=== PATIENT | female | born 1965 | race Caucasian/White ===

== ENCOUNTER → 2019-09-26 12:48 | Outpatient (BNVA) | payer BC, SELFPAY | PROVIDERS: Family Provider Internal Medicine; PCP Internal Medicine; Visit Provider Nurse Practitioner Psychiatric/Mental Health | DX: F33.41 Major depressive disorder, recurrent, in partial remission (principal); F41.1 Generalized anxiety disorder | CPT/HCPCS: 99213 ==

== ENCOUNTER → 2019-12-17 08:32 | Outpatient (BNVA) | payer BC, SELFPAY | PROVIDERS: Family Provider Internal Medicine; PCP Internal Medicine; Visit Provider Nurse Practitioner Psychiatric/Mental Health | DX: F33.41 Major depressive disorder, recurrent, in partial remission (principal); F41.1 Generalized anxiety disorder | CPT/HCPCS: 99213 ==

== ENCOUNTER → 2020-04-14 07:51 | Outpatient (BNVA) | payer BC, SELFPAY | PROVIDERS: Family Provider Internal Medicine; PCP Internal Medicine; Visit Provider Nurse Practitioner Psychiatric/Mental Health | DX: Z63.79 Other stressful life events affecting family and household (principal); F33.41 Major depressive disorder, recurrent, in partial remission; F41.1 Generalized anxiety disorder | CPT/HCPCS: 99213 ==

== ENCOUNTER 2020-07-01 11:11 | Outpatient (CLI) | payer BC, SELFPAY ==
--- NOTE | 2020-07-01 11:16 | XR_ITS ---
WS: [id number] Exam: XR chest 2V* [id number] Date/Time of Exam: 07/01/2020 11:27 AM Reason For Exam: COUGH Comparison 11/27/2015. The lungs are clear and fully expanded. Normal cardiomediastinal structures and regional bony element s. Operative fusion of the lower cervical spine with plate and screw fixation. XR/XR chest 2V* [id number] IMPRESSION: 1. No acute cardiopulmonary finding. No change.
== END 2020-07-01 11:12 | disposition home or self-care (01) ==
PROVIDERS: PCP Nurse Practitioner Family; Visit Provider Nurse Practitioner Family
DX: R05 Cough (principal)
CPT/HCPCS: 71046

== ENCOUNTER 2020-07-05 05:09 | Emergency (ER) | payer BC, SELFPAY ==
[2020-07-05 05:33] VITALS: BP 126/85; PULSE 77; RESP 16; TEMP 36.7; O2SAT 97; BMI 48.2
--- NOTE | 2020-07-05 05:59 | XRR_ITS ---
PROCEDURE INFORMATION: Exam: XR Chest, 1 View Exam date and time: 07/05/2020 6:00 AM Age: 54 years old Clinical indication: Cough TECHNIQUE: Imaging protocol: XR of the chest Views: 1 view. COMPARISON: CR XR chest 2V* [id number] 07/01/2020 11:31 AM FINDINGS: Lungs: Bra in place, therefore the interval haziness over the left lateral lung base strongly suspected to be due to overlapping breast tissue. No interval disease elsewhere in the lungs. Very small calcified granuloma in the lateral right upper lobe again evident. Pleural space: No pneumothorax or suggestion of pleural fluid. Heart/Mediastinum: Still no cardiomegaly. Bones/joints: Screw and plate fixation device in the lower cervical spine again evident. No apparent acute fracture. Old left rib fracture and a right cervical rib still present. XR/XR chest 1V portable [id number] IMPRESSION: No acute findings.
--- NOTE | 2020-07-05 06:54 | W.ED.URI ---
HPI - URI/Sore Throat General: Chief Complaint: Upper Respiratory Infection Stated Complaint: uncontrollable cough Time Seen by Provider: 07/05/20 05:57 Source: patient Mode of arrival: ambulatory Limitations: no limitations History of Present Illness: HPI Narrative: Noreen is a very nice 54-year-old female comes in complaining of persistent cough, congestion and wheezing. Patient states that she has had the cough for 2 weeks and has taken a round of steroids as well as a Zithromax course. Her cough is dry nonproductive. She denies any fever. She denies any sore throat, loss of sense of taste or loss of sense of smell. Patient states that she just cannot quite get over the hump . Patient denies any chest pain, nausea or vomiting, diarrhea or new exposures to symptoms other than some in her home have her symptoms but not quite as severe. Patient otherwise denies any complaints or concerns. Associated symptoms: Deny abdominal pain, chills, chest pain, diarrhea, ear or mastoid pain, fever(s), headache(s), nausea or vomiting Review of Systems Const: Denies: fever(s), chills, body aches, fatigue, malaise or diaphoresis Eyes: Denies: change in vision, blurry vision, photophobia, eye discomfort, eye discharge, eye redness or yellow eyes ENMT: Denies: throat pain, odynophagia, hoarseness, swelling of lips/tongue, ear or mastoid pain, ear discharge, change in hearing or nasal discharge Card: Denies: chest pain, palpitations, irregular heart rhythm, edema, lightheadedness, syncope, pre-syncope, dyspnea on exertion or orthopnea Resp: Reports: non-productive cough and wheezing GI: Denies: abdominal pain, nausea, vomiting, hematemesis, coffee ground emesis, heartburn, diarrhea, constipation, GI cramping, hematochezia or melena : Denies: flank pain, dysuria, urinary frequency, urinary urgency or hematuria Musc: Denies: neck pain, back pain, extremity pain, extremity swelling, joint pain, joint swelling, joint redness, joint warmth or joint stiffness Skin/Breast: Denies: rash, pruritus, erythema, skin pain or skin tenderness Neuro: Denies: headache(s), numbness in extremities, weakness in extremities, sensory changes, lack of coordination, difficulty walking, dizziness, vertigo, confusion, Slurred speech present or seizure-like activity Cole/Lymph: Denies: easy bruising, easy bleeding, petechiae, purpura or enlarged lymph nodes All/Imm: Denies: urticaria, throat swelling, tongue swelling, facial swelling or acute wheezing PFSH ED PFSH: Medical History Generalized anxiety disorder Major depressive disorder, recurrent, in partial remission Other stressful life events affecting family and household 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 Social History Smoking and tobacco status: former smoker Physical Exam Const: COMMON NORMALS: no acute distress, patient oriented x3, no limitations and alert GENERAL APPEARANCE: cooperative HENMT: COMMON NORMALS: normocephalic, atraumatic, external ears normal, EAC's normal and Normal external nose present HEAD & SCALP: normal to inspection, normocephalic and atraumatic FACE & SINUS: normal facial exam and face symmetric NOSE: Normal external nose present and Normal nares present EXTERNAL EAR: Yes external ears normal EXTERNAL AUDITORY CANAL: EAC's normal MOUTH: Normal oral and palatal mucosa present, lip normal and tongue normal Eye: COMMON NORMALS: Equal, round and reactive pupils present and conjunctivae normal GENERAL EYE: appearance normal, both eyes and all related structures ALIGNMENT: Yes alignment normal PERIORBITAL: periorbital findings normal EYELID: eyelids normal CONJUNCTIVA: Yes conjunctivae normal SCLERA: sclerae normal PUPIL: Yes Equal, round and reactive pupils present Neck/C-Spine: COMMON NORMALS: full ROM, no lymphadenopathy, supple, no meningeal signs and no JVD GENERAL: Yes normal visual inspection and Yes trachea midline Chest: COMMONS NORMALS: normal inspection of the chest and normal palpation of entire chest wall Resp: COMMON NORMALS: normal respiratory effort, No retractions and No use of accessory muscles EFFORT & INSPECTION: Yes able to speak in complete sentences and Yes symmetric chest movement AUSCULTATION: no crackles, no rales, rhonchi and no wheezes Cardio: COMMON NORMALS: no JVD, regular rate, regular rhythm, S1 normal heart sound present and S2 normal heart sound present RATE: regular rate RHYTHM: regular rhythm HEART SOUNDS: S1 normal heart sound present, S2 normal heart sound present, no click, no gallops, no murmurs and no rubs GI: COMMON NORMALS: Soft to palpation and No hepatosplenomegaly present PALPATION: Yes Soft to palpation, No Tenderness to palpation present (GI), No Guarding due to palpation present (GI), No Rigid due to palpation, Yes No hepatosplenomegaly present, No Hernia present, No Palpable mass present and No Pulsatile mass present : COMMON NORMALS: Yes no CVA tenderness BLADDER/KIDNEY EXAM: Yes no CVA tenderness EXTERNAL FEMALE EXAM: No Hernia present Back/Pelvis: COMMON NORMALS: no CVA tenderness, thoracic and lumbar spine normal to inspection, no thoracic nor lumbar tenderness and thoraco-lumbar ROM normal Extremity: COMMON NORMALS: normal to inspection, full ROM, capillary refill normal, no joint enlargement, no clubbing, cyanosis or edema and no calf tenderness Neuro: COMMON NORMALS: patient oriented x3, CN's II-XII intact bilaterally, moves all extremities, no focal motor deficits and no sensory deficits noted SENSORIUM/ORIENTATION: Yes alert MENINGEAL SIGNS: Yes no meningeal signs SPEECH: speech normal Psych: COMMON NORMALS: mental status grossly normal, Normal thought process present, cooperative, normal affect, speech normal and activity/motor behavior normal SPEECH: Yes normal speech THOUGHT PROCESS: Normal thought process present Skin: COMMON NORMALS: no rashes or lesions noted, turgor normal, no jaundice, no petechiae and no mottling GENERAL SKIN EXAM: no rashes or lesions noted and turgor normal Course Vital Signs: Vital signs: Vital Signs Temperature 98.0 F 07/05/20 05:33 Pulse Rate 73 07/05/20 07:15 Respiratory Rate 18 07/05/20 07:15 Blood Pressure 134/80 07/05/20 07:15 Pulse Oximetry 98 07/05/20 07:15 MDM - URI/Sore Throat MDM Narrative: Medical decision making narrative: Patient is relieved to hear she does not have Covid or influenza. She is in no respiratory distress. Her lung sounds are mildly rhonchorous at times. There is no evidence of pneumonia on her chest x-ray. She not having chest pain, shortness of breath all of her symptoms seem to be upper respiratory and bronchitis in nature. I will give the patient a dose of antibiotic here and send her home on antibiotics, steroids and Tessalon Perles for cough. She agrees to return should her symptoms change or worsen but this time she is ready for discharge. Lab Data: Attestation: I reviewed the patient's lab results. Labs: Lab Results 07/05/20 07/05/20 Range/Units 06:29 06:29 Influenza Type A A g Negative (Negative) Influenza Type B A g Negative (Negative) SARS-CoV-2 Ag (Rap id) Negative (Negative) Imaging Data^: CXR: Attestation: I personally reviewed and interpreted this imaging study as follows: My impression: No acute cardiopulmonary findings. Discharge Plan Discharge Patient Disposition: Home Clinical Impression: Bronchitis Condition: Stable Prescriptions: New Decadron 6 mg tablet 6 mg PO DAILY Qty: 10 RF: 0 cefdinir 300 mg capsule 300 mg PO Q12H 10 Days Qty: 20 RF: 0 Tessalon Perles 100 mg capsule 100 mg PO TID PRN (Reason: cough) Qty: 30 RF: 0 No Action clonazepam [Klonopin] 1 mg tablet 1 mg PO BID Qty: 60 RF: 3 melatonin 5 mg capsule 10 mg PO .bedtime PRN (Reason: sleep) Qty: 60 RF: 3 trazodone 150 mg tablet 150 mg PO .bedtime PRN (Reason: sleep) Qty: 60 RF: 3 Trintellix 20 mg tablet 20 mg PO .morning Qty: 30 RF: 3 Discharge Orders: Discharge Order (Routine); Ordered 07/05/20 Ordered By: Leonor Mcgill Referrals: Toño Huffman NP [Primary Care Provider] - 1-3 days Discharge Diet: Advance as tolerated Discharge Activity: Increase activity as tolerated Patient Instructions: Acute Bronchitis (ED) Activity Restrictions/Additional Instructions: Please return to the ER immediately for any of the signs or symptoms listed on your discharge instruction sheets, worsening/changing of your symptoms, you are not getting better as quickly as expected, or for ANY other cause or concerns. 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
[2020-07-05 07:15] VITALS: BP 134/80; PULSE 73; RESP 18; O2SAT 98
[2020-07-05 07:35] LABS: Influenza A by IFA Negative (Negative); Influenza B by IFA Negative (Negative); SARS Covid-2 Antigen Negative (Negative)
[2020-07-05] MEDS: cefTRIAXone 1,000 mg SDV 1000 MG IM (08:07)
[2020-07-05] MEDS: lidocaine 1% INJ 20 mL IM (08:07)
[2020-07-05 08:13] VITALS: BP 143/85; PULSE 73; RESP 18; TEMP 36.2; O2SAT 96
[2020-07-05 08:35] VITALS: PULSE 68; RESP 16; O2SAT 96
[2020-07-05] MEDS: albuterol 8 gm MDI 2 PUFF INHALATION (08:35)
[2020-07-05 08:40] VITALS: PULSE 74; RESP 16; O2SAT 96
== END 2020-07-05 08:45 | disposition home or self-care (01) ==
PROVIDERS: Emergency Provider Emergency Medicine; PCP Nurse Practitioner Family
DX: J40 Bronchitis, not specified as acute or chronic (principal); Z87.891 Personal history of nicotine dependence
CPT/HCPCS: 12345; 71045; 87426; 87804; 94640; 96372; 99281; 99283; J0696; J3535

== ENCOUNTER → 2020-08-25 07:36 | Outpatient (BNVA) | payer BC, SELFPAY | PROVIDERS: PCP Nurse Practitioner Family; Visit Provider Nurse Practitioner Psychiatric/Mental Health | DX: F33.41 Major depressive disorder, recurrent, in partial remission (principal); F41.1 Generalized anxiety disorder; Z63.79 Other stressful life events affecting family and household | CPT/HCPCS: 99213 ==

== ENCOUNTER 2021-02-26 15:52 | Emergency (ER) | payer BC, SELFPAY ==
[2021-02-26 16:25] VITALS: BP 134/82; PULSE 91; RESP 18; TEMP 36.9; O2SAT 95; BMI 50.6
--- NOTE | 2021-02-26 19:27 | ECG_ITS ---
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 Measurements Intervals [place] Rate: 83 P: 33 MI: 166 QRS: 1 QRSD: 89 T: -17 QT: 374 QTc: 441 Interpretive Statements SINUS RHYTHM LOW QRS VOLTAGE IN PRECORDIAL LEADS [QRS DEFLECTION < 1.0 mV IN CHEST LEADS] MINIMAL ST DEPRESSION [0.025+ mV ST DEPRESSION] No previous ECG available for comparison Electronically Signed On 02-26-2021 23:34:54 CDT by Tyron Adams M.D. [email or web address] ( [employer] ).[facility].[email or web address]/[id number]
--- NOTE | 2021-02-26 19:27 | XRR_ITS ---
PROCEDURE INFORMATION: Exam: XR Chest Exam date and time: 02/26/2021 7:27 PM Age: 55 years old Clinical indication: Pain; Patient HX: Chest pressure x several days, PT denies trauma to chest; Additional info: Cp TECHNIQUE: Imaging protocol: XR of the chest. Views: 1 view. COMPARISON: CR XR chest 1V portable [id number] 07/05/2020 6:15 AM FINDINGS: Lungs: Unremarkable. No consolidation. Pleural spaces: Unremarkable. No pleural effusion. No pneumothorax. Heart/Mediastinum: Unremarkable. No cardiomegaly. Bones/joints: Postoperative metallic fixation of the cervical spine with or without metallic artifact. XR/XR chest 1V portable [id number] IMPRESSION: No acute findings.
[2021-02-26 20:16] LABS: Basophils # 0.1 10^3/uL (0.0-0.1); Basophils % 0.5 %; Eosinophils # 0.2 10^3/uL (0.0-0.8); Eosinophils % 1.6 %; Hematocrit 43.2 % (37.0-47.0); Hemoglobin 13.6 g/dL (11.5-15.3); Lymphocytes # 2.9 10^3/uL (0.8-4.8); Lymphocytes % 29.7 %; Mean Corpuscular HGB Conc 31.5 g/dL (30.0-36.0); Mean Corpuscular Hemoglobin 28.2 pg (28.0-34.0); Mean Corpuscular Volume 89.4 fL (81-99); Mean Platelet Volume 10.7 fL (7.4-10.4); Monocytes # 0.7 10^3/uL (0.2-0.9); Monocytes % 7.2 %; Neutrophils # 5.93 10^3/uL (1.8-7.7); Neutrophils % 60.6 %; Nucleated Red Blood Cells % 0 %; Platelet Count 407 10^3/cmm (130-400); Red Blood Count 4.83 10^6/uL (4.1-5.3); Red Cell Distribution Width 14.7 % (12.1-15.1); White Blood Count 9.8 10^3/uL (4.0-10.0)
[2021-02-26 20:44] LABS: Troponin(5th) Baseline 6 ng/L (0-10)
[2021-02-26 20:47] LABS: Alanine Aminotransferase 20 U/L (0-33); Albumin Level 4.3 g/dL (3.5-5.2); Alkaline Phosphatase 116 IU/L (35-105); Anion Gap 15.4 (5-19); Aspartate Amino Transferase 16 U/L (0-32); Blood Urea Nitrogen 15 mg/dL (6-20); Calcium 8.7 mg/dL (8.5-10.5); Carbon Dioxide 27 mmol/L (22-29); Chloride 101 mmol/L (98-107); Globulin 2.5 g/dL (1.3-4.6); Glomerular Filtration Rate 74.2 mL/min (90-130); Glucose 91 mg/dL (65-115); Osmolality Calculated 288 mOsm/kg (285-295); Potassium 4.4 mmol/L (3.5-5.1); Sodium 139 mmol/L (136-145); Total Bilirubin 0.2 mg/dL (0.15-1.2); Total Protein 6.8 g/dL (6.6-8.7)
--- NOTE | 2021-02-26 22:02 | W.ED.GENADLT ---
HPI - General Adult General: Chief complaint: General Medical Stated complaint: chest tightness, trouble swallowing Time Seen by Provider: 02/26/21 22:02 History of Present Illness: HPI narrative: 55-year-old female comes in today with complaints of chest discomfort with swallowing. Patient reports some increased anxiety and stress in life. Patient also reports that she does use omeprazole routinely for reflux. Patient is alert and oriented. Patient appears well. Patient appears no acute distress. Patient reports discomfort for the last 2 days. 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 Social History Smoking and tobacco status: former smoker Physical Exam Const: COMMON NORMALS: no acute distress and patient oriented x3 GENERAL APPEARANCE: cooperative HENMT: COMMON NORMALS: normocephalic, TM's normal bilaterally and Normal external nose present HEAD & SCALP: normal to inspection and normocephalic NOSE: Normal external nose present TYMPANIC MEMBRANE: TM's normal bilaterally MOUTH: Normal oral and palatal mucosa present THROAT: posterior oropharynx normal Eye: GENERAL EYE: appearance normal, both eyes and all related structures Neck/C-Spine: COMMON NORMALS: full ROM Lymph: LYMPHATIC: no lymphadenopathy noted Chest: COMMONS NORMALS: normal inspection of the chest Resp: COMMON NORMALS: normal respiratory effort EFFORT & INSPECTION: Yes able to speak in complete sentences Cardio: COMMON NORMALS: regular rate and regular rhythm RATE: regular rate RHYTHM: regular rhythm GI: COMMON NORMALS: non-tender : COMMON NORMALS: Yes no CVA tenderness BLADDER/KIDNEY EXAM: Yes no CVA tenderness Back/Pelvis: COMMON NORMALS: no CVA tenderness and thoracic and lumbar spine normal to inspection Extremity: COMMON NORMALS: normal to inspection Neuro: COMMON NORMALS: patient oriented x3 and moves all extremities Psych: COMMON NORMALS: mental status grossly normal and cooperative Skin: COMMON NORMALS: no rashes or lesions noted GENERAL SKIN EXAM: no rashes or lesions noted Course Vital Signs: Vital signs: Vital Signs Temperature 98.4 F 02/26/21 16:25 Pulse Rate 79 02/26/21 22:14 Respiratory Rate 19 H 02/26/21 22:14 Blood Pressure 124/87 02/26/21 22:14 Pulse Oximetry 97 02/26/21 22:14 MDM - General Adult MDM Narrative: Medical decision making narrative: Patient comes in for concerns of chest discomfort for the last 2 days. Patient appears well. Patient appears no acute distress. Patient does report history of anxiety which he takes medicine for had worse symptoms over the last 2 days which was concerning due to her not having chest discomfort before with it. On exam patient lungs are clear to auscultation. Abdomen soft nontender. Skin is warm and dry. Differential diagnosis includes but not limited to ACS, anxiety disorder, esophagitis with GERD. Laboratory values were unremarkable. Troponin was negative. Patient was given a dose of Ativan and a GI cocktail. Patient had significant improvement of symptoms after treatment. Recommended patient continue for omeprazole and follow-up with primary care for further instructions. Patient reported understanding. Lab Data: Labs: Lab Results 02/26/21 02/26/21 02/26/21 Range/Units 19:49 19:49 19:49 WBC 9.8 (4.0-10.0) 10^3/ uL RBC 4.83 (4.1-5.3) 10^6/u L Hgb 13.6 (11.5-15.3) g/dL Hct 43.2 (37.0-47.0) % MCV 89.4 (81-99) fL MCH 28.2 (28.0-34.0) pg MCHC 31.5 (30.0-36.0) g/dL RDW 14.7 (12.1-15.1) % Plt Count 407 H (130-400) 10^3/c mm MPV 10.7 H (7.4-10.4) fL Neut % (Auto) 60.6 % Lymph % (Auto) 29.7 % Faulk % (Auto) 7.2 % Eos % (Auto) 1.6 % Baso % (Auto) 0.5 % Neut # (Auto) 5.93 (1.8-7.7) 10^3/u L Lymph # (Auto) 2.9 (0.8-4.8) 10^3/u L Faulk # (Auto) 0.7 (0.2-0.9) 10^3/u L Eos # (Auto) 0.2 (0.0-0.8) 10^3/u L Baso # (Auto) 0.1 (0.0-0.1) 10^3/u L Nucleated RBC % (a uto) 0 % Nucleated RBCs # 0.0 /100WBC Sodium 139 (136-145) mmol/L Potassium 4.4 (3.5-5.1) mmol/L Chloride 101 (98-107) mmol/L Carbon Dioxide 27 (22-29) mmol/L Anion Gap 15.4 (5-19) BUN 15 (6-20) mg/dL Creatinine 0.8 (0.5-0.9) mg/dL GFR Calculation 74.2 L (90-130) mL/min Glucose 91 (65-115) mg/dL Calculated Osmolal ity 288 (285-295) mOsm/k g Calcium 8.7 (8.5-10.5) mg/dL Total Bilirubin 0.2 (0.15-1.2) mg/dL AST 16 (0-32) U/L ALT 20 (0-33) U/L Alkaline Phosphata se 116 H (35-105) IU/L Troponin T Baselin e 6 (0-10) ng/L Troponin T 120 Min [place] (0-10) ng/L Delta Troponin T (0-10) ABS# Total Protein 6.8 (6.6-8.7) g/dL Albumin 4.3 (3.5-5.2) g/dL Globulin 2.5 (1.3-4.6) g/dL 02/26/21 Range/Units 22:19 WBC (4.0-10.0) 10^3/ uL RBC (4.1-5.3) 10^6/u L Hgb (11.5-15.3) g/dL Hct (37.0-47.0) % MCV (81-99) fL MCH (28.0-34.0) pg MCHC (30.0-36.0) g/dL RDW (12.1-15.1) % Plt Count (130-400) 10^3/c mm MPV (7.4-10.4) fL Neut % (Auto) % Lymph % (Auto) % Faulk % (Auto) % Eos % (Auto) % Baso % (Auto) % Neut # (Auto) (1.8-7.7) 10^3/u L Lymph # (Auto) (0.8-4.8) 10^3/u L Faulk # (Auto) (0.2-0.9) 10^3/u L Eos # (Auto) (0.0-0.8) 10^3/u L Baso # (Auto) (0.0-0.1) 10^3/u L Nucleated RBC % (a uto) % Nucleated RBCs # /100WBC Sodium (136-145) mmol/L Potassium (3.5-5.1) mmol/L Chloride (98-107) mmol/L Carbon Dioxide (22-29) mmol/L Anion Gap (5-19) BUN (6-20) mg/dL Creatinine (0.5-0.9) mg/dL GFR Calculation (90-130) mL/min Glucose (65-115) mg/dL Calculated Osmolal ity (285-295) mOsm/k g Calcium (8.5-10.5) mg/dL Total Bilirubin (0.15-1.2) mg/dL AST (0-32) U/L ALT (0-33) U/L Alkaline Phosphata se (35-105) IU/L Troponin T Baselin e (0-10) ng/L Troponin T 120 Min [place] 6.00 (0-10) ng/L Delta Troponin T 0 (0-10) ABS# Total Protein (6.6-8.7) g/dL Albumin (3.5-5.2) g/dL Globulin (1.3-4.6) g/dL Discharge Plan Discharge Patient Disposition: Home Clinical Impression: Atypical chest pain, Generalized anxiety disorder GERD (gastroesophageal reflux disease) Qualifiers: Esophagitis presence: esophagitis presence not specified Qualified Code(s): K21.9 - Gastro-esophageal reflux disease without esophagitis Condition: Stable Prescriptions: No Action trazodone 150 mg tablet 150 mg PO .bedtime PRN (Reason: sleep) Qty: 180 RF: 2 Trintellix 20 mg tablet 20 mg PO .morning Qty: 90 RF: 2 clonazepam [Klonopin] 1 mg tablet 1 mg PO BID Qty: 60 RF: 3 melatonin 5 mg capsule 10 mg PO .bedtime PRN (Reason: sleep) Qty: 60 RF: 3 Tessalon Perles 100 mg capsule 100 mg PO TID PRN (Reason: cough) Qty: 30 RF: 0 Discharge Orders: Discharge ED (Routine); Ordered 02/26/21 Ordered By: Héctor Gonzalez Referrals: Toño Huffman NP [Primary Care Provider] - Discharge Diet: Usual diet Discharge Activity: Increase activity as tolerated Patient Instructions: Chest Pain (ED), Opioid Safety Activity Restrictions/Additional Instructions: Home and rest. Drink plenty of fluids. Follow-up with primary care for further instruction. Return to the emergency department for new concerns or worsening symptoms. 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
[2021-02-26 22:14] VITALS: BP 124/87; PULSE 79; RESP 19; O2SAT 97
[2021-02-26] MEDS: LORazepam 2 mg/mL INJ 1 mL 1 MG IVP (22:32)
[2021-02-26] MEDS: lidocaine 2% viscous 15 ML, aluminum-mag hydrox-simethicon 30 ML, sucralfate oral liq 1 GM PO (22:32)
[2021-02-26 22:40] LABS: Troponin 5 2HR Delta 0 ABS# (0-10)
[2021-02-26 23:26] VITALS: BP 140/118; PULSE 73; RESP 18; O2SAT 96
[2021-02-26 23:27] VITALS: PULSE 80; RESP 18; O2SAT 97
== END 2021-02-26 23:29 | disposition home or self-care (01) ==
PROVIDERS: Emergency Medicine; Emergency Provider Nurse Practitioner Family; PCP Nurse Practitioner Family
DX: R07.89 Other chest pain (principal); F41.1 Generalized anxiety disorder; K21.9 Gastro-esophageal reflux disease without esophagitis; Z87.891 Personal history of nicotine dependence
CPT/HCPCS: 71045; 80053; 84484; 85025; 93005; 96374; 99284; J2060

== ENCOUNTER → 2021-04-02 15:06 | Outpatient (BNVA) | payer BC, SELFPAY | PROVIDERS: PCP Nurse Practitioner Family; Referring Provider Nurse Practitioner Family; Visit Provider Podiatrist Foot & Ankle Surgery | DX: M25.572 Pain in left ankle and joints of left foot (principal); M19.072 Primary osteoarthritis, left ankle and foot | CPT/HCPCS: 73610 ==

== ENCOUNTER → 2021-04-13 10:14 | Outpatient (BNVA) | payer BC, SELFPAY | PROVIDERS: PCP Nurse Practitioner Family; Visit Provider Podiatrist Foot & Ankle Surgery | DX: Z01.812 Encounter for preprocedural laboratory examination (principal); Z20.822 Contact with and (suspected) exposure to COVID-19 | CPT/HCPCS: 87635 ==

== ENCOUNTER → 2021-04-21 00:01 | Outpatient (BNVA) | payer BC, SELFPAY | PROVIDERS: PCP Nurse Practitioner Family; Visit Provider Podiatrist Foot & Ankle Surgery | DX: Z01.812 Encounter for preprocedural laboratory examination (principal); Z20.822 Contact with and (suspected) exposure to COVID-19 | CPT/HCPCS: 87635 ==

== ENCOUNTER 2021-04-24 07:49 | Day surgery (SDC) | payer BC, SELFPAY ==
[2021-04-22] MEDS: sodium chloride 0.9% 1,000 ML 30 ML IV (10:30)
[2021-04-23 12:43] VITALS: BMI 50.6
--- NOTE | 2021-04-24 | SCC_ITS ---
Procedure Done: Deep hardware removal left ankle CPT code 10953 1 second of fluoroscopic guidance, for a cumulative dose of 0.05mGy, was provided to Dr. Bush by the radiology department. C-arm images of the LEFT ankle were saved for the patient's permanent record. [facility]
--- NOTE | 2021-04-24 08:19 | ANES.PREANE2 ---
Pre-Anesthetic Assessment Pre-Anesthetic Assessment: Height/Weight: Height 1.63 m Weight 133.81 kg Preop Diagnosis: Painful hardware left ankle Proposed Procedure: Operation Date: 04/24/21 09:35 Proposed Procedures p Hardware Removal 45062 M25.579(Not Applicable) - JIMMY VanM Was Beta Renata taken within 24 hours: N/A Was Clonidine taken within 24 hours: N/A Social: Social History: No alcohol and No tobacco Exam: Pre-Anes Outpt Exam: alert, oriented x 3, clear to auscultation bilaterally and regular rate & rhythm Airway: Submandibular: WNL Cervical ROM: WNL MP: 2 Pulmonary: Pulmonary: None reported CV/HEM: CV/HEM: HTN : : None reported Hepatic: Hepatic: None reported GI: GI: GERD (Well controlled on meds) Metabolic: Metabolic: Morbid obesity and Thyroid Musc/skel: Musc/skel: None reported Neuropsych: Neuropsych: Depression Anesthetic Plan: ASA status: 3 Anesthesia: MAC PFSH Anesthesia PFSH: Medical History Generalized anxiety disorder Major depressive disorder, recurrent, in partial remission Other stressful life events affecting family and household Social History Smoking and tobacco status: never smoked Data Anesthesia Cardiac Studies: No Data to Display
[2021-04-24 08:23] VITALS: BP 118/95; PULSE 88; RESP 18; TEMP 36.2; O2SAT 100
--- NOTE | 2021-04-24 08:52 | P.HPUD_ITS ---
Surgery/Procedure H&P Update DATE OF PROCEDURE: April 24, 2021 DATE H&P PERFORMED: 04/02/21 H&P UPDATE INFORMATION: I have reviewed H&P completed within last 30 days, I have examined patient prior to procedure, No changes to prior documentation and [place] [facility] [place] indicated PREOP DIAGNOSIS: Painful hardware left ankle PLANNED PROCEDURE: Operation Date: 04/24/21 09:35 Proposed Procedures p Hardware Removal 05254 M25.579(Not Applicable) - Gabino Bush DPM
--- NOTE | 2021-04-24 09:04 | XR_ITS ---
WS: [id number] Left ankle, 3 views, 04/24/2021 Clinical Data: Postop hardware removal Comparison: Left ankle, 04/02/2021. Findings: The distal left lateral fibular plate and screws have been removed. There are subcutaneous surgical s taples adjacent to the operative site. The posterior plate on the tibia with screws remains the same. There is osteoarthritis of the ankle joint. XR/XR ankle LT min 3V* [id number] Impression: Removal of distal left lateral fibular plate and screws.
[2021-04-24] MEDS: lidocaine 1% INJ 20 mL INJECTION (09:15)
--- NOTE | 2021-04-24 09:50 | P.OP_ITS ---
Operative Report Date of procedure: April 24, 2021 Pre-op Diagnosis: Painful hardware left ankle Post-op diagnosis: same Post-op Findings: None Procedure Done: Deep hardware removal left ankle CPT code 61171 Implants: 2-0 Vicryl, 3-0 Vicryl, skin digna Specimens removed/disposition: 7 screws 1 plate left lateral malleolus Pathology: none sent Surgeon: Gabino Bush D.P.M. [employer] Planner: Darnell Anesthesia: MAC Estimated blood loss: Less than 5 mL Tourniquet time: 19 minutes IV fluids: None Urine output: None Complications: None Findings: None Condition: stable Disposition: PACU Brief History: Patient is a pleasant 55-year-old female sustaining left ankle fracture in 2016 and subsequent ORIF. She is now complaining of painful hardware that is prominent is painful to wear with shoes and boots on every day activities. She can feel sharp pain on the outside of her left ankle would like to have the hardware removed. I discussed risks versus benefits of surgery. Risks include pain, bleeding, numbness, infection, failure to remove hardware, hardware breakage, partial removal, failure to alleviate pain after hardware being removed. Patient is agreeable wishes to proceed. She has been n.p.o. since midnight, informed consent is signed, she is Covid negative, no guarantees written, expressed or implied. Procedure: Due to the lowUnder mild the patient was brought to the operating room and placed on the operating table in supine position. A timeout was performed. Anesthesia was then administered by the anesthesia service. Local anesthesia injected by myself in a V-block proximal to the incision left lateral ankle total of 30 cc of one-to-one mixture 1% lidocaine 0.5 sent Marcaine plain. Well-padded pneumatic tourniquet applied high calf to the left lower extremity. Left lower extremity was then scrubbed, prepped and draped utilizing normal aseptic technique. Left lower extremity was wrapped with an Esmarch bandage and the tourniquet inflated to 250 mmHg. Lateral ankle over the previous incision a 15 blade was utilized to make a linear longitudinal incision directly over the previous cicatrix. This was carried through skin and sharp and blunt dissection through subcutaneous tissue down to the level of hardware on the lateral malleolus/left fibula. Care was taken to retract and preserve neurovascular and tendinous structures. All bleeders were ligated and cauterized as necessary. A total of 7 screws removed from bone and the plate was removed past from operative field sent for cleansing this will be sent home with the patient. No remaining hardware at the lateral malleolus or left distal fibula. This was confirmed with fluoroscopy. No complications encountered. No hardware failure or breakage or bony complications. All rough edges were smoothed incision was flushed with saline solution and periosteum closed with 2-0 Vicryl, subcutaneous tissue closed with 3-0 Vicryl and skin closed with skin digna. Incision was dressed with Adaptic, sterile 4 x 4's, Kerlix and Remigio wrap. Postop shoe was applied. Patient tolerated procedure and anesthesia well. Tourniquet was deflated and a prompt hyperemic response is noted to the distal digits of the left foot. Following a period of postoperative monitoring she will be discharged home May increase activity slowly as tolerated was given discharge instructions and follow-up on discharge paperwork.
[2021-04-24 09:57] VITALS: BP 136/92; PULSE 90; RESP 17; TEMP 36.3; O2SAT 91
[2021-04-24 10:00] VITALS: BP 106/70; PULSE 85; RESP 16; O2SAT 92
[2021-04-24 10:05] VITALS: BP 115/92; PULSE 85; RESP 15; TEMP 36.4; O2SAT 93
[2021-04-24 10:18] VITALS: BP 118/88; PULSE 86; RESP 18; TEMP 36.4; O2SAT 93
[2021-04-24 10:30] VITALS: RESP 18; O2SAT 93
[2021-04-24] MEDS: oxyCODONE-APAP 10-325 mg Tablet 1 TAB PO (10:30)
--- NOTE | 2021-04-24 11:14 | ANE.PACU2 ---
Inpatient post-anesthesia follow up: Airway intact: Yes Vital signs: Temperature 97.6 F Pulse Rate 86 Respiratory Rate 18 Blood Pressure 118/88 Pulse Oximetry 93 Oxygen Delivery Me thod Room Air Oxygen Flow Rate Fraction of Inspir ed Oxygen Hydration adequate: Yes Nausea and vomiting: No Pain level: 1 Mental status: Baseline
== END 2021-04-24 10:45 | disposition home or self-care (01) ==
PROVIDERS: PCP Nurse Practitioner Family; Visit Provider Podiatrist Foot & Ankle Surgery
PROC: (CPT 20680; principal; 2021-04-24 09:25)
DX: T84.84XA Pain due to internal orthopedic prosthetic devices, implants and grafts, initial encounter (principal); I10 Essential (primary) hypertension; K21.9 Gastro-esophageal reflux disease without esophagitis; E66.01 Morbid (severe) obesity due to excess calories; Z68.43 Body mass index [BMI] 50.0-59.9, adult; F41.9 Anxiety disorder, unspecified; F33.9 Major depressive disorder, recurrent, unspecified
CPT/HCPCS: 20680; 73610; 76000; J0690; J2250; J2405; J2704; J3010; J3490; J7030

== ENCOUNTER 2021-05-03 09:03 | Emergency (ER) | payer BC, SELFPAY ==
[2021-05-03 09:09] VITALS: PULSE 89; RESP 20; TEMP 36.8; O2SAT 96; BMI 49.1
--- NOTE | 2021-05-03 09:23 | W.ED.ANXIETY ---
HPI - Anxiety General: Chief Complaint: Anxiety Stated Complaint: Reaction to Meds Time Seen by Provider: 05/03/21 09:04 Source: patient Mode of arrival: ambulatory Limitations: no limitations History of Present Illness: HPI narrative: 55-year-old female presents to the ER today for worsening anxiety. Patient has a long history of anxiety and sees a psychiatrist regularly. She has been on multiple medications in the past and reports Klonopin was the most successful at helping with her anxiety. Patient psychiatrist wanted to try some different things and tried Ativan which was ineffective and most recently patient has been on Valium. Patient reports the Valium does not seem to be working at all and actually is making things worse. She feels more tearful and has difficulty sleeping. Patient admits to stressors in life including a sick son and a mother who was recently placed in an Alzheimer's unit. Patient denies any SI/HI and reports having a good support system at home including her . Patient is here today for approval to restart her Klonopin which she still has at home. She did not want to self medicate and change something without approval. Patient denies headache, fever, chills, chest pain, shortness of breath, nausea, vomiting, diarrhea, constipation, change in bowel or bladder habits. MD complaint: anxiety Onset (ago): year(s) Severity: moderate Quality: constant History of similar episodes: Yes Provoking factors: emotional stress Relieving factors: medication Associated symptoms: Deny chest pain, chills, fever(s), headache(s), nausea or palpitations Review of Systems Const: Denies: fever(s), chills or fatigue ENMT: Denies: throat pain, nasal discharge or nasal congestion Card: Denies: chest pain or palpitations Resp: Denies: dyspnea or wheezing GI: Denies: abdominal pain, nausea, diarrhea or constipation Musc: Denies: back pain Skin/Breast: Denies: rash Neuro: Denies: headache(s) Psych: Reports: anxiety and sleeping less; Denies: suicidal ideation or homicidal ideation PFSH ED PFSH: Medical History Generalized anxiety disorder Major depressive disorder, recurrent, in partial remission Other stressful life events affecting family and household Physical Exam Const: COMMON NORMALS: no acute distress and patient oriented x3 NUTRITIONAL APPEARANCE: obese ORIENTATION/CONSCIOUSNESS: Yes Other orientation findings (Tearful) HENMT: COMMON NORMALS: normocephalic HEAD & SCALP: normocephalic Lymph: LYMPHATIC: no lymphadenopathy noted Resp: COMMON NORMALS: normal respiratory effort and clear to auscultation bilaterally EFFORT & INSPECTION: Yes able to speak in complete sentences AUSCULTATION: clear to auscultation bilaterally, no rales, no rhonchi and no wheezes Cardio: COMMON NORMALS: regular rate, regular rhythm and No murmurs present (Cardio) RATE: regular rate RHYTHM: regular rhythm GI: COMMON NORMALS: Normal to inspection, nondistended, normoactive bowel sounds present, Soft to palpation and non-tender PALPATION: Yes Soft to palpation Extremity: COMMON NORMALS: normal to inspection and full ROM Neuro: COMMON NORMALS: patient oriented x3 Psych: COMMON NORMALS: mental status grossly normal, Normal thought process present and speech normal APPEARANCE: Yes grossly normal ATTITUDE: Yes calm SPEECH: Yes normal speech MOOD & AFFECT: Yes tearful THOUGHT PROCESS: Normal thought process present THOUGHT CONTENT: Yes Normal thought content present Skin: COMMON NORMALS: no rashes or lesions noted GENERAL SKIN EXAM: no rashes or lesions noted Course ED course: Patient presents to the ER today for increased anxiety after her psychologist recently switched her from Klonopin to Ativan and now Valium. Patient is having opposite effects on the Valium specifically including decreased sleep and increased tearfulness. Patient still has the Klonopin at home but wanted the okay to restart it. Vital Signs: Vital signs: Vital Signs Temperature 99.5 F 05/03/21 09:24 Pulse Rate 74 05/03/21 09:24 Respiratory Rate 20 H 05/03/21 09:24 Blood Pressure 135/89 05/03/21 09:27 Pulse Oximetry 97 05/03/21 09:24 MDM - Anxiety MDM Narrative: Medical decision making narrative: Patient presented to ER today for increased anxiety after recently switching her anxiety medication from Klonopin to Ativan to now Valium. Patient reports on the Valium she has had increased tearfulness and is unable to sleep. She denies any thoughts of suicide or harming herself or someone else. Patient has a long history of this anxiety and depression and reports has increased dressers in her life including a sick son and mother in an Alzheimer's unit. Patient was doing good on the Klonopin however they wanted to try some other things to try to get her off of that. Patient would have called her psychiatrist but it is weekend and she will call for seeing in the morning. It is okay for patient to restart the Klonopin at this time, D/C the Valium. Patient consents to safety and has a good support system at home. Return to the ER with any new or worsening symptoms. Discharge Plan Discharge Patient Disposition: Home Clinical Impression: Generalized anxiety disorder Condition: Stable Prescriptions: No Action trazodone 150 mg tablet 150 mg PO .bedtime PRN (Reason: sleep) Qty: 180 RF: 2 Trintellix 20 mg tablet 20 mg PO .morning Qty: 90 RF: 2 diazepam [Valium] 5 mg tablet 5 mg PO BID PRN (Reason: anxiety) Qty: 28 RF: 1 benzonatate [Tessalon Perles] 100 mg capsule 100 mg PO TID PRN (Reason: cough) Qty: 30 RF: 0 cyclobenzaprine 10 mg tablet 10 mg PO DAILY RF: 0 promethazine-DM 6.25-15 mg/5 mL syrup 5 ml PO PRN RF: 0 albuterol sulfate 2.5 mg /3 mL (0.083 %) solution for nebulization 1 mg continuous nebulization PRN PRN (Reason: Shortness Of Breath) RF: 0 tolterodine 4 mg capsule,extended release 24hr 4 mg PO DAILY RF: 0 hydrocodone-acetaminophen 5-325 mg tablet 1 tab PO PRN RF: 0 Hold Instructions: Resume on 05/01/21. pramipexole 0.5 mg tablet 0.5 mg PO DAILY RF: 0 amlodipine 10 mg tablet 10 mg PO PRN RF: 0 levothyroxine 50 mcg tablet RF: 0 omeprazole 20 mg capsule,delayed release(DR/EC) 20 mg PO DAILY RF: 0 ibuprofen 600 mg tablet 600 mg PO PRN RF: 0 albuterol sulfate [ProAir HFA] 90 mcg/actuation HFA aerosol inhaler 1 puff INHALATION PRN RF: 0 Discharge Orders: Discharge ED (Routine); Ordered 05/03/21 Ordered By: Holly Mcmillan Referrals: Toño Huffman NP [Primary Care Provider] - Discharge Diet: Usual diet Discharge Activity: Resume usual activity Patient Instructions: Opioid Safety Activity Restrictions/Additional Instructions: Stop the Valium and restart the Klonopin. Follow-up with psychiatrist this week. Take all other medications as prescribed. Return to the ER with any new or worsening symptoms. Coding Level of Care Code ED [employer] for [place] [facility] Exam Comprehensive
[2021-05-03 09:24] VITALS: PULSE 74; RESP 20; TEMP 37.5; O2SAT 97
[2021-05-03 09:27] VITALS: BP 135/89
--- NOTE | 2021-05-03 09:28 | PC.NURSE ---
pt here with c/o anxiety after changing medications. needs to make sure she can resume her clonopin as previously prescribed. awaiting discharge plan
== END 2021-05-03 09:36 | disposition home or self-care (01) ==
PROVIDERS: Emergency Provider Physician Assistant; PCP Nurse Practitioner Family
DX: F41.1 Generalized anxiety disorder (principal)
CPT/HCPCS: 99283

== ENCOUNTER → 2022-01-05 08:31 | Outpatient (BNVA) | payer BC, SELFPAY | PROVIDERS: PCP Nurse Practitioner Family; Referring Provider Family Medicine; Visit Provider Nurse Practitioner Family | DX: M25.521 Pain in right elbow (principal) | CPT/HCPCS: 73080 ==

== ENCOUNTER 2022-06-21 16:59 | Outpatient (CLI) | payer OTHER, SELFPAY ==
--- NOTE | 2022-06-21 17:12 | XR_ITS ---
WS: [id number] Right foot, 3 views, 06/21/2022 Clinical Data: RIGHT ANKLE AND RIGHT FOOT JOINT PAIN Comparison: Right ankle, 06/21/2022 Findings: No fractures or dislocations are seen. No bone destruction or erosion is noted. The joint spaces and soft tissues are normal. There is a plantar spur and an Achilles spur. XR/XR foot RT min 3V* [id number] Impression: Negative right foot.
--- NOTE | 2022-06-21 17:12 | XR_ITS ---
WS: [id number] Right ankle, 3 views, 06/21/2022 Clinical Data: RIGHT ANKLE AND RIGHT FOOT JOINT PAIN Comparison: Right ankle, 06/21/2022 Findings: No fractures or dislocations are seen. The ankle mortise is normal. The talus and calcaneus are unrem arkable. No soft tissue swelling over the medial or lateral malleolus is seen. There is a plantar spur and an Achilles spur. XR/XR ankle RT min 3V* [id number] Impression: Negative right ankle.
== END 2022-06-21 17:00 | disposition home or self-care (01) ==
LOC: RAD 17:03
PROVIDERS: PCP Family Medicine; Visit Provider Podiatrist Foot & Ankle Surgery
DX: M25.571 Pain in right ankle and joints of right foot (principal); M79.671 Pain in right foot
CPT/HCPCS: 73610; 73630

== ENCOUNTER → 2022-09-02 10:50 | Outpatient (BNVA) | payer OTHER, SELFPAY | PROVIDERS: PCP Family Medicine; Visit Provider Nurse Practitioner Psychiatric/Mental Health | DX: Z79.899 Other long term (current) drug therapy (principal); Z63.79 Other stressful life events affecting family and household; F33.41 Major depressive disorder, recurrent, in partial remission; F41.1 Generalized anxiety disorder | CPT/HCPCS: 80053; 80061; 82306; 83036 ==

== ENCOUNTER 2022-09-30 15:04 | Emergency (ER) | payer OTHER, SELFPAY ==
[2022-09-30 15:11] VITALS: BP 160/84; PULSE 89; RESP 16; TEMP 36.3; O2SAT 96; BMI 51.5
[2022-09-30 16:11] LABS: Basophils # 0.1 10^3/uL (0.0-0.1); Basophils % 0.5 %; Eosinophils # 0.1 10^3/uL (0.0-0.8); Eosinophils % 1.1 %; Hematocrit 42.1 % (37.0-47.0); Hemoglobin 13.6 g/dL (11.5-15.3); Lymphocytes # 2.1 10^3/uL (0.8-4.8); Lymphocytes % 19.1 %; Mean Corpuscular HGB Conc 32.3 g/dL (30.0-36.0); Mean Corpuscular Hemoglobin 28.8 pg (28.0-34.0); Mean Corpuscular Volume 89.2 fl (81-99); Mean Platelet Volume 10.6 fL (7.4-10.4); Monocytes # 0.8 10^3/uL (0.2-0.9); Monocytes % 6.8 %; Neutrophils # 7.97 10^3/uL (1.8-7.7); Neutrophils % 72.2 %; Nucleated Red Blood Cells % 0 %; Platelet Count 363 10^3/cmm (130-400); Red Blood Count 4.72 10^6/uL (4.1-5.3); Red Cell Distribution Width 14.2 % (12.1-15.1)
[2022-09-30 16:33] LABS: Alanine Aminotransferase 38 U/L (0-33); Albumin Level 4.4 g/dL (3.5-5.2); Alkaline Phosphatase 94 U/L (35-105); Anion Gap 16.8 (5-19); Aspartate Amino Transferase 23 U/L (0-32); Blood Urea Nitrogen 15 mg/dL (6-20); Calcium 8.9 mg/dL (8.5-10.5); Carbon Dioxide 25 mmol/L (22-29); Chloride 101 mmol/L (98-107); Globulin 2.8 g/dL (1.3-4.6); Glomerular Filtration Rate 73.7 mL/min (90-130); Glucose 111 mg/dL (65-115); Osmolality Calculated 290 mOsm/kg (285-295); Potassium 3.8 mmol/L (3.5-5.1); Sodium 139 mmol/L (136-145); Total Bilirubin 0.3 mg/dL (0.15-1.2); Total Protein 7.2 g/dL (6.6-8.7)
--- NOTE | 2022-09-30 17:57 | CTR_ITS ---
PROCEDURE INFORMATION: Exam: CT Abdomen And Pelvis With Contrast Exam date and time: 09/30/2022 6:42 PM Age: 57 years old Clinical indication: Other: Hematachezia; Prior surgery; Surgery date: 6+ months; Surgery type: Bladder ; hysterectomy; Additional info: Abd pain TECHNIQUE: Imaging protocol: Computed tomography of the abdomen and pelvis with contrast. Radiation optimization: All CT scans at this facility use at least one of these dose optimization techniques: automated exposure control; mA and/or kV adjustment per patient size (includes targeted exams where dose is matched to clinical indication); or iterative reconstruction. Contrast material: OMNIPAQUE 350; Contrast volume: 100 ml; Contrast route: INTRAVENOUS (IV); Other protocol: This patient has received 0 known CTs and 0 known cardiac nuclear medicine studies in the 12 months prior to the current study. COMPARISON: CR XR chest 1V portable [id number] 02/26/2021 7:42 PM RADIATION DOSE METRICS: Total DLP (mGy-cm): 1274.63 FINDINGS: Liver: Diffuse fatty infiltration of the liver. Gallbladder and bile ducts: Normal. No calcified stones. No ductal dilation. Pancreas: Normal. No ductal dilation. Spleen: Normal. No splenomegaly. Adrenal glands: Normal. No mass. Kidneys and ureters: Normal. No hydronephrosis. Stomach and bowel: Wall thickening is seen in the distal transverse colon descending colon sigmoid colon and rectum in a continuous fashion. No bowel obstruction. Appendix: No evidence of appendicitis. Intraperitoneal space: Unremarkable. No free air. No significant fluid collection. Vasculature: Unremarkable. No abdominal aortic aneurysm. Lymph nodes: Unremarkable. No enlarged lymph nodes. Urinary bladder: Unremarkable as visualized. Reproductive: Hysterectomy. Bones/joints: Unremarkable. No acute fracture. Soft tissues: Unremarkable. CT/CT abdomen pelvis w con* [id number] IMPRESSION: 1. Distal colitis which is likely infectious/inflammatory. No bowel obstruction. 2. Fatty infiltration of the liver. 3. Hysterectomy.
--- NOTE | 2022-09-30 18:32 | ED_ITS ---
HPI - GI Bleed General: Chief complaint: GI Bleed Stated complaint: bloody stool Time Seen by Provider: 09/30/22 17:57 Source: patient Mode of arrival: ambulatory Limitations: no limitations History of Present Illness: 57-year-old female states that she had woke up this morning at 2 AM with abdominal cramping. States she had had a cramping in her lower abdomen started having diarrhea states she had diarrhea throughout the day and started having bloody bowel movements this afternoon. States has been bright red blood not a large amount. She is continue to have some cramping pain she rates a 1 out of 10. Denies any severe pain she denies any vomiting or fevers. Associated symptoms: Denies chills, easy bruising, fever(s), headache(s) or rash Review of Systems Const: Denies: fever(s), chills, body aches or change in appetite Eyes: Denies: blurry vision or eye discomfort ENMT: Denies: throat pain or dental pain Card: Denies: chest pain Resp: Denies: dyspnea GI: Reports: diarrhea and hematochezia : Denies: dysuria Musc: Denies: neck pain or back pain Skin/Breast: Denies: rash Neuro: Denies: headache(s) Psych: Denies: depression Cole/Lymph: Denies: easy bruising All/Imm: Denies: urticaria PFSH ED PFSH: Medical History Generalized anxiety disorder Major depressive disorder, recurrent, in partial remission Other stressful life events affecting family and household Psychiatric care Social History (Updated 09/30/22 @ 18:36 by Colten Recinos MD) Substance/Drug Use: never Physical Exam Const: COMMON NORMALS: no acute distress, patient oriented x3 and healthy appearing HENMT: COMMON NORMALS: normocephalic and atraumatic HEAD & SCALP: normocephalic and atraumatic Eye: COMMON NORMALS: Equal, round and reactive pupils present and EOMs intact bilaterally PUPIL: Yes Equal, round and reactive pupils present Neck/C-Spine: COMMON NORMALS: full ROM and supple Chest: COMMONS NORMALS: normal inspection of the chest and normal palpation of entire chest wall Resp: COMMON NORMALS: normal respiratory effort, No retractions, No use of accessory muscles and clear to auscultation bilaterally AUSCULTATION: clear to auscultation bilaterally Cardio: COMMON NORMALS: regular rate, regular rhythm and No murmurs present (Cardio) RATE: regular rate RHYTHM: regular rhythm GI: COMMON NORMALS: Normal to inspection, nondistended, normoactive bowel sounds present, Soft to palpation, non-tender and no masses PALPATION: Yes Soft to palpation Extremity: COMMON NORMALS: normal to inspection and full ROM Neuro: COMMON NORMALS: patient oriented x3, moves all extremities and no focal motor deficits Psych: COMMON NORMALS: mental status grossly normal, Normal thought process present and cooperative THOUGHT PROCESS: Normal thought process present Skin: COMMON NORMALS: no rashes or lesions noted and no wounds GENERAL SKIN EXAM: no rashes or lesions noted Course Vital Signs: Vital signs: Vital Signs Temperature 97.4 F L 09/30/22 15:11 Pulse Rate 73 09/30/22 19:00 Respiratory Rate 16 09/30/22 19:00 Blood Pressure 149/73 09/30/22 19:00 Pulse Oximetry 93 09/30/22 19:00 Oxygen Delivery Me thod 09/30/22 15:11 MDM - GI Bleed Medical Decision Making Patient presents here with abdominal cramping while diarrhea with some blood in her stool her rectal exam here showed no blood at this time CT did show colitis with is consistent with her findings hemoglobin is stable she is well-appearing we will start her on Cipro Flagyl at home get her follow-up and return if worsening she understands agrees to plan. Lab Data 09/30/22 16:00 09/30/22 16:00 Radiology Impressions Abdomen/Pelvis CT 09/30/22 17:57 IMPRESSION: 1. Distal colitis which is likely infectious/inflammatory. No bowel obstruction. 2. Fatty infiltration of the liver. 3. Hysterectomy. Laboratory Results WBC 11.0 10^3/uL (4.0-10.0) H 09/30/22 16:00 RBC 4.72 10^6/uL (4.1-5.3) 09/30/22 16:00 Hgb 13.6 g/dL (11.5-15.3) 09/30/22 16:00 Hct 42.1 % (37.0-47.0) 09/30/22 16:00 MCV 89.2 fl (81-99) 09/30/22 16:00 MCH 28.8 pg (28.0-34.0) 09/30/22 16:00 MCHC 32.3 g/dL (30.0-36.0) 09/30/22 16:00 RDW 14.2 % (12.1-15.1) 09/30/22 16:00 Plt Count 363 10^3/cmm (130-400) 09/30/22 16:00 MPV 10.6 fL (7.4-10.4) H 09/30/22 16:00 Neut % (Auto) 72.2 % 09/30/22 16:00 Lymph % (Auto) 19.1 % 09/30/22 16:00 [place] % (Auto) 6.8 % 09/30/22 16:00 Eos % (Auto) 1.1 % 09/30/22 16:00 Baso % (Auto) 0.5 % 09/30/22 16:00 Neut # (Auto) 7.97 10^3/uL (1.8-7.7) H 09/30/22 16:00 Lymph # (Auto) 2.1 10^3/uL (0.8-4.8) 09/30/22 16:00 [place] # (Auto) 0.8 10^3/uL (0.2-0.9) 09/30/22 16:00 Eos # (Auto) 0.1 10^3/uL (0.0-0.8) 09/30/22 16:00 Baso # (Auto) 0.1 10^3/uL (0.0-0.1) 09/30/22 16:00 Nucleated RBC % (auto) 0 % 09/30/22 16:00 Nucleated RBCs # 0.0 /100WBC 09/30/22 16:00 Sodium 139 mmol/L (136-145) 09/30/22 16:00 Potassium 3.8 mmol/L (3.5-5.1) 09/30/22 16:00 Chloride 101 mmol/L (98-107) 09/30/22 16:00 Carbon Dioxide 25 mmol/L (22-29) 09/30/22 16:00 Anion Gap 16.8 (5-19) 09/30/22 16:00 BUN 15 mg/dL (6-20) 09/30/22 16:00 Creatinine 0.8 mg/dL (0.5-0.9) 09/30/22 16:00 GFR Calculation 73.7 mL/min (90-130) L 09/30/22 16:00 Glucose 111 mg/dL (65-115) 09/30/22 16:00 Calculated Osmolality 290 mOsm/kg (285-295) 09/30/22 16:00 Calcium 8.9 mg/dL (8.5-10.5) 09/30/22 16:00 Total Bilirubin 0.3 mg/dL (0.15-1.2) 09/30/22 16:00 AST 23 U/L (0-32) 09/30/22 16:00 ALT 38 U/L (0-33) H 09/30/22 16:00 Alkaline Phosphatase 94 U/L (35-105) 09/30/22 16:00 Total Protein 7.2 g/dL (6.6-8.7) 09/30/22 16:00 Albumin 4.4 g/dL (3.5-5.2) 09/30/22 16:00 Globulin 2.8 g/dL (1.3-4.6) 09/30/22 16:00 Discharge Plan Discharge Patient Disposition: Home Clinical Impression: Colitis Condition: Stable Prescriptions: New Cipro 500 mg tablet 500 mg PO BID Qty: 14 0RF ondansetron 4 mg tablet,disintegrating 4 mg PO Q6H PRN (Reason: nausea and vomiting) Qty: 14 0RF metronidazole 500 mg tablet 500 mg PO Q8H 7 Days Qty: 21 0RF No Action ropinirole 1 mg tablet 1 mg PO BEDTIME quetiapine [Seroquel] 25 mg tablet 50 mg PO BEDTIME Qty: 60 3RF Rx Instructions: Take two tablets at bedtime clonazepam [Klonopin] 1 mg tablet 1 mg PO BID Qty: 60 3RF Rx Instructions: Take one tablet twice per day albuterol sulfate 2.5 mg /3 mL (0.083 %) solution for nebulization 2.5 mg inhalation PRN PRN (Reason: Shortness Of Breath) tolterodine 4 mg capsule,extended release 24hr 4 mg PO DAILY amlodipine 10 mg tablet 10 mg PO DAILY ibuprofen 600 mg tablet 600 mg PO DAILY PRN (Reason: Pain) albuterol sulfate [ProAir HFA] 90 mcg/actuation HFA aerosol inhaler 1 puff INHALATION Q6H PRN (Reason: Shortness Of Breath) levothyroxine 50 mcg tablet 50 mcg PO DAILY omeprazole 20 mg capsule,delayed release(DR/EC) 20 mg PO BID benzonatate 100 mg Capsule 100 mg PO Q8H PRN (Reason: Cough) trazodone 150 mg tablet 150 mg PO BEDTIME PRN (Reason: sleep) Rx Instructions: Take one tablet one hour before bed as needed for sleep,may repeat in one hour if not asleep. Trintellix 20 mg tablet 20 mg PO DAILY Rx Instructions: Take one tablet every morning Discharge Orders: Discharge ED (Routine); Ordered 09/30/22 Ordered By: Colten Recinos Referrals: Sergio Edmond DO [Physician] - 1-3 days Nadeem Graves MD [Primary Care Provider] - Discharge Diet: Advance as tolerated Discharge Activity: Resume usual activity Patient Instructions: Opioid Safety, Pain Management Coding Level of Care Code ED [employer] for [place] [facility]
[2022-09-30] MEDS: iohexol 350 mg/mL 500 mL Btl (per mL) IV (18:46)
[2022-09-30 19:00] VITALS: BP 149/73; PULSE 73; RESP 16; O2SAT 93
[2022-09-30] MEDS: ciprofloxacin 500 mg Tablet PO (19:38)
[2022-09-30] MEDS: metroNIDAZOLE 500 MG Tablet PO (19:38)
--- NOTE | 2022-10-04 10:53 | DCPLANNER ---
Addendum entered by Louann Nicholson 10/13/22 08:16: Patient had a follow up appointment scheduled with general surgery - patient did attend appointment Addendum entered by Louann Nicholson 10/06/22 15:14: Patient has a follow up appointment scheduled for Wednesday, October 12, 2022 at 8:[address] Edmond at general surgery. Clinic will call patient with appointment information. Original Note: manager agriculture had message to schedule a follow up appointment for patient with general surgery. manager agriculture sent patients information to the front office staff at general surgery. Patients information will be printed and reviewed. Clinic will call patient with appointment information.
== END 2022-09-30 19:43 | disposition home or self-care (01) ==
PROVIDERS: Nurse Practitioner Family; Emergency Provider Emergency Medicine; PCP Family Medicine
DX: K52.9 Noninfective gastroenteritis and colitis, unspecified (principal)
CPT/HCPCS: 36415; 74177; 80053; 85025; 99285; Q9967

== ENCOUNTER 2022-10-27 15:05 | Observation (INO) | payer OTHER, SELFPAY ==
[2022-10-26 08:51] VITALS: BMI 50.6
--- NOTE | 2022-10-26 10:23 | P.ANESASSM_ITS ---
Pre-Anesthetic Assessment Height/Weight: Height 1.63 m Weight 133.81 kg Preop Diagnosis: Painful hardware left ankle Operation Date: 10/27/22 11:30 Proposed Procedures p Anterior and posterior colporrhaphy 70650, Single incision mid urethral sling 35144,N81.6, N81.10(Not Applicable) - Tulio Sexton MD s Posterior Repair Posterior Colporrhaphy(Not Applicable) - Tulio Sexton MD s Sling Single Incision Midurethral Sling(Not Applicable) - Tulio Sexton MD Familial anesthetic complications: none Was Beta Renata taken within 24 hours: N/A Was Clonidine taken within 24 hours: N/A Social No alcohol and No tobacco Exam alert, oriented x 3, clear to auscultation bilaterally and regular rate & rhythm Airway Submandibular: within normal limits Cervical ROM: within normal limits Mallampati: Class II Dentition: full CV/HEM Hypertension GI Gastroesophageal Reflux Disease Metabolic Morbid Obesity and Thyroid Disease Neuropsych Anxiety and Depression Anesthetic Plan ASA status: 3 Anesthesia: General Medications/Allergies Home Medications Medication Instructions Recorded Confirmed Last Taken Type albuterol sulfate 2.5 mg/3 mL 2.5 mg inhalation PRN PRN 04/23/21 10/26/22 Unknown History (0.083 %) solution for nebulization Shortness Of Breath albuterol sulfate 90 mcg/actuation 1 puff inhalation Q6H PRN 04/23/21 10/26/22 10/18/22 History aerosol inhaler (ProAir HFA) Shortness Of Breath amlodipine 10 mg tablet 10 mg PO DAILY 04/23/21 10/26/22 10/26/22 History ibuprofen 600 mg tablet 600 mg PO DAILY PRN Pain 04/23/21 10/26/22 10/26/22 History tolterodine 4 mg capsule,extended 4 mg PO DAILY 04/23/21 10/26/22 10/26/22 History release 24 hr ropinirole 1 mg tablet 1 mg PO BEDTIME 07/19/22 10/26/22 10/25/22 History omeprazole 20 mg capsule,delayed 20 mg PO BID 09/02/22 10/26/22 10/25/22 History release benzonatate 100 mg capsule 100 mg PO Q8H PRN Cough 09/30/22 10/26/22 10/19/22 History ondansetron 4 mg disintegrating 4 mg PO Q6H PRN nausea and 09/30/22 10/26/22 Unknown Rx tablet vomiting #14 tabs trazodone 150 mg tablet 150 mg PO BEDTIME PRN sleep 09/30/22 10/26/22 10/25/22 History levothyroxine 50 mcg capsule 50 mcg PO DAILY 10/04/22 10/26/22 10/26/22 History clonazepam 2 mg tablet 1 mg PO BID #30 tabs 10/21/22 10/26/22 10/26/22 Rx quetiapine 50 mg tablet 50 mg PO BEDTIME #30 tabs 10/21/22 10/26/22 10/25/22 Rx vortioxetine 10 mg tablet 20 mg PO .morning #60 tabs 10/21/22 10/26/22 10/26/22 Rx Allergies Allergy/AdvReac Type Severity Reaction Status Date / Time azithromycin Allergy Unknown ADR-Gastrointestinal Verified 10/25/22 08:08 Upset haloperidol [From Haldol] Allergy ALGY-Anaphy Verified 10/25/22 08:08 laxis latex Allergy ALGY-Redness Verified 10/26/22 09:04 of Skin meperidine [From Demerol] Allergy ADR-Halluci Verified 10/25/22 08:08 nating prednisone Allergy ADR-Anxiety Verified 10/25/22 08:08 aripiprazole [From Abilify] AdvReac Unknown ADR-Anxiety Verified 10/25/22 08:08 bupropion [From Wellbutrin] AdvReac Unknown ADR-Confusi Verified 10/25/22 08:08 on [facility] Anesthesia Medical History Generalized anxiety disorder Major depressive disorder, recurrent, in partial remission Other stressful life events affecting family and household Psychiatric care Urinary incontinence in female Surgical History H/O: hysterectomy History of [place] urethropexy 24 yrs ago History of esophagogastroduodenoscopy (EGD) Hx of colonoscopy 10 yrs Hx of neck surgery Fusion Family History Unknown Cancer She denies a family hx of breast, ovarian, uterine, pancreatic, colon, thyroid cancers. Denies family history of Diabetes Hypertension Stroke Social History Smoking and tobacco status: never smoked Alcohol intake: never Data Anesthesia Cardiac Studies: No Data to Display
[2022-10-26 12:22] LABS: Basophils % 0.5 %; Eosinophils # 0.1 10^3/uL (0.0-0.8); Eosinophils % 0.9 %; Hematocrit 42.1 % (37.0-47.0); Hemoglobin 13.4 g/dL (11.5-15.3); Lymphocytes # 1.8 10^3/uL (0.8-4.8); Lymphocytes % 22.9 %; Mean Corpuscular HGB Conc 31.8 g/dL (30.0-36.0); Mean Corpuscular Hemoglobin 28.9 pg (28.0-34.0); Mean Corpuscular Volume 90.7 fl (81-99); Mean Platelet Volume 11.5 fL (7.4-10.4); Monocytes # 0.6 10^3/uL (0.2-0.9); Monocytes % 7.3 %; Neutrophils # 5.22 10^3/uL (1.8-7.7); Neutrophils % 68.1 %; Nucleated Red Blood Cells % 0 %; Platelet Count 338 10^3/cmm (130-400); Red Blood Count 4.64 10^6/uL (4.1-5.3); White Blood Count 7.7 10^3/uL (4.0-10.0)
[2022-10-26 12:29] LABS: Add Urine Microscopic? YES; Bilirubin Urine Neg (Negative); Blood Urine 2+ (Negative); Glucose Urine UA Norm (Normal); Ketones Urine Negative (Negative); Leukocyte Esterase Urine 1+ (Negative); Nitrate Urine Negative (Negative); Protein Urine Neg (Negative); Specific Gravity, Urine 1.015 (1.005-1.030); Urine Appearance Hazy (CLEAR); Urine Color Yellow (Yellow); Urobilinogen Urine Neg (Negative); pH Urine 6 (5-7)
[2022-10-26 12:34] LABS: Add Urine Culture? Yes; Bacteria Urine TRACE /hpf; RBC Urine 15-25 /hpf (0-2); Squamous Epithelial Cell Urine 0-4 /hpf (0-5); WBC Urine 55-80 /hpf (0-5)
[2022-10-26 12:58] LABS: Alanine Aminotransferase 21 U/L (0-33); Albumin Level 4.1 g/dL (3.5-5.2); Alkaline Phosphatase 90 U/L (35-105); Aspartate Amino Transferase 17 U/L (0-32); Blood Urea Nitrogen 15 mg/dL (6-20); Calcium 8.8 mg/dL (8.5-10.5); Carbon Dioxide 26 mmol/L (22-29); Chloride 101 mmol/L (98-107); Glomerular Filtration Rate 73.7 mL/min (90-130); Glucose 83 mg/dL (65-115); Osmolality Calculated 290 mOsm/kg (285-295); Sodium 140 mmol/L (136-145); Total Bilirubin 0.3 mg/dL (0.15-1.2); Total Protein 7.1 g/dL (6.6-8.7)
[2022-10-27] VITALS (13 sets, daily range): BP systolic 117–207; BP diastolic 63–122; PULSE 68–88; RESP 14–18; TEMP 36.3–36.6; O2SAT 90–100
[2022-10-27] MEDS: sodium chloride 0.9% 500 ML IV (10:12)
[2022-10-27] MEDS: enoxaparin 30 mg/0.3 mL Syringe SUBCUT (10:13)
[2022-10-27] MEDS: scopolamine 1.5 Patch 1 PATCH TRANSDERMA (10:13)
--- NOTE | 2022-10-27 12:16 | W.PM.OPSUD ---
Surgery/Procedure H&P Update DATE OF PROCEDURE: October 27, 2022 DATE H&P PERFORMED: 10/25/22 H&P UPDATE INFORMATION: I have reviewed H&P completed within last 30 days, I have examined patient prior to procedure and Changes to prior documentation as noted here PREOP DIAGNOSIS: Cystocele, rectocele, urinary incontinence PLANNED PROCEDURE: Operation Date: 10/27/22 11:20 Proposed Procedures p Anterior and posterior colporrhaphy 68881, Single incision mid urethral sling 37847,N81.6, N81.10(Not Applicable) - Tulio Sexton MD s Posterior Repair Posterior Colporrhaphy(Not Applicable) - Tulio Sexton MD s Sling Single Incision Midurethral Sling(Not Applicable) - Tulio Sexton MD
[2022-10-27] MEDS: ceFAZolin 3,000 MG in sodium chloride 0.9% (100 ml) 100 ML 200 MG IV (12:53)
--- NOTE | 2022-10-27 13:29 | P.ANESUD_ITS ---
Pre-Anesthetic Update Pre-Anesthetic Assessment: Date of Surgery/Procedure: 10/27/22 Preop Karishma gnosis: Cystocele, rectocele, urinary incontinence Proposed Procedure: Operation Date: 10/27/22 11:20 Proposed Procedures p Anterior and posterior colporrhaphy 93779, Single incision mid urethral sling 94769,N81.6, N81.10(Not Applicable) - Tulio Sexton MD s Posterior Repair Posterior Colporrhaphy(Not Applicable) - Tulio Sexton MD s Sling Single Incision Midurethral Sling(Not Applicable) - Tulio Sexton MD Any changes to Pre-Anesthetic Assessment?: No Last Intake: Intake Last Liquid Date 10/26/22 Last Liquid Time 21:00 Last Solid Date 10/26/22 Last Solid Time 19:00 Labs Last 48hrs: Short CBC 10/26/22 Range/Units 09:07 WBC 7.7 (4.0-10.0) 10^3/ uL Hgb 13.4 (11.5-15.3) g/dL Hct 42.1 (37.0-47.0) % MCV 90.7 (81-99) fl Plt Count 338 (130-400) 10^3/c mm Neut % (Auto) 68.1 % Neut # (Auto) 5.22 (1.8-7.7) 10^3/u L BMP 10/26/22 09:07 Sodium 140 Potassium 4.0 Chloride 101 Carbon Dioxide 26 BUN 15 Creatinine 0.8 Glucose 83 Calcium 8.8 Liver Function 10/26/22 Range/Units 09:07 Total Bilirubin 0.3 (0.15-1.2) mg/dL AST 17 (0-32) U/L ALT 21 (0-33) U/L Alkaline Phosphata se 90 (35-105) U/L Albumin 4.1 (3.5-5.2) g/dL Urine 10/26/22 Range/Units 08:39 Urine Color Yellow (Yellow) Urine Appearance Hazy A (CLEAR) Urine pH 6 (5-7) Ur Specific Gravit y 1.015 (1.005-1.030) Urine Protein Neg (Negative) Urine Glucose (UA) Norm (Normal) Urine Ketones Negative (Negative) Urine Nitrate Negative (Negative) Urine Bilirubin Neg (Negative) Ur Leukocyte Kait ase 1+ H (Negative) Urine RBC 15-25 H (0-2) /hpf Urine WBC 55-80 H (0-5) /hpf Blood Bank 10/26/22 09:07 Blood Type A Positive Rho(D) Type Positive Antibody Screen TNP Vitals: Temperature 97.8 F 10/27/22 09:52 Temperature Source Temporal Artery S can 10/27/22 09:52 Pulse Rate 68 10/27/22 09:52 Respiratory Rate 18 10/27/22 09:52 Blood Pressure 139/92 10/27/22 09:52 Blood Pressure Claudette n 107 10/27/22 09:52 Pulse Oximetry 98 10/27/22 09:52 Oxygen Delivery Me thod 10/27/22 09:52 Exam: Pre-Anes Outpt Exam: alert, oriented x 3, clear to auscultation bilaterally and regular rate & rhythm Cardiac Studies: No Data to Display
[2022-10-27] MEDS: estrogens Conjugated Cream 30 gm 1 APPLIC VAGINAL (13:30)
[2022-10-27] MEDS: lidocaine-epi 2% 20 mL INJ INJECTION (13:30)
[2022-10-27] MEDS: hyDRALAzine 20 mg/mL INJ 1 mL (13:42)
--- NOTE | 2022-10-27 15:09 | PM.OP ---
Operative Report Date of procedure: October 27, 2022 Pre-op diagnosis: Preop Diagnosis Cystocele, rectocele, urinary incontinence Post-op diagnosis: Same as above Procedure done: Anterior colporrhaphy augmented with allograft. Single incision mid urethral sling. Posterior colporrhaphy. Cystoscopy. Surgeon: Tulio Sexton MD Estimated blood loss (mL): 200 IV fluids (mL): 1,300 Urine output (mL): 300 Findings: Cystocele and rectocele Procedure: After obtaining informed consent, the patient was taken to the operating room and placed in the supine position, given general anesthesia, and prepped and draped in sterile fashion. The abdomen, vulva and vagina were prepped and draped in a sterile manner. A time out procedure was performed. The vaginal mucosa was then injected in the midline with normal saline. The vaginal mucosa was scored in the midline with the Bovie approximately 1 cm medial to the urethral meatus to 1 cm distal to the vaginal cuff. This vaginal mucosa was then undermined and then incised in the midline with the Metzenbaum scissors. The lateral aspects of the vaginal mucosa were then grasped with the Allis clamps and the vaginal mucosa was then dissected off the underlying fascia with the Metzenbaum scissors. Again, there was noted to be quite a bit of oozing at the incision, which was controlled with cautery. After adequate dissection was performed, bilaterally. A Coloplast allograft was modified at time of application to fit spacea, 3x3 cm piece . The Coloplast allograft was placed in front of cystocele ready to be implanted facing the vagina mucosa. Suture is placed at distal end of graft and placed towards vaginal cuff. Final suture is placed on proximal portion of the graft to complete the placement overlying the bladder. Then interrupted vertical mattress sutures of 2-0 Vicryl were used to elevate the cystocele superiorly. The excessive vaginal mucosa was then trimmed with the Metzenbaum scissors and the vaginal mucosa was then reapproximated in the running interlocking fashion with 2-0 Vicryl. Then a vertical midline incision was made beneath the midurethra, nearly 1.5 cm length. Careful submucosal dissection was performed bilaterally up to the interior portion of the inferior pubic ramus. The insertion of adductor longus tendon on the patient?s pubic ramus was identified as reference land jonathan. Palpated the notch along the internal edge of ischiopubic ramus where the adductor longus tendon and the inferior pubic ramus meet. The Altis single incision sling (SIS) was selected. Then the needle of the SIS inserted aiming at the location of this notch. One of the integrated self-fixating tips place onto the needle by sliding it over the end of the needle. The needle/sling assembly was inserted toward the location of identified reference notch making sure that the flat of the handle is perpendicular to the desired path. The needle was tracked along the posterior surface of the ischiopubic ramus until the midline jonathan on the mesh is approximately at the midline position under the urethra. The needle was removed and the same was repeated on the contralateral side until the appropriate sling tension under the urethra was achieved ensuring that the mesh lays flat. The needle was removed and vaginal incision was closed in a running interlocking fashion with 2-0 Vicryl. Then a posterior repair was performed next. An incision was made across the introitus. Metzenbaum scissors were used to tunnel beneath posterior vaginal mucosa until the apex of the rectocele bulge was reached. At this point, the rectum was from the posterior vaginal mucosa using sharp and blunt dissection, and the rectal bulge imbricated in the midline with interrupted sutures of 2-0 vicryl suture. Levator ani muscles on either side were approximated in the midline with interrupted 0 Vicryl sutures. Excess posterior vaginal mucosa was excised, and the vaginal episiotomy was repaired by approximating the posterior vaginal mucosa with a suture of Vicryl #0. Then the Chavis catheter was removed and cystoscope was inserted. The bladder was filled with sterile water. Complete evaluation of the bladder mucosa was performed noting no lacerations, dimpling, tears, bleeding of the mucosa or muscular layers. Both ureteral orifices were identified. Prompt excretion of urine from both ureteral orifices was noted. Cystoscope was withdrawn. The Chavis catheter was replaced. Excellent hemostasis was obtained. A vaginal pack is placed overnight as postoperative support for the vaginal tissues after graft placement and closure of vaginal incisions. Sponge, lap, needle, and instrument counts were correct times three. The patient was taken to the recovery room, awake and in stable condition.
[2022-10-27] MEDS: metoprolol tartrate 1 mg/1 mL SDV 5 mL 5 MG (15:42)
--- NOTE | 2022-10-27 16:32 | ANE.PACU2 ---
Inpatient post-anesthesia follow up: Airway intact: Yes Vital signs: Temperature 97.4 F Pulse Rate 71 Respiratory Rate 18 Blood Pressure 160/85 Pulse Oximetry 98 Oxygen Delivery Me thod Room Air Oxygen Flow Rate 6 Fraction of Inspir ed Oxygen Hydration adequate: Yes Nausea and vomiting: No Pain level: 2 Mental status: Baseline
[2022-10-27] MEDS: dextrose 5%-lactated ringers 1,000 ML 125 ML IV (17:00)
[2022-10-27] MEDS: docusate sodium 100 mg Capsule PO (18:30)
[2022-10-27] MEDS: pantoprazole DR 40 mg Tablet PO (18:30)
[2022-10-27] MEDS: quetiapine 25 mg Tablet 50 MG PO (21:47)
[2022-10-27] MEDS: simethicone 80 mg Chew PO (21:47)
[2022-10-27] MEDS: CLONazepam 0.5 mg Tablet 1 MG PO (21:47)
[2022-10-27] MEDS: ropinirole 1 mg Tablet PO (21:47)
[2022-10-27] MEDS: ketorolac 30 mg/mL INJ IVP (21:47)
[2022-10-28] VITALS: BP 124/80; PULSE 75
[2022-10-28] MEDS: dextrose 5%-lactated ringers 1,000 ML 125 ML IV (03:15)
[2022-10-28] MEDS: simethicone 80 mg Chew PO (04:23)
[2022-10-28 04:24] VITALS: BP 144/75; PULSE 82; RESP 16; TEMP 36.5; O2SAT 97
[2022-10-28] MEDS: ketorolac 30 mg/mL INJ IVP (04:24)
[2022-10-28 05:00] LABS: Hematocrit 37.8 % (37.0-47.0); Hemoglobin 12.3 g/dL (11.5-15.3); Mean Corpuscular HGB Conc 32.5 g/dL (30.0-36.0); Mean Corpuscular Hemoglobin 29.2 pg (28.0-34.0); Mean Corpuscular Volume 89.8 fl (81-99); Mean Platelet Volume 11.2 fL (7.4-10.4); Platelet Count 328 10^3/cmm (130-400); Red Blood Count 4.21 10^6/uL (4.1-5.3); Red Cell Distribution Width 13.8 % (12.1-15.1); White Blood Count 15.1 10^3/uL (4.0-10.0)
--- NOTE | 2022-10-28 07:20 | PC.NURSE ---
Post Void Residual Bladder Scan - Scanned patient approximately 0545 after voiding x2. Highest bladder scanned volume showed <29ml.
--- NOTE | 2022-10-28 08:46 | P.DS_ITS ---
Discharge Providers COMMUNICATIONS ATTENDANT Date of Admission: 10/27/22 15:05 Date of Discharge: 10/28/22 Attending Provider at Admission: Tulio Sexton MD Attending Provider at Discharge: Tulio Sexton MD Primary Care Provider: Nadeem Graves MD Reason for Visit Reason for Visit: N81.10, N81.6 Hospital Course Hospital Course Mrs. Russell 57-year-old female post hysterectomy developed a cystocele and rectocele associated with stress urinary incontinence. The patient was admitted for planned anterior colporrhaphy augmented with allograft with single incision mid urethral sling and posterior colporrhaphy. The procedures were performed without complication. Overnight observation was uneventful. She is afebrile hemodynamically stable postoperative day 1. Tolerating diet well. Ambulating without difficulty. PVR within normal limits. Patient was counseled regarding weight lifting limitations and pelvic rest for 6 weeks (no sex, no tampons, no vaginal douches). Return to the emergency room if any fever, increased bleeding or pain. Physical Exam Narrative: GA: Alert and oriented ?3. HEENT: WNL. Heart: Regular rate and rhythm. Lungs: Clear to auscultation bilaterally. Abdomen: Bowel sounds present, nontender. THREADING MACHINE SETTER: Spotting bleeding. Extremities: No edema, no cyanosis, no calves pain. Urinary Catheter Management: Latex Free: Cath Placed During This Visit: yes Urinary Catheter Date of Insertion: 10/27/22 Urinary Catheter Time of Insertion: 13:25 History History History 3 Term 2 0 Miscarriages/Ectopic 1 Living Children 2 Discharge Data Studies Completed and Pending Pending at discharge Category Date Time Status Urine Culture Routine Lab 10/26/22 08:39 Results Laboratory Results WBC 15.1 10^3/uL (4.0-10.0) H 10/28/22 04:35 RBC 4.21 10^6/uL (4.1-5.3) 10/28/22 04:35 Hgb 12.3 g/dL (11.5-15.3) 10/28/22 04:35 Hct 37.8 % (37.0-47.0) 10/28/22 04:35 MCV 89.8 fl (81-99) 10/28/22 04:35 MCH 29.2 pg (28.0-34.0) 10/28/22 04:35 MCHC 32.5 g/dL (30.0-36.0) 10/28/22 04:35 RDW 13.8 % (12.1-15.1) 10/28/22 04:35 Plt Count 328 10^3/cmm (130-400) 10/28/22 04:35 MPV 11.2 fL (7.4-10.4) H 10/28/22 04:35 Neut % (Auto) 68.1 % 10/26/22 09:07 Lymph % (Auto) 22.9 % 10/26/22 09:07 [place] % (Auto) 7.3 % 10/26/22 09:07 Eos % (Auto) 0.9 % 10/26/22 09:07 Baso % (Auto) 0.5 % 10/26/22 09:07 Neut # (Auto) 5.22 10^3/uL (1.8-7.7) 10/26/22 09:07 Lymph # (Auto) 1.8 10^3/uL (0.8-4.8) 10/26/22 09:07 [place] # (Auto) 0.6 10^3/uL (0.2-0.9) 10/26/22 09:07 Eos # (Auto) 0.1 10^3/uL (0.0-0.8) 10/26/22 09:07 Baso # (Auto) 0.0 10^3/uL (0.0-0.1) 10/26/22 09:07 Nucleated RBC % (auto) 0 % 10/26/22 09:07 Nucleated RBCs # 0.0 /100WBC 10/26/22 09:07 Sodium 140 mmol/L (136-145) 10/26/22 09:07 Potassium 4.0 mmol/L (3.5-5.1) 10/26/22 09:07 Chloride 101 mmol/L (98-107) 10/26/22 09:07 Carbon Dioxide 26 mmol/L (22-29) 10/26/22 09:07 Anion Gap 17.0 (5-19) 10/26/22 09:07 BUN 15 mg/dL (6-20) 10/26/22 09:07 Creatinine 0.8 mg/dL (0.5-0.9) 10/26/22 09:07 GFR Calculation 73.7 mL/min (90-130) L 10/26/22 09:07 Glucose 83 mg/dL (65-115) 10/26/22 09:07 Calculated Osmolality 290 mOsm/kg (285-295) 10/26/22 09:07 Calcium 8.8 mg/dL (8.5-10.5) 10/26/22 09:07 Total Bilirubin 0.3 mg/dL (0.15-1.2) 10/26/22 09:07 AST 17 U/L (0-32) 10/26/22 09:07 ALT 21 U/L (0-33) 10/26/22 09:07 Alkaline Phosphatase 90 U/L (35-105) 10/26/22 09:07 Total Protein 7.1 g/dL (6.6-8.7) 10/26/22 09:07 Albumin 4.1 g/dL (3.5-5.2) 10/26/22 09:07 Globulin 3.0 g/dL (1.3-4.6) 10/26/22 09:07 Urine Color Yellow (Yellow) 10/26/22 08:39 Urine Appearance Hazy (CLEAR) A 10/26/22 08:39 Urine pH 6 (5-7) 10/26/22 08:39 Ur Specific [place] 1.015 (1.005-1.030) 10/26/22 08:39 Urine Protein Neg (Negative) 10/26/22 08:39 Urine Glucose (UA) Norm (Normal) 10/26/22 08:39 Urine Ketones Negative (Negative) 10/26/22 08:39 Urine Blood 2+ (Negative) H 10/26/22 08:39 Urine Nitrate Negative (Negative) 10/26/22 08:39 Urine Bilirubin Neg (Negative) 10/26/22 08:39 Urine Urobilinogen Neg mg/dL (Negative) 10/26/22 08:39 Ur Leukocyte Esterase 1+ (Negative) H 10/26/22 08:39 Urine RBC 15-25 /hpf (0-2) H 10/26/22 08:39 Urine WBC 55-80 /hpf (0-5) H 10/26/22 08:39 Ur Squamous Epith Cells 0-4 /hpf (0-5) H 10/26/22 08:39 Amorphous Sediment Not Reportable 10/26/22 08:39 Urine Bacteria Trace /hpf (NONE) 10/26/22 08:39 Blood Type A Positive 10/26/22 09:07 Rho(D) Type Positive 10/26/22 09:07 Antibody Screen TNP 10/26/22 09:07 PEG Antibody Screen Negative 10/26/22 09:07 Vitals Last Vital Signs Temp 97.7 F 10/28/22 04:24 Pulse 82 10/28/22 04:24 Resp 16 10/28/22 04:24 BP 144/75 10/28/22 04:24 Pulse Ox 97 10/28/22 04:24 O2 Del Method 10/28/22 04:24 O2 Flow Rate 6 10/27/22 15:40 Discharge Plan Discharge Patient Disposition: Home Condition: Stable Prescriptions: New hydrocodone-acetaminophen 5-325 mg tablet 1 tab PO Q4H PRN (Reason: pain) Qty: 10 0RF acetaminophen 325 mg capsule 325 mg PO Q4H PRN (Reason: fever or pain) Qty: 60 0RF ibuprofen 800 mg tablet 800 mg PO TID PRN (Reason: pain) Qty: 60 0RF acetaminophen 325 mg capsule 325 mg PO Q4H PRN (Reason: fever or pain) Qty: 60 0RF ibuprofen 800 mg tablet 800 mg PO TID PRN (Reason: pain) Qty: 60 0RF Continued ropinirole 1 mg tablet 1 mg PO BEDTIME quetiapine 50 mg tablet 50 mg PO BEDTIME Qty: 30 3RF Rx Instructions: Take one tablet at bedtime clonazepam 2 mg tablet 1 mg PO BID Qty: 30 3RF Rx Instructions: Take half tablet in morning and evening levothyroxine 50 mcg capsule 50 mcg PO DAILY albuterol sulfate 2.5 mg /3 mL (0.083 %) solution for nebulization 2.5 mg inhalation PRN PRN (Reason: Shortness Of Breath) tolterodine 4 mg capsule,extended release 24hr 4 mg PO DAILY amlodipine 10 mg tablet 10 mg PO DAILY ibuprofen 600 mg tablet 600 mg PO DAILY PRN (Reason: Pain) albuterol sulfate [ProAir HFA] 90 mcg/actuation HFA aerosol inhaler 1 puff INHALATION Q6H PRN (Reason: Shortness Of Breath) omeprazole 20 mg capsule,delayed release(DR/EC) 20 mg PO BID benzonatate 100 mg Capsule 100 mg PO Q8H PRN (Reason: Cough) trazodone 150 mg tablet 150 mg PO BEDTIME PRN (Reason: sleep) Rx Instructions: Take one tablet one hour before bed as needed for sleep,may repeat in one hour if not asleep. ondansetron 4 mg tablet,disintegrating 4 mg PO Q6H PRN (Reason: nausea and vomiting) Qty: 14 0RF Trintellix 10 mg tablet 20 mg PO .morning Rx Instructions: Take two tablets every morning Discharge Orders: Discharge Order (Routine); Ordered 10/28/22 Ordered By: Tulio Sexton Discharge Diet: Soft Mechanical Discharge Activity: Limit activity as instructed Patient Instructions: Opioid Safety, Anterior Vaginal Repair (GEN), Posterior Vaginal Repair (GEN), Bladder Sling for Women (GEN) Activity Restrictions/Additional Instructions: 1. Please call [facility] on next working day to make your post-operative appointment in 2 weeks. 2. Please stay home until you come back to the clinic on first post-operative check up. 3. Please follow instructions on your medications CAREFULLY. 4. If you have abdominal incision, do not cover it unless dressing is necessary because of drainage. OK to shower, but avoid bath. Leave steri-strips until they fall off. If they are still on one week after surgery, you may remove them. 5. If you had vaginal surgery or vaginal repair, Dr. Sexton may instruct you to take SITZ bath. 6. Yellow, blood tinged odorous vaginal discharge is usually normal after hysterectomy or vaginal surgeries. 7. No sexual intercourse, tampons, or douches until you are completely released from the post-operative care. 8. Avoid constipation by eating right and maybe using some Metamucil or Milk of Magnesia. 9. All prescription refills are given during the working hours. Please do no wait till it runs out. Call the clinic at [phone] before your medication runs out. The clinic will get in touch with your doctor to prescribe medications if necessary. 10. Please remain within 40 mile radius from our hospital because emergencies do happen now and then during the post-operative period. 11. If you have stairs at home, take one step at a time slowly and minimize the number of trips. It helps to stay in one floor for the next few days. No lifti ng except what you can lift by one hand until you are released from the post- operative care. 12. Driving is discouraged until you are well healed. It may be 3-4 weeks before you feel strong enough to drive. You should be able to turn and look through the rear window without pain and you should be able to push the brake pedal very hard without pain before you drive. No fast rules, but SAFETY should be your primary concern. DO NOT drive if you are on sedating medications such as narcotics. 13. Call the clinic (during working hours) to make urgent appointment or go to the Emergency room, if any of the following occurs: i. Vaginal bleeding becomes heavy, more than a period. ii. Incision becomes red and sore, or drains pus. iii. Your temperature is over 100.4 or you have chill. iv. IV site becomes red and swollen (a little ``knot?? is usually OK) v. Persistent nausea and vomiting vi. Persistent constipation or diarrhea vii. Rash or allergic reaction to medications. Discharge Attestations COMMUNICATIONS ATTENDANT Time Spent in Discharge Care*: greater than 30 min Coding Level of Care Code Acute Code for Chg Fwd
[2022-10-28] MEDS: amlodipine 10 mg Tablet PO (09:03)
[2022-10-28] MEDS: pantoprazole DR 40 mg Tablet PO (09:03)
[2022-10-28] MEDS: levothyroxine 50 mcg Tablet PO (09:03)
[2022-10-28] MEDS: docusate sodium 100 mg Capsule PO (09:03)
[2022-10-28] MEDS: CLONazepam 0.5 mg Tablet 1 MG PO (09:46)
[2022-10-28 10:02] VITALS: BP 115/81; PULSE 78; RESP 15; TEMP 36.4; O2SAT 98
--- NOTE | 2022-10-28 10:02 | PC.NURSE ---
Dr. Sexton notified of blood pressure, and unavailability of anxiety medication on the floor at time of blood pressure. Dr. Sexton notified patient has received medication for anxiety prior to walking out for discharge. MD slaughter with patient discharging. JONATHON CAMPBELL
== END 2022-10-28 10:04 | disposition home or self-care (01) ==
LOC: OBGYN 15:05
PROVIDERS: Admitting Provider Obstetrics & Gynecology; PCP Family Medicine; Visit Provider Obstetrics & Gynecology
PROC: 0JQC0ZZ Repair Pelvic Region Subcutaneous Tissue and Fascia, Open Approach (ICD-10-PCS; CPT 57240; principal; 2022-10-27 11:10)
PROC: (CPT 57250; 2022-10-27 11:10)
PROC: (CPT 57288; 2022-10-27 11:10)
DX: N81.10 Cystocele, unspecified (principal); N81.6 Rectocele; R32 Unspecified urinary incontinence; I10 Essential (primary) hypertension; K21.9 Gastro-esophageal reflux disease without esophagitis
CPT/HCPCS: 57260; 57288; 36415; 80053; 81001; 85025; 85027; 86850; 86900; 87077; 87086; 87186; 96374; 96376; C1713; C1762; G0378; J0330; J0360; J0690; J1100; J1170; J1650; J1885; J2405; J2704; J3010; J3490; J7040; J7121

== ENCOUNTER → 2022-11-08 11:30 | Outpatient (BNVA) | payer OTHER, SELFPAY | PROVIDERS: PCP Family Medicine; Visit Provider Obstetrics & Gynecology | DX: R30.0 Dysuria (principal); N39.3 Stress incontinence (female) (male) | CPT/HCPCS: 81000; 87077; 87086; 87184 ==

== ENCOUNTER → 2022-12-21 13:01 | Outpatient (BNVA) | payer OTHER, SELFPAY | PROVIDERS: PCP Family Medicine; Visit Provider Podiatrist Foot & Ankle Surgery | DX: M19.172 Post-traumatic osteoarthritis, left ankle and foot (principal) | CPT/HCPCS: 73610 ==

== ENCOUNTER → 2023-02-22 09:40 | Outpatient (BNVA) | payer OTHER, SELFPAY | PROVIDERS: PCP Family Medicine; Visit Provider Obstetrics & Gynecology | DX: N39.0 Urinary tract infection, site not specified (principal) | CPT/HCPCS: 81000; 87077; 87086; 87184 ==

== ENCOUNTER 2023-03-11 06:20 | Day surgery (SDC) | payer OTHER, SELFPAY ==
[2023-03-10 08:11] VITALS: BMI 49.8
[2023-03-11] VITALS (9 sets, daily range): BP systolic 119–167; BP diastolic 55–90; PULSE 75–92; RESP 15–20; TEMP 36.4–36.7; O2SAT 93–98
--- NOTE | 2023-03-11 06:50 | W.PM.OPSUD ---
Surgery/Procedure H&P Update DATE OF PROCEDURE: March 11, 2023 DATE H&P PERFORMED: 03/11/23 CHANGES TO PREVIOUS DOCUMENTATION: none PREOP DIAGNOSIS: Posttraumatic arthritis left ankle PLANNED PROCEDURE: Operation Date: 03/11/23 08:05 Proposed Procedures p ?Left ankle scope 27087,M19.172,M25.372(Left) - Gabino Bush DPM
--- NOTE | 2023-03-11 06:50 | PM.OPSURHP ---
Providers/Chief Complaint Primary Care Provider: Nadeem Graves MD Chief Complaint: M19.172, M25.372 History of Present Illness Noreen Chan is a 57 year old female patient presenting to clinic with complaints of left ankle pain.? Patient has been taking meloxicam 15mg daily, utilizing compression stockings, wearing supportive shoes and stretching without success. Patient states that medial and lateral sides of left ankle along to the front side is causing pain while walking.? Describes the nature of the pain as achy which is increasing with activities. Review of Systems General: Reports: 10 or more systems reviewed and unremarkable except in HPI and below Const: Denies: fever(s) or chills Eyes: Denies: change in vision Card: Denies: chest pain or palpitations Resp: Denies: dyspnea or productive cough GI: Denies: abdominal pain, nausea or vomiting : Denies: flank pain Musc: Reports: extremity pain Skin/Breast: Denies: rash Neuro: Denies: numbness in extremities, sensory changes or frequent falls Psych: Denies: suicidal ideation Cole/Lymph: Denies: easy bruising Medications/Allergies Home Medications Medication Instructions Recorded Confirmed Last Taken Type albuterol sulfate 2.5 mg/3 mL 2.5 mg inhalation PRN PRN 04/23/21 03/10/23 Unknown History (0.083 %) solution for nebulization Shortness Of Breath albuterol sulfate 90 mcg/actuation 1 puff inhalation Q6H PRN 04/23/21 03/10/23 10/18/22 History aerosol inhaler (ProAir HFA) Shortness Of Breath amlodipine 10 mg tablet 10 mg PO DAILY 04/23/21 03/10/23 03/11/23 History tolterodine 4 mg capsule,extended 4 mg PO DAILY 04/23/21 03/10/23 03/10/23 History release 24 hr benzonatate 100 mg capsule 100 mg PO Q8H PRN Cough 09/30/22 03/10/23 Unknown History ondansetron 4 mg disintegrating 4 mg PO Q6H PRN nausea and 09/30/22 03/10/23 Unknown Rx tablet vomiting #14 tabs levothyroxine 50 mcg capsule 50 mcg PO DAILY 10/04/22 03/10/23 03/11/23 History Trintellix 20 mg tablet 20 mg PO .morning #30 tabs 11/18/22 03/10/23 03/11/23 Rx (vortioxetine) clonazepam 1 mg tablet 1 mg PO BID #60 tabs 01/13/23 03/10/23 03/11/23 Rx magnesium glycinate 100 mg tablet 400 mg PO BEDTIME 01/13/23 03/10/23 03/10/23 History quetiapine 50 mg tablet 50 mg PO BEDTIME #30 tabs 01/13/23 03/10/23 03/10/23 Rx ropinirole 1 mg tablet 2 mg PO BEDTIME 01/13/23 03/10/23 03/10/23 History trazodone 150 mg tablet 150 mg PO .bedtime PRN sleep #180 01/13/23 03/10/23 03/10/23 Rx tabs Spectrum AFO to left #1 ea 02/23/23 02/23/23 Unknown Rx meloxicam 15 mg tablet See Rx Instructions .Route 03/08/23 03/10/23 03/10/23 Rx .COMPLEX #30 tabs Allergies Allergy/AdvReac Type Severity Reaction Status Date / Time azithromycin Allergy Unknown ADR-Gastrointestinal Verified 02/23/23 15:40 Upset haloperidol [From Haldol] Allergy ALGY-Anaphy Verified 02/23/23 15:40 laxis latex Allergy ALGY-Redness Verified 02/23/23 15:40 of Skin meperidine [From Demerol] Allergy ADR-Halluci Verified 02/23/23 15:40 nating prednisone Allergy ADR-Anxiety Verified 02/23/23 15:40 aripiprazole [From Abilify] AdvReac Unknown ADR-Anxiety Verified 02/23/23 15:40 bupropion [From Wellbutrin] AdvReac Unknown ADR-Confusi Verified 02/23/23 15:40 on PFSH PFSH: Medical History Generalized anxiety disorder Major depressive disorder, recurrent, in partial remission Other stressful life events affecting family and household Psychiatric care Urinary incontinence in female Surgical History H/O: hysterectomy History of Park urethropexy 24 yrs ago History of esophagogastroduodenoscopy (EGD) Hx of colonoscopy 10 yrs Hx of neck surgery Fusion Family History Unknown Cancer She denies a family hx of breast, ovarian, uterine, pancreatic, colon, thyroid cancers. Denies family history of Diabetes Hypertension Stroke Social History Smoking and tobacco status: never smoked Alcohol intake: never Substance/Drug Use: never Vital Signs Weight: Weight last 48 hrs Weight 290 lb Physical Exam Narrative: EXAM NARRATIVE: Patient is alert and oriented ?3 and in no acute distress.? The following is a focused left lower extremity exam. VASCULAR: Dorsalis pedis and posterior tibial arteries palpable +2.? Capillary refill time less than 3 seconds to the distal hallux bilaterally. Calf is supple and nontender proximally and distally.? Mild edema at the operative site consistent with postoperative course. NEUROLOGICAL: Protective sensation intact to light touch. DERMATOLOGICAL: Cicatrix to the left lateral ankle. No erythema, warmth or ecchymosis to the left lower extremity. MUSCULOSKELETAL: Mild tenderness to palpation globally and with resistance at the left ankle joint.? Muscle strength 5 out of 5 in all 3 cardinal planes left foot and ankle. Osseous and range of motion with dorsiflexion to the left ankle. CARDIOVASCULAR: S1, S2, normal rate, normal rhythm. Dorsalis pedis and posterior tibial arteries palpable. LUNGS: Clear to auscltation, no use of acessory muscles, no crackles or wheezes. A&P Assessment and plan (1) Post-traumatic arthritis of left ankle: (2) Left ankle pain: Qualifiers: Chronicity: chronic Qualified Code(s): M25.572 - Pain in left ankle and joints of left foot; G89.29 - Other chronic pain Plan Patient was examined and evaluated, findings and treatment options were discussed with patient at length. Patient has had a progression of posttraumatic arthritis of the left ankle that is affecting her overall quality of life. She has pain, achiness and stiffness with standing, walking and everyday activities. She has been utilizing supportive shoes, compression stockings, activity modifications, stretching and meloxicam. Has also tried advanced bracing. Patient wishing to discuss surgical options. She is not ready for an ankle fusion or ankle replacement. To bridge the gap discussed ankle arthroscopy as a means of debridement with goals of potentially reducing her pain to some degree and increasing her motion. Patient is agreeable wishes to be the next available opportunity. I reviewed at length with the patient, the risks, potential complications, benefits, alternatives, expectations, and typical outcomes associated with the surgery. The risks and potential complications were explained in detail, including but not limited to infection, wound dehiscence or soft tissue complications, bleeding and hematoma, chronic edema, neuritis or nerve damage producing numbness or chronic pain, CRPS, failure to relieve pain or worsening pain, thick / painful / unsightly scar, limited motion / stiffness, malposition, delayed union, malunion, or nonunion, fracture, reaction to implants, anesthetic complications, venous thromboembolism, and deformity recurrence. I discussed the notion of no regrets with the patient as it pertains to complications and outcomes. The patient seemed to understand the nature of the proposed care and required convalescence. They asked appropriate questions, answered to their satisfaction. They are aware no guarantees can be made as to a satisfactory outcome and they understand there may be other possible unforeseen complications or outcomes not listed here that will be treated accordingly if they arise. There were no written or implied guarantees given to the patient. They gave informed consent to proceed. 03/11/2023 left ankle scope outpatient General anesthetic Supine Gurney 60 minutes Coding Level of Care Code Acute Code for [facility] Fwd Diagnoses Post-traumatic arthritis of left ankle M19.172 Left ankle pain M25.572; G89.29 Chronicity: chronic
[2023-03-11] MEDS: sodium chloride 0.9% 1,000 ML 30 ML IV (07:30)
--- NOTE | 2023-03-11 07:48 | ANES.PREANE2 ---
Pre-Anesthetic Assessment Height/Weight: Height 1.63 m Weight 131.542 kg Temp Pulse Resp BP Pulse Ox O2 Del Method 97.6 F 75 18 167/86 98 Room Air 03/11/23 07:22 03/11/23 07:22 03/11/23 07:22 03/11/23 07:22 03/11/23 07:22 03/11/23 07:22 Preop Diagnosis: Posttraumatic arthritis left ankle Operation Date: 03/11/23 08:05 Proposed Procedures p ?Left ankle scope 28202,M19.172,M25.372(Left) - Gabino Bush DPM Familial anesthetic complications: None Was Beta Renata taken within 24 hours: N/A Was Clonidine taken within 24 hours: N/A Last intake: Intake Last Liquid Date 03/10/23 Last Liquid Time 20:00 Last Solid Date 03/10/23 Last Solid Time 18:30 Social No alcohol and No tobacco Exam alert, oriented x 3, clear to auscultation bilaterally and regular rate & rhythm Airway Dentition: full CV/HEM Hypertension GI Gastroesophageal Reflux Disease Metabolic Morbid Obesity and Thyroid Disease Anesthetic Plan ASA status: 3 Anesthesia: General Risk of > 500 ml blood loss (7ml/kg in children): No Medications/Allergies Home Medications Medication Instructions Recorded Confirmed Last Taken Type albuterol sulfate 2.5 mg/3 mL 2.5 mg inhalation PRN PRN 04/23/21 03/10/23 Unknown History (0.083 %) solution for nebulization Shortness Of Breath albuterol sulfate 90 mcg/actuation 1 puff inhalation Q6H PRN 04/23/21 03/10/23 10/18/22 History aerosol inhaler (ProAir HFA) Shortness Of Breath amlodipine 10 mg tablet 10 mg PO DAILY 04/23/21 03/10/23 03/11/23 History tolterodine 4 mg capsule,extended 4 mg PO DAILY 04/23/21 03/10/23 03/10/23 History release 24 hr benzonatate 100 mg capsule 100 mg PO Q8H PRN Cough 09/30/22 03/10/23 Unknown History ondansetron 4 mg disintegrating 4 mg PO Q6H PRN nausea and 09/30/22 03/10/23 Unknown Rx tablet vomiting #14 tabs levothyroxine 50 mcg capsule 50 mcg PO DAILY 10/04/22 03/10/23 03/11/23 History Trintellix 20 mg tablet 20 mg PO .morning #30 tabs 11/18/22 03/10/23 03/11/23 Rx (vortioxetine) clonazepam 1 mg tablet 1 mg PO BID #60 tabs 01/13/23 03/10/23 03/11/23 Rx magnesium glycinate 100 mg tablet 400 mg PO BEDTIME 01/13/23 03/10/23 03/10/23 History quetiapine 50 mg tablet 50 mg PO BEDTIME #30 tabs 01/13/23 03/10/23 03/10/23 Rx ropinirole 1 mg tablet 2 mg PO BEDTIME 01/13/23 03/10/23 03/10/23 History trazodone 150 mg tablet 150 mg PO .bedtime PRN sleep #180 01/13/23 03/10/23 03/10/23 Rx tabs Spectrum AFO to left #1 ea 02/23/23 02/23/23 Unknown Rx meloxicam 15 mg tablet See Rx Instructions .Route 03/08/23 03/10/23 03/10/23 Rx .COMPLEX #30 tabs Allergies Allergy/AdvReac Type Severity Reaction Status Date / Time azithromycin Allergy Unknown ADR-Gastrointestinal Verified 02/23/23 15:40 Upset haloperidol [From Haldol] Allergy ALGY-Anaphy Verified 02/23/23 15:40 laxis latex Allergy ALGY-Redness Verified 02/23/23 15:40 of Skin meperidine [From Demerol] Allergy ADR-Halluci Verified 02/23/23 15:40 nating prednisone Allergy ADR-Anxiety Verified 02/23/23 15:40 aripiprazole [From Abilify] AdvReac Unknown ADR-Anxiety Verified 02/23/23 15:40 bupropion [From Wellbutrin] AdvReac Unknown ADR-Confusi Verified 02/23/23 15:[facility] Medical History Generalized anxiety disorder Major depressive disorder, recurrent, in partial remission Other stressful life events affecting family and household Psychiatric care Urinary incontinence in female Surgical History H/O: hysterectomy History of Park urethropexy 24 yrs ago History of esophagogastroduodenoscopy (EGD) Hx of colonoscopy 10 yrs Hx of neck surgery Fusion Family History Unknown Cancer She denies a family hx of breast, ovarian, uterine, pancreatic, colon, thyroid cancers. Denies family history of Diabetes Hypertension Stroke Social History Smoking and tobacco status: never smoked Alcohol intake: never Substance/Drug Use: never Data Anesthesia Cardiac Studies: No Data to Display
--- NOTE | 2023-03-11 08:10 | P.OP_ITS ---
Operative Report Date of procedure: March 11, 2023 Pre-op diagnosis: Posttraumatic arthritis left ankle. Post-op diagnosis: Traumatic arthritis left ankle Post-op findings: Synovitis and anterior osseous bossing at the left ankle. Procedure done: Left ankle arthroscopy with extensive debridement Implants: None Specimens removed/disposition: None Pathology: None Surgeon: Gabino Bush D.P.M. Lead Teacher: Kieran Garcia Estimated blood loss: 5 26 IV fluids: 0 Urine output: 0 Complications: None Findings: As above Brief History: Patient was examined and evaluated, findings and treatment options were discussed with patient at length.? Patient has had a progression of posttraumatic arthritis of the left ankle that is affecting her overall quality of life.? She has pain, achiness and stiffness with standing, walking and everyday activities.? She has been utilizing supportive shoes, compression stockings, activity modifications, stretching and meloxicam.? Has also tried advanced bracing.? Patient wishing to discuss surgical options.? She is not ready for an ankle fusion or ankle replacement.? To bridge the gap discussed ankle arthroscopy as a means of debridement with goals of potentially reducing her pain to some degree and increasing her motion.? Patient is agreeable wishes to be the next available opportunity.? I reviewed at length with the patient, the risks, potential complications, benefits, alternatives, expectations, and typical outcomes associated with the surgery. The risks and potential complications were explained in detail, including but not limited to infection, wound dehiscence or soft tissue complications, bleeding and hematoma, chronic edema, neuritis or nerve damage producing numbness or chronic pain, CRPS, failure to relieve pain or worsening pain, thick / painful / unsightly scar, limited motion / stiffness, malposition, delayed union, malunion, or nonunion, fracture, reaction to implants, anesthetic complications, venous thromboem bolism, and deformity recurrence.? I discussed the notion of no regrets with the patient as it pertains to complications and outcomes. The patient seemed to understand the nature of the proposed care and required convalescence. They asked appropriate questions, answered to their satisfaction. They are aware no guarantees can be made as to a satisfactory outcome and they understand there may be other possible unforeseen complications or outcomes not listed here that will be treated accordingly if they arise. There were no written or implied guarantees given to the patient. They gave informed consent to proceed. Procedure: Under mild sedation the patient was brought to the operating room and placed onto the operating table in supine position. A timeout was performed. Anesthesia was then administered by the anesthesia service. Well-padded pneumatic tourniquet was applied to the left high calf. The left lower extremity was scrubbed, prepped and draped utilizing normal aseptic technique. Left lower extremity was then exanguinated with an Esmarch bandage and the tourniquet inflated to 250 mmHg. Attention was directed to the left anterior ankle. The tibiotalar joint was palpated directly and medial to the tibialis anterior tendon and a skin marker was utilized to plan out surgical incision. Lateral to peroneal tertius a late ral border was also marked. A 25-gauge needle with 10 cc of 1% lidocaine with epinephrine was injected into the left ankle joint. The medial and lateral portals were established with incision through skin with a #15 blade. Blunt dissection with a curved mosquito hemostat was then performed to enter the joint capsule. After having entered the joint capsule at the medial portal under direct visualization with the arthroscope the lateral portal was established. Shaver was introduced to the lateral portal. Synovitis and hemorrhagic synovitis was debrided heavily, ankle joint inspection was performed of all critical points. No talar or tibial plafond defect of the articular surface was identified. Osseous bossing at the anterior distal tibia and at the dorsal anterior talar body were also debrided. Smooth range of motion was obtained intraoperatively. The ankle was irrigated and portals were closed with 4-0 nylon. Tourniquet was deflated and a prompt hyperemic response was noted to the distal digits of the left foot. Patient tolerated the procedure well and was transferred to the PACU with vital signs stable and vascular status intact. Following a period of postoperative monitoring she will be discharged home may be weightbearing as tolerated with a cam boot. She was given at home care instructions, scheduled follow-up and my cell phone number to contact me with any postoperative questions or concerns.
[2023-03-11] MEDS: ceFAZolin 3,000 MG in sodium chloride 0.9% (100 ml) 100 ML 200 MG IV (08:23)
[2023-03-11] MEDS: lidocaine-epi 1% 20 mL INJ INJECTION (09:06)
--- NOTE | 2023-03-11 10:25 | ANE.PACU2 ---
Inpatient post-anesthesia follow up: Airway intact: Yes Vital signs: Temperature 98.1 F Pulse Rate 80 Respiratory Rate 15 Blood Pressure 141/72 Pulse Oximetry 96 Oxygen Delivery Me thod Room Air Oxygen Flow Rate Fraction of Inspir ed Oxygen Hydration adequate: Yes Nausea and vomiting: No Pain level: 1 Mental status: Baseline
== END 2023-03-11 10:50 | disposition home or self-care (01) ==
PROVIDERS: PCP Family Medicine; Visit Provider Podiatrist Foot & Ankle Surgery
PROC: (CPT 29898; principal; 2023-03-11 07:55)
DX: M65.872 Other synovitis and tenosynovitis, left ankle and foot (principal); F41.1 Generalized anxiety disorder; K21.9 Gastro-esophageal reflux disease without esophagitis; M19.172 Post-traumatic osteoarthritis, left ankle and foot; I10 Essential (primary) hypertension; E66.01 Morbid (severe) obesity due to excess calories; Z68.42 Body mass index [BMI] 45.0-49.9, adult; E03.9 Hypothyroidism, unspecified
CPT/HCPCS: 29898; J0330; J0690; J1100; J1885; J2405; J2704; J2795; J3010; J7030

== ENCOUNTER 2023-04-21 14:26 | Outpatient (CLI) | payer OTHER, SELFPAY | END 2023-04-21 14:27 | disposition home or self-care (01) | LOC: SPT 14:27 | PROVIDERS: PCP Family Medicine; Visit Provider Podiatrist Foot & Ankle Surgery | DX: Z47.89 Encounter for other orthopedic aftercare (principal); M19.172 Post-traumatic osteoarthritis, left ankle and foot | CPT/HCPCS: 97760; L4397 ==

== ENCOUNTER → 2023-08-25 12:05 | Outpatient (BNVA) | payer OTHER, SELFPAY | PROVIDERS: PCP Family Medicine; Visit Provider Obstetrics & Gynecology | DX: R32 Unspecified urinary incontinence (principal) | CPT/HCPCS: 84315; 87086 ==

== ENCOUNTER → 2023-09-15 09:06 | Outpatient (BNVA) | payer OTHER, SELFPAY | PROVIDERS: PCP Family Medicine; Visit Provider Nurse Practitioner Psychiatric/Mental Health | DX: Z79.899 Other long term (current) drug therapy (principal) | CPT/HCPCS: 80053; 80061; 83036 ==

== ENCOUNTER 2023-09-29 07:22 | Outpatient (CLI) | payer OTHER, SELFPAY ==
--- NOTE | 2023-09-29 07:30 | MM_ITS ---
WS: [id number] Bilateral screening 3D tomosynthesis digital mammogram, 09/29/2023 Clinical Data: SCREENING Comparison: 05/22/2014 Findings: The breast parenchymal pattern shows fibroglandular tissue. No spiculated masses or clustered calcifi cations are seen. There are no secondary signs of carcinoma. Impression: 1. Negative bilateral mammogram unchanged. 2. Recommend annual screening mammograms. MM/[place] [id number] BIRADS: 1-Negative FOLLOW UP: 1 Year Follow-up The CAD checker/stocker was used.
== END 2023-09-29 07:23 | disposition home or self-care (01) ==
LOC: RAD 07:22
PROVIDERS: PCP Family Medicine; Visit Provider Family Medicine
DX: Z12.31 Encounter for screening mammogram for malignant neoplasm of breast (principal)
CPT/HCPCS: 77063; 77067

== ENCOUNTER → 2024-03-12 10:47 | Outpatient (BNVA) | payer OTHER, SELFPAY | PROVIDERS: PCP Family Medicine; Visit Provider Nurse Practitioner | DX: M77.11 Lateral epicondylitis, right elbow (principal); M19.011 Primary osteoarthritis, right shoulder; M75.81 Other shoulder lesions, right shoulder; M75.41 Impingement syndrome of right shoulder | CPT/HCPCS: 73030; 73080 ==

== ENCOUNTER 2024-05-06 20:06 | Emergency (ER) | payer OTHER, SELFPAY ==
[2024-05-06] VITALS (8 sets, daily range): BP systolic 129–171; BP diastolic 69–92; PULSE 62–78; RESP 16–20; TEMP 36.4; O2SAT 90–97; BMI 50.6
--- NOTE | 2024-05-06 20:08 | XRR_ITS ---
PROCEDURE INFORMATION: Exam: XR Chest Exam date and time: 05/06/2024 8:50 PM Age: 58 years old Clinical indication: Pain; Chest pressure; Patient HX: Leukocytosis; N/v/d; Weakness TECHNIQUE: Imaging protocol: Radiologic exam of the chest. Views: 1 view. COMPARISON: CR XR chest 1V portable [id number] 02/26/2021 7:42 PM FINDINGS: Lungs: Lungs appear clear without consolidation. Small calcified 3 mm granuloma in the right upper lobe, unchanged from prior. Pleural spaces: No pneumothorax or pleural effusion. Heart/Mediastinum: Normal size of the cardiac silhouette. Bones/joints: Prior cervical spinal fixation at C6-C7. Mild scattered spinal degenerative changes. XR/XR chest 1V portable [id number] IMPRESSION: No evidence of acute cardiopulmonary disease.
--- NOTE | 2024-05-06 20:11 | ECG_ITS ---
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 Measurements Intervals [place] Rate: 70 P: 83 IN: 178 QRS: 87 QRSD: 93 T: 53 QT: 408 QTc: 442 Interpretive Statements SINUS RHYTHM LOW QRS VOLTAGE IN PRECORDIAL LEADS [QRS DEFLECTION < 1.0 mV IN CHEST LEADS] NONSPECIFIC T-WAVE ABNORMALITY Compared to ECG 02/26/2021 22:02:16 T-wave abnormality now present ST (T wave) deviation no longer present Electronically Signed On 05-07-2024 23:30:17 CDT by Ramiro Ball M.D. [email or web address] county memorial hospitaliTiffinmemorial health system [id number]
[2024-05-06 20:37] LABS: Basophils # 0.1 10^3/uL (0.0-0.1); Basophils % 0.5 %; Eosinophils # 0.1 10^3/uL (0.0-0.8); Hematocrit 38.3 % (36-47); Lymphocytes # 2.7 10^3/uL (0.8-4.8); Lymphocytes % 27.3 %; Mean Corpuscular HGB Conc 33.4 g/dL (30-55); Mean Corpuscular Hemoglobin 30.8 pg (27-33); Mean Corpuscular Volume 92.3 fl (85-98); Mean Platelet Volume 10.5 fL (7.4-10.4); Monocytes # 0.8 10^3/uL (0.2-0.9); Monocytes % 7.6 %; Neutrophils # 6.34 10^3/uL (1.8-7.7); Neutrophils % 63.3 %; Nucleated Red Blood Cells % 0 %; Platelet Count 347 10^3/cmm (157-399); Red Blood Count 4.15 10^6/uL (3.85-5.65); White Blood Count 10.02 10^3/uL (3.29-11.43)
--- NOTE | 2024-05-06 20:52 | USR_ITS ---
PROCEDURE INFORMATION: Exam: US Abdomen, Limited; Right Upper Quadrant Exam date and time: 05/06/2024 9:57 PM Age: 58 years old Clinical indication: Abdominal pain; Epigastric; Additional info: Ruq pain TECHNIQUE: Imaging protocol: Real time ultrasound of the abdomen with image documentation. Limited exam focused on the right upper quadrant. COMPARISON: CT abdomen pelvis w con* [id number] 09/30/2022 6:42 PM FINDINGS: Liver: There is increased hepatic echogenicity with poor sonographic penetration suggesting fatty infiltration. Liver length estimated at 13.6 cm. Gallbladder: Gallbladder wall normal in thickness measuring 0.2 cm. Dependently within the gallbladder there is a were oval echogenic focus measuring 1.8 cm suggesting a stone without significant shadowing. No internal Doppler flow to suggest a polyp. Presence or absence of a sonographic Guadalupe sign is not indicated by the technologist. Biliary ducts: Common bile duct normal in caliber measuring 0.4 cm. Pancreas: The visualized pancreatic head and body have a normal sonographic appearance. Pancreatic tail is not well seen as is typical by ultrasound. No evidence of pancreatic ductal dilation. Right kidney: The right kidney measures 9.7 cm in long axis. The right kidney is normal in echotexture without sonographically apparent mass, stone or hydronephrosis. Aorta: The proximal abdominal aorta is normal in caliber measuring 1.8 cm. Portal venous: Normal directional flow in the portal vein. US/US gall bladder [id number] IMPRESSION: 1. Cholelithiasis without evidence of cholecystitis. 2. Hepatic steatosis.
--- NOTE | 2024-05-06 20:53 | ED_ITS ---
HPI - Chest Pain 2 General: Chief Complaint: Chest Pain Stated Complaint: CP SOB Time Seen by Provider: 05/06/24 20:37 Source: patient Mode of arrival: ambulatory Limitations: no limitations History of Present Illness: 58-year-old female states that she has b een having some chest pain along with upper abdominal pain she has been sharp and pressure-like pain she rates the pain a 5 out of 10 currently she denies any worse improving factors. Denies any vomiting denies any diarrhea she said some mild dyspnea. Denies any cough or fever Associated symptoms: Reports abdominal pain; Deny dyspnea, fever(s), nausea or vomiting Related Data Home Medications Medication Instructions Recorded Confirmed albuterol sulfate 2.5 mg/3 mL 2.5 mg inhalation PRN PRN 04/23/21 05/01/24 (0.083 %) solution for nebulization Shortness Of Breath albuterol sulfate 90 mcg/actuation 1 puff inhalation Q6H PRN 04/23/21 05/01/24 aerosol inhaler (ProAir HFA) Shortness Of Breath tolterodine 4 mg capsule,extended 4 mg PO DAILY 04/23/21 05/01/24 release 24 hr levothyroxine 50 mcg capsule 50 mcg PO DAILY 10/04/22 05/01/24 magnesium glycinate 100 mg (as 400 mg PO BEDTIME 01/13/23 05/01/24 glycinate) tablet amlodipine 10 mg tablet 10 mg PO .morning 11/01/23 05/01/24 estradiol 1 mg tablet 1 mg PO .7 pm 11/01/23 05/01/24 ropinirole 1 mg tablet 3 mg PO BEDTIME 11/01/23 05/01/24 methocarbamol 750 mg tablet 750 mg PO 03/12/24 05/01/24 Previous Rx's Medication Instructions Recorded quetiapine 50 mg tablet (Seroquel) 50 mg PO BEDTIME #90 tabs 12/19/23 trazodone 150 mg tablet 150 mg PO .bedtime PRN sleep #90 12/19/23 tabs Trintellix 20 mg tablet 20 mg PO .morning #30 tabs 02/01/24 (vortioxetine) celecoxib 100 mg capsule (Celebrex) 100 mg PO BID #180 caps 03/12/24 clonazepam 1 mg tablet 1 mg PO BID #60 tabs 05/01/24 hydrocodone 5 mg-acetaminophen 325 1 tab PO Q6H PRN pain #14 tabs 05/06/24 mg tablet ondansetron 4 mg disintegrating 4 mg PO Q6H PRN nausea and 05/06/24 tablet vomiting #14 tabs Allergies Allergy/AdvReac Type Severity Reaction Status Date / Time azithromycin Allergy Unknown ADR-Gastrointestinal Verified 05/06/24 20:18 Upset haloperidol [From Haldol] Allergy ALGY-Anaphy Verified 05/06/24 20:18 laxis latex Allergy ALGY-Redness Verified 05/06/24 20:18 of Skin meperidine [From Demerol] Allergy ADR-Halluci Verified 05/06/24 20:18 nating prednisone Allergy ADR-Anxiety Verified 05/06/24 20:18 aripiprazole [From Abilify] AdvReac Unknown ADR-Anxiety Verified 05/06/24 20:18 bupropion [From Wellbutrin] AdvReac Unknown ADR-Confusi Verified 05/06/24 20:18 on Review of Systems 2 Const: Denies: fever(s), chills, body aches or change in appetite Eyes: Denies: blurry vision or eye discomfort ENMT: Denies: throat pain or dental pain Card: Reports: chest pain Resp: Denies: dyspnea GI: Reports: abdominal pain; Denies: nausea, vomiting or diarrhea : Denies: dysuria Musc: Denies: neck pain or back pain Skin/Breast: Denies: rash Neuro: Denies: headache(s) PFSH ED 2 PFSH: Medical History (Updated 05/06/24 @ 23:15 by Colten Recinos MD) Impingement syndrome of right shoulder Primary osteoarthritis, right shoulder Right rotator cuff tendonitis Urinary incontinence in female Psychiatric care Other stressful life events affecting family and household Generalized anxiety disorder Major depressive disorder, recurrent, in partial remission Surgical History H/O: hysterectomy Hx of neck surgery Fusion Hx of colonoscopy 10 yrs History of esophagogastroduodenoscopy (EGD) History of [place] urethropexy 24 yrs ago Family History Unknown Cancer She denies a family hx of breast, ovarian, uterine, pancreatic, colon, thyroid cancers. Denies family history of Diabetes Hypertension Stroke Social History Smoking and tobacco/nicotine status: never used tobacco/nicotine Alcohol intake: never Substance/Drug Use: never Physical Exam 2 Const: COMMON NORMALS: no acute distress, patient oriented x3 and healthy appearing HENMT: COMMON NORMALS: normocephalic and atraumatic HEAD & SCALP: n ormocephalic and atraumatic Eye: COMMON NORMALS: conjunctivae normal CONJUNCTIVA: Yes conjunctivae normal Neck/C-Spine: COMMON NORMALS: full ROM and supple Chest: COMMONS NORMALS: normal inspection of the chest Resp: COMMON NORMALS: normal respiratory effort, No retractions, No use of accessory muscles and clear to auscultation bilaterally AUSCULTATION: clear to auscultation bilaterally Cardio: COMMON NORMALS: regular rate, regular rhythm and No murmurs present (Cardio) RATE: regular rate RHYTHM: regular rhythm GI: COMMON NORMALS: Normal to inspection, nondistended, normoactive bowel sounds present, Soft to palpation and no masses PALPATION: Yes Soft to palpation and Yes Tenderness to palpation present (GI) Details: RUQ Extremity: COMMON NORMALS: normal to inspection and full ROM Neuro: COMMON NORMALS: patient oriented x3, moves all extremities and no focal motor deficits Psych: COMMON NORMALS: mental status grossly normal, Normal thought process present and cooperative THOUGHT PROCESS: Normal thought process present Skin: COMMON NORMALS: no rashes or lesions noted and no wounds GENERAL SKIN EXAM: no rashes or lesions noted Course 2 Vital Signs: Vital signs: Vital Signs Temperature 97.6 F 05/06/24 20:12 Pulse Rate 70 05/06/24 21:31 Respiratory Rate 16 05/06/24 21:31 Blood Pressure 145/91 05/06/24 21:31 Pulse Oximetry 95 05/06/24 21:31 Oxygen Delivery Me thod Room Air 05/06/24 20:53 MDM - Chest Pain Medical Decision Making Patient presents here with abdominal pain no chest pain on my exam is really more upper abdominal pain she does have gallstones likely biliary colic her troponins here are negative no signs of ACS we will get her follow-up with surgery she is follow-up with PCP as well. No signs of acute cholecystitis she is return if worsening she understands agrees to plan. Medical Records I reviewed the patient's medical records. Lab Data I reviewed the patient's lab results. 05/06/24 20:25 05/06/24 20:25 Radiology Impressions Chest X-Ray 05/06/24 20:08 IMPRESSION: No evidence of acute cardiopulmonary disease. Gallbladder Ultrasound 05/06/24 20:52 IMPRESSION: 1. Cholelithiasis without evidence of cholecystitis. 2. Hepatic steatosis. Laboratory Results WBC 10.02 10^3/uL (3.29-11.43) 05/06/24 20: RBC 4.15 10^6/uL (3.85-5.65) 05/06/24 20: Hgb 12.80 g/dL (11.27-16.99) 05/06/24 20: Hct 38.3 % (36-47) 05/06/24: MCV 92.3 fl (85-98) 05/06/24: MCH 30.8 pg (27-33) 05/06/24 20: MCHC 33.4 g/dL (30-55) 05/06/24 20: RDW 14.0 % (12.1-15.1) 05/06/24: Plt Count 347 10^3/cmm (157-399) 05/06/24 20: MPV 10.5 fL (7.4-10.4) H 05/06/24 20: Neut % (Auto) 63.3 % 05/06/24 20: Lymph % (Auto) 27.3 % 05/06/24 20: Hendricks % (Auto) 7.6 % 05/06/24 20:25 Eos % (Auto) 1.0 % 05/06/24 20: Baso % (Auto) 0.5 % 05/06/24 20: Neut # (Auto) 6.34 10^3/uL (1.8-7.7) 05/06/24 20: Lymph # (Auto) 2.7 10^3/uL (0.8-4.8) 05/06/24 20: Hendricks # (Auto) 0.8 10^3/uL (0.2-0.9) 05/06/24 20:25 Eos # (Auto) 0.1 10^3/uL (0.0-0.8) 05/06/24 20:25 Baso # (Auto) 0.1 10^3/uL (0.0-0.1) 05/06/24 20:25 Nucleated RBC % (auto) 0 % 05/06/24 20:25 Nucleated RBCs # 0.0 /100WBC 05/06/24 20: PT 12.30 SECONDS (12.1-14.9) 05/06/24 20:25 INR 0.89 (0.8-1.2) 05/06/24 20:25 D-Dimer 0.57 ug/mLFEU (0-0.59) 05/06/24 20:25 Sodium 137 mmol/L (136-145) 05/06/24 20: Potassium 4.0 mmol/L (3.5-5.1) 05/06/24 20: Chloride 99 mmol/L (98-107) 05/06/24 20: Carbon Dioxide 27 mmol/L (22-29) 05/06/24 20:25 Anion Gap 15.0 (5-19) 05/06/24 20:25 BUN 18 mg/dL (6-20) 05/06/24 20:25 Creatinine 0.8 mg/dL (0.5-0.9) 05/06/24 20:25 GFR Calculation 73.4 mL/min (90-130) L 05/06/24 20:25 Glucose 97 mg/dL (65-115) 05/06/24 20:25 Calculated Osmolality 286 mOsm/kg (285-295) 05/06/24 20:25 Calcium 8.4 mg/dL (8.5-10.5) L 05/06/24 20:25 Total Bilirubin 0.2 mg/dL (0.15-1.2) 05/06/24 20:25 AST 11 U/L (0-32) 05/06/24 20:25 ALT 14 U/L (0-33) 05/06/24 20:25 Alkaline Phosphatase 89 U/L (35-105) 05/06/24 20:25 Troponin T Baseline < 6 ng/L (0-10) 05/06/24 20:25 Troponin T 120 Minute 6.00 ng/L (0-10) 09/22/24 22:40 Delta Troponin T 0.56936 ABS# (0-10) 05/06/24 22:40 NT-Pro-B Natriuret Pep 68 pg/mL (0-125) 05/06/24 20:25 Total Protein 6.5 g/dL (6.6-8.7) L 05/06/24 20:25 Albumin 3.8 g/dL (3.5-5.2) 05/06/24 20:25 Globulin 2.7 g/dL (1.3-4.6) 05/06/24 20:25 Lipase 31 U/L (13-60) 05/06/24 20:25 All radiology interpretation(s) finalized by discharge EKG Data EKG 1: I personally reviewed and interpreted this EKG as follows: EKG interpretation date: 05/06/24 EKG interpretation time: 22:10 Interpretation: nsr hr [address] elevation qrs 99 qtc 453 Clincial Decision Support The following clinical decision support tools were used to aid in care of the patient HEART Score -> History: Slightly Suspicous, EKG: Normal, Age: 45-64 yrs, Risk Factors: 1 or 2 Risk Factors, Troponin: Baseline Trop <16 ng/L. Resulting HEART Score: 2. Discharge Plan Discharge Patient Disposition: Home Clinical Impression: Cholelithiasis, Abdominal pain Condition: Stable Prescriptions: New hydrocodone-acetaminophen 5-325 mg tablet 1 tab PO Q6H PRN (Reason: pain) Qty: 14 0RF ondansetron 4 mg tablet,disintegrating 4 mg PO Q6H PRN (Reason: nausea and vomiting) Qty: 14 0RF No Action ropinirole 1 mg tablet 3 mg PO BEDTIME estradiol 1 mg tablet 1 mg PO .7 pm methocarbamol 750 mg tablet 750 mg PO Rx Instructions: take 1 tablet every 8 hours as needed celecoxib [Celebrex] 100 mg capsule 100 mg PO BID Qty: 180 0RF levothyroxine 50 mcg capsule 50 mcg PO DAILY magnesium glycinate 100 mg tablet 400 mg PO BEDTIME trazodone 150 mg tablet 150 mg PO .bedtime PRN (Reason: sleep) Qty: 90 2RF Rx Instructions: Take one tablet at bedtime quetiapine [Seroquel] 50 mg tablet 50 mg PO BEDTIME Qty: 90 2RF Rx Instructions: Take one tablet at bedtime Trintellix 20 mg tablet 20 mg PO .morning Qty: 30 6RF Rx Instructions: Take one tablet every morning clonazepam 1 mg tablet 1 mg PO BID Qty: 60 3RF Rx Instructions: Take one tablet twice per day albuterol sulfate 2.5 mg /3 mL (0.083 %) solution for nebulization 2.5 mg inhalation PRN PRN (Reason: Shortness Of Breath) tolterodine 4 mg capsule,extended release 24hr 4 mg PO DAILY albuterol sulfate [ProAir HFA] 90 mcg/actuation HFA aerosol inhaler 1 puff INHALATION Q6H PRN (Reason: Shortness Of Breath) amlodipine 10 mg tablet 10 mg PO .morning Discharge Orders: Discharge ED (Routine); Ordered 05/06/24 Ordered By: Colten Recinos Referrals: Vignesh Cosby MD [Physician] - 4-7 days Nadeem Graves MD [Primary Care Provider] - 4-7 days Discharge Diet: Advance as tolerated Discharge Activity: Resume usual activity Patient Instructions: Gallstones (ED), Abdominal Pain (ED), Opioid Safety Coding Level of Care Code 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
[2024-05-06 20:54] LABS: INR 0.89 (0.8-1.2)
[2024-05-06 21:02] LABS: Troponin(5th) Baseline < 6 ng/L (0-10)
[2024-05-06 21:11] LABS: D Dimer 0.57 ug/mLFEU (0-0.59)
[2024-05-06 21:12] LABS: Alanine Aminotransferase 14 U/L (0-33); Albumin Level 3.8 g/dL (3.5-5.2); Alkaline Phosphatase 89 U/L (35-105); Aspartate Amino Transferase 11 U/L (0-32); Blood Urea Nitrogen 18 mg/dL (6-20); Calcium 8.4 mg/dL (8.5-10.5); Carbon Dioxide 27 mmol/L (22-29); Chloride 99 mmol/L (98-107); Creatinine Clr Calc Pharmacy 103.2081; Globulin 2.7 g/dL (1.3-4.6); Glomerular Filtration Rate 73.4 mL/min (90-130); Glucose 97 mg/dL (65-115); Lipase 31 U/L (13-60); NT Pro B Type Natriuretic Pept 68 pg/mL (0-125); Osmolality Calculated 286 mOsm/kg (285-295); Sodium 137 mmol/L (136-145); Total Bilirubin 0.2 mg/dL (0.15-1.2); Total Protein 6.5 g/dL (6.6-8.7)
[2024-05-06] MEDS: morphine 4 mg/mL SDV 1 mL IVP (21:19)
[2024-05-06] MEDS: ondansetron 2 mg/ML SDV 2 mL 4 MG IVP (21:19)
[2024-05-06] MEDS: sodium chloride 0.9% 1,000 ML 999 ML IV (21:20)
--- NOTE | 2024-05-06 22:08 | ECG_ITS ---
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 Measurements Intervals [place] Rate: 70 P: 83 UT: 183 QRS: 25 QRSD: 99 T: -20 QT: 433 QTc: 468 Interpretive Statements SINUS RHYTHM LOW QRS VOLTAGE IN PRECORDIAL LEADS [QRS DEFLECTION < 1.0 mV IN CHEST LEADS] Compared to ECG 05/06/2024 20:11:21 T-wave abnormality no longer present Electronically Signed On 05-08-2024 16:58:22 CDT by Tyron Adams M.D. [email or web address]
[2024-05-06 23:11] LABS: Troponin 5 2HR Delta 0.00001 ABS# (0-10)
== END 2024-05-06 23:38 | disposition home or self-care (01) ==
PROVIDERS: Emergency Provider Emergency Medicine; PCP Family Medicine
DX: K80.20 Calculus of gallbladder without cholecystitis without obstruction (principal)
CPT/HCPCS: 71045; 76705; 80053; 83690; 83880; 84484; 85025; 85378; 85610; 93005; 96374; 96375; 99285; J2270; J2405; J7030

== ENCOUNTER 2024-05-20 18:06 | Emergency (ER) | payer OTHER, SELFPAY ==
[2024-05-20 18:28] VITALS: BP 141/72; PULSE 75; RESP 18; TEMP 36.6; O2SAT 99; BMI 50.6
[2024-05-20 19:39] LABS: Basophils % 0.5 %; Eosinophils # 0.1 10^3/uL (0.0-0.8); Eosinophils % 1.1 %; Hematocrit 38.6 % (36-47); Lymphocytes # 2.2 10^3/uL (0.8-4.8); Lymphocytes % 25.2 %; Mean Corpuscular HGB Conc 32.6 g/dL (30-55); Mean Corpuscular Hemoglobin 29.6 pg (27-33); Mean Corpuscular Volume 90.6 fl (85-98); Mean Platelet Volume 10.5 fL (7.4-10.4); Monocytes # 0.7 10^3/uL (0.2-0.9); Monocytes % 8.3 %; Neutrophils # 5.73 10^3/uL (1.8-7.7); Neutrophils % 64.6 %; Nucleated Red Blood Cells % 0 %; Platelet Count 339 10^3/cmm (157-399); Red Blood Count 4.26 10^6/uL (3.85-5.65); Red Cell Distribution Width 13.6 % (12.1-15.1); White Blood Count 8.88 10^3/uL (3.29-11.43)
[2024-05-20] MEDS: morphine 4 mg/mL SDV 1 mL IVP ×2 (19:45→23:23)
[2024-05-20] MEDS: ondansetron 2 mg/ML SDV 2 mL 4 MG IVP ×2 (19:45→23:23)
[2024-05-20] MEDS: ketorolac 30 mg/mL INJ IVP (19:45)
[2024-05-20 19:58] LABS: Alanine Aminotransferase 14 U/L (0-33); Albumin Level 3.7 g/dL (3.5-5.2); Alkaline Phosphatase 82 U/L (35-105); Anion Gap 12.7 (5-19); Aspartate Amino Transferase 12 U/L (0-32); Blood Urea Nitrogen 14 mg/dL (6-20); C Reactive Protein 12.4 mg/L (0.0-4.9); Calcium 7.9 mg/dL (8.5-10.5); Carbon Dioxide 27 mmol/L (22-29); Chloride 101 mmol/L (98-107); Creatinine Clr Calc Pharmacy 117.9521; Globulin 2.9 g/dL (1.3-4.6); Glomerular Filtration Rate 85.6 mL/min (90-130); Glucose 120 mg/dL (65-115); Lipase 24 U/L (13-60); Osmolality Calculated 286 mOsm/kg (285-295); Potassium 3.7 mmol/L (3.5-5.1); Sodium 137 mmol/L (136-145); Total Bilirubin 0.2 mg/dL (0.15-1.2); Total Protein 6.6 g/dL (6.6-8.7)
--- NOTE | 2024-05-20 20:03 | CTR_ITS ---
PROCEDURE INFORMATION: Exam: CT Abdomen And Pelvis With Contrast Exam date and time: 05/20/2024 8:22 PM Age: 58 years old Clinical indication: Abdominal pain; Prior surgery; Surgery date: 6+ months; Surgery type: Hysterectomy. Bladder sling; Patient HX: C/O ruq/epigastric pain; Additional info: Ruq pain and epigastric TECHNIQUE: Imaging protocol: Computed tomography of the abdomen and pelvis with contrast. Radiation optimization: All CT scans at this facility use at least one of these dose optimization techniques: automated exposure control; mA and/or kV adjustment per patient size (includes targeted exams where dose is matched to clinical indication); or iterative reconstruction. Contrast material: OMNI 350; Contrast volume: 100 ml; Contrast route: INTRAVENOUS (IV); COMPARISON: CT abdomen pelvis w con* [id number] 09/30/2022 6:42 PM RADIATION DOSE METRICS: Total DLP (mGy-cm): 1191.91 FINDINGS: Lungs: Subsegmental bibasilar atelectasis. The visualized lung bases are otherwise grossly clear. Diaphragm: No evidence of diaphragmatic defect. Liver: Hepatic steatosis. No evidence of focal hepatic lesion. Gallbladder and biliary ducts: Unremarkable. No intra-hepatic or extra-hepatic biliary dilatation. Pancreas: Unremarkable. Spleen: Unremarkable. Adrenal glands: Unremarkable. Kidneys and ureters: No renal parenchymal abnormality. No hydronephrosis or ureteral stone. Stomach and bowel: No evidence of bowel obstruction or perienteric inflammatory changes. Appendix: Normal appendix. Intraperitoneal space: No evidence of free air or fluid collection. Vasculature: Mild aortobiiliac atherosclerosis without aneurysmal dilatation or dissection. The celiac trunk, SMA and CARINA are grossly patent. No evidence of IVC thrombus. The portal vein, SMV and splenic veins are grossly patent. Lymph nodes: No adenopathy. Urinary bladder: Grossly unremarkable. Reproductive: Prior hysterectomy. Postsurgical changes of the pelvic floor noted. Bones/joints: No evidence of acute fracture or aggressive osseous lesion. Soft tissues: No evidence of fluid collection or hematoma in the superficial soft tissues. CT/CT abdomen pelvis w con* [id number] IMPRESSION: 1. No evidence of acute abnormality in the abdomen or pelvis.
[2024-05-20 20:23] VITALS: BP 136/80; O2SAT 95
[2024-05-20] MEDS: iohexol 350 mg/mL 500 mL Btl (per mL) IV (20:25)
--- NOTE | 2024-05-20 20:31 | ED_ITS ---
HPI - Abdominal Pain 2 General: Chief Complaint: Abdominal Pain Stated Complaint: pain in right abd radiating to back Time Seen by Provider: 05/20/24 19:03 History of Present Illness: 58-year-old female who was diagnosed wit h biliary colic in the ER couple weeks ago after coming and was epigastric and chest pain. She has gallstones on ultrasound evidently. She presents not feeling much better, and then feeling acutely worse today. Pain is to the epigastrium, radiating into her back, and in her right upper quadrant. She also has some pain in her shoulder blades. She is not short of breath. No fever. She is nauseated but has not vomited. Related Data Home Medications Medication Instructions Recorded Confirmed albuterol sulfate 2.5 mg/3 mL 2.5 mg inhalation PRN PRN 04/23/21 05/01/24 (0.083 %) solution for nebulization Shortness Of Breath albuterol sulfate 90 mcg/actuation 1 puff inhalation Q6H PRN 04/23/21 05/01/24 aerosol inhaler (ProAir HFA) Shortness Of Breath tolterodine 4 mg capsule,extended 4 mg PO DAILY 04/23/21 05/01/24 release 24 hr levothyroxine 50 mcg capsule 50 mcg PO DAILY 10/04/22 05/01/24 magnesium glycinate 100 mg (as 400 mg PO BEDTIME 01/13/23 05/01/24 glycinate) tablet amlodipine 10 mg tablet 10 mg PO .morning 11/01/23 05/01/24 estradiol 1 mg tablet 1 mg PO .7 pm 11/01/23 05/01/24 ropinirole 1 mg tablet 3 mg PO BEDTIME 11/01/23 05/01/24 methocarbamol 750 mg tablet 750 mg PO 03/12/24 05/01/24 Previous Rx's Medication Instructions Recorded quetiapine 50 mg tablet (Seroquel) 50 mg PO BEDTIME #90 tabs 12/19/23 trazodone 150 mg tablet 150 mg PO .bedtime PRN sleep #90 12/19/23 tabs Trintellix 20 mg tablet 20 mg PO .morning #30 tabs 02/01/24 (vortioxetine) celecoxib 100 mg capsule (Celebrex) 100 mg PO BID #180 caps 03/12/24 clonazepam 1 mg tablet 1 mg PO BID #60 tabs 05/01/24 ketorolac 10 mg tablet 10 mg PO TID PRN pain #10 tabs 05/20/24 ondansetron 4 mg disintegrating 4 mg PO Q6H PRN nausea and 05/20/24 tablet vomiting #14 tabs oxycodone-acetaminophen 7.5 mg-325 1 tab PO Q6H PRN pain #10 tabs 05/20/24 mg tablet (Percocet) Allergies Allergy/AdvReac Type Severity Reaction Status Date / Time azithromycin Allergy Unknown ADR-Gastrointestinal Verified 05/20/24 18:31 Upset haloperidol [From Haldol] Allergy ALGY-Anaphy Verified 05/20/24 18:31 laxis latex Allergy ALGY-Redness Verified 05/20/24 18:31 of Skin meperidine [From Demerol] Allergy ADR-Halluci Verified 05/20/24 18:31 nating prednisone Allergy ADR-Anxiety Verified 05/20/24 18:31 aripiprazole [From Abilify] AdvReac Unknown ADR-Anxiety Verified 05/20/24 18:31 bupropion [From Wellbutrin] AdvReac Unknown ADR-Confusi Verified 05/20/24 18:31 on PFSH ED 2 PFSH: Medical History Impingement syndrome of right shoulder Primary osteoarthritis, right shoulder Right rotator cuff tendonitis Urinary incontinence in female Psychiatric care Other stressful life events affecting family and household Generalized anxiety disorder Major depressive disorder, recurrent, in partial remission Surgical History H/O: hysterectomy Hx of neck surgery Fusion Hx of colonoscopy 10 yrs History of esophagogastroduodenoscopy (EGD) History of [place] urethropexy 24 yrs ago Family History Unknown Cancer She denies a family hx of breast, ovarian, uterine, pancreatic, colon, thyroid cancers. Denies family history of Diabetes Hypertension Stroke Social History Smoking and tobacco/nicotine status: never used tobacco/nicotine Alcohol intake: never Substance/Drug Use: never Physical Exam 2 Const: COMMON NORMALS: no acute distress GENERAL APPEARANCE: cooperative; not ill appearing and not frail appearing HENMT: COMMON NORMALS: normocephalic, atraumatic and Normal external nose present HEAD & SCALP: normocephalic and atraumatic FACE & SINUS: normal facial exam and face symmetric NOSE: Normal external nose present Eye: COMMON NORMALS: Equal, round and reactive pupils present and EOMs intact bilaterally PUPIL: Yes Equal, round and reactive pupils present Neck/C-Spine: GENERAL: Yes trachea midline Chest: CHEST: Yes Symmetrical chest wall rise Resp: COMMON NORMALS: normal respiratory effort, No retractions, No use of accessory muscles and clear to auscultation bilaterally AUSCULTATION: clear to auscultation bilaterally Cardio: COMMON NORMALS: regular rate and regular rhythm RATE: regular rate RHYTHM: regular rhythm GI: COMMON NORMALS: Normal to inspection, nondistended, normoactive bowel sounds present PALPATION: Yes Tenderness to palpation present (GI) (Epigastric) Details: RUQ Extremity: COMMON NORMALS: no pedal edema Neuro: GRICEL COMA SCALE: document GCS findings Gricel coma scale eye opening: Spontaneous [place]el coma scale verbal response: Orientated [place] coma scale motor response: Obey commands [place] coma scale total score: 15 S ENSORY EXAM: Yes extremities (intact) Psych: COMMON NORMALS: speech normal SPEECH: Yes normal speech Skin: COMMON NORMALS: no rashes or lesions noted GENERAL SKIN EXAM: no rashes or lesions noted Course 2 Vital Signs: Vital signs: Vital Signs Temperature 97.8 F 05/20/24 18:28 Pulse Rate 69 05/20/24 23:47 Respiratory Rate 16 05/20/24 23:47 Blood Pressure 147/73 05/20/24 23:47 Pulse Oximetry 93 05/20/24 23:47 Oxygen Delivery Me thod Room Air 05/20/24 22:00 MDM - Abdominal Pain Medical Decision Making Right upper quadrant and epigastric pain in a 58-year-old female. This is her second visit to the ER. Vitals are normal. CBC and BMP are not remarkable. No elevation in liver enzymes. CRP is minimally elevated at 12. CT of the abdominal and pelvis reveals no acute abnormality. No gallbladder wall thickening, etc. Normal bile ducts. She will go home with symptomatic treatment again. She says hydrocodone was not helping. Will alternate her with Toradol and Percocet. She has an appointment for follow-up. She will call her surgeon Tuesday to see if she can get in sooner. She knows to return for worsening symptoms. Lab Data 05/20/24 19:24 05/20/24 19: Labs/Radiology: Radiology Impressions Abdomen/Pelvis CT 05/20/24 20:03 IMPRESSION: 1. No evidence of acute abnormality in the abdomen or pelvis. Laboratory Results WBC 8.88 10^3/uL (3.29-11.43) 05/20/24: RBC 4.26 10^6/uL (3.85-5.65) 05/20/24: Hgb 12.60 g/dL (11.27-16.99) 05/20/24: Hct 38.6 % (36-47) 05/20/24: MCV 90.6 fl (85-98) 05/20/24: MCH 29.6 pg (27-33) 05/20/24: MCHC 32.6 g/dL (30-55) 05/20/24: RDW 13.6 % (12.1-15.1) 05/20/24: Plt Count 339 10^3/cmm (157-399) 05/20/24: MPV 10.5 fL (7.4-10.4) H 05/20/24: Neut % (Auto) 64.6 % 05/20/24: Lymph % (Auto) 25.2 % 05/20/24: [place] % (Auto) 8.3 % 05/20/24: Eos % (Auto) 1.1 % 05/20/24: Baso % (Auto) 0.5 % 05/20/24: Neut # (Auto) 5.73 10^3/uL (1.8-7.7) 05/20/24: Lymph # (Auto) 2.2 10^3/uL (0.8-4.8) 05/20/24: [place] # (Auto) 0.7 10^3/uL (0.2-0.9) 05/20/24: Eos # (Auto) 0.1 10^3/uL (0.0-0.8) 05/20/24 19:24 Baso # (Auto) 0.0 10^3/uL (0.0-0.1) 05/20/24 19:24 Nucleated RBC % (auto) 0 % 05/20/24 19:24 Nucleated RBCs # 0.0 /100WBC 05/20/24 19:24 Sodium 137 mmol/L (136-145) 05/20/24 19:24 Potassium 3.7 mmol/L (3.5-5.1) 05/20/24 19:24 Chloride 101 mmol/L (98-107) 05/20/24 19:24 Carbon Dioxide 27 mmol/L (22-29) 05/20/24 19:24 Anion Gap 12.7 (5-19) 05/20/24 19:24 BUN 14 mg/dL (6-20) 05/20/24 19:24 Creatinine 0.7 mg/dL (0.5-0.9) 05/20/24 19:24 GFR Calculation 85.6 mL/min (90-130) L 05/20/24 19:24 Glucose 120 mg/dL (65-115) H 05/20/24 19:24 Calculated Osmolality 286 mOsm/kg (285-295) 05/20/24 19:24 Calcium 7.9 mg/dL (8.5-10.5) L 05/20/24 19:24 Total Bilirubin 0.2 mg/dL (0.15-1.2) 05/20/24 19:24 AST 12 U/L (0-32) 05/20/24 19:24 ALT 14 U/L (0-33) 05/20/24 19:24 Alkaline Phosphatase 82 U/L (35-105) 05/20/24 19:24 C-Reactive Protein 12.4 mg/L (0.0-4.9) H 05/20/24 19:24 Total Protein 6.6 g/dL (6.6-8.7) 05/20/24 19:24 Albumin 3.7 g/dL (3.5-5.2) 05/20/24 19:24 Globulin 2.9 g/dL (1.3-4.6) 05/20/24 19:24 Lipase 24 U/L (13-60) 05/20/24 19:24 Urine Color Dark yellow (Yellow) A 05/20/24 20:00 Urine Appearance Clear (CLEAR) 05/20/24 20:00 Urine pH 7.0 (5-7) 05/20/24 20:00 Ur Specific [place] 1.011 (1.005-1.030) 05/20/24 20:00 Urine Protein Negative (Negative) 05/20/24 20:00 Urine Glucose (UA) Negative (Normal) 05/20/24 20:00 Urine Ketones Negative (Negative) 05/20/24 20:00 Urine Blood Negative (Negative) 05/20/24 20:00 Urine Nitrate Positive (Negative) A 05/20/24 20:00 Urine Bilirubin Negative (Negative) 05/20/24 20:00 Urine Urobilinogen 1.0 mg/dL (Negative) 05/20/24 20:00 Ur Leukocyte Esterase 1+ (Negative) A 05/20/24 20:00 Urine RBC 0-2 /hpf (0-2) 05/20/24 20:00 Urine WBC 0-5 /hpf (0-5) 05/20/24 20:00 Ur Squamous Epith Cells 0-5 /hpf (0-5) 05/20/24 20:00 Amorphous Sediment Not Reportable 05/20/24 20:00 Urine Bacteria None seen /hpf (NONE) 05/20/24 20:00 Hyaline Casts 0-4 /lpf H 05/20/24 20:00 All radiology interpretation(s) finalized by discharge Discharge Plan Discharge Patient Disposition: Home Clinical Impression: Biliary colic Condition: Stable Prescriptions: New ketorolac 10 mg tablet 10 mg PO TID PRN (Reason: pain) Qty: 10 0RF oxycodone-acetaminophen [Percocet] 7.5-325 mg tablet 1 tab PO Q6H PRN (Reason: pain) Qty: 10 0RF Continued ondansetron 4 mg tablet,disintegrating 4 mg PO Q6H PRN (Reason: nausea and vomiting) Qty: 14 0RF Discontinued hydrocodone-acetaminophen 5-325 mg tablet 1 tab PO Q6H PRN (Reason: pain) Qty: 14 0RF No Action ropinirole 1 mg tablet 3 mg PO BEDTIME estradiol 1 mg tablet 1 mg PO .7 pm methocarbamol 750 mg tablet 750 mg PO Rx Instructions: take 1 tablet every 8 hours as needed celecoxib [Celebrex] 100 mg capsule 100 mg PO BID Qty: 180 0RF levothyroxine 50 mcg capsule 50 mcg PO DAILY magnesium glycinate 100 mg tablet 400 mg PO BEDTIME trazodone 150 mg tablet 150 mg PO .bedtime PRN (Reason: sleep) Qty: 90 2RF Rx Instructions: Take one tablet at bedtime quetiapine [Seroquel] 50 mg tablet 50 mg PO BEDTIME Qty: 90 2RF Rx Instructions: Take one tablet at bedtime Trintellix 20 mg tablet 20 mg PO .morning Qty: 30 6RF Rx Instructions: Take one tablet every morning clonazepam 1 mg tablet 1 mg PO BID Qty: 60 3RF Rx Instructions: Take one tablet twice per day albuterol sulfate 2.5 mg /3 mL (0.083 %) solution for nebulization 2.5 mg inhalation PRN PRN (Reason: Shortness Of Breath) tolterodine 4 mg capsule,extended release 24hr 4 mg PO DAILY albuterol sulfate [ProAir HFA] 90 mcg/actuation HFA aerosol inhaler 1 puff INHALATION Q6H PRN (Reason: Shortness Of Breath) amlodipine 10 mg tablet 10 mg PO .morning Discharge Orders: Discharge ED (Routine); Ordered 05/20/24 Ordered By: Jin Rutherford Referrals: Nadeem Graves MD [Primary Care Provider] - Patient Instructions: Biliary Colic (ED), Abdominal Pain (ED), Opioid Safety, Pain Management Activity Restrictions/Additional Instructions: Call your surgeon's office in the morning, let them know you were seen here with right upper quadrant pain again. They may wish to see you sooner. Medication as directed. Return to the ER for fever greater than 100, vomiting liquids or medications, worsening pain despite treatment, yellowing of the eyes, any other concerning symptoms. You may alternate the 2 pain medications as needed. Following a bland diet with nonfatty foods, and other foods that are easily digestible can help. Following a liquid diet for 24 hours can help as well. Coding Level of Care Code ED Order Packer for [place]
[2024-05-20 20:42] LABS: Bilirubin Urine Negative (Negative); Blood Urine Negative (Negative); Glucose Urine UA Negative (Normal); Ketones Urine Negative (Negative); Leukocyte Esterase Urine 1+ (Negative); Nitrate Urine Positive (Negative); Protein Urine Negative (Negative); Specific Gravity, Urine 1.011 (1.005-1.030); Urine Appearance Clear (CLEAR); Urine Color Dark Yellow (Yellow)
[2024-05-20 20:47] LABS: Add Urine Microscopic? YES; Bacteria Urine None Seen /hpf; Hyaline Casts Urine 0-4 /lpf; RBC Urine 0-2 /hpf (0-2); Squamous Epithelial Cell Urine 0-5 /hpf (0-5); WBC Urine 0-5 /hpf (0-5)
--- NOTE | 2024-05-20 20:49 | PC.NURSE ---
this nurse assumed pt care at 2044.
[2024-05-20 20:59] VITALS: BP 147/63; PULSE 65; RESP 16; O2SAT 96
[2024-05-20 22:00] VITALS: BP 133/80; PULSE 67; RESP 16; O2SAT 93
[2024-05-20 23:47] VITALS: BP 147/73; PULSE 69; RESP 16; O2SAT 93
== END 2024-05-20 23:49 | disposition home or self-care (01) ==
PROVIDERS: Emergency Provider Emergency Medicine; PCP Family Medicine
DX: K80.50 Calculus of bile duct without cholangitis or cholecystitis without obstruction (principal)
CPT/HCPCS: 36415; 74177; 80053; 81001; 83690; 85025; 86140; 96374; 96375; 96376; 99285; J1885; J2270; J2405

== ENCOUNTER 2024-05-28 10:14 | Emergency (ER) | payer OTHER, SELFPAY ==
--- NOTE | 2024-05-28 10:16 | XRR_ITS ---
PROCEDURE INFORMATION: Exam: XR Chest Exam date and time: 05/28/2024 10:38 AM Age: 58 years old Clinical indication: Cough and dyspnea; Prior surgery; Surgery date: 6+ months; Surgery type: C spine; Additional info: Dyspnea/cough TECHNIQUE: Imaging protocol: Radiologic exam of the chest. Views: 1 view. COMPARISON: CR (CHEST, ) 05/06/2024 8:50 PM FINDINGS: Lungs: Unremarkable. No consolidation. Pleural spaces: Unremarkable. No pleural effusion. No pneumothorax. Heart/Mediastinum: The heart is enlarged. Bones/joints: There are postoperative changes involving the lower cervical spine. No acute bony abnormalities are appreciated. XR/XR chest 1V portable [id number] IMPRESSION: 1. Cardiomegaly.
[2024-05-28 10:25] VITALS: BP 160/82; PULSE 74; RESP 16; TEMP 36.8; O2SAT 97; BMI 65.7
--- NOTE | 2024-05-28 10:25 | ED_ITS ---
HPI - Abdominal Pain 2 General: Chief Complaint: Abdominal Pain Stated Complaint: abd pain, upper right side pain Time Seen by Provider: 05/28/24 10:15 Source: patient Mode of arrival: ambulatory Limitations: no limitations History of Present Illness: Patient is a 58-year-old female who presents to ED today with a complaint of upper abdominal pain over the past several weeks. Patient has been seen here in our emergency department on 05/06 as well as 05/20. She was found to have biliary colic/symptomatic cholelithiasis. On her first ED visit, cardiac workup was initiated and unremarkable. On 05/[address] abdomen/pelvis. She followed up with general surgeon, Dr. Ray on 05/24 she is scheduled for an elective cholecystectomy on 06/06. Patient is here today for continued pain. She states her pain has never fully went away since onset several weeks ago. She does have severe exacerbations of pain. She feels like pain mainly is to her upper abdomen but radiates throughout her abdomen and into her shoulder blades. She does not complain of chest pain, shortness of breath, difficulty breathing. She has had some nausea but no episodes of emesis. Reporting diarrhea. No fevers. At home she has taken oxycodone, hydrocodone, ketorolac all without much relief. MD elicited complaint: abdominal pain Pertinent past history: none Onset (ago): week(s) Pain Consistency: intermittent Location: RUQ Severity: moderate Quality: sharp Radiation: RUQ and back Migration to: no migration Exacerbating factors: nothing Relieving factors: nothing Associated Symptoms: Reports diarrhea and nausea; Denies change in bowel habits, chills, constipation, dysuria, fever(s), hematochezia, melena and vomiting Related Data Home Medications Medication Instructions Recorded Confirmed tolterodine 4 mg capsule,extended 4 mg PO DAILY 04/23/21 05/28/24 release 24 hr levothyroxine 50 mcg capsule 50 mcg PO DAILY 10/04/22 05/28/24 amlodipine 10 mg tablet 10 mg PO .morning 11/01/23 05/28/24 estradiol 1 mg tablet 1 mg PO .7 pm 11/01/23 05/28/24 ropinirole 1 mg tablet 3 mg PO BEDTIME 11/01/23 05/28/24 methocarbamol 750 mg tablet 750 mg PO Q8H 03/12/24 05/28/24 omeprazole 40 mg capsule,delayed 40 mg PO DAILY 05/24/24 05/28/24 release celecoxib 100 mg capsule 100 mg PO BID 05/28/24 05/28/24 Previous Rx's Medication Instructions Recorded trazodone 150 mg tablet 150 mg PO .bedtime PRN sleep #90 12/19/23 tabs Trintellix 20 mg tablet 20 mg PO .morning #30 tabs 02/01/24 (vortioxetine) clonazepam 1 mg tablet 1 mg PO BID #60 tabs 05/01/24 hydrocodone 7.5 mg-acetaminophen 1 tab PO .q 4-6 PRN pain #20 tabs 05/28/24 325 mg tablet ondansetron 4 mg disintegrating 4 mg PO Q6H PRN nausea and 05/28/24 tablet vomiting #14 tabs Allergies Allergy/AdvReac Type Severity Reaction Status Date / Time azithromycin Allergy Unknown ADR-Gastrointestinal Verified 05/24/24 13:14 Upset haloperidol [From Haldol] Allergy ALGY-Anaphy Verified 05/24/24 13:14 laxis latex Allergy ALGY-Redness Verified 05/24/24 13:14 of Skin meperidine [From Demerol] Allergy ADR-Halluci Verified 05/24/24 13:14 nating prednisone Allergy ADR-Anxiety Verified 05/24/24 13:14 aripiprazole [From Abilify] AdvReac Unknown ADR-Anxiety Verified 05/24/24 13:14 bupropion [From Wellbutrin] AdvReac Unknown ADR-Confusi Verified 05/24/24 13:14 on Review of Systems 2 Const: Denies: fever(s), chills, body aches, fatigue or malaise Card: Denies: chest pain Resp: Denies: dyspnea GI: Reports: abdominal pain, nausea and diarrhea; Denies: vomiting, constipation, change in bowel habits, hematochezia or melena : Denies: flank pain, difficulty voiding, dysuria, urinary frequency, urinary urgency or urinary hesitancy Musc: Reports: back pain (feels like pain radiates to her back); Denies: neck pain, extremity pain, extremity swelling, joint pain or joint swelling Skin/Breast: Denies: rash Neuro: Denies: headache(s) or dizziness PFSH ED 2 PFSH: Medical History Impingement syndrome of right shoulder Primary osteoarthritis, right shoulder Right rotator cuff tendonitis Urinary incontinence in female Psychiatric care Other stressful life events affecting family and household Generalized anxiety disorder Major depressive disorder, recurrent, in partial remission Surgical History H/O: hysterectomy Hx of neck surgery Fusion Hx of colonoscopy 10 yrs History of esophagogastroduodenoscopy (EGD) History of [place] urethropexy 24 yrs ago Family History Unknown Cancer She denies a family hx of breast, ovarian, uterine, pancreatic, colon, thyroid cancers. Denies family history of Diabetes Hypertension Stroke Social History Smoking and tobacco/nicotine status: former use of tobacco/nicotine Alcohol intake: never Substance/Drug Use: never Physical Exam 2 Const: COMMON NORMALS: no acute distress, patient oriented x3, no limitations, alert and well nourished GENERAL APPEARANCE: cooperative NUTRITIONAL APPEARANCE: obese morbidly obese (BMI is 65.7) ORIENTATION/CONSCIOUSNESS: Yes awake, Yes oriented to person, Yes oriented to place and Yes oriented to time Eye: COMMON NORMALS: no scleral icterus Resp: COMMON NORMALS: normal respiratory effort and clear to auscultation bilaterally AUSCULTATION: clear to auscultation bilaterally Cardio: COMMON NORMALS: regular rate and regular rhythm RATE: regular rate RHYTHM: regular rhythm GI: COMMON NORMALS: Normal to inspection, nondistended, normoactive bowel sounds present, Soft to palpation, No hepatosplenomegaly present and no masses INSPECTION: Yes normal to inspection AUSCULTATION: Yes normoactive bowel sounds PALPATION: Yes Soft to palpation, Yes Tenderness to palpation present (GI) (diffuse abdominal tenderness but mostly across upper abdomen/RUQ), No Guarding due to palpation present (GI), No Rigid due to palpation and Yes No hepatosplenomegaly present : COMMON NORMALS: Yes no CVA tenderness BLADDER/KIDNEY EXAM: Yes no CVA tenderness Back/Pelvis: COMMON NORMALS: no CVA tenderness Extremity: GENERAL: Yes normal exam except as noted Neuro: COMMON NORMALS: patient oriented x3, moves all extremities, no focal motor deficits, no sensory deficits noted and gait normal S ENSORIUM/ORIENTATION: Yes alert, Yes oriented to person, Yes oriented to place and Yes oriented to time Skin: COMMON NORMALS: no rashes or lesions noted GENERAL SKIN EXAM: no rashes or lesions noted Course 2 Vital Signs: Vital signs: Vital Signs Temperature 98.2 F 05/28/24 10:25 Pulse Rate 73 05/28/24 13:03 Respiratory Rate 69 H 05/28/24 11:16 Blood Pressure 160/81 05/28/24 13:03 Pulse Oximetry 92 05/28/24 13:03 Oxygen Delivery Me thod Room Air 05/28/24 13:03 MDM - Abdominal Pain Medical Decision Making Patient is a 58-year-old female here for upper abdominal pain. She has known symptomatic cholelithiasis/biliary colic. She is scheduled for an elective cholecystectomy with Dr. Ray next week. She arrives in no acute distress with stable vital signs. Her blood work overall is unremarkable. She has a normal white count. Chemistry panel is unremarkable. Lactate is normal. Did CXR/EKG due to radiating back symptoms-these were unremarkable. Her ultrasound showing her known cholelithiasis without acute cholecystitis. At this time she is not going to qualify for emergent cholecystectomy. Discussed her pain regimen that she has been on over the last few weeks at home. She reportedly has only been taking her opiate pain medications 1 to 2 tablets daily and has not been taking them scheduled every 4-6 hours. We will see if this better controls her pain. Return to ED precautions given. Medical Records I reviewed the patient's medical records. Lab Data I reviewed the patient's lab results. 05/28/24 10:39 05/28/24 10:39 Labs/Radiology: Radiology Impressions Chest X-Ray 05/28/24 10:16 IMPRESSION: 1. Cardiomegaly. Gallbladder Ultrasound 05/28/24 10:35 IMPRESSION: 1. Cholelithiasis without acute cholecystitis. 2. No bile duct dilatation. Laboratory Results WBC 9.22 10^3/uL (3.29-11.43) 05/28/24 10:39 RBC 4.49 10^6/uL (3.85-5.65) 05/28/24 10:39 Hgb 13.60 g/dL (11.27-16.99) 05/28/24 10:39 Hct 41.6 % (36-47) 05/28/24 10:39 MCV 92.7 fl (85-98) 05/28/24 10:39 MCH 30.3 pg (27-33) 05/28/24 10:39 MCHC 32.7 g/dL (30-55) 05/28/24 10:39 RDW 13.6 % (12.1-15.1) 05/28/24 10:39 Plt Count 320 10^3/cmm (157-399) 05/28/24 10:39 MPV 10.3 fL (7.4-10.4) 05/28/24 10:39 Neut % (Auto) 67.2 % 05/28/24 10:39 Lymph % (Auto) 24.6 % 05/28/24 10:39 [place] % (Auto) 6.3 % 05/28/24 10:39 Eos % (Auto) 1.2 % 05/28/24 10:39 Baso % (Auto) 0.4 % 05/28/24 10:39 Neut # (Auto) 6.19 10^3/uL (1.8-7.7) 05/28/24 10:39 Lymph # (Auto) 2.3 10^3/uL (0.8-4.8) 05/28/24 10:39 [place] # (Auto) 0.6 10^3/uL (0.2-0.9) 05/28/24 10:39 Eos # (Auto) 0.1 10^3/uL (0.0-0.8) 05/28/24 10:39 Baso # (Auto) 0.0 10^3/uL (0.0-0.1) 05/28/24 10:39 Nucleated RBC % (auto) 0 % 05/28/24 10:39 Nucleated RBCs # 0.0 /100WBC 05/28/24 10:39 Sodium 139 mmol/L (136-145) 05/28/24 10:39 Potassium 3.9 mmol/L (3.5-5.1) 05/28/24 10:39 Chloride 101 mmol/L (98-107) 05/28/24 10:39 Carbon Dioxide 28 mmol/L (22-29) 05/28/24 10:39 Anion Gap 13.9 (5-19) 05/28/24 10:39 BUN 14 mg/dL (6-20) 05/28/24 10:39 Creatinine 0.8 mg/dL (0.5-0.9) 05/28/24 10:39 GFR Calculation 73.4 mL/min (90-130) L 05/28/24 10:39 Glucose 97 mg/dL (65-115) 05/28/24 10:39 Calculated Osmolality 288 mOsm/kg (285-295) 05/28/24 10:39 Lactic Acid 1.6 mmol/L (0.5-2.2) 05/28/24 10:39 Calcium 8.1 mg/dL (8.5-10.5) L 05/28/24 10:39 Total Bilirubin 0.3 mg/dL (0.15-1.2) 05/28/24 10:39 AST 15 U/L (0-32) 05/28/24 10:39 ALT 15 U/L (0-33) 05/28/24 10:39 Alkaline Phosphatase 98 U/L (35-105) 05/28/24 10:39 Total Protein 6.9 g/dL (6.6-8.7) 05/28/24 10:39 Albumin 4.0 g/dL (3.5-5.2) 05/28/24 10:39 Globulin 2.9 g/dL (1.3-4.6) 05/28/24 10:39 Lipase 15 U/L (13-60) 05/28/24 10:39 All radiology interpretation(s) finalized by discharge Discharge Plan Discharge Patient Disposition: Home Clinical Impression: Symptomatic cholelithiasis Condition: Stable Prescriptions: New hydrocodone-acetaminophen 7.5-325 mg tablet 1 tab PO .q 4-6 PRN (Reason: pain) Qty: 20 0RF Continued ondansetron 4 mg tablet,disintegrating 4 mg PO Q6H PRN (Reason: nausea and vomiting) Qty: 14 0RF Discontinued ketorolac 10 mg tablet 10 mg PO TID PRN (Reason: pain) Qty: 10 0RF oxycodone-acetaminophen [Percocet] 7.5-325 mg tablet 1 tab PO Q6H PRN (Reason: pain) Qty: 10 0RF hydrocodone-acetaminophen 5-325 mg tablet 1 tab PO Q6H No Action ropinirole 1 mg tablet 3 mg PO BEDTIME estradiol 1 mg tablet 1 mg PO .7 pm methocarbamol 750 mg tablet 750 mg PO Q8H Rx Instructions: take 1 tablet every 8 hours as needed omeprazole 40 mg capsule,delayed release(DR/EC) 40 mg PO DAILY levothyroxine 50 mcg capsule 50 mcg PO DAILY trazodone 150 mg tablet 150 mg PO .bedtime PRN (Reason: sleep) Qty: 90 2RF Rx Instructions: Take one tablet at bedtime Trintellix 20 mg tablet 20 mg PO .morning Qty: 30 6RF Rx Instructions: Take one tablet every morning clonazepam 1 mg tablet 1 mg PO BID Qty: 60 3RF Rx Instructions: Take one tablet twice per day tolterodine 4 mg capsule,extended release 24hr 4 mg PO DAILY amlodipine 10 mg tablet 10 mg PO .morning celecoxib 100 mg capsule 100 mg PO BID Discharge Orders: Discharge ED (Routine); Ordered 05/28/24 Ordered By: Kelly Peña Referrals: Nadeem Graves MD [Primary Care Provider] - Patient Instructions: Cholecystitis (ED), Biliary Colic (ED), Gallstones (ED), Opioid Safety, Pain Management Activity Restrictions/Additional Instructions: You may return to the emergency department for worsening or uncontrollable pain, repetitive episodes of vomiting, fevers greater than 100.4, generally feeling worse or unwell, severe chest pain, shortness of breath, difficulty breathing, or any other concerns you may have. Coding Level of Care Code ED Parking Officer for [place]
--- NOTE | 2024-05-28 10:35 | US_ITS ---
WS: [id number] RIGHT UPPER QUADRANT ULTRASOUND HISTORY: RUQ pain COMPARISON: 05/06/2024 Liver: 14.9 cm in length. Normal size liver and echogenicity. No bile duct dilatation or mass. Portal Vein: Normal hepatopetal flow with monophasic waveform. Gallbladder: Normally distended gallbladder with stones. No wall thickening. CBD: 0.5 cm Pancreas: Incomplete visualization of the pancreas. Head and uncinate process are not visualized. The remaining pancreas is very echogenic. Right kidney: 10.2 cm in length. Normal size and echogenicity. No hydronephrosis or mass. Aorta and IVC: Unremarkable abdominal aorta and IVC. No ascites. US/US gall bladder [id number] IMPRESSION: 1. Cholelithiasis without acute cholecystitis. 2. No bile duct dilatation.
--- NOTE | 2024-05-28 10:37 | ECG_ITS ---
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 Measurements Intervals [place] Rate: 68 P: 57 [place]: 176 QRS: 19 QRSD: 101 T: -21 QT: 425 QTc: 454 Interpretive Statements SINUS RHYTHM LOW QRS VOLTAGE IN PRECORDIAL LEADS [QRS DEFLECTION < 1.0 mV IN CHEST LEADS] MINIMAL ST DEPRESSION [0.025+ mV ST DEPRESSION] Compared to ECG 05/06/2024 22:10:24 ST (T wave) deviation now present Electronically Signed On 05-28-2024 14:13:40 CDT by Tyron Adams M.D. [id number]
[2024-05-28 10:53] VITALS: RESP 18; O2SAT 90
[2024-05-28 10:53] LABS: Basophils % 0.4 %; Eosinophils # 0.1 10^3/uL (0.0-0.8); Eosinophils % 1.2 %; Hematocrit 41.6 % (36-47); Lymphocytes # 2.3 10^3/uL (0.8-4.8); Lymphocytes % 24.6 %; Mean Corpuscular HGB Conc 32.7 g/dL (30-55); Mean Corpuscular Hemoglobin 30.3 pg (27-33); Mean Corpuscular Volume 92.7 fl (85-98); Mean Platelet Volume 10.3 fL (7.4-10.4); Monocytes # 0.6 10^3/uL (0.2-0.9); Monocytes % 6.3 %; Neutrophils # 6.19 10^3/uL (1.8-7.7); Neutrophils % 67.2 %; Nucleated Red Blood Cells % 0 %; Platelet Count 320 10^3/cmm (157-399); Red Blood Count 4.49 10^6/uL (3.85-5.65); Red Cell Distribution Width 13.6 % (12.1-15.1); White Blood Count 9.22 10^3/uL (3.29-11.43)
[2024-05-28] MEDS: morphine 4 mg/mL SDV 1 mL IVP (10:53)
[2024-05-28] MEDS: ondansetron 2 mg/ML SDV 2 mL 4 MG IVP (10:54)
[2024-05-28 11:09] LABS: Alanine Aminotransferase 15 U/L (0-33); Alkaline Phosphatase 98 U/L (35-105); Anion Gap 13.9 (5-19); Aspartate Amino Transferase 15 U/L (0-32); Blood Urea Nitrogen 14 mg/dL (6-20); Calcium 8.1 mg/dL (8.5-10.5); Carbon Dioxide 28 mmol/L (22-29); Chloride 101 mmol/L (98-107); Creatinine Clr Calc Pharmacy 126.5449; Globulin 2.9 g/dL (1.3-4.6); Glomerular Filtration Rate 73.4 mL/min (90-130); Glucose 97 mg/dL (65-115); Lipase 15 U/L (13-60); Osmolality Calculated 288 mOsm/kg (285-295); Potassium 3.9 mmol/L (3.5-5.1); Sodium 139 mmol/L (136-145); Total Bilirubin 0.3 mg/dL (0.15-1.2); Total Protein 6.9 g/dL (6.6-8.7)
[2024-05-28 11:12] LABS: Lactic Sepsis W/Reflex 1.6 mmol/L (0.5-2.2)
[2024-05-28 11:16] VITALS: BP 160/82; RESP 69
[2024-05-28 13:03] VITALS: BP 160/81; PULSE 73; O2SAT 92
[2024-05-28 13:24] LABS: Bilirubin Urine Negative (Negative); Blood Urine Negative (Negative); Glucose Urine UA Negative (Normal); Ketones Urine Negative (Negative); Leukocyte Esterase Urine 1+ (Negative); Nitrate Urine Negative (Negative); Protein Urine Negative (Negative); Specific Gravity, Urine 1.011 (1.005-1.030); Urine Appearance Clear (CLEAR); Urine Color Yellow (Yellow); Urobilinogen Urine 0.2 mg/dL (Negative)
[2024-05-28 13:33] LABS: Add Urine Microscopic? YES; Bacteria Urine None Seen /hpf; Hyaline Casts Urine 0-4 /lpf; RBC Urine 0-2 /hpf (0-2); Squamous Epithelial Cell Urine 0-5 /hpf (0-5); WBC Urine 21-50 /hpf (0-5)
[2024-05-28 13:38] LABS: Add Urine Culture? Yes
[2024-05-28 13:41] VITALS: BP 160/81; PULSE 68; O2SAT 97
== END 2024-05-28 13:37 | disposition home or self-care (01) ==
PROVIDERS: Family Medicine; Emergency Provider Physician Assistant; PCP Family Medicine
DX: K80.20 Calculus of gallbladder without cholecystitis without obstruction (principal); Z87.891 Personal history of nicotine dependence
CPT/HCPCS: 36415; 71045; 76705; 80053; 81001; 83605; 83690; 85025; 87086; 93005; 96374; 96375; 99285; J2270; J2405

== ENCOUNTER 2024-06-06 09:06 | Day surgery (SDC) | payer OTHER, SELFPAY ==
[2024-06-06] VITALS (10 sets, daily range): BP systolic 124–178; BP diastolic 58–83; PULSE 72–82; RESP 12–23; TEMP 36.2–36.3; O2SAT 92–98; BMI 53.5
[2024-06-06] MEDS: sodium chloride 0.9% 1,000 ML 30 ML IV (10:09)
--- NOTE | 2024-06-06 10:24 | ANES.PREANE2 ---
Pre-Anesthetic Assessment Height/Weight: Height 1.63 m Weight 141.521 kg O2 Del Method Room Air 06/06/24 09:41 Operation Date: 06/06/24 11:00 Proposed Procedures p Laparoscopic Cholecystectomy 84795, K80.50(Not Applicable) - Yrn Rya MD Familial anesthetic complications: None Was Beta Renata taken within 24 hours: N/A Was Clonidine taken within 24 hours: N/A Last intake: Intake Last Liquid Date 06/05/24 Last Liquid Time 19:30 Last Solid Date 06/05/24 Last Solid Time 18:00 Social No alcohol and No tobacco Exam alert, oriented x 3, clear to auscultation bilaterally and regular rate & rhythm Airway Mallampati: Class III Dentition: other (couple missing in back) CV/HEM Hypertension GI Gastroesophageal Reflux Disease Metabolic Morbid Obesity and Thyroid Disease Anesthetic Plan ASA status: 3 Anesthesia: General Risk of > 500 ml blood loss (7ml/kg in children): No Medications/Allergies Home Medications Medication Instructions Recorded Confirmed Last Taken Type tolterodine 4 mg capsule,extended 4 mg PO DAILY 04/23/21 06/05/24 06/06/24 History release 24 hr levothyroxine 50 mcg capsule 50 mcg PO DAILY 10/04/22 06/05/24 06/05/24 History amlodipine 10 mg tablet 10 mg PO .morning 11/01/23 06/06/24 06/06/24 History estradiol 1 mg tablet 1 mg PO .7 pm 11/01/23 06/05/24 06/05/24 History ropinirole 1 mg tablet 3 mg PO BEDTIME 11/01/23 06/05/24 06/05/24 History trazodone 150 mg tablet 150 mg PO .bedtime PRN sleep #90 12/19/23 06/05/24 05/27/24 Rx tabs Trintellix 20 mg tablet 20 mg PO .morning #30 tabs 02/01/24 06/05/24 06/05/24 Rx (vortioxetine) methocarbamol 750 mg tablet 750 mg PO DAILY 03/12/24 06/05/24 06/05/24 History clonazepam 1 mg tablet 1 mg PO BID #60 tabs 05/01/24 06/05/24 06/06/24 Rx omeprazole 40 mg capsule,delayed 40 mg PO DAILY 05/24/24 06/05/24 06/05/24 History release celecoxib 100 mg capsule 100 mg PO BID 05/28/24 06/05/24 06/06/24 History hydrocodone 7.5 mg-acetaminophen 1 tab PO .q 4-6 PRN pain #20 tabs 05/28/24 06/05/24 06/06/24 Rx 325 mg tablet ondansetron 4 mg disintegrating 4 mg PO Q6H PRN nausea and 05/28/24 06/05/24 Unknown Rx tablet vomiting #14 tabs Allergies Allergy/AdvReac Type Severity Reaction Status Date / Time azithromycin Allergy Unknown ADR-Gastrointestinal Verified 06/05/24 08:48 Upset haloperidol [From Haldol] Allergy ALGY-Anaphy Verified 06/05/24 08:48 laxis latex Allergy ALGY-Redness Verified 06/05/24 08:48 of Skin meperidine [From Demerol] Allergy ADR-Halluci Verified 06/05/24 08:48 nating prednisone Allergy ADR-Anxiety Verified 06/05/24 08:48 aripiprazole [From Abilify] AdvReac Unknown ADR-Anxiety Verified 06/05/24 08:48 bupropion [From Wellbutrin] AdvReac Unknown ADR-Confusi Verified 06/05/24 08:48 on PFSH Anesthesia Medical History Impingement syndrome of right shoulder Primary osteoarthritis, right shoulder Right rotator cuff tendonitis Urinary incontinence in female Psychiatric care Other stressful life events affecting family and household Generalized anxiety disorder Major depressive disorder, recurrent, in partial remission Surgical History H/O: hysterectomy Hx of neck surgery Fusion Hx of colonoscopy 10 yrs History of esophagogastroduodenoscopy (EGD) History of Park urethropexy 24 yrs ago Family History Unknown Cancer She denies a family hx of breast, ovarian, uterine, pancreatic, colon, thyroid cancers. Denies family history of Diabetes Hypertension Stroke Social History Smoking and tobacco/nicotine status: former use of tobacco/nicotine Alcohol intake: never Substance/Drug Use: never Data Anesthesia Cardiac Studies: No Data to Display
--- NOTE | 2024-06-06 11:54 | W.PM.OPSUD ---
Surgery/Procedure H&P Update DATE OF PROCEDURE: June 06, 2024 DATE H&P PERFORMED: 05/24/24 H&P UPDATE INFORMATION: I have reviewed H&P completed within last 30 days, I have examined patient prior to procedure and No changes to prior documentation PLANNED PROCEDURE: Operation Date: 06/06/24 11:00 Proposed Procedures p Laparoscopic Cholecystectomy 72330, K80.50(Not Applicable) - Yrn Ray MD
[2024-06-06] MEDS: ceFAZolin 3,000 MG in sodium chloride 0.9% (plus) 100 ML 200 MG IV (12:30)
[2024-06-06] MEDS: BUPivacaine 0.25% INJ 10 mL INJECTION (12:50)
[2024-06-06] MEDS: lidocaine-epi 1% PF 1:200,000 30 mL SDV INJECTION (12:50)
--- NOTE | 2024-06-06 13:53 | P.OP_ITS ---
Date of Procedure: 06/06/2024 Surgeon: Dr. Ray Photoengraving Sketch Maker(s): None Procedure(s) performed: Laparoscopic cholecystectomy Findings of the procedure(s): Cholelithiasis Estimated blood loss: 20 cc Specimen(s) removed: Gallbladder Post-operative diagnosis: Symptomatic cholelithiasis Pathology: Gallbladder Implant(s): None Anesthesia: General Anesthesia Complications: None Brief history/preop diagnosis: 58-year-old female who presented with symptomatic cholelithiasis. Discussed risks and benefits and patient agreed to proceed with laparoscopic cholecystectomy possible open. Full operative report: I discussed the risks and benefits of laparoscopic cholecystectomy, and obtained consent prior to proceeding to the operating room. SCDs were utilized. Prophylactic antibiotics were administered. General anesthesia was induced. The patient was placed supine, and she was prepped and draped in the usual sterile fashion. Insufflation to 15mmHg was achieved using a Veress needle at Patterson's point. A 12mm optiview trocar was placed at the umbilicus under direct visualization. The left upper quadrant was inspected, and no injuries were noted. Two 5mm ports were placed in the right upper quadrant, and a 12mm working port was placed in the epigastrium. The gallbladder was then retracted cephalad through the lateral RUQ port, and the infundibulum grabbed through the medial RUQ port and retracted laterally. The gallbladder was not inflammed and thus consistent with her diagnosis of cholelithiasis. I proceeded to score the peritoneum over the medial aspect of the gallbladder using a laparoscopic hook with electrocautery. Then the infundibulum was retracted medially in order to score the peritoneum over the lateral aspect of the galbladder. Using a combination of energy and blunt dissection with the [place] and a Kittner dissector, the cystic artery and cystic duct were dissected. I then proceeded to dissect the cystic plate in order to to achieve the critical view of safety. The cystic artery and the cystic duct were clipped three times (leaving two clips on the proximal end of both structures). I then proceeded to dissect the gallbladder off the liver using hook electrocautery. The specimen was placed in an endocatch bag and retrieved from the abdomen through the port on the epigastrium. I then irrigated the gallbladder fossa with 4L of NS to confirm adequate hemostasis and the absence of any bile leaks. The gallbladder fossa was then cauterized again. Prior to ending the laparoscopic portion, I examined the rest of the abdomen and did not find any abnormalities or injuries. The abdomen was then desufflated, and the 12mm port at the umbilicus was closed using 0 vicryl on a with a Jack-Leena after irrigating copiously. Skin was closed using 4-0 monocryl and surgical glue. The patient woke up from anesthesia and transferred to PACU without any complications. Condition: Stable Dispostion: Home
[2024-06-06] MEDS: oxyCODONE 5 mg IR Tab/Cap PO (14:56)
[2024-06-06] MEDS: ondansetron 2 mg/ML SDV 2 mL 4 MG IVP (15:15)
== END 2024-06-06 15:30 | disposition home or self-care (01) ==
PROVIDERS: PCP Family Medicine; Visit Provider Student in an Organized Health Care Education/Training Program
PROC: 0FT44ZZ Resection of Gallbladder, Percutaneous Endoscopic Approach (ICD-10-PCS; CPT 47562; principal; 2024-06-06 10:50)
DX: K80.10 Calculus of gallbladder with chronic cholecystitis without obstruction (principal); I10 Essential (primary) hypertension; K21.9 Gastro-esophageal reflux disease without esophagitis; E66.01 Morbid (severe) obesity due to excess calories; Z68.43 Body mass index [BMI] 50.0-59.9, adult; Z87.891 Personal history of nicotine dependence
CPT/HCPCS: 47562; 88304; J0690; J1100; J2250; J2405; J2704; J3010; J3490; J7030

== ENCOUNTER 2024-08-17 15:21 | Emergency (ER) | payer OTHER, SELFPAY ==
[2024-08-17 15:37] VITALS: BP 142/72; PULSE 85; RESP 16; TEMP 36.4; O2SAT 97; BMI 47.4
--- NOTE | 2024-08-17 16:12 | XRR_ITS ---
PROCEDURE INFORMATION: Exam: XR Chest Exam date and time: 08/17/2024 4:43 PM Age: 58 years old Clinical indication: Other: Weakness TECHNIQUE: Imaging protocol: Radiologic exam of the chest. Views: 1 view. COMPARISON: CR XR chest 1V portable [id number] 05/28/2024 10:38 AM FINDINGS: Lungs: Unremarkable. No consolidation. Pleural spaces: Unremarkable. No pleural effusion. No pneumothorax. Heart/Mediastinum: Unremarkable. No cardiomegaly. Bones/joints: There is a partially visualized cervical metallic plate. No acute findings. XR/XR chest 1V portable [id number] IMPRESSION: No acute findings.
--- NOTE | 2024-08-17 16:12 | CTR_ITS ---
PROCEDURE INFORMATION: Exam: CT Head Without Contrast Exam date and time: 08/17/2024 4:40 PM Age: 58 years old Clinical indication: Dizziness and other: Dizziness TECHNIQUE: Imaging protocol: Computed tomography of the head without contrast. Radiation optimization: All CT scans at this facility use at least one of these dose optimization techniques: automated exposure control; mA and/or kV adjustment per patient size (includes targeted exams where dose is matched to clinical indication); or iterative reconstruction. COMPARISON: No relevant prior studies available. RADIATION DOSE METRICS: Total DLP (mGy-cm): 1098.08 FINDINGS: Brain: Normal. No hemorrhage. Unremarkable white matter. No mass effect or acute infarct. Cerebral ventricles: No ventriculomegaly. No midline shift. Paranasal sinuses: Visualized sinuses are unremarkable. No fluid levels. Mastoid air cells: Visualized mastoid air cells are well aerated. Bones: Unremarkable. No acute fracture. Soft tissues: Unremarkable. CT/CT head wo con* [id number] IMPRESSION: No acute intracranial abnormality.
--- NOTE | 2024-08-17 16:13 | ECG_ITS ---
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 Measurements Intervals [place] Rate: 83 P: 68 [place]: 181 QRS: 109 QRSD: 90 T: 42 QT: 375 QTc: 442 Interpretive Statements SINUS RHYTHM RIGHT AXIS DEVIATION [QRS AXIS > 100] LOW QRS VOLTAGE IN PRECORDIAL LEADS [QRS DEFLECTION < 1.0 mV IN CHEST LEADS] NONSPECIFIC T-WAVE ABNORMALITY Compared to ECG 05/28/2024 10:40:37 Right-axis deviation now present T-wave abnormality now present ST (T wave) deviation no longer present Electronically Signed On 08-17-2024 21:34:54 RN ALLERGY by Ramiro Ball M.D. [id number]
[2024-08-17 17:14] LABS: Basophils # 0.1 10^3/uL (0.0-0.1); Basophils % 0.5 %; Eosinophils # 0.1 10^3/uL (0.0-0.8); Eosinophils % 1.2 %; Hematocrit 40.1 % (36-47); Lymphocytes # 2.4 10^3/uL (0.8-4.8); Lymphocytes % 23.7 %; Mean Corpuscular HGB Conc 32.7 g/dL (30-55); Mean Corpuscular Hemoglobin 29.3 pg (27-33); Mean Corpuscular Volume 89.7 fl (85-98); Mean Platelet Volume 10.3 fL (7.4-10.4); Monocytes # 0.7 10^3/uL (0.2-0.9); Monocytes % 6.7 %; Neutrophils # 6.79 10^3/uL (1.8-7.7); Neutrophils % 67.6 %; Nucleated Red Blood Cells % 0 %; Platelet Count 375 10^3/cmm (157-399); Red Blood Count 4.47 10^6/uL (3.85-5.65); Red Cell Distribution Width 14.8 % (12.1-15.1); White Blood Count 10.04 10^3/uL (3.29-11.43)
[2024-08-17 17:35] LABS: Troponin(5th) Baseline < 6 ng/L (0-10)
[2024-08-17 17:38] LABS: Alanine Aminotransferase 18 U/L (0-33); Albumin Level 3.9 g/dL (3.5-5.2); Alkaline Phosphatase 97 U/L (35-105); Aspartate Amino Transferase 16 U/L (0-32); Blood Urea Nitrogen 11 mg/dL (6-20); Calcium 8.7 mg/dL (8.5-10.5); Carbon Dioxide 26 mmol/L (22-29); Chloride 101 mmol/L (98-107); Creatinine Clr Calc Pharmacy 117.3587; Glomerular Filtration Rate 85.6 mL/min (90-130); Glucose 110 mg/dL (65-115); Lactic Sepsis W/Reflex 2.5 mmol/L (0.5-2.2); Osmolality Calculated 290 mOsm/kg (285-295); Sodium 140 mmol/L (136-145); Total Bilirubin 0.2 mg/dL (0.15-1.2); Total Protein 6.9 g/dL (6.6-8.7)
[2024-08-17 18:27] LABS: Reflex Lactate Order REFLEX LACTIC ORDERD
--- NOTE | 2024-08-17 18:38 | ECG_ITS ---
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 Measurements Intervals [place] Rate: 74 P: 75 [place]: 185 QRS: 92 QRSD: 102 T: 3 QT: 387 QTc: 431 Interpretive Statements SINUS RHYTHM BORDERLINE RIGHT AXIS DEVIATION [QRS AXIS > 90] LOW QRS VOLTAGE IN PRECORDIAL LEADS [QRS DEFLECTION < 1.0 mV IN CHEST LEADS] NONSPECIFIC T-WAVE ABNORMALITY Compared to ECG 08/17/2024 17:30:26 No significant changes Electronically Signed On 08-17-2024 21:55:12 SHROUDMAN by Ramiro Ball M.D. [id number]
[2024-08-17 19:30] LABS: Lactic Acid level (Lactate) 1.3 mmol/L (0.5-2.2)
[2024-08-17 19:34] LABS: Troponin 5 2HR Delta 0.00001 ABS# (0-10)
[2024-08-17 19:58] VITALS: BP 151/105; PULSE 72; RESP 16; O2SAT 96
--- NOTE | 2024-08-17 20:21 | W.ED.DIZZY ---
HPI - Dizziness General: Chief Complaint: Dizziness Stated Complaint: rt neck and arm pain Time Seen by Provider: 08/17/24 19:46 History of Present Illness: HPI Narrative: 58-year-old female with a history of chronic neck issues who presents emergency room with neck pain that radiates down her right arm. No weakness or sensory loss. Today she also had some nausea and dizziness. The combination all this prompted her to come to the emergency room. The neck pain is chronic. No chest pain. No altered mental status. No focal motor deficits. No fevers. No injuries. Related Data Home Medications Medication Instructions Recorded Confirmed tolterodine 4 mg capsule,extended 4 mg PO DAILY 04/23/21 06/22/24 release 24 hr levothyroxine 50 mcg capsule 50 mcg PO DAILY 10/04/22 06/22/24 amlodipine 10 mg tablet 10 mg PO .morning 11/01/23 06/22/24 estradiol 1 mg tablet 1 mg PO .7 pm 11/01/23 06/22/24 ropinirole 1 mg tablet 3 mg PO BEDTIME 11/01/23 06/22/24 methocarbamol 750 mg tablet 750 mg PO DAILY 03/12/24 06/22/24 omeprazole 40 mg capsule,delayed 40 mg PO DAILY 05/24/24 06/22/24 release Previous Rx's Medication Instructions Recorded ondansetron 4 mg disintegrating 4 mg PO Q6H PRN nausea and 05/28/24 tablet vomiting #14 tabs celecoxib 100 mg capsule 100 mg PO BID #180 caps 06/26/24 Trintellix 20 mg tablet 20 mg PO .morning #30 tabs 07/20/24 (vortioxetine) clonazepam 1 mg tablet 1 mg PO BID #60 tabs 07/20/24 trazodone 150 mg tablet 150 mg PO .bedtime PRN sleep #90 07/20/24 tabs cyclobenzaprine 10 mg tablet 10 mg PO Q8H PRN muscle spasm #20 08/17/24 tabs dexamethasone 6 mg tablet 6 mg PO DAILY 5 days #5 tabs 08/17/24 tramadol 50 mg tablet 50 mg PO Q8H PRN pain #10 tabs 08/17/24 Allergies Allergy/AdvReac Type Severity Reaction Status Date / Time azithromycin Allergy Unknown ADR-Gastrointestinal Verified 06/22/24 08:30 Upset haloperidol [From Haldol] Allergy ALGY-Anaphy Verified 06/22/24 08:30 laxis latex Allergy ALGY-Redness Verified 06/22/24 08:30 of Skin meperidine [From Demerol] Allergy ADR-Halluci Verified 06/22/24 08:30 nating prednisone Allergy ADR-Anxiety Verified 06/22/24 08:30 aripiprazole [From Abilify] AdvReac Unknown ADR-Anxiety Verified 06/22/24 08:30 bupropion [From Wellbutrin] AdvReac Unknown ADR-Confusi Verified 06/22/24 08:30 on Review of Systems Narrative: Constitutional symptoms: Negative except as documented in HPI. Skin symptoms: Negative except as documented in HPI. Eye symptoms: Negative except as documented in HPI. ENMT symptoms: Negative except as documented in HPI. Respiratory symptoms: Negative except as documented in HPI. Cardiovascular symptoms: Negative except as documented in HPI. Gastrointestinal symptoms: Negative except as documented in HPI. Genitourinary symptoms: Negative except as documented in HPI. Musculoskeletal symptoms: Negative except as documented in HPI. Neurologic symptoms: Negative except as documented in HPI. Psychiatric symptoms: Negative except as documented in HPI. Endocrine symptoms: Negative except as documented in HPI. PFSH ED PFSH: Medical History Impingement syndrome of right shoulder Primary osteoarthritis, right shoulder Right rotator cuff tendonitis Urinary incontinence in female Psychiatric care Other stressful life events affecting family and household Generalized anxiety disorder Major depressive disorder, recurrent, in partial remission Surgical History H/O: hysterectomy Hx of neck surgery Fusion Hx of colonoscopy 10 yrs History of esophagogastroduodenoscopy (EGD) History of [place] urethropexy 24 yrs ago Family History Unknown Cancer She denies a family hx of breast, ovarian, uterine, pancreatic, colon, thyroid cancers. Denies family history of Diabetes Hypertension Stroke Social History Smoking and tobacco/nicotine status: former use of tobacco/nicotine Alcohol intake: never Substance/Drug Use: never Physical Exam Narrative: EXAM NARRATIVE: General: Alert, no acute distress. Skin: warm and dry Head: Normocephalic Neck: Trachea midline Eye: Extraocular movements are intact. Ears, nose, mouth and throat: Oral mucosa moist Respiratory: Respirations are non-labored Musculoskeletal: Normal ROM Neurological: Alert and oriented, No focal neurological deficit observed. Psychiatric: Cooperative, appropriate mood & affect. Course Vital Signs: Vital signs: Vital Signs Temperature 97.6 F 08/17/24 15:37 Pulse Rate 72 08/17/24 19:58 Respiratory Rate 16 08/17/24 19:58 Blood Pressure 151/105 08/17/24 19:58 Pulse Oximetry 96 08/17/24 19:58 Oxygen Delivery Me thod Room Air 08/17/24 19:58 MDM - Dizziness Medical Decision Making Chest x-ray: No acute process. No infiltrate. No pneumothorax. This was reviewed and interpreted by myself the emergency room physician. I also reviewed the radiology report. CT head: No acute intracranial process. no intracranial hemorrhage, no evidence of infarct. no evidence of acute fracture.This was reviewed and interpreted by myself the ER physician. Lab work: No abnormal findings. Assessment and plan: Neck pain Radiculopathy ? IV Decadron and Norflex in the emergency room. - Discharged home - Discussed plan with patient. Answered any questions. - Evaluation and treatment of this problem were appropriate in the emergency setting. Lab Data 08/17/24 16:55 08/17/24 16:55 Radiology Impressions Chest X-Ray 08/17/24 16:12 IMPRESSION: No acute findings. Head CT 08/17/24 16:12 IMPRESSION: No acute intracranial abnormality. Laboratory Results WBC 10.04 10^3/uL (3.29-11.43) 08/17/24 16:55 RBC 4.47 10^6/uL (3.85-5.65) 08/17/24 16:55 Hgb 13.10 g/dL (11.27-16.99) 08/17/24 16:55 Hct 40.1 % (36-47) 08/17/24 16:55 MCV 89.7 fl (85-98) 08/17/24 16:55 MCH 29.3 pg (27-33) 08/17/24 16:55 MCHC 32.7 g/dL (30-55) 08/17/24 16:55 RDW 14.8 % (12.1-15.1) 08/17/24 16:55 Plt Count 375 10^3/cmm (157-399) 08/17/24 16:55 MPV 10.3 fL (7.4-10.4) 08/17/24 16:55 Neut % (Auto) 67.6 % 08/17/24 16:55 Lymph % (Auto) 23.7 % 08/17/24 16:55 Elbert % (Auto) 6.7 % 08/17/24 16:55 Eos % (Auto) 1.2 % 08/17/24 16:55 Baso % (Auto) 0.5 % 08/17/24 16:55 Neut # (Auto) 6.79 10^3/uL (1.8-7.7) 08/17/24 16:55 Lymph # (Auto) 2.4 10^3/uL (0.8-4.8) 08/17/24 16:55 Elbert # (Auto) 0.7 10^3/uL (0.2-0.9) 08/17/24 16:55 Eos # (Auto) 0.1 10^3/uL (0.0-0.8) 08/17/24 16:55 Baso # (Auto) 0.1 10^3/uL (0.0-0.1) 08/17/24 16:55 Nucleated RBC % (auto) 0 % 08/17/24 16:55 Nucleated RBCs # 0.0 /100WBC 08/17/24 16:55 Sodium 140 mmol/L (136-145) 08/17/24 16:55 Potassium 4.0 mmol/L (3.5-5.1) 08/17/24 16:55 Chloride 101 mmol/L (98-107) 08/17/24 16:55 Carbon Dioxide 26 mmol/L (22-29) 08/17/24 16:55 Anion Gap 17.0 (5-19) 08/17/24 16:55 BUN 11 mg/dL (6-20) 08/17/24 16:55 Creatinine 0.7 mg/dL (0.5-0.9) 08/17/24 16:55 GFR Calculation 85.6 mL/min (90-130) L 08/17/24 16:55 Glucose 110 mg/dL (65-115) 08/17/24 16:55 Calculated Osmolality 290 mOsm/kg (285-295) 08/17/24 16:55 Lactic Acid 2.5 mmol/L (0.5-2.2) H 08/17/24 16:55 Lactic Acid (Sepsis) 1.3 mmol/L (0.5-2.2) 08/17/24 18:58 Calcium 8.7 mg/dL (8.5-10.5) 08/17/24 16:55 Total Bilirubin 0.2 mg/dL (0.15-1.2) 08/17/24 16:55 AST 16 U/L (0-32) 08/17/24 16:55 ALT 18 U/L (0-33) 08/17/24 16:55 Alkaline Phosphatase 97 U/L (35-105) 08/17/24 16:55 Troponin T Baseline < 6 ng/L (0-10) 08/17/24 16:55 Troponin T 120 Minute 6.00 ng/L (0-10) 08/17/24 18:58 Delta Troponin T 0.00224 ABS# (0-10) 08/17/24 18:58 Total Protein 6.9 g/dL (6.6-8.7) 08/17/24 16:55 Albumin 3.9 g/dL (3.5-5.2) 08/17/24 16:55 Globulin 3.0 g/dL (1.3-4.6) 08/17/24 16:55 All radiology interpretation(s) finalized by discharge Discharge Plan Discharge Patient Disposition: Home Clinical Impression: Neck pain, Radiculopathy, Dizziness Condition: Stable Prescriptions: New cyclobenzaprine 10 mg tablet 10 mg PO Q8H PRN (Reason: muscle spasm) Qty: 20 0RF dexamethasone 6 mg tablet 6 mg PO DAILY 5 Days Qty: 5 0RF tramadol 50 mg tablet 50 mg PO Q8H PRN (Reason: pain) Qty: 10 0RF No Action ropinirole 1 mg tablet 3 mg PO BEDTIME estradiol 1 mg tablet 1 mg PO .7 pm methocarbamol 750 mg tablet 750 mg PO DAILY Rx Instructions: take 1 tablet every 8 hours as needed omeprazole 40 mg capsule,delayed release(DR/EC) 40 mg PO DAILY levothyroxine 50 mcg capsule 50 mcg PO DAILY celecoxib 100 mg capsule 100 mg PO BID Qty: 180 2RF Trintellix 20 mg tablet 20 mg PO .morning Qty: 30 6RF Rx Instructions: Take one tablet every morning trazodone 150 mg tablet 150 mg PO .bedtime PRN (Reason: sleep) Qty: 90 2RF Rx Instructions: Take one tablet at bedtime clonazepam 1 mg tablet 1 mg PO BID Qty: 60 3RF Rx Instructions: Take one tablet twice per day tolterodine 4 mg capsule,extended release 24hr 4 mg PO DAILY amlodipine 10 mg tablet 10 mg PO .morning ondansetron 4 mg tablet,disintegrating 4 mg PO Q6H PRN (Reason: nausea and vomiting) Qty: 14 0RF Discharge Orders: Discharge ED (Routine); Ordered 08/17/24 Ordered By: Marlene Rosales Referrals: Nadeem Graves MD [Primary Care Provider] - Patient Instructions: Cervical Radiculopathy (ED), Opioid Safety, Pain Management Activity Restrictions/Additional Instructions: Thank you for choosing [facility] for your healthcare needs today. Please realize this is an emergency room and that we are providing you with a medical screening exam and this may not be complete and all inclusive of all the testing and or work up that you may need to determine your ailment or severity of your illness. You have been screened and evaluated and felt safe for discharge. Health conditions do change or evolve sometimes and as such it is important that you follow up with your Primary Doctor to be re checked, 3-5 days is a general good time frame for follow up. 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
[2024-08-17] MEDS: orphenadrine 30 mg/mL Inj 2 mL 60 MG IVP (20:54)
[2024-08-17] MEDS: dexamethasone 10 mg/mL INJ IVP (20:54)
[2024-08-17 21:31] VITALS: BP 132/94; PULSE 70; RESP 16; O2SAT 97
== END 2024-08-17 21:29 | disposition home or self-care (01) ==
PROVIDERS: Emergency Provider Emergency Medicine; PCP Family Medicine
DX: M54.2 Cervicalgia (principal); M54.10 Radiculopathy, site unspecified; R42 Dizziness and giddiness; Z87.891 Personal history of nicotine dependence
CPT/HCPCS: 36415; 70450; 71045; 80053; 83605; 84484; 85025; 87040; 93005; 96374; 96375; 99285; J1100; J2360

== ENCOUNTER 2024-08-30 07:43 | Outpatient (CLI) | payer OTHER, SELFPAY ==
--- NOTE | 2024-08-30 08:45 | MR_ITS ---
WS: [id number] MRI RIGHT SHOULDER HISTORY: Right shoulder pain COMPARISON: 11/28/2014 TECHNIQUE: Multiplanar sequences of the shoulder joint are submitted. Minimal soft tissue hypertrophy at the AC joint. No significant osteophytosis. No subacromial or subd eltoid bursal fluid. There is very slight progression of subacromial impingement by an osteophyte fro m the inferior undersurface of the acromion. No os acromiale. Normal position of the biceps tendon. No rotator cuff muscle atrophy or edema. Mild tendinopathy in the supraspinatus tendon directly over the humeral head. There is no rotator cuff tendon tear. Mild narrowing of the glenohumeral joint. Wel l-circumscribed low signal foci are noted over the humeral head with the largest measuring 8 mm and t he smaller 3 mm. These are closely associated with distal supraspinatus tendon. No joint effusion. No labral tear. No soft tissue masses. MR/MR shoulder RT wo con* [id number] IMPRESSION: 1. No rotator cuff tear. Mild tendinopathy of the distal supraspinatus tendon. 2. New, mild subacromial impingement by osteophyte or enthesopathy from the di stal undersurface of the acromion. 3. Calcific tendinitis involving the distal supraspinatus tendon. The largest calcific deposit measures 8 mm.
== END 2024-08-30 07:44 | disposition home or self-care (01) ==
LOC: RAD 07:44
PROVIDERS: PCP Family Medicine; Visit Provider Nurse Practitioner
DX: M75.81 Other shoulder lesions, right shoulder (principal); M19.011 Primary osteoarthritis, right shoulder; R93.6 Abnormal findings on diagnostic imaging of limbs; M75.31 Calcific tendinitis of right shoulder; M25.711 Osteophyte, right shoulder
CPT/HCPCS: 73221

== ENCOUNTER → 2024-09-18 13:15 | Outpatient (BNVA) | payer OTHER, SELFPAY | PROVIDERS: PCP Family Medicine; Visit Provider Orthopaedic Surgery | DX: M54.2 Cervicalgia (principal); M54.12 Radiculopathy, cervical region | CPT/HCPCS: 72050 ==

== ENCOUNTER → 2024-09-24 09:50 | Outpatient (BNVA) | payer OTHER, SELFPAY | PROVIDERS: PCP Family Medicine; Visit Provider Nurse Practitioner Psychiatric/Mental Health | DX: Z79.899 Other long term (current) drug therapy (principal) | CPT/HCPCS: 80061; 83036 ==

== ENCOUNTER 2024-10-06 20:09 | Emergency (ER) | payer OTHER, SELFPAY ==
[2024-10-06 20:17] VITALS: BP 197/77; PULSE 84; RESP 18; TEMP 36.5; O2SAT 97; BMI 49.1
--- NOTE | 2024-10-06 20:28 | W.ED.ANXIETY ---
HPI - Anxiety General: Chief Complaint: Anxiety Stated Complaint: Stress Time Seen by Provider: 10/06/24 20:28 History of Present Illness: Sariah is a 59-year-old female that presents to our emergency department with complaints of anxiety. Patient was previously on Trintellix 20 mg daily. Recently patient's provider decreased the dose to 10 mg due to unwanted side effects. Patient was started on Prozac today in addition to the Trintellix 10 mg. She had a 45 minutes anxiety attack that was resistant to her clonazepam. She arrives in the emergency department tearful, anxious, irritable. She reports a mild headache from her hypertension. She has taken her chlorthalidone but her blood pressure currently is 160/120 She denies chest pain, shortness of breath, strokelike symptoms. Denies abdominal pain, nausea vomiting or diarrhea. Related Data Home Medications ?Medication ?Instructions ?Recorded ?Confirmed tolterodine 4 mg capsule,extended 4 mg PO DAILY 04/23/21 09/24/24 release 24 hr levothyroxine 50 mcg capsule 50 mcg PO DAILY 10/04/22 09/24/24 estradiol 1 mg tablet 1 mg PO .7 pm 11/01/23 09/24/24 ropinirole 1 mg tablet 3 mg PO BEDTIME 11/01/23 09/24/24 omeprazole 40 mg capsule,delayed 40 mg PO DAILY 05/24/24 09/24/24 release chlorthalidone 25 mg tablet 12.5 mg PO DAILY 09/24/24 09/24/24 tramadol 50 mg tablet 25 mg PO Q8H PRN pain 09/24/24 09/24/24 vortioxetine 20 mg tablet 10 mg PO .morning 09/24/24 09/24/24 (Trintellix) Previous Rx's ?Medication ?Instructions ?Recorded ondansetron 4 mg disintegrating 4 mg PO Q6H PRN nausea and 05/28/24 tablet vomiting #14 tabs celecoxib 100 mg capsule 100 mg PO BID #180 caps 06/26/24 clonazepam 1 mg tablet 1 mg PO BID #60 tabs 07/20/24 trazodone 150 mg tablet 150 mg PO .bedtime PRN sleep #90 07/20/24 tabs chlorzoxazone 500 mg tablet 250 mg (1/2 x 500 mg) PO TID PRN 01/30/25 muscle spasm #21 tabs fluoxetine 20 mg capsule 20 mg PO .morning #30 caps 09/24/24 quetiapine 50 mg tablet (Seroquel) 50 mg PO BEDTIME #90 tabs 09/24/24 Allergies Allergy/AdvReac Type Severity Reaction Status Date / Time azithromycin Allergy Unknown ADR-Gastrointestinal Verified 10/06/24 20:22 Upset haloperidol (From Haldol) Allergy ALGY-Anaphy Verified 10/06/24 20:22 laxis latex Allergy ALGY-Redness Verified 10/06/24 20:22 of Skin meperidine (From Demerol) Allergy ADR-Halluci Verified 10/06/24 20:22 nating prednisone Allergy ADR-Anxiety Verified 10/06/24 20:22 aripiprazole (From Abilify) AdvReac Unknown ADR-Anxiety Verified 10/06/24 20:22 bupropion (From Wellbutrin) AdvReac Unknown ADR-Confusi Verified 10/06/24 20:22 on Review of Systems General: Reports: 10 or more systems reviewed and unremarkable except in HPI and below PFSH ED PFSH: Medical History Impingement syndrome of right shoulder Primary osteoarthritis, right shoulder Right rotator cuff tendonitis Urinary incontinence in female Psychiatric care Other stressful life events affecting family and household Generalized anxiety disorder Major depressive disorder, recurrent, in partial remission Surgical History H/O: hysterectomy Hx of neck surgery Fusion Hx of colonoscopy 10 yrs History of esophagogastroduodenoscopy (EGD) History of Park urethropexy 24 yrs ago Family History Unknown Cancer She denies a family hx of breast, ovarian, uterine, pancreatic, colon, thyroid cancers. Denies family history of Diabetes Hypertension Stroke Social History Smoking and tobacco/nicotine status: unknown if used tobacco/nicotine Alcohol intake: never Substance/Drug Use: never Physical Exam Const: COMMON NORMALS: no acute distress and patient oriented x3 NUTRITIONAL APPEARANCE: obese ORIENTATION/CONSCIOUSNESS: Yes Other orientation findings (Tearful) HENMT: COMMON NORMALS: normocephalic HEAD & SCALP: normocephalic Lymph: LYMPHATIC: no lymphadenopathy noted Resp: COMMON NORMALS: normal respiratory effort and clear to auscultation bilaterally EFFORT & INSPECTION: Yes able to speak in complete sentences AUSCULTATION: clear to auscultation bilaterally, no rales, no rhonchi and no wheezes Cardio: COMMON NORMALS: regular rate, regular rhythm and No murmurs present (Cardio) RATE: regular rate RHYTHM: regular rhythm GI: COMMON NORMALS: Normal to inspection, nondistended, normoactive bowel sounds present, Soft to palpation and non-tender PALPATION: Yes Soft to palpation Extremity: COMMON NORMALS: normal to inspection and full ROM Neuro: COMMON NORMALS: patient oriented x3 Psych: COMMON NORMALS: mental status grossly normal, Normal thought process present and speech normal APPEARANCE: Yes grossly normal ATTITUDE: Yes calm SPEECH: Yes normal speech MOOD & AFFECT: Yes tearful THOUGHT PROCESS: Normal thought process present THOUGHT CONTENT: Yes Normal thought content present Skin: COMMON NORMALS: no rashes or lesions noted GENERAL SKIN EXAM: no rashes or lesions noted Course Vital Signs: Vital signs: Vital Signs Temperature 97.7 F 10/06/24 20:17 Pulse Rate 75 10/06/24 21:46 Respiratory Rate 18 10/06/24 20:17 Blood Pressure 143/87 10/06/24 21:46 Pulse Oximetry 96 10/06/24 21:46 Oxygen Delivery Me thod Room Air 10/06/24 21:46 MDM - Anxiety Medical Decision Making Patient evaluated in the emergency department today for anxiety. She had a recent medication change that has related to this anxiety. Department we evaluated her strokelike symptoms, treated her hypertension with hydralazine also treated her anxiety with Zyprexa 10 mg. Her blood pressure improved and her anxiety improved. We plan to send her home with another dose for tomorrow. Patient needs to follow-up with her primary care team on Tuesday for ongoing anxiety management No radiology studies performed this visit Discharge Plan Discharge Patient Disposition: Home Clinical Impression: Acute anxiety, Panic disorder Condition: Stable Prescriptions: No Action ropinirole 1 mg tablet 3 mg PO BEDTIME estradiol 1 mg tablet 1 mg PO .7 pm omeprazole 40 mg capsule,delayed release(DR/EC) 40 mg PO DAILY levothyroxine 50 mcg capsule 50 mcg PO DAILY chlorthalidone 25 mg tablet 12.5 mg PO DAILY tramadol 50 mg tablet 25 mg PO Q8H PRN (Reason: pain) Trintellix 20 mg tablet 10 mg PO .morning Rx Instructions: Take half tablet every morning x 14 days, then discontinue fluoxetine 20 mg capsule 20 mg PO .morning Qty: 30 1RF Rx Instructions: Start on 10/08/24, take one capsule every morning quetiapine [Seroquel] 50 mg tablet 50 mg PO BEDTIME Qty: 90 2RF Rx Instructions: Take one tablet at bedtime celecoxib 100 mg capsule 100 mg PO BID Qty: 180 2RF trazodone 150 mg tablet 150 mg PO .bedtime PRN (Reason: sleep) Qty: 90 2RF Rx Instructions: Take one tablet at bedtime clonazepam 1 mg tablet 1 mg PO BID Qty: 60 3RF Rx Instructions: Take one tablet twice per day chlorzoxazone 500 mg tablet 250 mg PO TID PRN (Reason: muscle spasm) Qty: 21 0RF tolterodine 4 mg capsule,extended release 24hr 4 mg PO DAILY ondansetron 4 mg tablet,disintegrating 4 mg PO Q6H PRN (Reason: nausea and vomiting) Qty: 14 0RF Discharge Orders: Discharge ED (Routine); Ordered 10/06/24 Ordered By: Daisy Bray McTcrispin Referrals: Nadeem Graves MD [Primary Care Provider] - Discharge Diet: Advance as tolerated Discharge Activity: Resume usual activity Patient Instructions: Olanzapine (By mouth) (Zyprexa, Zyprexa Zydis), Anxiety (ED), Opioid Safety, Pain Management Activity Restrictions/Additional Instructions: Please take medications as prescribed Resending you home with 1 dose of Zyprexa. You can take that Tuesday if needed. You need to contact your provider Tuesday morning for ongoing management. 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
[2024-10-06] MEDS: OLANZapine 10 mg ODT PO (20:49)
[2024-10-06] MEDS: hyDRALAzine 25 mg Tablet PO (20:49)
[2024-10-06 21:46] VITALS: BP 143/87; PULSE 75; O2SAT 96
--- NOTE | 2024-10-06 21:50 | PC.NURSE ---
Pt sent home with 10mg Zyprexa per Dr Rutherford's order.
[2024-10-06 21:53] VITALS: BP 143/87; PULSE 77; O2SAT 97
== END 2024-10-06 22:00 | disposition home or self-care (01) ==
PROVIDERS: Emergency Provider Nurse Practitioner; PCP Family Medicine
DX: F41.8 Other specified anxiety disorders (principal); F41.0 Panic disorder [episodic paroxysmal anxiety]
CPT/HCPCS: 99283

== ENCOUNTER 2024-10-11 10:52 | Day surgery (SDC) | payer OTHER, SELFPAY ==
[2024-10-11] VITALS (14 sets, daily range): BP systolic 111–174; BP diastolic 66–108; PULSE 67–93; RESP 15–23; TEMP 36.1; O2SAT 91–99; BMI 52.7
--- NOTE | 2024-10-11 11:32 | W.PM.OPSUD ---
Surgery/Procedure H&P Update DATE OF PROCEDURE: October 11, 2024 DATE H&P PERFORMED: 10/10/24 H&P UPDATE INFORMATION: I have reviewed H&P completed within last 30 days, I have examined patient prior to procedure, H&P to be scanned into chart and H&P is in [facility] [place] [place] EMR on date indicated PRIMARY INDICATION FOR PROCEDURE: MRI without contrast of the right shoulder was obtained here at [facility] on August 30, 2024. The MR images were reviewed and report was dictated by Dr. Noreen Chapa DO. Impression: 1. No rotator cuff tear. Mild tendinopathy in the distal supraspinatus tendon. 2. New, Mild, subacromial impingement by osteophyte or enthesopathy from the distal undersurface of the acromion. 3. Calcific tendinitis involving the distal supraspinatus tendon. The largest calcific deposit measuring 8 mm. PLANNED PROCEDURE: Operation Date: 10/11/24 11:55 Proposed Procedures p Acromioplasty(Right) - Romi Delvalle MD s Distal Clavicle Resection(Right) - Romi Delvalle MD s Possible Rotator Cuff Repair - Open(Right) - Romi Delvalle MD Related Problem List Diagnoses (1) Impingement of right shoulder: (2) Primary osteoarthritis, right shoulder:
[2024-10-11] MEDS: acetaminophen 1,000 MG/100 ML PIGGYBACK 400 MG IV (11:33)
[2024-10-11] MEDS: CELEcoxib 200 mg Capsule 400 MG PO (11:34)
[2024-10-11] MEDS: gabapentin 300 mg Capsule PO (11:34)
[2024-10-11] MEDS: sodium chloride 0.9% 1,000 ML 30 ML IV (12:15)
[2024-10-11] MEDS: midazolam 1 mg/mL INJ 2 mL 2 MG IVP (12:30)
--- NOTE | 2024-10-11 12:39 | ANES.PREANE2 ---
Pre-Anesthetic Assessment Height/Weight: Height 1.65 m Weight 143.789 kg O2 Del Method Room Air 10/11/24 11:04 Preop Diagnosis: Right Shoulder Pain Operation Date: 10/11/24 11:55 Proposed Procedures p Acromioplasty(Right) - Romi Delvalle MD s Distal Clavicle Resection(Right) - Romi Delvalle MD s Possible Rotator Cuff Repair - Open(Right) - Romi Delvalle MD Familial anesthetic complications: none Was Beta Renata taken within 24 hours: N/A Was Clonidine taken within 24 hours: Yes Last intake: Intake Last Liquid Date 10/10/24 Last Liquid Time 20:30 Last Solid Date 10/10/24 Last Solid Time 18:00 Social No alcohol and No tobacco Exam alert, oriented x 3, clear to auscultation bilaterally and regular rate & rhythm Airway Submandibular: within normal limits Cervical ROM: within normal limits Mallampati: Class II Dentition: full History/ROS No significant history except as noted and No significant complaints Pulmonary Asthma CV/HEM Hypertension None reported Hepatic None reported GI None reported Metabolic Morbid Obesity and Thyroid Disease [facility] None reported Neuropsych Anxiety and Depression Anesthetic Plan ASA status: 3 Anesthesia: General and Regional (specify below) (Interscalene) Risk of > 500 ml blood loss (7ml/kg in children): No Medications/Allergies Home Medications ?Medication ?Instructions ?Recorded ?Confirmed ?Last Taken ?Type tolterodine 4 mg capsule,extended 4 mg PO DAILY 04/23/21 10/11/24 10/11/24 History release 24 hr levothyroxine 50 mcg capsule 50 mcg PO DAILY 10/04/22 10/11/24 10/11/24 History estradiol 1 mg tablet 1 mg PO .7 pm 11/01/23 10/11/24 10/10/24 History ropinirole 1 mg tablet 3 mg PO BEDTIME 11/01/23 10/11/24 10/10/24 History omeprazole 40 mg capsule,delayed 40 mg PO DAILY 05/24/24 10/11/24 10/10/24 History release ondansetron 4 mg disintegrating 4 mg PO Q6H PRN nausea and 05/28/24 10/11/24 Unknown Rx tablet vomiting #14 tabs celecoxib 100 mg capsule 100 mg PO BID #180 caps 06/26/24 10/11/24 10/10/24 Rx trazodone 150 mg tablet 150 mg PO .bedtime PRN sleep #90 07/20/24 10/11/24 10/10/24 Rx tabs chlorzoxazone 500 mg tablet 250 mg (1/2 x 500 mg) PO TID PRN 09/13/24 10/11/24 Unknown Rx muscle spasm #21 tabs chlorthalidone 25 mg tablet 12.5 mg PO DAILY 09/24/24 10/11/24 10/11/24 History fluoxetine 20 mg capsule 20 mg PO .morning #30 caps 09/24/24 10/11/24 10/11/24 Rx quetiapine 50 mg tablet (Seroquel) 50 mg PO BEDTIME #90 tabs 09/24/24 10/11/24 10/10/24 Rx tramadol 50 mg tablet 25 mg PO Q8H PRN pain 09/24/24 10/11/24 10/10/24 History clonazepam 1 mg tablet 1 mg PO TID #90 tabs 10/09/24 10/11/24 10/11/24 Rx Allergies Allergy/AdvReac Type Severity Reaction Status Date / Time azithromycin Allergy Unknown ADR-Gastrointestinal Verified 10/10/24 11:09 Upset haloperidol (From Haldol) Allergy ALGY-Anaphy Verified 10/10/24 11:09 laxis latex Allergy ALGY-Redness Verified 10/10/24 11:09 of Skin meperidine (From Demerol) Allergy ADR-Halluci Verified 10/10/24 11:09 nating prednisone Allergy ADR-Anxiety Verified 10/10/24 11:09 aripiprazole (From Abilify) AdvReac Unknown ADR-Anxiety Verified 10/10/24 11:09 bupropion (From Wellbutrin) AdvReac Unknown ADR-Confusi Verified 10/10/24 11:09 on [facility] Anesthesia Medical History Generalized anxiety disorder with panic attacks Impingement syndrome of right shoulder Primary osteoarthritis, right shoulder Right rotator cuff tendonitis Urinary incontinence in female Psychiatric care Other stressful life events affecting family and household Generalized anxiety disorder Major depressive disorder, recurrent, in partial remission Surgical History H/O: hysterectomy Hx of neck surgery Fusion Hx of colonoscopy 10 yrs History of esophagogastroduodenoscopy (EGD) History of [place] urethropexy 24 yrs ago Family History Unknown Cancer She denies a family hx of breast, ovarian, uterine, pancreatic, colon, thyroid cancers. Denies family history of Diabetes Hypertension Stroke Social History Smoking and tobacco/nicotine status: never used tobacco/nicotine Alcohol intake: never Substance/Drug Use: never Data Anesthesia Cardiac Studies: No Data to Display
--- NOTE | 2024-10-11 12:42 | ANES.PROC ---
Anesthesia Procedures Procedure/Date: 10/11/24 Nerve Block ^: Nerve Block 1: Main Anesthesia: general anesthesia Time Out Performed: Yes Consent: requested by attending/covering physician, from patient, risks and benefits reviewed and patient agrees to proceed Nerve block location: interscalene Anesthesia monitors applied: pulse oximetry, EKG, BP cuff and oxygen Nerve block position: semi sitting Anesthetic Used: ropivicaine 0.5% Amount of anesthesia used (mL): 30 Ultrasound used to: recognize landmarks, visualize and ID brachial plexus and visualize and ID interscalene groove Nerve Stimulator Used?: Yes Interscalene/Femoral BLK: 4 stimuplex 21 g needle used for position and inplane approach and no vascular puncture identified Injection: neg aspiration of heme Patient Tolerated Procedure: well and no complications Complications: none
--- NOTE | 2024-10-11 12:44 | SUR.PREOP ---
Right shoulder nerve block done by Abdi JOAQUIN. Patient on NC with sats at 99 2L, HR 68, BP 153/78, RR 16. PAtient tolerated procedure well.
[2024-10-11] MEDS: ceFAZolin 3,000 MG in sodium chloride 0.9% (plus) 100 ML 200 MG IV (13:02)
[2024-10-11] MEDS: ceFAZolin 1,000 mg SDV 1000 MG IRRIGATION (13:47)
--- NOTE | 2024-10-11 14:46 | PM.OP ---
Operative Report Date of procedure: October 11, 2024 Pre-op diagnosis: Right shoulder impingement with acromioclavicular joint osteoarthritis with calcific tendinitis Post-op diagnosis: Right shoulder impingement with acromioclavicular joint osteoarthritis with calcific tendinitis Post-op findings: Acromioclavicular joint osteoarthritis with impingement right shoulder Procedure done: Right shoulder open acromioplasty with bursectomy and evaluation of rotator cuff and distal clavicle resection Implants: None Specimens removed/disposition: Bone, disposed of Pathology: None Surgeon: Romi Delvalle MD Bicycle Ii Assembler: JAYCEE Maldonado, who services were required for positioning, retraction, exposure, and closure. Anesthesia: General (Intubated, ASA 3 with supplemental interscalene block) Estimated blood loss (mL): 5 IV fluids (mL): 500 Urine output (mL): 0 (No Chavis) Complications: None Findings: Significant osteoarthritis of the acromioclavicular joint and impingement upon the rotator cuff from the acromion Condition: stable Disposition: PACU (Then return to same-day surgery for discharge to home) Brief History: This 59-year-old woman is an established patient with the office. The patient has had multiple right shoulder cortisone injections and has completed physical therapy. The patient's cortisone injection lasted approximately 1 week before symptoms returned. She has also tried several different shoulder blade braces without relief. Imaging studies demonstrated no rotator cuff tear with mild tendinopathy in the distal supraspinatus tendon and subacromial impingement secondary to osteophyte from the distal undersurface of the acromion. There was also significant acromioclavicular joint osteoarthritis. After discussion in the office and frustration with lack of nonoperative treatments being of benefit, the patient wished to proceed with surgical intervention. Risks and complications were discussed with her and consents were signed preoperatively. She had a preoperative evaluation with Dr. Song as well. The patient was seen the morning of surgery and further questions were answered. Procedure: The patient was brought to the operating theater and underwent general intubated anesthesia, ASA 3 with supplemental interscalene block. The patient was placed in a beachchair position and subsequently the right upper extremity was prepped and draped in the usual fashion utilizing DuraPrep. The arm was draped free. A surgical pause was performed prior to commencement of the surgical procedure. At the time of the surgical pause, we confirmed the site and side of surgery as well as administration of appropriate preoperative antibiotics Ancef 3 g. MRI was also reviewed at that time. Following the surgical pause, an incision was made at approximately the level of the acromioclavicular joint extending across the anterolateral corner of the acromion and distally as necessary. Care was taken to avoid injury to the axillary nerve by limiting the distal extent of the incision. Dissection continued through skin and soft tissues using a scalpel. A larger incision was required secondary to the patient's subcutaneous tissues. Hemostasis was obtained using electrocautery. Soft tissues were elevated off the acromion. An acromioplasty was then accomplished using a combination of a saw and a power rasp. With this, we were able to remove compression caused by the acromion. The rotator cuff was then evaluated to look for tears. There was no evidence of rotator cuff tear, but there was bursitis and tendinitis noted. A bursal resection was accomplished. The rotator cuff was evaluated through full internal and external rotation as well as AB and adduction without evidence of tear. Following the acromioplasty, there was significant relief of impingement. The acromioclavicular joint was exposed. A saw was then used to resect the distal clavicle without difficulty. The undersurface of the clavicle was palpated and was slightly further debrided. A power rasp was used to further smooth the area. When this was felt to be adequately resected, the wound was irrigated. Attention was then directed to closure. The wound was irrigated and closure was accomplished with 0 Vicryl in the capsular tissues overlying the acromioclavicular joint area as well as over the acromion and down into the deltoid muscle. 3-0 Monocryl was used to close the subcutaneous tissues followed by 4-0 Monocryl subcuticular closure. This was followed by Dermabond, Steri-Strips, and an OpSite. The patient was returned to the recovery room in satisfactory condition. After she had recovered, she did wish to have placement of sling, and this will be obtained for her. The patient will be discharged to home to follow-up in the office as scheduled. There were no complications and no specimens. Related Problem List Diagnoses (1) Impingement of right shoulder: (2) Primary osteoarthritis, right shoulder: (3) Right rotator cuff tendonitis:
[2024-10-11] MEDS: ondansetron 2 mg/ML SDV 2 mL 4 MG IVP (15:30)
--- NOTE | 2024-10-11 16:18 | SUR.PHASEII ---
Patient has been on 1-2L O2 NC off and on since admission to phase 2, have been trialing room air as well. When oxygen is turned off her sat drops to 88%. When turned back on to 1L it goes back to 94-95%. Patient states she does not feel short of breath. She is still drowsy some but awake and talking. She has been in phase 2 longer than required time. Oxygen level was reported to [facility], advised to watch her longer and encourage deep breathing and IS and reassess.
[2024-10-11] MEDS: oxyCODONE 5 mg IR Tab/Cap PO (16:44)
--- NOTE | 2024-10-11 16:56 | SUR.PHASEII ---
Tequila RT brought IS and taught patient how to use it. Currently room air sat is 92%.
[2024-10-11] MEDS: scopolamine 1 mg PATCH 1 PATCH TRANSDERMA (17:10)
--- NOTE | 2024-10-11 17:30 | ANE.PACU2 ---
Inpatient post-anesthesia follow up: Airway intact: Yes Vital signs: Temperature 97.0 F Pulse Rate 80 Respiratory Rate 17 Blood Pressure 150/66 Pulse Oximetry 92 Oxygen Delivery Me thod Room Air Oxygen Flow Rate 1 Fraction of Inspir ed Oxygen Nausea and vomiting: No Mental status: Baseline
--- NOTE | 2024-10-11 17:32 | SUR.PHASEII ---
Patient keeping sats at 93% on room air consistently and said she still did not feel short of breath. Patient said she was ready to be discharged. she verbalized understanding of teaching for use of IS from RT
== END 2024-10-11 17:31 | disposition home or self-care (01) ==
PROVIDERS: PCP Family Medicine; Visit Provider Specialist
PROC: (CPT 23130; principal; 2024-10-11 11:35)
PROC: (CPT 23120; 2024-10-11 11:35)
DX: M75.41 Impingement syndrome of right shoulder (principal); M19.011 Primary osteoarthritis, right shoulder; M77.8 Other enthesopathies, not elsewhere classified; I10 Essential (primary) hypertension; E66.01 Morbid (severe) obesity due to excess calories; Z68.43 Body mass index [BMI] 50.0-59.9, adult; F41.1 Generalized anxiety disorder; Z79.899 Other long term (current) drug therapy; J45.909 Unspecified asthma, uncomplicated; Z79.890 Hormone replacement therapy; Z88.8 Allergy status to other drugs, medicaments and biological substances; Z91.040 Latex allergy status; F33.41 Major depressive disorder, recurrent, in partial remission; Z90.710 Acquired absence of both cervix and uterus
CPT/HCPCS: 23130; 23120; 36415; 80053; 81001; 85025; 87086; J0131; J0330; J0690; J1100; J2250; J2405; J2704; J2795; J3010; J3490; J7030

== ENCOUNTER 2024-10-14 08:43 | Emergency (ER) | payer OTHER, SELFPAY ==
--- NOTE | 2024-10-14 08:46 | XRR_ITS ---
PROCEDURE INFORMATION: Exam: XR Chest Exam date and time: 10/14/2024 9:21 AM Age: 59 years old Clinical indication: Cough; Prior surgery; Surgery date: Post-operative (0-2 days); Surgery type: Right shoulder TECHNIQUE: Imaging protocol: Radiologic exam of the chest. Views: 1 view. COMPARISON: CR (CHEST, ) 08/17/2024 4:43 PM FINDINGS: Lungs: Unremarkable. No consolidation. Pleural spaces: Unremarkable. No pleural effusion. No pneumothorax. Heart/Mediastinum: Unremarkable. No cardiomegaly. Bones/joints: Right rotator cuff calcific tendinosis. Post ACDF of the lower cervical spine. XR/XR chest 1V portable [id number] IMPRESSION: 1. No acute cardiopulmonary process. 2. Right rotator cuff calcifications, suggestive of calcific tendinosis.
[2024-10-14 08:54] VITALS: BP 159/77; PULSE 88; RESP 18; TEMP 36.7; O2SAT 93; BMI 49.1
--- NOTE | 2024-10-14 08:58 | W.ED.SOB ---
HPI - SOB/Dyspnea General: Chief Complaint: Shortness of Breath/Dyspnea Stated Complaint: congestion Time Seen by Provider: 10/14/24 08:50 Source: patient Mode of arrival: ambulatory Limitations: no limitations History of Present Illness: HPI Narrative: 59-year-old female who had shoulder surgery on her right shoulder on states that she is intubated for the procedure she states that since the procedure she has been having a cough. She states been nonproductive states she has had some shortness of breath especially when she is coughing. She is not hypoxic here she denies any fever she denies any chest pain. Associated symptoms: Deny abdominal pain, chest pain, fever(s), nausea or vomiting Related Data Home Medications ?Medication ?Instructions ?Recorded ?Confirmed amlodipine 10 mg tablet 10 mg PO DAILY 10/14/24 10/14/24 celecoxib 100 mg capsule 100 mg PO BID 10/14/24 10/14/24 chlorthalidone 25 mg tablet 25 mg PO DAILY 10/14/24 10/14/24 clonazepam 1 mg tablet 1 mg PO BID 10/14/24 10/14/24 estradiol 1 mg tablet 1 mg PO DAILY 10/14/24 10/14/24 fluoxetine 20 mg capsule 20 mg PO QAM 10/14/24 10/14/24 levothyroxine 50 mcg tablet 50 mcg PO DAILY 10/14/24 10/14/24 omeprazole 40 mg capsule,delayed 40 mg PO DAILY 10/14/24 10/14/24 release oxycodone 5 mg tablet 5 mg PO Q4H 10/14/24 10/14/24 quetiapine 50 mg tablet 50 mg PO QPM 10/14/24 10/14/24 ropinirole 3 mg tablet 3 mg PO QPM 10/14/24 10/14/24 tolterodine 4 mg capsule,extended 4 mg PO DAILY 10/14/24 10/14/24 release 24 hr trazodone 150 mg tablet 150 mg PO QPM 10/14/24 10/14/24 vortioxetine 20 mg tablet 20 mg PO DAILY 10/14/24 10/14/24 (Trintellix) Previous Rx's ?Medication ?Instructions ?Recorded albuterol sulfate 2.5 mg/3 mL 2.5 mg (3 mL) inhalation Q4H PRN 10/14/24 (0.083 %) solution for nebulization shortness of breath or wheezing #90 mL oseltamivir 75 mg capsule (Tamiflu) 75 mg PO BID 5 days #10 caps 10/14/24 Allergies Allergy/AdvReac Type Severity Reaction Status Date / Time azithromycin Allergy Unknown ADR-Gastrointestinal Verified 10/10/24 11:09 Upset haloperidol (From Haldol) Allergy ALGY-Anaphy Verified 10/10/24 11:09 laxis latex Allergy ALGY-Redness Verified 10/10/24 11:09 of Skin meperidine (From Demerol) Allergy ADR-Halluci Verified 10/10/24 11:09 nating prednisone Allergy ADR-Anxiety Verified 10/10/24 11:09 aripiprazole (From Abilify) AdvReac Unknown ADR-Anxiety Verified 10/10/24 11:09 bupropion (From Wellbutrin) AdvReac Unknown ADR-Confusi Verified 10/10/24 11:09 on Review of Systems Const: Denies: fever(s), chills, body aches or change in appetite ENMT: Denies: throat pain or dental pain Card: Denies: chest pain Resp: Reports: dyspnea and non-productive cough GI: Denies: abdominal pain, nausea, vomiting or diarrhea Musc: Denies: neck pain or back pain Skin/Breast: Denies: rash Neuro: Denies: headache(s) PFSH ED PFSH: Medical History Generalized anxiety disorder with panic attacks Impingement syndrome of right shoulder Primary osteoarthritis, right shoulder Right rotator cuff tendonitis Urinary incontinence in female Psychiatric care Other stressful life events affecting family and household Generalized anxiety disorder Major depressive disorder, recurrent, in partial remission Surgical History H/O: hysterectomy Hx of neck surgery Fusion Hx of colonoscopy 10 yrs History of esophagogastroduodenoscopy (EGD) History of [place] urethropexy 24 yrs ago Family History Unknown Cancer She denies a family hx of breast, ovarian, uterine, pancreatic, colon, thyroid cancers. Denies family history of Diabetes Hypertension Stroke Social History Smoking and tobacco/nicotine status: never used tobacco/nicotine Alcohol intake: never Substance/Drug Use: never Physical Exam Const: COMMON NORMALS: no acute distress, patient oriented x3 and healthy appearing HENMT: COMMON NORMALS: normocephalic and atraumatic HEAD & SCALP: normocephalic and atraumatic Eye: COMMON NORMALS: conjunctivae normal CONJUNCTIVA: Yes conjunctivae normal Neck/C-Spine: COMMON NORMALS: full ROM and supple Chest: COMMONS NORMALS: normal inspection of the chest Resp: COMMON NORMALS: normal respiratory effort, No retractions, No use of accessory muscles and clear to auscultation bilaterally AUSCULTATION: clear to auscultation bilaterally Cardio: COMMON NORMALS: regular rate, regular rhythm and No murmurs present (Cardio) RATE: regular rate RHYTHM: regular rhythm Extremity: COMMON NORMALS: normal to inspection and full ROM Neuro: COMMON NORMALS: patient oriented x3, moves all extremities and no focal motor deficits Psych: COMMON NORMALS: mental status grossly normal, Normal thought process present and cooperative THOUGHT PROCESS: Normal thought process present Skin: COMMON NORMALS: no rashes or lesions noted and no wounds GENERAL SKIN EXAM: no rashes or lesions noted Course Vital Signs: Vital signs: Vital Signs Temperature 98.1 F 10/14/24 08:54 Pulse Rate 88 10/14/24 08:54 Respiratory Rate 18 10/14/24 08:54 Blood Pressure 159/77 10/14/24 08:54 Pulse Oximetry 93 10/14/24 08:54 Oxygen Delivery Me thod Room Air 10/14/24 08:54 MDM - SOB/Dyspnea Medical Decision Making Patient presents with cough dyspnea did test positive for influenza no signs of pneumonia she is in no distress here she stable for discharge we will prescribe her Tamiflu she is follow-up with PCP return if worsening. Medical Records I reviewed the patient's medical records. Lab Data I reviewed the patient's lab results. 10/14/24 09:08 10/14/24 09:08 Labs/Radiology: Laboratory Results WBC 6.32 10^3/uL (3.29-11.43) 10/14/24 09:08 RBC 4.12 10^6/uL (3.85-5.65) 10/14/24 09:08 Hgb 12.00 g/dL (11.27-16.99) 10/14/24 09:08 Hct 37.1 % (36-47) 10/14/24 09:08 MCV 90.0 fl (85-98) 10/14/24 09:08 MCH 29.1 pg (27-33) 10/14/24 09:08 MCHC 32.3 g/dL (30-55) 10/14/24 09:08 RDW 14.6 % (12.1-15.1) 10/14/24 09:08 Plt Count 223 10^3/cmm (157-399) 10/14/24 09:08 MPV 10.3 fL (7.4-10.4) 10/14/24 09:08 Neut % (Auto) 75.5 % 10/14/24 09:08 Lymph % (Auto) 12.2 % 10/14/24 09:08 [place] % (Auto) 10.6 % 10/14/24 09:08 Eos % (Auto) 0.6 % 10/14/24 09:08 Baso % (Auto) 0.5 % 10/14/24 09:08 Neut # (Auto) 4.77 10^3/uL (1.8-7.7) 10/14/24 09:08 Lymph # (Auto) 0.8 10^3/uL (0.8-4.8) 10/14/24 09:08 [place] # (Auto) 0.7 10^3/uL (0.2-0.9) 10/14/24 09:08 Eos # (Auto) 0.0 10^3/uL (0.0-0.8) 10/14/24 09:08 Baso # (Auto) 0.0 10^3/uL (0.0-0.1) 10/14/24 09:08 Nucleated RBC % (auto) 0 % 10/14/24 09:08 Nucleated RBCs # 0.0 /100WBC 10/14/24 09:08 Sodium 134 mmol/L (136-145) L 10/14/24 09:08 Potassium 3.1 mmol/L (3.5-5.1) L 10/14/24 09:08 Chloride 95 mmol/L (98-107) L 10/14/24 09:08 Carbon Dioxide 26 mmol/L (22-29) 10/14/24 09:08 Anion Gap 16.1 (5-19) 10/14/24 09:08 BUN 11 mg/dL (8-23) 10/14/24 09:08 Creatinine 0.8 mg/dL (0.5-0.9) 10/14/24 09:08 GFR Calculation 73.2 mL/min (90-130) L 10/14/24 09:08 Glucose 127 mg/dL (65-115) H 10/14/24 09:08 Calculated Osmolality 279 mOsm/kg (285-295) L 10/14/24 09:08 Calcium 7.8 mg/dL (8.5-10.5) L 10/14/24 09:08 Total Bilirubin 0.2 mg/dL (0.15-1.2) 10/14/24 09:08 AST 18 U/L (0-32) 10/14/24 09:08 ALT 14 U/L (0-33) 10/14/24 09:08 Alkaline Phosphatase 85 U/L (35-105) 10/14/24 09:08 Total Protein 6.5 g/dL (6.6-8.7) L 10/14/24 09:08 Albumin 3.3 g/dL (3.5-5.2) L 10/14/24 09:08 Globulin 3.2 g/dL (1.3-4.6) 10/14/24 09:08 Influenza A (PCR) Positive (Negative) 10/14/24 08:55 Influenza Type B (PCR) Negative (Negative) 10/14/24 08:55 RSV (PCR) Negative (Negative) 10/14/24 08:55 SARS-CoV-2 (PCR) Negative (Negative) 10/14/24 08:55 All radiology interpretation(s) finalized by discharge Discharge Plan Discharge Patient Disposition: Home Clinical Impression: Influenza A Condition: Stable Prescriptions: New oseltamivir [Tamiflu] 75 mg capsule 75 mg PO BID 5 Days Qty: 10 0RF albuterol sulfate 2.5 mg /3 mL (0.083 %) solution for nebulization 2.5 mg INHALATION Q4H PRN (Reason: shortness of breath or wheezing) Qty: 90 0RF No Action tolterodine 4 mg capsule,extended release 24hr 4 mg PO DAILY ropinirole 3 mg tablet 3 mg PO QPM clonazepam 1 mg tablet 1 mg PO BID chlorthalidone 25 mg tablet 25 mg PO DAILY omeprazole 40 mg capsule,delayed release(DR/EC) 40 mg PO DAILY estradiol 1 mg tablet 1 mg PO DAILY amlodipine 10 mg tablet 10 mg PO DAILY levothyroxine 50 mcg tablet 50 mcg PO DAILY trazodone 150 mg tablet 150 mg PO QPM celecoxib 100 mg capsule 100 mg PO BID fluoxetine 20 mg capsule 20 mg PO QAM oxycodone 5 mg tablet 5 mg PO Q4H quetiapine 50 mg tablet 50 mg PO QPM Trintellix 20 mg tablet 20 mg PO DAILY Discharge Orders: Discharge ED (Routine); Ordered 10/14/24 Ordered By: Colten Recinos Referrals: Nadeem Graves MD [Primary Care Provider] - Discharge Diet: Advance as tolerated Discharge Activity: Resume usual activity Patient Instructions: Influenza (ED) Print Language: Singaporean Coding Level of Care Code ED 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
[2024-10-14 09:12] LABS: Basophils % 0.5 %; Eosinophils % 0.6 %; Hematocrit 37.1 % (36-47); Lymphocytes # 0.8 10^3/uL (0.8-4.8); Lymphocytes % 12.2 %; Mean Corpuscular HGB Conc 32.3 g/dL (30-55); Mean Corpuscular Hemoglobin 29.1 pg (27-33); Mean Platelet Volume 10.3 fL (7.4-10.4); Monocytes # 0.7 10^3/uL (0.2-0.9); Monocytes % 10.6 %; Neutrophils # 4.77 10^3/uL (1.8-7.7); Neutrophils % 75.5 %; Nucleated Red Blood Cells % 0 %; Platelet Count 223 10^3/cmm (157-399); Red Blood Count 4.12 10^6/uL (3.85-5.65); Red Cell Distribution Width 14.6 % (12.1-15.1); White Blood Count 6.32 10^3/uL (3.29-11.43)
[2024-10-14 09:33] LABS: Alanine Aminotransferase 14 U/L (0-33); Albumin Level 3.3 g/dL (3.5-5.2); Alkaline Phosphatase 85 U/L (35-105); Anion Gap 16.1 (5-19); Aspartate Amino Transferase 18 U/L (0-32); Blood Urea Nitrogen 11 mg/dL (8-23); Calcium 7.8 mg/dL (8.5-10.5); Carbon Dioxide 26 mmol/L (22-29); Chloride 95 mmol/L (98-107); Creatinine Clr Calc Pharmacy 103.5631; Globulin 3.2 g/dL (1.3-4.6); Glomerular Filtration Rate 73.2 mL/min (90-130); Glucose 127 mg/dL (65-115); Osmolality Calculated 279 mOsm/kg (285-295); Potassium 3.1 mmol/L (3.5-5.1); Sodium 134 mmol/L (136-145); Total Bilirubin 0.2 mg/dL (0.15-1.2); Total Protein 6.5 g/dL (6.6-8.7)
[2024-10-14 09:36] LABS: Influenza A POSITIVE (Negative); Influenza B NEGATIVE (Negative); Respiratory Syncytial Virus Ce NEGATIVE (Negative); SARS-CoV-2 PCR NEGATIVE (Negative)
[2024-10-14 09:57] VITALS: BP 128/68; PULSE 79; O2SAT 95
== END 2024-10-14 09:57 | disposition home or self-care (01) ==
PROVIDERS: Emergency Provider Emergency Medicine; PCP Family Medicine
DX: J10.1 Influenza due to other identified influenza virus with other respiratory manifestations (principal); Z11.52 Encounter for screening for COVID-19; Z98.890 Other specified postprocedural states
CPT/HCPCS: 36415; 71045; 80053; 85025; 87637; 99284

== ENCOUNTER 2024-10-25 11:21 | Emergency (ER) | payer OTHER, SELFPAY ==
[2024-10-25 11:28] VITALS: BP 150/77; PULSE 87; RESP 17; TEMP 36.7; O2SAT 96; BMI 50.6
[2024-10-25 12:15] LABS: Bilirubin Urine 1+ (Negative); Blood Urine 2+ (Negative); Glucose Urine UA Negative (Normal); Ketones Urine Negative (Negative); Leukocyte Esterase Urine 3+ (Negative); Nitrate Urine Positive (Negative); Protein Urine 1+ (Negative); Specific Gravity, Urine 1.019 (1.005-1.030); Urine Appearance Turbid (CLEAR); Urine Color Dark Yellow (Yellow); pH Urine 5.5 (5-7)
[2024-10-25 12:20] LABS: Add Urine Microscopic? YES; Bacteria Urine 1+ /hpf; Hyaline Casts Urine 0.81 /lpf; RBC Urine >100 /hpf (0-2); WBC Urine >100 /hpf (0-5)
[2024-10-25 12:26] LABS: Add Urine Culture? Yes
[2024-10-25 13:56] LABS: Basophils % 0.3 %; Eosinophils # 0.1 10^3/uL (0.0-0.8); Eosinophils % 1.2 %; Hematocrit 41.6 % (36-47); Lymphocytes # 2.1 10^3/uL (0.8-4.8); Lymphocytes % 21.3 %; Mean Corpuscular HGB Conc 32.7 g/dL (30-55); Mean Corpuscular Hemoglobin 28.7 pg (27-33); Mean Corpuscular Volume 87.8 fl (85-98); Mean Platelet Volume 10.3 fL (7.4-10.4); Monocytes # 0.7 10^3/uL (0.2-0.9); Monocytes % 7.3 %; Neutrophils # 6.73 10^3/uL (1.8-7.7); Neutrophils % 69.6 %; Nucleated Red Blood Cells % 0 %; Platelet Count 415 10^3/cmm (157-399); Red Blood Count 4.74 10^6/uL (3.85-5.65); Red Cell Distribution Width 14.4 % (12.1-15.1); White Blood Count 9.68 10^3/uL (3.29-11.43)
[2024-10-25 14:14] LABS: Alanine Aminotransferase 29 U/L (0-33); Albumin Level 3.7 g/dL (3.5-5.2); Alkaline Phosphatase 92 U/L (35-105); Anion Gap 14.6 (5-19); Aspartate Amino Transferase 24 U/L (0-32); Blood Urea Nitrogen 13 mg/dL (8-23); Calcium 8.7 mg/dL (8.5-10.5); Carbon Dioxide 27 mmol/L (22-29); Chloride 96 mmol/L (98-107); Creatinine Clr Calc Pharmacy 101.9339; Globulin 3.4 g/dL (1.3-4.6); Glomerular Filtration Rate 73.2 mL/min (90-130); Glucose 101 mg/dL (65-115); Magnesium 1.8 mg/dL (1.7-2.3); Osmolality Calculated 278 mOsm/kg (285-295); Potassium 3.6 mmol/L (3.5-5.1); Sodium 134 mmol/L (136-145); Total Bilirubin 0.5 mg/dL (0.15-1.2); Total Protein 7.1 g/dL (6.6-8.7)
--- NOTE | 2024-10-25 14:15 | W.ED.WEAKNES ---
HPI - Weakness General: Chief complaint: Weakness Stated complaint: weak,possible dehydrated, post flu Time Seen by Provider: 10/25/24 14:10 History of Present Illness: 59-year-old female reports that she had the flu about 2 to 3 weeks ago. Since then patient has had some persistent nausea and occasional diarrhea stools. Patient reports that she does have occasional emesis still. Patient over the last 2448 hrs. felt worse. Patient appears nontoxic. Patient is alert and oriented. Blood pressure slightly elevated. Review of Systems General: Reports: 10 or more systems reviewed and unremarkable except in HPI and below PFSH ED PFSH: Medical History Generalized anxiety disorder with panic attacks Impingement syndrome of right shoulder Primary osteoarthritis, right shoulder Right rotator cuff tendonitis Urinary incontinence in female Psychiatric care Other stressful life events affecting family and household Generalized anxiety disorder Major depressive disorder, recurrent, in partial remission Surgical History H/O: hysterectomy Hx of neck surgery Fusion Hx of colonoscopy 10 yrs History of esophagogastroduodenoscopy (EGD) History of [place] urethropexy 24 yrs ago Family History Unknown Cancer She denies a family hx of breast, ovarian, uterine, pancreatic, colon, thyroid cancers. Denies family history of Diabetes Hypertension Stroke Social History Smoking and tobacco/nicotine status: never used tobacco/nicotine Alcohol intake: never Substance/Drug Use: never Physical Exam Const: COMMON NORMALS: alert HENMT: COMMON NORMALS: normocephalic HEAD & SCALP: normocephalic Neck/C-Spine: COMMON NORMALS: full ROM Resp: COMMON NORMALS: normal respiratory effort and clear to auscultation bilaterally AUSCULTATION: clear to auscultation bilaterally Cardio: COMMON NORMALS: regular rate and regular rhythm RATE: regular rate RHYTHM: regular rhythm Back/Pelvis: COMMON NORMALS: thoracic and lumbar spine normal to inspection Extremity: COMMON NORMALS: no pedal edema Neuro: SENSORIUM/ORIENTATION: Yes alert Skin: COMMON NORMALS: turgor normal GENERAL SKIN EXAM: turgor normal Course Vital Signs: Vital signs: Vital Signs Temperature 98.1 F 10/25/24 11:28 Pulse Rate 87 10/25/24 11:28 Respiratory Rate 17 10/25/24 11:28 Blood Pressure 150/77 10/25/24 11:28 Pulse Oximetry 96 10/25/24 11:28 Oxygen Delivery Me thod Room Air 10/25/24 11:28 MDM - Weakness Medical Decision Making 59-year-old female comes in today with complaints of illness x 2 weeks. Patient appears nontoxic. Patient appears no acute distress. Abdomen soft nontender. Skin is warm dry. Vital signs are normal except elevated blood pressure. Patient states that she for started with the flu now she continues to have some nausea and vomiting. Patient also just feels weak. Differential diagnosis includes dehydration, pneumonia, viral syndrome, fatigue/weakness. CBC was unremarkable. CMP noted a sodium 134, potassium 3.6, creatinine of 0.8. Urinalysis had a large amount of red and white blood cells with minimal skin cells. Patient appears to have a urinary tract infection most likely secondary to her viral illness. Patient was given 2 g of Rocephin and 1 L of IV fluids. Patient be discharged home on oral antibiotics and medications for nausea. Lab Data 10/25/24 13:32 10/25/24 13:32 Laboratory Results WBC 9.68 10^3/uL (3.29-11.43) 10/25/24 13: RBC 4.74 10^6/uL (3.85-5.65) 10/25/24 13:32 Hgb 13.60 g/dL (11.27-16.99) 10/25/24 13:32 Hct 41.6 % (36-47) 10/25/24 13:32 MCV 87.8 fl (85-98) 10/25/24 13: MCH 28.7 pg (27-33) 10/25/24 13: MCHC 32.7 g/dL (30-55) 10/25/24 13:32 RDW 14.4 % (12.1-15.1) 10/25/24 13:32 Plt Count 415 10^3/cmm (157-399) H 10/25/24 13: MPV 10.3 fL (7.4-10.4) 10/25/24 13:32 Neut % (Auto) 69.6 % 10/25/24 13:32 Lymph % (Auto) 21.3 % 10/25/24 13:32 [place] % (Auto) 7.3 % 10/25/24 13:32 Eos % (Auto) 1.2 % 10/25/24 13:32 Baso % (Auto) 0.3 % 10/25/24 13:32 Neut # (Auto) 6.73 10^3/uL (1.8-7.7) 10/25/24 13:32 Lymph # (Auto) 2.1 10^3/uL (0.8-4.8) 10/25/24 13:32 [place] # (Auto) 0.7 10^3/uL (0.2-0.9) 10/25/24 13: Eos # (Auto) 0.1 10^3/uL (0.0-0.8) 10/25/24 13:32 Baso # (Auto) 0.0 10^3/uL (0.0-0.1) 10/25/24 13:32 Nucleated RBC % (auto) 0 % 10/25/24 13: Nucleated RBCs # 0.0 /100WBC 10/25/24 13:32 Sodium 134 mmol/L (136-145) L 10/25/24 13:32 Potassium 3.6 mmol/L (3.5-5.1) 10/25/24 13:32 Chloride 96 mmol/L (98-107) L 10/25/24 13:32 Carbon Dioxide 27 mmol/L (22-29) 10/25/24 13:32 Anion Gap 14.6 (5-19) 10/25/24 13:32 BUN 13 mg/dL (8-23) 10/25/24 13:32 Creatinine 0.8 mg/dL (0.5-0.9) 10/25/24 13:32 GFR Calculation 73.2 mL/min (90-130) L 10/25/24 13:32 Glucose 101 mg/dL (65-115) 10/25/24 13:32 Calculated Osmolality 278 mOsm/kg (285-295) L 10/25/24 13:32 Calcium 8.7 mg/dL (8.5-10.5) 10/25/24 13:32 Magnesium 1.8 mg/dL (1.7-2.3) 10/25/24 13:32 Total Bilirubin 0.5 mg/dL (0.15-1.2) 10/25/24 13:32 AST 24 U/L (0-32) 10/25/24 13:32 ALT 29 U/L (0-33) 10/25/24 13:32 Alkaline Phosphatase 92 U/L (35-105) 10/25/24 13:32 Total Protein 7.1 g/dL (6.6-8.7) 10/25/24 13:32 Albumin 3.7 g/dL (3.5-5.2) 10/25/24 13:32 Globulin 3.4 g/dL (1.3-4.6) 10/25/24 13:32 Urine Color Dark yellow (Yellow) A 10/25/24 12:05 Urine Appearance Turbid (CLEAR) A 10/25/24 12:05 Urine pH 5.5 (5-7) 10/25/24 12:05 Ur Specific [place] 1.019 (1.005-1.030) 10/25/24 12:05 Urine Protein 1+ (Negative) A 10/25/24 12:05 Urine Glucose (UA) Negative (Normal) 10/25/24 12:05 Urine Ketones Negative (Negative) 10/25/24 12:05 Urine Blood 2+ (Negative) A 10/25/24 12:05 Urine Nitrate Positive (Negative) A 10/25/24 12:05 Urine Bilirubin 1+ (Negative) H 10/25/24 12:05 Urine Urobilinogen 1.0 mg/dL (Negative) 10/25/24 12:05 Ur Leukocyte Esterase 3+ (Negative) A 10/25/24 12:05 Urine RBC >100 /hpf (0-2) H 10/25/24 12:05 Urine WBC >100 /hpf (0-5) H 10/25/24 12:05 Ur Squamous Epith Cells 6-10 /hpf (0-5) 10/25/24 12:05 Amorphous Sediment Not Reportable 10/25/24 12:05 Urine Bacteria 1+ /hpf (NONE) H 10/25/24 12:05 Hyaline Casts 0.81 /lpf 10/25/24 12:05 No radiology studies performed this visit Discharge Plan Discharge Patient Disposition: Home Clinical Impression: Dehydration, mild UTI (urinary tract infection) Qualifiers: Urinary tract infection type: acute cystitis Hematuria presence: with hematuria Qualified Code(s): N30.01 - Acute cystitis with hematuria Condition: Stable Prescriptions: New cefdinir 300 mg capsule 300 mg PO BID 5 Days Qty: 10 0RF ondansetron 4 mg tablet,disintegrating 4 mg PO Q8H PRN (Reason: nausea and vomiting) Qty: 9 0RF No Action tolterodine 4 mg capsule,extended release 24hr 4 mg PO DAILY ropinirole 3 mg tablet 3 mg PO QPM clonazepam 1 mg tablet 1 mg PO BID chlorthalidone 25 mg tablet 25 mg PO DAILY omeprazole 40 mg capsule,delayed release(DR/EC) 40 mg PO DAILY estradiol 1 mg tablet 1 mg PO DAILY amlodipine 10 mg tablet 10 mg PO DAILY levothyroxine 50 mcg tablet 50 mcg PO DAILY trazodone 150 mg tablet 150 mg PO QPM celecoxib 100 mg capsule 100 mg PO BID fluoxetine 20 mg capsule 20 mg PO QAM oxycodone 5 mg tablet 5 mg PO Q4H quetiapine 50 mg tablet 50 mg PO QPM Trintellix 20 mg tablet 20 mg PO DAILY albuterol sulfate 2.5 mg /3 mL (0.083 %) solution for nebulization 2.5 mg INHALATION Q4H PRN (Reason: shortness of breath or wheezing) Qty: 90 0RF benzonatate 200 mg capsule 200 mg PO Q8H Discharge Orders: Discharge ED (Routine); Ordered 10/25/24 Ordered By: Héctor Gonzalez Referrals: Nadeem Graves MD [Primary Care Provider] - Discharge Diet: Usual diet Discharge Activity: Increase activity as tolerated Patient Instructions: Urinary Tract Infection in Women (ED) Activity Restrictions/Additional Instructions: Home and rest. Drink plenty of water and fluids. Continue with routine medications as prescribed. Follow-up with primary care and 5 to 7 days for recheck. Return to ED for worsening symptoms. Print Language: Moldovan Coding Level of Care Code ED [employer] Related Data Home Medications ?Medication ?Instructions ?Recorded ?Confirmed amlodipine 10 mg tablet 10 mg PO DAILY 10/14/24 10/25/24 celecoxib 100 mg capsule 100 mg PO BID 10/14/24 10/25/24 chlorthalidone 25 mg tablet 25 mg PO DAILY 10/14/24 10/25/24 clonazepam 1 mg tablet 1 mg PO BID 10/14/24 10/25/24 estradiol 1 mg tablet 1 mg PO DAILY 10/14/24 10/25/24 fluoxetine 20 mg capsule 20 mg PO QAM 10/14/24 10/25/24 levothyroxine 50 mcg tablet 50 mcg PO DAILY 10/14/24 10/25/24 omeprazole 40 mg capsule,delayed 40 mg PO DAILY 10/14/24 10/25/24 release oxycodone 5 mg tablet 5 mg PO Q4H 10/14/24 10/25/24 quetiapine 50 mg tablet 50 mg PO QPM 10/14/24 10/25/24 ropinirole 3 mg tablet 3 mg PO QPM 10/14/24 10/25/24 tolterodine 4 mg capsule,extended 4 mg PO DAILY 10/14/24 10/25/24 release 24 hr trazodone 150 mg tablet 150 mg PO QPM 10/14/24 10/25/24 vortioxetine 20 mg tablet 20 mg PO DAILY 10/14/24 10/25/24 (Trintellix) benzonatate 200 mg capsule 200 mg PO Q8H 10/25/24 10/25/24 Previous Rx's ?Medication ?Instructions ?Recorded albuterol sulfate 2.5 mg/3 mL 2.5 mg (3 mL) inhalation Q4H PRN 10/14/24 (0.083 %) solution for nebulization shortness of breath or wheezing #90 mL cefdinir 300 mg capsule 300 mg PO BID 5 days #10 caps 10/25/24 ondansetron 4 mg disintegrating 4 mg PO Q8H PRN nausea and 10/25/24 tablet vomiting #9 tabs Allergies Allergy/AdvReac Type Severity Reaction Status Date / Time azithromycin Allergy Unknown ADR-Gastrointestinal Verified 10/10/24 11:09 Upset haloperidol (From Haldol) Allergy ALGY-Anaphy Verified 10/10/24 11:09 laxis latex Allergy ALGY-Redness Verified 10/10/24 11:09 of Skin meperidine (From Demerol) Allergy ADR-Halluci Verified 10/10/24 11:09 nating prednisone Allergy ADR-Anxiety Verified 10/10/24 11:09 aripiprazole (From Abilify) AdvReac Unknown ADR-Anxiety Verified 10/10/24 11:09 bupropion (From Wellbutrin) AdvReac Unknown ADR-Confusi Verified 10/10/24 11:09 on
[2024-10-25] MEDS: sodium chloride 0.9% 1,000 ML 999 ML IV (14:45)
[2024-10-25] MEDS: cefTRIAXone 2,000 mg SDV 2000 MG IVP (14:45)
[2024-10-25 15:21] VITALS: BP 128/92; PULSE 98; O2SAT 100
[2024-10-25 15:52] VITALS: BP 151/101; PULSE 91; O2SAT 100
== END 2024-10-25 16:07 | disposition home or self-care (01) ==
PROVIDERS: Emergency Medicine; Emergency Provider Nurse Practitioner Family; PCP Family Medicine
DX: E86.0 Dehydration (principal); N30.01 Acute cystitis with hematuria
CPT/HCPCS: 36415; 80053; 81001; 83735; 85025; 87077; 87086; 87186; 96374; 99284; J0696; J7030

== ENCOUNTER → 2025-03-19 14:56 | Outpatient (BNVA) | payer OTHER, SELFPAY | PROVIDERS: PCP Family Medicine; Visit Provider Nurse Practitioner Psychiatric/Mental Health | DX: Z79.899 Other long term (current) drug therapy (principal) | CPT/HCPCS: 81001 ==

== ENCOUNTER → 2025-03-27 08:34 | Outpatient (BNVA) | payer OTHER, SELFPAY | PROVIDERS: PCP Family Medicine; Visit Provider Podiatrist Foot & Ankle Surgery | DX: M25.572 Pain in left ankle and joints of left foot (principal); M19.172 Post-traumatic osteoarthritis, left ankle and foot; G89.29 Other chronic pain | CPT/HCPCS: 73610 ==

== ENCOUNTER 2025-03-27 18:22 | Emergency (ER) | payer OTHER, SELFPAY ==
[2025-03-27 18:27] VITALS: BP 173/83; PULSE 79; TEMP 36.7; O2SAT 99
--- NOTE | 2025-03-27 20:03 | W.ED.GENADLT ---
HPI - General Adult General: Chief complaint: General Medical Stated complaint: possible allergic react to new med Time Seen by Provider: 03/27/25 19:49 Source: patient Mode of arrival: ambulatory Limitations: no limitations History of Present Illness: Patient is a 59-year-old female here for medical evaluation. Patient states about a week or so ago, while at her psychiatry office, she was complaining about brain fog so they had reportedly ran a urine analysis and told her she had a urinary tract infection. She was subsequently placed on Macrobid. She states she followed up with her PCP Dr. Graves at [facility] and had another urine analysis ran. She states based on the culture and sensitivity report, she was changed from Macrobid to Amoxicillin. She states she has only had one dose of this medication. She does complain of some urinary urgency but is not having any dysuria. She does have pain across her lower back but no flank pain. She has had some nausea but no episodes of vomiting. She is not complaining of abdominal pain. No changes in her bowel movements. No fevers. She has noted her blood pressures have been elevated recently. She does complain of a mild headache. She is seemingly in no acute distress at time of my examination. No acute focal defects. Onset (ago): day(s) Relieving factors: none Exacerbating factors: none Associated symptoms: Reports headache(s), malaise and nausea; Deny chest pain, dyspnea, rash, palpitations, syncope or vomiting Treatments prior to arrival: none Related Data Home Medications ?Medication ?Instructions ?Recorded ?Confirmed chlorthalidone 25 mg tablet 25 mg PO DAILY 10/14/24 03/27/25 estradiol 1 mg tablet 1 mg PO DAILY 10/14/24 03/27/25 levothyroxine 50 mcg tablet 50 mcg PO DAILY 10/14/24 03/27/25 omeprazole 40 mg capsule,delayed 40 mg PO DAILY 10/14/24 03/27/25 release ropinirole 3 mg tablet 3 mg PO QPM 10/14/24 03/27/25 tolterodine 4 mg capsule,extended 4 mg PO DAILY 10/14/24 03/27/25 release 24 hr benzonatate 200 mg capsule 200 mg PO Q8H 10/25/24 03/27/25 baclofen 10 mg tablet 10 mg PO BID 12/05/24 03/27/25 nitrofurantoin 100 mg PO BID 03/01/25 03/27/25 monohydrate/macrocrystals 100 mg capsule (Macrobid) Previous Rx's ?Medication ?Instructions ?Recorded albuterol sulfate 2.5 mg/3 mL 2.5 mg (3 mL) inhalation Q4H PRN 10/14/24 (0.083 %) solution for nebulization shortness of breath or wheezing #90 mL ondansetron 4 mg disintegrating 4 mg PO Q8H PRN nausea and 10/25/24 tablet vomiting #9 tabs clonazepam 1 mg tablet 1 mg PO BID PRN anxiety/panic 02/22/25 attacks #60 tabs quetiapine 50 mg tablet 50 mg PO .9 pm #30 tabs 02/22/25 trazodone 150 mg tablet 150 mg PO BEDTIME PRN sleep #30 02/22/25 tabs duloxetine 30 mg capsule,delayed 30 mg PO .morning #30 caps 03/19/25 release Allergies Allergy/AdvReac Type Severity Reaction Status Date / Time azithromycin Allergy Unknown ADR-Gastrointestinal Verified 03/27/25 18:34 Upset haloperidol (From Haldol) Allergy ALGY-Anaphy Verified 03/27/25 18:34 laxis latex Allergy ALGY-Redness Verified 03/27/25 18:34 of Skin meperidine (From Demerol) Allergy ADR-Halluci Verified 03/27/25 18:34 nating prednisone Allergy ADR-Anxiety Verified 03/27/25 18:34 dexamethasone AdvReac Severe ADR-Migrain Verified 03/27/25 18:34 e aripiprazole (From Abilify) AdvReac Unknown ADR-Anxiety Verified 03/27/25 18:34 bupropion (From Wellbutrin) AdvReac Unknown ADR-Confusi Verified 03/27/25 18:34 on Review of Systems Const: Reports: body aches and malaise; Denies: fever(s), chills or fatigue Eyes: Denies: change in vision or blurry vision Card: Denies: chest pain, palpitations, irregular heart rhythm, lightheadedness, syncope or dyspnea on exertion Resp: Denies: dyspnea, productive cough or pain on inspiration GI: Reports: nausea; Denies: abdominal pain, vomiting, heartburn or diarrhea : Reports: urinary urgency; Denies: flank pain, difficulty voiding, dysuria, urinary frequency, nocturia or hematuria Musc: Reports: back pain; Denies: neck pain, extremity pain, extremity swelling, joint pain or joint swelling Skin/Breast: Denies: rash Neuro: Reports: headache(s) and other ( brain fog ); Denies: numbness in extremities, weakness in extremities, sensory changes, dizziness, behavioral changes or seizure-like activity Psych: Reports: depression PFSH ED PFSH: Medical History Major depressive disorder, recurrent severe without psychotic features Generalized anxiety disorder with panic attacks Impingement syndrome of right shoulder Primary osteoarthritis, right shoulder Right rotator cuff tendonitis Urinary incontinence in female Psychiatric care Major depressive disorder, recurrent, in partial remission Surgical History S/P shoulder surgery Date of procedure: October 11, 2024 Pre-op diagnosis: Right shoulder impingement with acromioclavicular joint osteoarthritis with calcific tendinitis Procedure done: Right shoulder open acromioplasty with bursectomy and evaluation of rotator cuff and distal clavicle resection Surgeon: Romi Delvalle MD H/O: hysterectomy Hx of neck surgery Fusion Hx of colonoscopy 10 yrs History of esophagogastroduodenoscopy (EGD) History of [place] urethropexy 24 yrs ago Family History Unknown Cancer She denies a family hx of breast, ovarian, uterine, pancreatic, colon, thyroid cancers. Denies family history of Diabetes Hypertension Stroke Social History Smoking and tobacco/nicotine status: never used tobacco/nicotine Alcohol intake: never Substance/Drug Use: never Physical Exam Const: COMMON NORMALS: no acute distress, patient oriented x3, no limitations, alert and well nourished GENERAL APPEARANCE: cooperative NUTRITIONAL APPEARANCE: obese morbidly obese (BMI 52.4) ORIENTATION/CONSCIOUSNESS: Yes awake, Yes oriented to person, Yes oriented to place and Yes oriented to time HENMT: COMMON NORMALS: normocephalic and atraumatic HEAD & SCALP: normal to inspection, normocephalic and atraumatic FACE & SINUS: normal facial exam and face symmetric Eye: COMMON NORMALS: no scleral icterus Neck/C-Spine: COMMON NORMALS: no lymphadenopathy and no meningeal signs Resp: COMMON NORMALS: normal respiratory effort and clear to auscultation bilaterally AUSCULTATION: clear to auscultation bilaterally Cardio: COMMON NORMALS: regular rate and regular rhythm RATE: regular rate RHYTHM: regular rhythm GI: COMMON NORMALS: Normal to inspection, nondistended, normoactive bowel sounds present, Soft to palpation and non-tender PALPATION: Yes Soft to palpation : COMMON NORMALS: Yes no CVA tenderness BLADDER/KIDNEY EXAM: Yes no CVA tenderness Back/Pelvis: COMMON NORMALS: no CVA tenderness THORACIC SPINE/UPPER BACK: Yes paraspinal muscle tenderness (across lower back) Extremity: GENERAL: Yes normal exam except as noted Neuro: GRICEL COMA SCALE: document GCS findings [place] coma scale eye opening: Spontaneous [place] coma scale verbal response: Orientated [place] coma scale motor response: Obey commands Gricel coma scale total score: 15 COMMON NORMALS: patient oriented x3, CN's II-XII intact bilaterally, moves all extremities, no focal motor deficits and no sensory deficits noted SENSORIUM/ORIENTATION: Yes alert, Yes oriented to person, Yes oriented to place and Yes oriented to time MENINGEAL SIGNS: Yes no meningeal signs Skin: COMMON NORMALS: no rashes or lesions noted GENERAL SKIN EXAM: no rashes or lesions noted Course Vital Signs: Vital signs: Vital Signs Temperature 98.1 F 03/27/25 18:27 Pulse Rate 72 03/27/25 20:53 Blood Pressure 177/77 03/27/25 20:53 Pulse Oximetry 95 03/27/25 20:53 Oxygen Delivery Me thod Room Air 03/27/25 20:53 [facility] - General Adult Medical Decision Making Patient clinically appears in no acute distress. Her vital signs are stable apart from she is hypertensive. No known history of hypertensive and she states her blood pressure normally runs good at home. She feels like elevated blood pressure readings began when she got sick. Would like to hold off on starting any hypertensive medications at this time. Blood work showing a normal white count. Chemistry panel is nonactionable. UA with evidence of UTI as she is positive for nitrates with trace leukocyte esterase. She was recently placed on antibiotics (switched from Macrobid to Amoxicillin based on sensitivity report from urine analysis that [facility]). States she has only had one dose of this medication. She will be provided IM Rocephin prior to discharge and recommend she continue this. No evidence for ascending infection. In regards to brain fog and headache. I would have a low suspicion for intracranial hemorrhage or mass. No concern for TIA/CVA based on history and physical exam. Could be hypertensive related. Recommend she start keeping BP log and follow up with PCP. Medical Records I reviewed the patient's medical records. Lab Data I reviewed the patient's lab results. 03/27/25 20:53 03/27/25 20:53 Laboratory Results WBC 8.64 10^3/uL (3.29-11.43) 03/27/25 20:53 RBC 4.37 10^6/uL (3.85-5.65) 03/27/25 20:53 Hgb 12.70 g/dL (11.27-16.99) 03/27/25 20:53 Hct 39.0 % (36-47) 03/27/25 20:53 MCV 89.2 fl (85-98) 03/27/25 20:53 MCH 29.1 pg (27-33) 03/27/25 20:53 MCHC 32.6 g/dL (30-55) 03/27/25 20:53 RDW 14.1 % (12.1-15.1) 03/27/25 20:53 Plt Count 333 10^3/cmm (157-399) 03/27/25 20:53 MPV 9.8 fL (7.4-10.4) 03/27/25 20: Neut % (Auto) 87.5 % 03/27/25 20: Lymph % (Auto) 10.4 % 03/27/25 20:53 Irwin % (Auto) 1.7 % 03/27/25 20: Eos % (Auto) 0.1 % 03/27/25 20: Baso % (Auto) 0.0 % 03/27/25 20: Neut # (Auto) 7.55 10^3/uL (1.8-7.7) 03/27/25 20:53 Lymph # (Auto) 0.9 10^3/uL (0.8-4.8) 03/27/25 20: Irwin # (Auto) 0.2 10^3/uL (0.2-0.9) 03/27/25 20:53 Eos # (Auto) 0.0 10^3/uL (0.0-0.8) 03/27/25 20:53 Baso # (Auto) 0.0 10^3/uL (0.0-0.1) 03/27/25 20:53 Nucleated RBC % (auto) 0 % 03/27/25 20: Nucleated RBCs # 0.0 /100WBC 03/27/25 20:53 Sodium 133 mmol/L (136-145) L 03/27/25 20:53 Potassium 4.1 mmol/L (3.5-5.1) 03/27/25 20:53 Chloride 97 mmol/L (98-107) L 03/27/25 20:53 Carbon Dioxide 24 mmol/L (22-29) 03/27/25 20:53 Anion Gap 16.1 (5-19) 03/27/25 20:53 BUN 10 mg/dL (8-23) 03/27/25 20:53 Creatinine 0.8 mg/dL (0.5-0.9) 03/27/25 20:53 GFR Calculation 73.2 mL/min (90-130) L 03/27/25 20:53 Glucose 141 mg/dL (65-115) H 03/27/25 20:53 Calculated Osmolality 277 mOsm/kg (285-295) L 03/27/25 20:53 Calcium 8.4 mg/dL (8.5-10.5) L 03/27/25 20:53 Total Bilirubin 0.3 mg/dL (0.15-1.2) 03/27/25 20:53 AST 13 U/L (0-32) 03/27/25 20:53 ALT 15 U/L (0-33) 03/27/25 20:53 Alkaline Phosphatase 95 U/L (35-105) 03/27/25 20:53 Creatine Kinase 61 U/L (26-192) 03/27/25 20:53 Total Protein 7.1 g/dL (6.6-8.7) 03/27/25 20:53 Albumin 3.5 g/dL (3.5-5.2) 03/27/25 20:53 Globulin 3.6 g/dL (1.3-4.6) 03/27/25 20:53 Urine Color Dark yellow (Yellow) A 03/27/25 19:50 Urine Appearance Clear (CLEAR) 03/27/25 19:50 Urine pH 8.0 (5-7) A 03/27/25 19:50 Ur Specific [place] 1.010 (1.005-1.030) 03/27/25 19:50 Urine Protein Negative (Negative) 03/27/25 19:50 Urine Glucose (UA) Negative (Normal) 03/27/25 19:50 Urine Ketones Negative (Negative) 03/27/25 19:50 Urine Blood Negative (Negative) 03/27/25 19:50 Urine Nitrate Positive (Negative) A 03/27/25 19:50 Urine Bilirubin Negative (Negative) 03/27/25 19:50 Urine Urobilinogen 1.0 mg/dL (Negative) 03/27/25 19:50 Ur Leukocyte Esterase Trace (Negative) A 03/27/25 19:50 Urine RBC 0-2 /hpf (0-2) 03/27/25 19:50 Urine WBC 0-5 /hpf (0-5) 03/27/25 19:50 Ur Squamous Epith Cells 0-5 /hpf (0-5) 03/27/25 19:50 Amorphous Sediment Not Reportable 03/27/25 19:50 Urine Bacteria None seen /hpf (NONE) 03/27/25 19:50 Hyaline Casts 0-4 /lpf H 03/27/25 19:50 No radiology studies performed this visit Discharge Plan Discharge Patient Disposition: Home Clinical Impression: Acute UTI, Elevated BP without diagnosis of hypertension Condition: Stable Prescriptions: No Action nitrofurantoin monohyd/m-cryst [Macrobid] 100 mg capsule 100 mg PO BID Rx Instructions: must administer with a meal/food baclofen 10 mg tablet 10 mg PO BID clonazepam 1 mg tablet 1 mg PO BID PRN (Reason: anxiety/panic attacks) Qty: 60 3RF Rx Instructions: Take one tablet twice per day as needed quetiapine 50 mg tablet 50 mg PO .9 pm Qty: 30 3RF Rx Instructions: Take one tablet at 9 pm trazodone 150 mg tablet 150 mg PO BEDTIME PRN (Reason: sleep) Qty: 30 4RF Rx Instructions: May take one tablet at bedtime as needed for sleep duloxetine 30 mg capsule,delayed release(DR/EC) 30 mg PO .morning Qty: 30 3RF Rx Instructions: Take one capsule every morning tolterodine 4 mg capsule,extended release 24hr 4 mg PO DAILY ropinirole 3 mg tablet 3 mg PO QPM chlorthalidone 25 mg tablet 25 mg PO DAILY omeprazole 40 mg capsule,delayed release(DR/EC) 40 mg PO DAILY estradiol 1 mg tablet 1 mg PO DAILY levothyroxine 50 mcg tablet 50 mcg PO DAILY albuterol sulfate 2.5 mg /3 mL (0.083 %) solution for nebulization 2.5 mg INHALATION Q4H PRN (Reason: shortness of breath or wheezing) Qty: 90 0RF benzonatate 200 mg capsule 200 mg PO Q8H ondansetron 4 mg tablet,disintegrating 4 mg PO Q8H PRN (Reason: nausea and vomiting) Qty: 9 0RF Discharge Orders: Discharge ED (Routine); Ordered 03/27/25 Ordered By: Kelly Peña Referrals: Nadeem Graves MD [Primary Care Provider, [facility]] Patient Instructions: Patient Portal & Augustus Instructions Activity Restrictions/Additional Instructions: As we discussed, continue current antibiotic course. You need to return to the emergency department for onset of fevers, severe flank pain, inability to tolerate your antibiotic, frequent episodes of vomiting, generally feeling worse or unwell, or any other concerns you may have. We discussed keeping a blood pressure log and following up with primary care. Print Language: Bengali Coding Level of Care Code ED [employer] [place] [employer]
[2025-03-27 20:30] LABS: Glucose Urine UA Negative (Normal); Nitrate Urine Positive (Negative); Specific Gravity, Urine 1.010 (1.005-1.030)
[2025-03-27 20:32] LABS: Add Urine Microscopic? YES
[2025-03-27 20:53] VITALS: BP 177/77; PULSE 72; O2SAT 95
[2025-03-27 21:00] LABS: Hematocrit 39.0 % (36-47); Hemoglobin 12.70 g/dL (11.27-16.99); Mean Corpuscular HGB Conc 32.6 g/dL (30-55); Mean Corpuscular Hemoglobin 29.1 pg (27-33); Mean Corpuscular Volume 89.2 fl (85-98); Nucleated Red Blood Cells % 0 %; Platelet Count 333 10^3/cmm (157-399); Red Blood Count 4.37 10^6/uL (3.85-5.65); White Blood Count 8.64 10^3/uL (3.29-11.43)
[2025-03-27 21:20] LABS: Alanine Aminotransferase 15 U/L (0-33); Albumin Level 3.5 g/dL (3.5-5.2); Alkaline Phosphatase 95 U/L (35-105); Anion Gap 16.1 (5-19); Aspartate Amino Transferase 13 U/L (0-32); Blood Urea Nitrogen 10 mg/dL (8-23); Calcium 8.4 mg/dL (8.5-10.5); Carbon Dioxide 24 mmol/L (22-29); Chloride 97 mmol/L (98-107); Creatinine Clr Calc Pharmacy 104.0759; Globulin 3.6 g/dL (1.3-4.6); Glucose 141 mg/dL (65-115); Osmolality Calculated 277 mOsm/kg (285-295); Potassium 4.1 mmol/L (3.5-5.1); Sodium 133 mmol/L (136-145); Total Protein 7.1 g/dL (6.6-8.7)
== END 2025-03-27 22:25 | disposition home or self-care (01) ==
PROVIDERS: Emergency Provider Physician Assistant; PCP Family Medicine
DX: N39.0 Urinary tract infection, site not specified (principal); R03.0 Elevated blood-pressure reading, without diagnosis of hypertension
CPT/HCPCS: 36415; 80053; 81001; 82550; 85025; 96372; 99284; J0696; J9999

== ENCOUNTER 2025-05-02 14:24 | Emergency (ER) | payer OTHER, SELFPAY ==
[2025-05-02 14:59] VITALS: BP 134/81; PULSE 88; TEMP 36.9; O2SAT 97
--- NOTE | 2025-05-02 15:43 | XR_ITS ---
WS: [id number] XR chest 1V portable [id number] REASON FOR EXAM: cough, low grade fever FINDINGS: The chest is unchanged compared to previous examination of 10/14/2024. Mild tortuosity of the thoracic aorta with aortic arch calcification. Calcified granulomatous disease in both hemithoraces. No acute pulmonary parenchymal or pleural abnormality. Mild degenerative spondylosis in the mid and lower thoracic spine. XR/XR chest 1V portable [id number] IMPRESSION: Stable chest without acute abnormality.
--- NOTE | 2025-05-02 15:43 | CTR_ITS ---
PROCEDURE INFORMATION: Exam: CT Abdomen And Pelvis With Contrast Exam date and time: 05/02/2025 4:29 PM Age: 59 years old Clinical indication: Abdominal pain; Generalized; Prior surgery; Surgery date: 6+ months; Surgery type: Gb, partial hysterectomy; Additional info: Abd pain, near syncope, low grade fever TECHNIQUE: Imaging protocol: Computed tomography of the abdomen and pelvis with contrast. Radiation optimization: All CT scans at this facility use at least one of these dose optimization techniques: automated exposure control; mA and/or kV adjustment per patient size (includes targeted exams where dose is matched to clinical indication); or iterative reconstruction. Contrast material: OMNIPAQUE 350; Contrast volume: 100 ml; Contrast route: INTRAVENOUS (IV); COMPARISON: CT abdomen pelvis w con* [id number] 05/20/2024 8:22 PM RADIATION DOSE METRICS: Total DLP (mGy-cm): 1399.83 FINDINGS: Lungs: Lung bases are clear. Liver: The liver is diffusely decreased in density, compatible with hepatic steatosis. No liver mass Gallbladder and biliary ducts: Post cholecystectomy. There is no evidence of biliary ductal dilation. Pancreas: The pancreas is normal. No mass. Spleen: The spleen is normal. Adrenal glands: The adrenal glands are normal. Kidneys and ureters: No renal mass or hydronephrosis. Stomach and bowel: Bowel caliber is normal. No paracolonic inflammatory changes. Appendix: Appendix is not seen but there is no pericecal inflammatory change. Intraperitoneal space: No significant peritoneal free fluid. No free peritoneal air. Vasculature: Aortic caliber is normal. Lymph nodes: No lymph node enlargement. Urinary bladder: Bladder is collapsed, but is otherwise unremarkable.There has been a hysterectomy. Reproductive: No adnexal cysts or masses are identified. Bones/joints: Unchanged sclerotic focus in the left intertrochanteric region. No acute osseous abnormalities. Soft tissues: Unremarkable. CT/CT abdomen pelvis w con* [id number] IMPRESSION: 1. No acute disease in the abdomen or pelvis. 2. Hepatic steatosis.
--- NOTE | 2025-05-02 15:46 | W.ED.GENADLT ---
HPI - General Adult General: Chief complaint: General Medical Stated complaint: Dizzy Low grade fever Time Seen by Provider: 05/02/25 15:19 History of Present Illness: 59-year-old female past medical history significant for chronic right shoulder pain, urinary issues including stress urinary incontinence, cystocele, remote history of hematuria, presenting with lower abdominal pain x 10 days, low-grade fever for her Tmax 99.0 (this is high for me my normal is 97), lightheaded dizziness and generalized weakness with episode of near syncope in the parking lot today, she endorses onset 2 to 3 days ago of vomiting in the setting of starting Flagyl which she was started on after her doctor diagnosed her with bacterial vaginosis and a possible UTI and started her on this medication after her visit 10 days ago, she also endorses cough, nasal congestion, she denies chest pain or shortness of breath, she denies diarrhea, she denies abnormal vaginal bleeding Related Data Home Medications ?Medication ?Instructions ?Recorded ?Confirmed chlorthalidone 25 mg tablet 25 mg PO DAILY 10/14/24 05/02/25 estradiol 1 mg tablet 1 mg PO DAILY 10/14/24 05/02/25 levothyroxine 50 mcg tablet 50 mcg PO DAILY 10/14/24 05/02/25 omeprazole 40 mg capsule,delayed 40 mg PO DAILY 10/14/24 05/02/25 release ropinirole 3 mg tablet 3 mg PO QPM 10/14/24 05/02/25 tolterodine 4 mg capsule,extended 4 mg PO DAILY 10/14/24 05/02/25 release 24 hr benzonatate 200 mg capsule 200 mg PO Q8H 10/25/24 05/02/25 baclofen 10 mg tablet 10 mg PO BID 12/05/24 05/02/25 nitrofurantoin 100 mg PO BID 03/01/25 05/02/25 monohydrate/macrocrystals 100 mg capsule (Macrobid) metronidazole 500 mg tablet 500 mg PO BID 04/25/25 05/02/25 mupirocin 2 % topical ointment 1 applic topical TID 04/25/25 05/02/25 (Centany) nystatin 100,000 unit/gram topical 1 applic topical DAILY PRN 04/25/25 05/02/25 cream Previous Rx's ?Medication ?Instructions ?Recorded albuterol sulfate 2.5 mg/3 mL 2.5 mg (3 mL) inhalation Q4H PRN 10/14/24 (0.083 %) solution for nebulization shortness of breath or wheezing #90 mL ondansetron 4 mg disintegrating 4 mg PO Q8H PRN nausea and 10/25/24 tablet vomiting #9 tabs clonazepam 1 mg tablet 1 mg PO BID PRN anxiety/panic 02/22/25 attacks #60 tabs duloxetine 30 mg capsule,delayed 30 mg PO .morning #30 caps 04/25/25 release quetiapine 50 mg tablet 50 mg PO .9 pm #30 tabs 04/25/25 trazodone 150 mg tablet 150 mg PO BEDTIME PRN sleep #30 04/25/25 tabs cefpodoxime 200 mg tablet 200 mg PO BID 7 days #14 tabs 05/02/25 fluconazole 150 mg tablet 150 mg PO Q3D 2 doses #2 tabs 05/02/25 Allergies Allergy/AdvReac Type Severity Reaction Status Date / Time azithromycin Allergy Unknown ADR-Gastrointestinal Verified 05/02/25 15:05 Upset haloperidol (From Haldol) Allergy ALGY-Anaphy Verified 05/02/25 15:05 laxis latex Allergy ALGY-Redness Verified 05/02/25 15:05 of Skin meperidine (From Demerol) Allergy ADR-Halluci Verified 05/02/25 15:05 nating prednisone Allergy ADR-Anxiety Verified 05/02/25 15:05 dexamethasone AdvReac Severe ADR-Migrain Verified 05/02/25 15:05 e aripiprazole (From Abilify) AdvReac Unknown ADR-Anxiety Verified 05/02/25 15:05 bupropion (From Wellbutrin) AdvReac Unknown ADR-Confusi Verified 05/02/25 15:05 on PFS ED PFSH: Medical History Nonhealing nonsurgical wound with fat layer exposed Major depressive disorder, recurrent severe without psychotic features Generalized anxiety disorder with panic attacks Impingement syndrome of right shoulder Primary osteoarthritis, right shoulder Right rotator cuff tendonitis Urinary incontinence in female Psychiatric care Major depressive disorder, recurrent, in partial remission Surgical History S/P shoulder surgery Date of procedure: October 11, 2024 Pre-op diagnosis: Right shoulder impingement with acromioclavicular joint osteoarthritis with calcific tendinitis Procedure done: Right shoulder open acromioplasty with bursectomy and evaluation of rotator cuff and distal clavicle resection Surgeon: Romi Delvalle MD H/O: hysterectomy Hx of neck surgery Fusion Hx of colonoscopy 10 yrs History of esophagogastroduodenoscopy (EGD) History of [place] urethropexy 24 yrs ago Family History Unknown Cancer She denies a family hx of breast, ovarian, uterine, pancreatic, colon, thyroid cancers. Denies family history of Diabetes Hypertension Stroke Social History Smoking and tobacco/nicotine status: never used tobacco/nicotine Alcohol intake: never Substance/Drug Use: never Physical Exam Narrative: EXAM NARRATIVE: Gen: A&Ox4, no acute distress, nontoxic appearing HEENT: Normocephalic, atraumatic, no scleral icterus, external ears normal, moist mucous membranes Neck: Supple, full range of motion, no observable masses Lungs: No Respiratory distress, Lungs clear to auscultation bilaterally no rales, rhonchi, wheezing CV: Regular rate and rhythm, no murmur, no pitting edema to lower extremities bilaterally Abdomen: Soft, nondistended, mildly tender to palpation to the lower abdomen diffusely right lower left lower and suprapubic MSK: No joint swelling, FROM all 4 extremities Skin: No rashes, petechiae, lesions. Normal color per patient. Neuro: Alert and oriented, no slurred speech, sensation and strength grossly intact all 4 extremities, no nystagmus on extraocular muscles, no disconjugate gaze, no subjective just phobia, negative Romberg, ambulates with steady gait, no pronator drift Psych: Appropriate for situation. Course Vital Signs: Vital signs: Vital Signs Temperature 98.4 F 05/02/25 14:59 Pulse Rate 98 05/02/25 16:05 Respiratory Rate 16 05/02/25 16:05 Blood Pressure 170/100 05/02/25 16:05 Pulse Oximetry 98 05/02/25 16:05 Oxygen Delivery Me thod Room Air 05/02/25 14:59 [facility] - General Adult Medical Decision Making 59-year-old female history of obesity, chronic urinary issues, chronic pain and anxiety syndromes, presenting with 10-day history of lower abdominal pain, subjective/low-grade fever, no objective fever recorded here or at home, associated symptoms include cough, weakness, lightheadedness without focal neurologic deficits, episode of near syncope in the parking lot, nonproductive cough, vomiting that started after starting Flagyl for possible bacterial vaginosis, on clinical exam patient appears well with stable vital signs, plan for infectious workup, CT abdomen given her reported pain to assess for any intra-abdominal infectious pathology, reassess for disposition Differential Diagnosis Appendicitis, UTI, pyelonephritis, dehydration, DIANNA, electrolyte abnormalities, occult sepsis less likely but considered, pneumonia, viral URI, bacterial vaginosis/vaginal candidiasis/postmenopausal vaginal dryness, anxiety, antibiotic induced gastritis/gastroenteritis Lab Data Labs showing no leukocytosis, no anemia, normal kidney function, normal electrolytes, normal LFTs despite the hepatic steatosis reading on CT, urinalysis showing some mild bacteria and leuk esterase, wet prep showing scant yeast and white blood cells 05/02/25 16:00 05/02/25 16:00 Radiology Impressions Abdomen/Pelvis CT 05/02/25 15:43 IMPRESSION: 1. No acute disease in the abdomen or pelvis. 2. Hepatic steatosis. Chest X-Ray 05/02/25 15:43 IMPRESSION: Stable chest without acute abnormality. Laboratory Results WBC 10.21 10^3/uL (3.29-11.43) 05/02/25 16:00 RBC 4.23 10^6/uL (3.85-5.65) 05/02/25 16:00 Hgb 12.40 g/dL (11.27-16.99) 05/02/25 16:00 Hct 38.2 % (36-47) 05/02/25 16:00 MCV 90.3 fl (85-98) 05/02/25 16:00 MCH 29.3 pg (27-33) 05/02/25 16:00 MCHC 32.5 g/dL (30-55) 05/02/25 16:00 RDW 14.7 % (12.1-15.1) 05/02/25 16:00 Plt Count 338 10^3/cmm (157-399) 05/02/25 16:00 MPV 9.8 fL (7.4-10.4) 05/02/25 16:00 Neut % (Auto) 72.0 % 05/02/25 16:00 Lymph % (Auto) 20.1 % 05/02/25 16:00 [place] % (Auto) 6.0 % 05/02/25 16:00 Eos % (Auto) 1.2 % 05/02/25 16:00 Baso % (Auto) 0.4 % 05/02/25 16:00 Neut # (Auto) 7.36 10^3/uL (1.8-7.7) 05/02/25 16:00 Lymph # (Auto) 2.1 10^3/uL (0.8-4.8) 05/02/25 16:00 [place] # (Auto) 0.6 10^3/uL (0.2-0.9) 05/02/25 16:00 Eos # (Auto) 0.1 10^3/uL (0.0-0.8) 05/02/25 16:00 Baso # (Auto) 0.0 10^3/uL (0.0-0.1) 05/02/25 16:00 Nucleated RBC % (auto) 0 % 05/02/25 16:00 Nucleated RBCs # 0.0 /100WBC 05/02/25 16:00 Sodium 137 mmol/L (136-145) 05/02/25 16:00 Potassium 3.9 mmol/L (3.5-5.1) 05/02/25 16:00 Chloride 97 mmol/L (98-107) L 05/02/25 16:00 Carbon Dioxide 27 mmol/L (22-29) 05/02/25 16:00 Anion Gap 16.9 (5-19) 05/02/25 16:00 BUN 7 mg/dL (8-23) L 05/02/25 16:00 Creatinine 0.8 mg/dL (0.5-0.9) 05/02/25 16:00 GFR Calculation 73.2 mL/min (90-130) L 05/02/25 16:00 Glucose 107 mg/dL (65-115) 05/02/25 16:00 POC Glucose 101 mg/dL (70-110) 05/02/25 16:02 Calculated Osmolality 282 mOsm/kg (285-295) L 05/02/25 16:00 Lactic Acid 1.9 mmol/L (0.5-2.2) 05/02/25 16:00 Calcium 8.5 mg/dL (8.5-10.5) 05/02/25 16:00 Magnesium 1.9 mg/dL (1.7-2.3) 05/02/25 16:00 Total Bilirubin 0.2 mg/dL (0.15-1.2) 05/02/25 16:00 AST 14 U/L (0-32) 05/02/25 16:00 ALT 14 U/L (0-33) 05/02/25 16:00 Alkaline Phosphatase 88 U/L (35-105) 05/02/25 16:00 Total Protein 6.8 g/dL (6.6-8.7) 05/02/25 16:00 Albumin 3.7 g/dL (3.5-5.2) 05/02/25 16:00 Globulin 3.1 g/dL (1.3-4.6) 05/02/25 16:00 Lipase 18 U/L (13-60) 05/02/25 16:00 Urine Color Yellow (Yellow) 05/02/25 16:20 Urine Appearance Cloudy (CLEAR) A 05/02/25 16:20 Urine pH 6.5 (5-7) 05/02/25 16:20 Ur Specific [place] 1.020 (1.005-1.030) 05/02/25 16:20 Urine Protein Negative (Negative) 05/02/25 16:20 Urine Glucose (UA) Negative (Normal) 05/02/25 16:20 Urine Ketones Trace (Negative) 05/02/25 16:20 Urine Blood Negative (Negative) 05/02/25 16:20 Urine Nitrate Negative (Negative) 05/02/25 16:20 Urine Bilirubin Negative (Negative) 05/02/25 16:20 Urine Urobilinogen 1.0 mg/dL (Negative) 05/02/25 16:20 Ur Leukocyte Esterase 1+ (Negative) A 05/02/25 16:20 Urine RBC 3-5 /hpf (0-2) 05/02/25 16:20 Urine WBC 6-10 /hpf (0-5) 05/02/25 16:20 Ur Squamous Epith Cells 6-10 /hpf (0-5) 05/02/25 16:20 Amorphous Sediment Not Reportable 05/02/25 16:20 Urine Bacteria 1+ /hpf (NONE) H 05/02/25 16:20 Hyaline Casts 0-4 /lpf H 05/02/25 16:20 Influenza A (PCR) Negative (Negative) 05/02/25 16:09 Influenza Type B (PCR) Negative (Negative) 05/02/25 16:09 RSV (PCR) Negative (Negative) 05/02/25 16:09 SARS-CoV-2 (PCR) Negative (Negative) 05/02/25 16:09 All radiology interpretation(s) finalized by discharge ED provider radiology interpretation(s): CT of the abdomen pelvis showing hepatic steatosis with no other acute intra-abdominal pathology Discharge Plan Discharge Patient Disposition: Home Clinical Impression: UTI (urinary tract infection), Candidiasis of vagina, Hepatic steatosis Condition: Stable Prescriptions: New cefpodoxime 200 mg tablet 200 mg PO BID 7 Days Qty: 14 0RF Rx Instructions: must administer with a meal/food fluconazole 150 mg tablet 150 mg PO Q3D Qty: 2 0RF Rx Instructions: may repeat second dose 72 hrs after first dose if symptoms persist No Action nitrofurantoin monohyd/m-cryst [Macrobid] 100 mg capsule 100 mg PO BID Rx Instructions: must administer with a meal/food baclofen 10 mg tablet 10 mg PO BID clonazepam 1 mg tablet 1 mg PO BID PRN (Reason: anxiety/panic attacks) Qty: 60 3RF Rx Instructions: Take one tablet twice per day as needed metronidazole 500 mg tablet 500 mg PO BID nystatin 100,000 unit/gram cream 1 applic topical DAILY PRN mupirocin [Centany] 2 % ointment 1 applic topical TID quetiapine 50 mg tablet 50 mg PO .9 pm Qty: 30 3RF Rx Instructions: Take one tablet at 9 pm trazodone 150 mg tablet 150 mg PO BEDTIME PRN (Reason: sleep) Qty: 30 4RF Rx Instructions: May take one tablet at bedtime as needed for sleep duloxetine 30 mg capsule,delayed release(DR/EC) 30 mg PO .morning Qty: 30 3RF Rx Instructions: Take one capsule every morning tolterodine 4 mg capsule,extended release 24hr 4 mg PO DAILY ropinirole 3 mg tablet 3 mg PO QPM chlorthalidone 25 mg tablet 25 mg PO DAILY omeprazole 40 mg capsule,delayed release(DR/EC) 40 mg PO DAILY estradiol 1 mg tablet 1 mg PO DAILY levothyroxine 50 mcg tablet 50 mcg PO DAILY albuterol sulfate 2.5 mg /3 mL (0.083 %) solution for nebulization 2.5 mg INHALATION Q4H PRN (Reason: shortness of breath or wheezing) Qty: 90 0RF benzonatate 200 mg capsule 200 mg PO Q8H ondansetron 4 mg tablet,disintegrating 4 mg PO Q8H PRN (Reason: nausea and vomiting) Qty: 9 0RF Discharge Orders: Discharge ED (Routine); Ordered 05/02/25 Ordered By: Cade Garcia Referrals: Nadeem Graves MD [Primary Care Provider, Family Practice] Patient Instructions: Urinary Tract Infection in Women (DC), Yeast Infection (ED), Patient Portal & Augustus Instructions Print Language: Luxembourger Coding Level of Care Code ED Veterinary Practice Manager for [place] [facility]
[2025-05-02 16:05] VITALS: BP 170/100; PULSE 98; RESP 16; O2SAT 98
[2025-05-02] MEDS: ondansetron 2 mg/ML SDV 2 mL 4 MG IVP (16:06)
[2025-05-02 16:10] LABS: Hematocrit 38.2 % (36-47); Hemoglobin 12.40 g/dL (11.27-16.99); Mean Corpuscular HGB Conc 32.5 g/dL (30-55); Mean Corpuscular Hemoglobin 29.3 pg (27-33); Mean Corpuscular Volume 90.3 fl (85-98); Nucleated Red Blood Cells % 0 %; Platelet Count 338 10^3/cmm (157-399); Red Blood Count 4.23 10^6/uL (3.85-5.65); White Blood Count 10.21 10^3/uL (3.29-11.43)
[2025-05-02] MEDS: iohexol 350 mg/mL 500 mL Btl (per mL) IV (16:33)
[2025-05-02 16:34] LABS: Alanine Aminotransferase 14 U/L (0-33); Albumin Level 3.7 g/dL (3.5-5.2); Alkaline Phosphatase 88 U/L (35-105); Anion Gap 16.9 (5-19); Aspartate Amino Transferase 14 U/L (0-32); Blood Urea Nitrogen 7 mg/dL (8-23); Calcium 8.5 mg/dL (8.5-10.5); Carbon Dioxide 27 mmol/L (22-29); Chloride 97 mmol/L (98-107); Creatinine Clr Calc Pharmacy 106.6462; Globulin 3.1 g/dL (1.3-4.6); Glucose 107 mg/dL (65-115); Lipase 18 U/L (13-60); Magnesium 1.9 mg/dL (1.7-2.3); Osmolality Calculated 282 mOsm/kg (285-295); Potassium 3.9 mmol/L (3.5-5.1); Sodium 137 mmol/L (136-145); Total Protein 6.8 g/dL (6.6-8.7)
[2025-05-02 16:35] LABS: Lactic Sepsis W/Reflex 1.9 mmol/L (0.5-2.2)
[2025-05-02 16:36] LABS: Glucose Urine UA Negative (Normal); Nitrate Urine Negative (Negative); Specific Gravity, Urine 1.020 (1.005-1.030)
[2025-05-02 17:13] LABS: Respiratory Syncytial Virus Ce NEGATIVE (Negative); SARS-CoV-2 PCR NEGATIVE (Negative)
[2025-05-02 18:01] VITALS: BP 150/87; PULSE 78; RESP 18; O2SAT 97
[2025-05-02 18:39] VITALS: BP 141/92; PULSE 73; O2SAT 97
== END 2025-05-02 18:40 | disposition home or self-care (01) ==
PROVIDERS: Emergency Provider Student in an Organized Health Care Education/Training Program; PCP Family Medicine
DX: N39.0 Urinary tract infection, site not specified (principal); B37.31 Acute candidiasis of vulva and vagina; K76.0 Fatty (change of) liver, not elsewhere classified; Z11.52 Encounter for screening for COVID-19
CPT/HCPCS: 36415; 36416; 71045; 74177; 80053; 81001; 82962; 83605; 83690; 83735; 85025; 87210; 87637; 96361; 96374; 96375; 99285; J1885; J2405; J3490; J7030

== ENCOUNTER 2025-05-31 13:23 | Emergency (ER) | payer OTHER, SELFPAY ==
[2025-05-31 13:26] VITALS: BP 173/103; PULSE 86; RESP 18; TEMP 36.8; O2SAT 98
--- OUTSIDE RECORDS SUMMARY | 2025-05-31 13:27 | XMS_ITS | Patient Health Record ---
Author Organization [employer], [employer] Address [address] [place] [address] Care Team Providers Care Fisher Spear Name Role Phone Nadeem Graves MD Primary Care Provider Danielle WEI Corbett Unavailable [phone] Reason For Referral No Information Plan Of Treatment No Information Insurance Providers Payer Name Payer Address Payer Phone Subscriber Number Group Number Insured Name Patient Relationship to Insured Coverage Start Date Coverage End Date [employer] [address] [place], [place] [id number] Noreen Chan Self - patient is the insured
--- NOTE | 2025-05-31 13:29 | XR_ITS ---
WS: [id number] XR chest 1V portable [id number] REASON FOR EXAM: Shortness of breath FINDINGS: Chest is stable compared to 05/02/2025. Mild tortuosity of the ascending and descending thoracic aorta with calcification of the aortic arch. Heart at the upper limits of normal. No acute pulmonary parenchymal or pleural abnormality is identified. Moderate degenerative spondylosis in the mid and lower thoracic spine. XR/XR chest 1V portable [id number] IMPRESSION: Stable chest without acute abnormality.
--- NOTE | 2025-05-31 13:34 | ECG_ITS ---
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 Measurements Intervals [place] Rate: 82 P: 76 CA: 171 QRS: 21 QRSD: 90 T: -37 QT: 383 QTc: 448 Interpretive Statements SINUS RHYTHM LOW QRS VOLTAGE IN PRECORDIAL LEADS [QRS DEFLECTION < 1.0 mV IN CHEST LEADS] NONSPECIFIC ST & T-WAVE ABNORMALITY Compared to ECG 08/17/2024 18:38:07 No significant changes Electronically Signed On 06-01-2025 12:07:46 CDT by Tyron Adams M.D. [email or web address]
[2025-05-31 14:34] LABS: Hematocrit 38.2 % (36-47); Hemoglobin 12.30 g/dL (11.27-16.99); Mean Corpuscular HGB Conc 32.2 g/dL (30-55); Mean Corpuscular Hemoglobin 29.7 pg (27-33); Mean Corpuscular Volume 92.3 fl (85-98); Nucleated Red Blood Cells % 0 %; Platelet Count 334 10^3/cmm (157-399); Red Blood Count 4.14 10^6/uL (3.85-5.65); White Blood Count 9.83 10^3/uL (3.29-11.43)
[2025-05-31 15:03] LABS: Alanine Aminotransferase 13 U/L (0-33); Albumin Level 3.6 g/dL (3.5-5.2); Alkaline Phosphatase 78 U/L (35-105); Anion Gap 14.6 (5-19); Aspartate Amino Transferase 16 U/L (0-32); Blood Urea Nitrogen 7 mg/dL (8-23); Calcium 8.3 mg/dL (8.5-10.5); Carbon Dioxide 28 mmol/L (22-29); Chloride 100 mmol/L (98-107); Creatinine Clr Calc Pharmacy 121.3919; Globulin 3.1 g/dL (1.3-4.6); Glucose 127 mg/dL (65-115); NT Pro B Type Natriuretic Pept 205 pg/mL (0-125); Osmolality Calculated 288 mOsm/kg (285-295); Potassium 3.6 mmol/L (3.5-5.1); Sodium 139 mmol/L (136-145); Total Protein 6.7 g/dL (6.6-8.7)
[2025-05-31 15:22] LABS: Lactic Sepsis W/Reflex 2.0 mmol/L (0.5-2.2)
--- NOTE | 2025-05-31 15:28 | W.ED.SOB ---
HPI - SOB/Dyspnea General: Chief Complaint: Shortness of Breath/Dyspnea Stated Complaint: chest conjestion Time Seen by Provider: 05/31/25 15:07 Source: patient Mode of arrival: ambulatory Limitations: no limitations History of Present Illness: HPI Narrative: Patient is a 59-year-old female with no pertinent past medical history who is reporting to the emergency department complaining of cough and shortness of breath for the past couple of weeks. She states that she saw her primary care last week, she was started on Lasix and potassium for her symptoms as she was also endorsing orthopnea at that time. She states that this has not helped her symptoms, she has also been doing inhaled nebulized breathing treatments at home that also have not been helping. She is a non-smoker, no history of COPD or diagnosed history of heart failure. She does not have chest pain but states she has pleuritic pain when she coughs. Notes that the cough is dry. She has no other upper respiratory symptoms to report, no reported sick contacts. She does not use home oxygen. Actively coughing at time of examination, but otherwise no respiratory distress and she is nontoxic-appearing. MD elicited complaint: shortness of breath, cough and pain with inspiration Onset (ago): week(s) (2) Timing: constant Exacerbating factors: lying flat Associated symptoms: Deny abdominal pain, chest pain, fever(s), lightheadedness, nausea, palpitations or vomiting Treatment prior to arrival: bronchodilator Related Data Home Medications ?Medication ?Instructions ?Recorded ?Confirmed chlorthalidone 25 mg tablet 25 mg PO DAILY 10/14/24 05/02/25 estradiol 1 mg tablet 1 mg PO DAILY 10/14/24 05/02/25 levothyroxine 50 mcg tablet 50 mcg PO DAILY 10/14/24 05/02/25 omeprazole 40 mg capsule,delayed 40 mg PO DAILY 10/14/24 05/02/25 release ropinirole 3 mg tablet 3 mg PO QPM 10/14/24 05/02/25 tolterodine 4 mg capsule,extended 4 mg PO DAILY 10/14/24 05/02/25 release 24 hr benzonatate 200 mg capsule 200 mg PO Q8H 10/25/24 05/02/25 baclofen 10 mg tablet 10 mg PO BID 12/05/24 05/02/25 nitrofurantoin 100 mg PO BID 03/01/25 05/02/25 monohydrate/macrocrystals 100 mg capsule (Macrobid) metronidazole 500 mg tablet 500 mg PO BID 04/25/25 05/02/25 mupirocin 2 % topical ointment 1 applic topical TID 04/25/25 05/02/25 (Centany) nystatin 100,000 unit/gram topical 1 applic topical DAILY PRN 04/25/25 05/02/25 cream Previous Rx's ?Medication ?Instructions ?Recorded albuterol sulfate 2.5 mg/3 mL 2.5 mg (3 mL) inhalation Q4H PRN 10/14/24 (0.083 %) solution for nebulization shortness of breath or wheezing #90 mL ondansetron 4 mg disintegrating 4 mg PO Q8H PRN nausea and 10/25/24 tablet vomiting #9 tabs clonazepam 1 mg tablet 1 mg PO BID PRN anxiety/panic 02/22/25 attacks #60 tabs duloxetine 30 mg capsule,delayed 30 mg PO .morning #30 caps 04/25/25 release quetiapine 50 mg tablet 50 mg PO .9 pm #30 tabs 04/25/25 trazodone 150 mg tablet 150 mg PO BEDTIME PRN sleep #30 04/25/25 tabs fluconazole 150 mg tablet 150 mg PO Q3D 2 doses #2 tabs 05/02/25 doxycycline hyclate 100 mg tablet 100 mg PO BID 10 days #20 tabs 05/31/25 Allergies Allergy/AdvReac Type Severity Reaction Status Date / Time azithromycin Allergy Unknown ADR-Gastrointestinal Verified 05/02/25 15:05 Upset haloperidol (From Haldol) Allergy ALGY-Anaphy Verified 05/02/25 15:05 laxis latex Allergy ALGY-Redness Verified 05/02/25 15:05 of Skin meperidine (From Demerol) Allergy ADR-Halluci Verified 05/02/25 15:05 nating prednisone Allergy ADR-Anxiety Verified 05/02/25 15:05 dexamethasone AdvReac Severe ADR-Migrain Verified 05/02/25 15:05 e aripiprazole (From Abilify) AdvReac Unknown ADR-Anxiety Verified 05/02/25 15:05 bupropion (From Wellbutrin) AdvReac Unknown ADR-Confusi Verified 05/02/25 15:05 on Review of Systems General: Reports: 10 or more systems reviewed and unremarkable except in HPI and below Const: Denies: fever(s), chills or fatigue Eyes: Denies: change in vision ENMT: Denies: throat pain, ear or mastoid pain or nasal discharge Card: Denies: chest pain, palpitations, swelling of feet/ankles or lightheadedness Resp: Reports: dyspnea, non-productive cough and pain on inspiration; Denies: productive cough or wheezing GI: Denies: abdominal pain, nausea, vomiting, diarrhea or constipation : Denies: flank pain, difficulty voiding, dysuria or urinary frequency Musc: Denies: neck pain, back pain or joint pain Skin/Breast: Denies: rash Neuro: Denies: headache(s), numbness in extremities or weakness in extremities PFSH ED PFSH: Medical History Nonhealing nonsurgical wound with fat layer exposed Major depressive disorder, recurrent severe without psychotic features Generalized anxiety disorder with panic attacks Impingement syndrome of right shoulder Primary osteoarthritis, right shoulder Right rotator cuff tendonitis Urinary incontinence in female Psychiatric care Major depressive disorder, recurrent, in partial remission Surgical History S/P shoulder surgery Date of procedure: October 11, 2024 Pre-op diagnosis: Right shoulder impingement with acromioclavicular joint osteoarthritis with calcific tendinitis Procedure done: Right shoulder open acromioplasty with bursectomy and evaluation of rotator cuff and distal clavicle resection Surgeon: Romi Delvalle MD H/O: hysterectomy Hx of neck surgery Fusion Hx of colonoscopy 10 yrs History of esophagogastroduodenoscopy (EGD) History of [place] urethropexy 24 yrs ago Family History Unknown Cancer She denies a family hx of breast, ovarian, uterine, pancreatic, colon, thyroid cancers. Denies family history of Diabetes Hypertension Stroke Social History Smoking and tobacco/nicotine status: never used tobacco/nicotine Alcohol intake: never Substance/Drug Use: never Physical Exam Const: COMMON NORMALS: no acute distress and no limitations GENERAL APPEARANCE: cooperative, comfortable and well developed NUTRITIONAL APPEARANCE: obese morbidly obese ORIENTATION/CONSCIOUSNESS: Yes awake OTHER: nontoxic HENMT: COMMON NORMALS: normocephalic, atraumatic, hearing grossly normal bilaterally and moist oral mucous membranes HEAD & SCALP: normocephalic and atraumatic Eye: COMMON NORMALS: Equal, round and reactive pupils present, EOMs intact bilaterally and conjunctivae normal CONJUNCTIVA: Yes conjunctivae normal PUPIL: Yes Equal, round and reactive pupils present Neck/C-Spine: COMMON NORMALS: full ROM, supple and no JVD Chest: COMMONS NORMALS: normal inspection of the chest Resp: COMMON NORMALS: normal respiratory effort, No retractions, No use of accessory muscles and clear to auscultation bilaterally EFFORT & INSPECTION: No respiratory distress and Yes Actively coughing dry AUSCULTATION: clear to auscultation bilaterally Cardio: COMMON NORMALS: no JVD, regular rate, regular rhythm, No clicks present (Cardio), No murmurs present (Cardio) and No rub (Cardio) RATE: regular rate RHYTHM: regular rhythm Extremity: COMMON NORMALS: normal to inspection, full ROM and capillary refill normal Skin: COMMON NORMALS: no rashes or lesions noted GENERAL SKIN EXAM: no rashes or lesions noted Course Vital Signs: Vital signs: Vital Signs Temperature 98.3 F 05/31/25 13:26 Pulse Rate 86 05/31/25 13:26 Respiratory Rate 18 05/31/25 13:26 Blood Pressure 173/103 05/31/25 13:26 Pulse Oximetry 98 05/31/25 13:26 Oxygen Delivery Me thod Room Air 05/31/25 13:26 MDM - SOB/Dyspnea Medical Decision Making This patient presented to the emergency department as she has had cough and shortness of breath for 2 weeks, has had worsening pleuritic pain secondary to the coughing. No chest pain preceding this however, and suspecting ACS is unlikely due to her longevity of symptoms and respiratory symptoms predominant. Her vitals have been stable, aside from her being hypertensive which she states she has a history of. Chest x-ray is not show any focal consolidation or cardiomegaly. Lab work does not show any significant leukocytosis or infectious parameters, metabolic panel unremarkable, COVID swab negative. Her physical exam was unremarkable, nontoxic-appearing and there was no adventitious heart or lung sounds appreciated at this time. I suspect acute bronchitis, and we will treat with antibiotics, she has been oxygenating well so stable for discharge home but she is told to return if her condition continues to worsen or does not improve in the next 4 to 5 days, and is also encouraged to follow-up with primary care for routine reevaluation. She had noted that she had been worked up previously for heart failure, she had even started Lasix and potassium but has no relief making her orthopnea less likely from congestive heart failure, I suspect from body habitus or infectious etiology. Her BNP was checked here and not significantly elevated, and I do not suspect that this is a CHF exacerbation. Again she is told to return with any worsening and will be discharged in stable condition at this time. Lab Data 05/31/25 14:24 05/31/25 14:24 Labs/Radiology: Radiology Impressions Chest X-Ray 05/31/25 13:29 IMPRESSION: Stable chest without acute abnormality. Laboratory Results WBC 9.83 10^3/uL (3.29-11.43) 05/31/25 14:24 RBC 4.14 10^6/uL (3.85-5.65) 05/31/25 14:24 Hgb 12.30 g/dL (11.27-16.99) 05/31/25 14:24 Hct 38.2 % (36-47) 05/31/25 14:24 MCV 92.3 fl (85-98) 05/31/25 14:24 MCH 29.7 pg (27-33) 05/31/25 14:24 MCHC 32.2 g/dL (30-55) 05/31/25 14:24 RDW 15.0 % (12.1-15.1) 05/31/25 14:24 Plt Count 334 10^3/cmm (157-399) 05/31/25 14:24 MPV 10.0 fL (7.4-10.4) 05/31/25 14:24 Neut % (Auto) 73.5 % 05/31/25 14:24 Lymph % (Auto) 18.9 % 05/31/25 14:24 Eddy % (Auto) 5.6 % 05/31/25 14:24 Eos % (Auto) 1.3 % 05/31/25 14:24 Baso % (Auto) 0.4 % 05/31/25 14:24 Neut # (Auto) 7.22 10^3/uL (1.8-7.7) 05/31/25 14:24 Lymph # (Auto) 1.9 10^3/uL (0.8-4.8) 05/31/25 14:24 Eddy # (Auto) 0.6 10^3/uL (0.2-0.9) 05/31/25 14:24 Eos # (Auto) 0.1 10^3/uL (0.0-0.8) 05/31/25 14:24 Baso # (Auto) 0.0 10^3/uL (0.0-0.1) 05/31/25 14:24 Nucleated RBC % (auto) 0 % 05/31/25 14:24 Nucleated RBCs # 0.0 /100WBC 05/31/25 14:24 Sodium 139 mmol/L (136-145) 05/31/25 14:24 Potassium 3.6 mmol/L (3.5-5.1) 05/31/25 14:24 Chloride 100 mmol/L (98-107) 05/31/25 14:24 Carbon Dioxide 28 mmol/L (22-29) 05/31/25 14:24 Anion Gap 14.6 (5-19) 05/31/25 14:24 BUN 7 mg/dL (8-23) L 05/31/25 14:24 Creatinine 0.7 mg/dL (0.5-0.9) 05/31/25 14:24 GFR Calculation 85.4 mL/min (90-130) L 05/31/25 14:24 Glucose 127 mg/dL (65-115) H 05/31/25 14:24 Calculated Osmolality 288 mOsm/kg (285-295) 05/31/25 14:24 Lactic Acid 2.0 mmol/L (0.5-2.2) 05/31/25 14:24 Calcium 8.3 mg/dL (8.5-10.5) L 05/31/25 14:24 Total Bilirubin 0.3 mg/dL (0.15-1.2) 05/31/25 14:24 AST 16 U/L (0-32) 05/31/25 14:24 ALT 13 U/L (0-33) 05/31/25 14:24 Alkaline Phosphatase 78 U/L (35-105) 05/31/25 14:24 C-Reactive Protein 12.1 mg/L (0.0-4.9) H 05/31/25 14:24 NT-Pro-B Natriuret Pep 205 pg/mL (0-125) H 05/31/25 14:24 Total Protein 6.7 g/dL (6.6-8.7) 05/31/25 14:24 Albumin 3.6 g/dL (3.5-5.2) 05/31/25 14:24 Globulin 3.1 g/dL (1.3-4.6) 05/31/25 14:24 Influenza A (PCR) Negative (Negative) 05/31/25 15:26 Influenza Type B (PCR) Negative (Negative) 05/31/25 15:26 RSV (PCR) Negative (Negative) 05/31/25 15:26 SARS-CoV-2 (PCR) Negative (Negative) 05/31/25 15:26 All radiology interpretation(s) finalized by discharge Discharge Plan Discharge Patient Disposition: Home Clinical Impression: Acute bronchitis Qualifiers: Bronchitis organism: unspecified organism Qualified Code(s): J20.9 - Acute bronchitis, unspecified Condition: Stable Prescriptions: New doxycycline hyclate 100 mg tablet 100 mg PO BID 10 Days Qty: 20 0RF No Action nitrofurantoin monohyd/m-cryst [Macrobid] 100 mg capsule 100 mg PO BID Rx Instructions: must administer with a meal/food baclofen 10 mg tablet 10 mg PO BID clonazepam 1 mg tablet 1 mg PO BID PRN (Reason: anxiety/panic attacks) Qty: 60 3RF Rx Instructions: Take one tablet twice per day as needed metronidazole 500 mg tablet 500 mg PO BID nystatin 100,000 unit/gram cream 1 applic topical DAILY PRN mupirocin [Centany] 2 % ointment 1 applic topical TID quetiapine 50 mg tablet 50 mg PO .9 pm Qty: 30 3RF Rx Instructions: Take one tablet at 9 pm trazodone 150 mg tablet 150 mg PO BEDTIME PRN (Reason: sleep) Qty: 30 4RF Rx Instructions: May take one tablet at bedtime as needed for sleep duloxetine 30 mg capsule,delayed release(DR/EC) 30 mg PO .morning Qty: 30 3RF Rx Instructions: Take one capsule every morning tolterodine 4 mg capsule,extended release 24hr 4 mg PO DAILY ropinirole 3 mg tablet 3 mg PO QPM chlorthalidone 25 mg tablet 25 mg PO DAILY omeprazole 40 mg capsule,delayed release(DR/EC) 40 mg PO DAILY estradiol 1 mg tablet 1 mg PO DAILY levothyroxine 50 mcg tablet 50 mcg PO DAILY albuterol sulfate 2.5 mg /3 mL (0.083 %) solution for nebulization 2.5 mg INHALATION Q4H PRN (Reason: shortness of breath or wheezing) Qty: 90 0RF benzonatate 200 mg capsule 200 mg PO Q8H ondansetron 4 mg tablet,disintegrating 4 mg PO Q8H PRN (Reason: nausea and vomiting) Qty: 9 0RF fluconazole 150 mg tablet 150 mg PO Q3D Qty: 2 0RF Rx Instructions: may repeat second dose 72 hrs after first dose if symptoms persist Discharge Orders: Discharge ED (Routine); Ordered 05/31/25 Ordered By: Vignesh Lee Referrals: Nadeem Graves MD [Primary Care Provider, Family Practice] Patient Instructions: Patient Portal & Augustus Instructions Activity Restrictions/Additional Instructions: Acute Bronchitis Discharge You have been diagnosed with acute bronchitis. This is an infection of the large airways, usually caused by a virus, and most people recover without complications. Cough is expected to last 2?3 weeks. Medications: - Take doxycycline as prescribed: twice daily for 7 days. This is used because your symptoms have persisted and you have an allergy to azithromycin. Antibiotics may help in select cases, but most people recover without them. - Use your albuterol nebulizer every 4 hours as needed for cough or wheezing. This can help relieve symptoms if you have trouble breathing or wheezing, but may not help if you do not have these symptoms. What to Expect: - Cough and chest discomfort may continue for several weeks. - Most people improve gradually. Rest, drink plenty of fluids, and avoid smoking or secondhand smoke. When to Seek Help: - If you develop new or worsening symptoms such as shortness of breath, chest pain, high fever, coughing up blood, or confusion, contact your doctor or return to the emergency department. - If your cough does not improve after 3 weeks, or you feel much worse, follow up with your primary care provider for reassessment. Other Instructions: - [id number] cough medicines and pain relievers may help with symptoms, but their benefit is limited. - Avoid unnecessary antibiotics in the future unless recommended by your doctor, as they have only a small benefit and can cause side effects. Follow-Up: - Schedule a follow-up appointment with your primary care provider as directed. If you have any questions or concerns, please contact your healthcare provider. 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
[2025-05-31 16:23] LABS: Respiratory Syncytial Virus Ce NEGATIVE (Negative); SARS-CoV-2 PCR NEGATIVE (Negative)
[2025-05-31 16:42] VITALS: BP 147/108; PULSE 77; RESP 16; O2SAT 93
== END 2025-05-31 16:48 | disposition home or self-care (01) ==
PROVIDERS: Emergency Medicine; Emergency Provider Physician Assistant; PCP Family Medicine
DX: J20.9 Acute bronchitis, unspecified (principal); Z11.52 Encounter for screening for COVID-19
CPT/HCPCS: 36415; 71045; 80053; 83605; 83880; 85025; 86140; 87040; 87637; 93005; 99285; J9999

== ENCOUNTER 2025-06-10 09:57 | Emergency (ER) | payer OTHER, SELFPAY ==
--- OUTSIDE RECORDS SUMMARY | 2025-06-04 09:40 | XMS_ITS ---
Author Organization [facility] Address [address] [place] [address] Care Team Providers Care Envelope Folder Name Role Phone Philippe Young Unavailable [phone] Loreto López Unavailable REASON FOR VISIT Ref by Dr Nadeem Graves Problems Problem Type SNOMED Code ICD Code Onset Dates Problem Status W/U Status Risk Notes Problem Chronic pain syndrome ([id number]) Chronic pain syndrome (G89.4) Active confirmed Encounters Encounter Location Date Provider Diagnosis [facility] [place] [address] [place] [address] 06/04/2025 Loreto López Chronic pain syndrome G89.4 Assessments Encounter Date Diagnosis (ICD Code) Assessment Notes Treatment Notes Treatment Clinical Notes Section Notes 06/04/2025 Chronic pain syndrome (ICD-10 - G89.4) Plan Of Treatment Next Appt Details Provider Name:Loreto Vanegas, 09/10/2025 01:20:00 PM, [address] [place], [address], History and Physical Notes * HPI (History [...] ___ Today's Rapid Urine Drug Screen ___ [place] Prescription Monitoring Program ___ SOAPP-R (Screener/Opioid Assessment [...] Oxygen ___ CPAP ___ Progress Notes * Reba CHANjuan aDOB: [birth year] (59 yo F)Acc No.[id number]:06/04/2025 Progress Notes Patient: Juice Thompsonca Provider: Marguerite López MD :1965 A ge:59 Y S ex:Female Date:06/04/2025 Address:[address] [place] [address] [place], [id number] Subjective: * Chief Complaints: * R ef [...] Today's Rapid Urine Drug Screen _ __. [place] Prescription Monitoring Program _ __. T reatment [...] Electronic signature of Charu López MD on 06/10/2025 at 10:34 AM CDT Sign off status: Pending * Provider: Marguerite López MD Date: Generated for Jimbo torres/Marya/Rufinasmilya on: 10:34 AM CDT
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
--- NOTE | 2025-06-10 09:59 | XR_ITS ---
WS: [id number] Exam: XR chest 1V portable [id number] Date/Time of Exam: 06/10/2025 9:59 AM Reason For Exam: sob Comparison 05/31/2025. The lungs are fully expanded and clear. Normal cardiomediastinal silhouette and regional bony structures. Fusion hardware partially visualized in the lower C-spine. XR/XR chest 1V portable [id number] IMPRESSION: 1. No acute cardiopulmonary finding.
[2025-06-10 10:01] VITALS: BP 192/103; PULSE 78; RESP 16; TEMP 36.9; O2SAT 98; BMI 52.3
--- NOTE | 2025-06-10 10:05 | ECG_ITS ---
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 Measurements Intervals [place] Rate: 84 P: -1 MN: 159 QRS: 18 QRSD: 106 T: -17 QT: 392 QTc: 464 Interpretive Statements SINUS RHYTHM LOW QRS VOLTAGE IN PRECORDIAL LEADS [QRS DEFLECTION < 1.0 mV IN CHEST LEADS] NONSPECIFIC T-WAVE ABNORMALITY Compared to ECG 05/31/2025 13:34:32 No significant changes Electronically Signed On 06-13-2025 08:28:47 CDT by Scott Mackenzie M.D. [email or web address]
[2025-06-10 10:18] LABS: Hematocrit 37.9 % (36-47); Hemoglobin 12.50 g/dL (11.27-16.99); Mean Corpuscular HGB Conc 33.0 g/dL (30-55); Mean Corpuscular Hemoglobin 29.8 pg (27-33); Mean Corpuscular Volume 90.2 fl (85-98); Nucleated Red Blood Cells % 0 %; Platelet Count 354 10^3/cmm (157-399); Red Blood Count 4.20 10^6/uL (3.85-5.65); White Blood Count 8.00 10^3/uL (3.29-11.43)
[2025-06-10] MEDS: hyDRALAzine 20 mg/mL INJ 1 mL 10 MG IVP (10:24)
--- NOTE | 2025-06-10 10:32 | W.ED.SOB ---
HPI - SOB/Dyspnea General: Chief Complaint: Shortness of Breath/Dyspnea Stated Complaint: Sob Time Seen by Provider: 06/10/25 09:58 Source: patient Mode of arrival: ambulatory Limitations: no limitations History of Present Illness: HPI Narrative: 59-year-old female states that over the last 10 days she has had cough congestion along with shortness of breath. She states she has had a dry cough she was seen here 10 days ago states that she had been on doxycycline and had no real relief. She denies any history of CHF or COPD she denies any chest pain denies any fevers Related Data Home Medications ?Medication ?Instructions ?Recorded ?Confirmed chlorthalidone 25 mg tablet 25 mg PO DAILY 10/14/24 05/02/25 estradiol 1 mg tablet 1 mg PO DAILY 10/14/24 05/02/25 levothyroxine 50 mcg tablet 50 mcg PO DAILY 10/14/24 05/02/25 omeprazole 40 mg capsule,delayed 40 mg PO DAILY 10/14/24 05/02/25 release ropinirole 3 mg tablet 3 mg PO QPM 10/14/24 05/02/25 tolterodine 4 mg capsule,extended 4 mg PO DAILY 10/14/24 05/02/25 release 24 hr benzonatate 200 mg capsule 200 mg PO Q8H 10/25/24 05/02/25 baclofen 10 mg tablet 10 mg PO BID 12/05/24 05/02/25 nitrofurantoin 100 mg PO BID 03/01/25 05/02/25 monohydrate/macrocrystals 100 mg capsule (Macrobid) metronidazole 500 mg tablet 500 mg PO BID 04/25/25 05/02/25 mupirocin 2 % topical ointment 1 applic topical TID 04/25/25 05/02/25 (Centany) nystatin 100,000 unit/gram topical 1 applic topical DAILY PRN 04/25/25 05/02/25 cream Previous Rx's ?Medication ?Instructions ?Recorded albuterol sulfate 2.5 mg/3 mL 2.5 mg (3 mL) inhalation Q4H PRN 10/14/24 (0.083 %) solution for nebulization shortness of breath or wheezing #90 mL ondansetron 4 mg disintegrating 4 mg PO Q8H PRN nausea and 10/25/24 tablet vomiting #9 tabs clonazepam 1 mg tablet 1 mg PO BID PRN anxiety/panic 02/22/25 attacks #60 tabs duloxetine 30 mg capsule,delayed 30 mg PO .morning #30 caps 04/25/25 release quetiapine 50 mg tablet 50 mg PO .9 pm #30 tabs 04/25/25 trazodone 150 mg tablet 150 mg PO BEDTIME PRN sleep #30 04/25/25 tabs fluconazole 150 mg tablet 150 mg PO Q3D 2 doses #2 tabs 05/02/25 Allergies Allergy/AdvReac Type Severity Reaction Status Date / Time azithromycin Allergy Unknown ADR-Gastrointestinal Verified 05/02/25 15:05 Upset haloperidol (From Haldol) Allergy ALGY-Anaphy Verified 05/02/25 15:05 laxis latex Allergy ALGY-Redness Verified 05/02/25 15:05 of Skin meperidine (From Demerol) Allergy ADR-Halluci Verified 05/02/25 15:05 nating prednisone Allergy ADR-Anxiety Verified 05/02/25 15:05 dexamethasone AdvReac Severe ADR-Migrain Verified 05/02/25 15:05 e aripiprazole (From Abilify) AdvReac Unknown ADR-Anxiety Verified 05/02/25 15:05 bupropion (From Wellbutrin) AdvReac Unknown ADR-Confusi Verified 05/02/25 15:05 on Review of Systems Resp: Reports: dyspnea and non-productive cough PFSH ED PFSH: Medical History Nonhealing nonsurgical wound with fat layer exposed Major depressive disorder, recurrent severe without psychotic features Generalized anxiety disorder with panic attacks Impingement syndrome of right shoulder Primary osteoarthritis, right shoulder Right rotator cuff tendonitis Urinary incontinence in female Psychiatric care Major depressive disorder, recurrent, in partial remission Surgical History S/P shoulder surgery Date of procedure: October 11, 2024 Pre-op diagnosis: Right shoulder impingement with acromioclavicular joint osteoarthritis with calcific tendinitis Procedure done: Right shoulder open acromioplasty with bursectomy and evaluation of rotator cuff and distal clavicle resection Surgeon: Romi Delvalle MD H/O: hysterectomy Hx of neck surgery Fusion Hx of colonoscopy 10 yrs History of esophagogastroduodenoscopy (EGD) History of [place] urethropexy 24 yrs ago Family History Unknown Cancer She denies a family hx of breast, ovarian, uterine, pancreatic, colon, thyroid cancers. Denies family history of Diabetes Hypertension Stroke Social History Smoking and tobacco/nicotine status: never used tobacco/nicotine Alcohol intake: never Substance/Drug Use: never Physical Exam Const: COMMON NORMALS: no acute distress, patient oriented x3 and healthy appearing HENMT: COMMON NORMALS: normocephalic and atraumatic HEAD & SCALP: normocephalic and atraumatic Neck/C-Spine: COMMON NORMALS: full ROM and supple Chest: COMMONS NORMALS: normal inspection of the chest and normal palpation of entire chest wall Resp: COMMON NORMALS: normal respiratory effort, No retractions, No use of accessory muscles and clear to auscultation bilaterally AUSCULTATION: clear to auscultation bilaterally Cardio: COMMON NORMALS: regular rate, regular rhythm and No murmurs present (Cardio) RATE: regular rate RHYTHM: regular rhythm Extremity: COMMON NORMALS: normal to inspection and full ROM Neuro: COMMON NORMALS: patient oriented x3, moves all extremities and no focal motor deficits Psych: COMMON NORMALS: mental status grossly normal, Normal thought process present and cooperative THOUGHT PROCESS: Normal thought process present Skin: COMMON NORMALS: no rashes or lesions noted and no wounds GENERAL SKIN EXAM: no rashes or lesions noted Course Vital Signs: Vital signs: Vital Signs Temperature 98.4 F 06/10/25 10:01 Pulse Rate 77 06/10/25 11:12 Respiratory Rate 16 06/10/25 10:01 Blood Pressure 150/93 06/10/25 11:12 Pulse Oximetry 97 06/10/25 11:12 Oxygen Delivery Me thod Room Air 06/10/25 11:00 MDM - SOB/Dyspnea Medical Decision Making Patient presents here with cough going on for 10 days along with some dyspnea. Differential includes CHF, pneumonia. Patient's chest x-ray here shows no pneumonia x-ray shows no signs of cardiomegaly or pulmonary edema. She has had no hypoxia here her vitals have been normal did review her labs that showed no acute abnormalities. Chest x-ray here showed no acute findings. EKG showed normal sinus rhythm heart rate [address] elevation QRS 106 QTc 433 patient stable for discharge at this time she is to follow-up PCP and return if worsening. Medical Records I reviewed the patient's medical records. Lab Data I reviewed the patient's lab results. 06/10/25 10:14 06/10/25 10:14 Labs/Radiology: Radiology Impressions Chest X-Ray 06/10/25 09:59 IMPRESSION: 1. No acute cardiopulmonary finding. Laboratory Results WBC 8.00 10^3/uL (3.29-11.43) 06/10/25 10:14 RBC 4.20 10^6/uL (3.85-5.65) 06/10/25 10:14 Hgb 12.50 g/dL (11.27-16.99) 06/10/25 10:14 Hct 37.9 % (36-47) 06/10/25 10:14 MCV 90.2 fl (85-98) 06/10/25 10:14 MCH 29.8 pg (27-33) 06/10/25 10:14 MCHC 33.0 g/dL (30-55) 06/10/25 10:14 RDW 15.1 % (12.1-15.1) 06/10/25 10:14 Plt Count 354 10^3/cmm (157-399) 06/10/25 10:14 MPV 9.8 fL (7.4-10.4) 06/10/25 10:14 Neut % (Auto) 69.8 % 06/10/25 10:14 Lymph % (Auto) 22.1 % 06/10/25 10:14 [place] % (Auto) 6.1 % 06/10/25 10:14 Eos % (Auto) 1.3 % 06/10/25 10:14 Baso % (Auto) 0.3 % 06/10/25 10:14 Neut # (Auto) 5.59 10^3/uL (1.8-7.7) 06/10/25 10:14 Lymph # (Auto) 1.8 10^3/uL (0.8-4.8) 06/10/25 10:14 [place] # (Auto) 0.5 10^3/uL (0.2-0.9) 06/10/25 10:14 Eos # (Auto) 0.1 10^3/uL (0.0-0.8) 06/10/25 10:14 Baso # (Auto) 0.0 10^3/uL (0.0-0.1) 06/10/25 10:14 Nucleated RBC % (auto) 0 % 06/10/25 10:14 Nucleated RBCs # 0.0 /100WBC 06/10/25 10:14 Sodium 138 mmol/L (136-145) 06/10/25 10:14 Potassium 3.9 mmol/L (3.5-5.1) 06/10/25 10:14 Chloride 98 mmol/L (98-107) 06/10/25 10:14 Carbon Dioxide 26 mmol/L (22-29) 06/10/25 10:14 Anion Gap 17.9 (5-19) 06/10/25 10:14 BUN 7 mg/dL (8-23) L 06/10/25 10:14 Creatinine 0.7 mg/dL (0.5-0.9) 06/10/25 10:14 GFR Calculation 85.4 mL/min (90-130) L 06/10/25 10:14 Glucose 107 mg/dL (65-115) 06/10/25 10:14 Calculated Osmolality 284 mOsm/kg (285-295) L 06/10/25 10:14 Calcium 8.7 mg/dL (8.5-10.5) 06/10/25 10:14 Total Bilirubin 0.4 mg/dL (0.15-1.2) 06/10/25 10:14 AST 15 U/L (0-32) 06/10/25 10:14 ALT 12 U/L (0-33) 06/10/25 10:14 Alkaline Phosphatase 87 U/L (35-105) 06/10/25 10:14 NT-Pro-B Natriuret Pep 211 pg/mL (0-125) H 06/10/25 10:14 Total Protein 7.1 g/dL (6.6-8.7) 06/10/25 10:14 Albumin 3.9 g/dL (3.5-5.2) 06/10/25 10:14 Globulin 3.2 g/dL (1.3-4.6) 06/10/25 10:14 All radiology interpretation(s) finalized by discharge EKG Data EKG 1: I personally reviewed and interpreted this EKG as follows: EKG Interpretation Date: 06/10/25 EKG interpretation time: 10:05 Interpretation: nsr hr [address] elevation qrs 106 qtc 433 Discharge Plan Discharge Patient Disposition: Home Clinical Impression: Upper respiratory infection Qualifiers: URI type: unspecified URI Qualified Code(s): J06.9 - Acute upper respiratory infection, unspecified Condition: Stable Prescriptions: No Action nitrofurantoin monohyd/m-cryst [Macrobid] 100 mg capsule 100 mg PO BID Rx Instructions: must administer with a meal/food baclofen 10 mg tablet 10 mg PO BID clonazepam 1 mg tablet 1 mg PO BID PRN (Reason: anxiety/panic attacks) Qty: 60 3RF Rx Instructions: Take one tablet twice per day as needed metronidazole 500 mg tablet 500 mg PO BID nystatin 100,000 unit/gram cream 1 applic topical DAILY PRN mupirocin [Centany] 2 % ointment 1 applic topical TID quetiapine 50 mg tablet 50 mg PO .9 pm Qty: 30 3RF Rx Instructions: Take one tablet at 9 pm trazodone 150 mg tablet 150 mg PO BEDTIME PRN (Reason: sleep) Qty: 30 4RF Rx Instructions: May take one tablet at bedtime as needed for sleep duloxetine 30 mg capsule,delayed release(DR/EC) 30 mg PO .morning Qty: 30 3RF Rx Instructions: Take one capsule every morning tolterodine 4 mg capsule,extended release 24hr 4 mg PO DAILY ropinirole 3 mg tablet 3 mg PO QPM chlorthalidone 25 mg tablet 25 mg PO DAILY omeprazole 40 mg capsule,delayed release(DR/EC) 40 mg PO DAILY estradiol 1 mg tablet 1 mg PO DAILY levothyroxine 50 mcg tablet 50 mcg PO DAILY albuterol sulfate 2.5 mg /3 mL (0.083 %) solution for nebulization 2.5 mg INHALATION Q4H PRN (Reason: shortness of breath or wheezing) Qty: 90 0RF benzonatate 200 mg capsule 200 mg PO Q8H ondansetron 4 mg tablet,disintegrating 4 mg PO Q8H PRN (Reason: nausea and vomiting) Qty: 9 0RF fluconazole 150 mg tablet 150 mg PO Q3D Qty: 2 0RF Rx Instructions: may repeat second dose 72 hrs after first dose if symptoms persist Discharge Orders: Discharge ED (Routine); Ordered 06/10/25 Ordered By: Colten Recinos Referrals: Nadeem Graves MD [Primary Care Provider, [facility] - 4-7 days Discharge Diet: Advance as tolerated Discharge Activity: Resume usual activity Patient Instructions: Upper Respiratory Infection (ED) Print Language: Hebrew Coding Level of Care Code ED Hand Shaper for [place] Ruth
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
--- OUTSIDE RECORDS SUMMARY | 2025-06-10 10:34 | XMS_ITS | Patient Health Record ---
Author Organization [employer] Address [address] [place] [address] Care Team Providers Care Newspaper Peddler Name Role Phone Nadeem Graves MD Primary Care Provider Danielle WEI Corbett Unavailable [phone] Reason For Referral No Information Plan Of Treatment No Information Insurance Providers Payer Name Payer Address Payer Phone Subscriber Number Group Number Insured Name Patient Relationship to Insured Coverage Start Date Coverage End Date [employer] [address] [place], [place] [id number] Noreen Chan Self - patient is the insured
[2025-06-10 10:47] VITALS: BP 187/92; PULSE 85; O2SAT 96
[2025-06-10 10:47] LABS: Alanine Aminotransferase 12 U/L (0-33); Albumin Level 3.9 g/dL (3.5-5.2); Alkaline Phosphatase 87 U/L (35-105); Anion Gap 17.9 (5-19); Aspartate Amino Transferase 15 U/L (0-32); Blood Urea Nitrogen 7 mg/dL (8-23); Calcium 8.7 mg/dL (8.5-10.5); Carbon Dioxide 26 mmol/L (22-29); Chloride 98 mmol/L (98-107); Creatinine Clr Calc Pharmacy 118.9439; Globulin 3.2 g/dL (1.3-4.6); Glucose 107 mg/dL (65-115); NT Pro B Type Natriuretic Pept 211 pg/mL (0-125); Osmolality Calculated 284 mOsm/kg (285-295); Potassium 3.9 mmol/L (3.5-5.1); Sodium 138 mmol/L (136-145); Total Protein 7.1 g/dL (6.6-8.7)
[2025-06-10 11:00] VITALS: BP 152/87; PULSE 77; O2SAT 98
[2025-06-10 11:12] VITALS: BP 150/93; PULSE 77; O2SAT 97
== END 2025-06-10 11:17 | disposition home or self-care (01) ==
PROVIDERS: Emergency Provider Emergency Medicine; PCP Family Medicine
DX: J06.9 Acute upper respiratory infection, unspecified (principal)
CPT/HCPCS: 36415; 71045; 80053; 83880; 85025; 93005; 96374; 96375; 99285; J0360; J1100

== ENCOUNTER → 2025-07-13 10:13 | Outpatient (BNVA) | payer OTHER, SELFPAY | PROVIDERS: PCP Family Medicine; Visit Provider Nurse Practitioner | DX: R39.9 Unspecified symptoms and signs involving the genitourinary system (principal) | CPT/HCPCS: 81000; 87086 ==

== ENCOUNTER 2025-08-05 13:12 | Emergency (ER) | payer OTHER, SELFPAY ==
--- OUTSIDE RECORDS SUMMARY | 2025-06-04 08:40 | XMS_ITS ---
Author Organization [facility] Address [address] [place] [address] Care Team Providers Care Rn Recovery Name Role Phone Nadeem Graves MD Primary Care Provider UnavailAl Sheldon Unavailable [phone] Maribel Loreto Unavailable REASON FOR VISIT Ref by Dr Nadeem Graves Problems Problem Type SNOMED Code ICD Code Onset Dates Problem Status W/U Status Risk Notes Problem Chronic pain syndrome ([id number]) Chronic pain syndrome (G89.4) Active confirmed Encounters Encounter Location Date Provider Diagnosis [facility] [place] [address] [place] [address] 06/04/2025 Loreto López Chronic pain syndrome G89.4 Assessments Encounter Date Diagnosis (ICD Code) Assessment Notes Treatment Notes Treatment Clinical Notes Section Notes 06/04/2025 Chronic pain syndrome (ICD-10 - G89.4) Plan Of Treatment Next Appt Details Provider Name:Al Patel, 08/06/2025 01:30:00 PM, [address], [place], [address], Provider Name:Loreto Jax Vanegas, 09/10/2025 01:20:00 PM, [address] [place], [address], History and Physical Notes * HPI (History [...] ___ Today's Rapid Urine Drug Screen ___ [place] Prescription Monitoring Program ___ SOAPP-R (Screener/Opioid Assessment [...] * Noreen CHANDOB: [birth year] (59 yo F)Acc No.[id number]:06/04/2025 Progress Notes Patient: Noreen Thompson Provider: Marguerite López MD :1965 A ge:59 Y S ex:Female Date:06/04/2025 Address:[address] [place] [address] [place], [id number] Pcp:Nadeem Graves MD Subjective: * Chief Complaints: [...] Today's Rapid Urine Drug Screen _ __. [place] Prescription Monitoring Program _ __. T reatment [...] Electronic signature of Charu López MD on 08/05/2025 at 01:21 PM MERCHANDISE DISPLAYER Sign off status: Pending * Provider: Marguerite López MD Date: 1 Generated for Jimbo torres/Marya/Daniel on: 1 10/06/2024 01:21 PM MERCHANDISE DISPLAYER
--- OUTSIDE RECORDS SUMMARY | 2025-06-18 05:00 | XMS_ITS ---
Author Organization [facility] Address [address] [place] [address] Care Team Providers Care Continuity Director Name Role Phone Star FERREIRA, Nadeem Primary Care Provider Unavaila Al Christine Unavailable [phone] Etta De Leon Unavailable [phone] REASON FOR VISIT Issues with lami, will need imaging Encounters Encounter Location Date Provider Diagnosis [facility] [place] [address] [place] [address] 06/18/2025 Etta De Leon Plan Of Treatment Next Appt Details Provider Name:Al Patel, 08/06/2025 01:30:00 PM, [address], [place], [address], Provider Name:Loreto Charlesmindi Guilherme, 09/10/2025 01:20:00 PM, [address] [place], [address], Progress Notes * Noreen CHANDOB: [birth year] (59 yo F)Acc No.[id number]:06/18/2025 Progress Notes Patient: Santo santiago Noreen Provider: Santo De Leon APRN :1965 A ge:59 Y S ex:Female Date:06/18/2025 Address:[address] [place] [phone] Pcp:Nadeem Graves MD Subjective: * Chief Complaints: * I ssues with lami, will need imaging * Electronic signature of Rafael Taveras APRN on 08/05/2025 at 01:22 PM WIND FARM DESIGNER Sign off status: Pending * Provider: Santo De Leon APRN Date: 08/18/2024 Generated for Jimbo torres/Marya/Daniel on: 10/06/2024 01:22 PM WIND FARM DESIGNER
--- OUTSIDE RECORDS SUMMARY | 2025-07-30 04:30 | XMS_ITS ---
Author Organization [facility] Address [address] [place] [address] Care Team Providers Care Agricultural Engineer Name Role Phone Star FERREIRA, Nadeem Primary Care Provider Al Marcum [phone] REASON FOR VISIT After NCS Encounters Encounter Location Date Provider Diagnosis [facility] [place] [address] 07/30/2025 Al Patel Plan Of Treatment Next Appt Details Provider Name:Al Patel, 08/06/2025 01:30:00 PM, [address], [place], [address], Provider Name:Loreto Camara Tadeo Vanegas, 09/10/2025 01:20:00 PM, [address] [place], [address], Progress Notes * Noreen CHANDOB: [birth year] (59 yo F)Acc No.[id number]:07/30/2025 Progress Notes Patient: Noreen Thompson Provider: Brittni Patel MD :1965 A ge:59 Y S ex:Female Date:07/30/2025 Address:[address] [place], [place] [phone] Pcp:Nadeem Graves MD Subjective: * Chief Complaints: * A fter NCS Billing Information: * Procedure Codes: Care Plan Details* * Electronic signature of Jose Patel MD on 08/05/2025 at 01:21 PM CENTRAL OFFICE TECHNICIAN Sign off status: Pending * Provider: Brittni Patel MD Date: 1 09/30/2024 Generated for Jimbo torres/Marya/Daniel on: 10/06/2024 01:21 PM CENTRAL OFFICE TECHNICIAN
[2025-08-05] VITALS (7 sets, daily range): BP systolic 131–160; BP diastolic 83–111; PULSE 76–83; RESP 18; TEMP 36.5; O2SAT 90–97
--- NOTE | 2025-08-05 13:14 | XR_ITS ---
WS: [id number] Portable AP upright chest, 08/05/2025 Clinical Data: dyspnea/cough Comparison: Portable chest, 06/10/2025 Findings: No nodules, masses or effusions are seen. The heart is normal. The pulmonary vascularity is not increased. No pneumonia or pneumothorax is seen. There is an anterior cervical disc fusion. XR/XR chest 1V portable [id number] Impression: Negative chest.
--- NOTE | 2025-08-05 13:21 | ECG_ITS ---
[facility] Test Date: 2025-08-05 Pat Name: Noreen Chan Department: Room: Gender: Female Engineer Technician: : 1965 Requested By: Lui Elkins Order Number: [id number] Reading MD: JACKSON RIBEIRO Measurements Intervals [place] Rate: 79 P: 28 WA: 171 QRS: 17 QRSD: 92 T: -61 QT: 391 QTc: 450 Interpretive Statements SINUS RHYTHM POSSIBLE ANTERIOR MYOCARDIAL INFARCTION , OF INDETERMINATE AGE [30 ms Q WAVE IN V3/V4, OR R < 0.2 mV IN V4] Compared to ECG 06/10/2025 10:05:12 Myocardial infarct finding now present T-wave abnormality no longer present Electronically Signed On 08-06-2025 11:56:58 GIS PROFESSOR by JACKSON RIBEIRO [email or web address]
--- OUTSIDE RECORDS SUMMARY | 2025-08-05 13:21 | XMS_ITS | Patient Health Record ---
Author Organization [facility] Address [address] [place] [address] Care Team Providers Care Editor & Co Founder Name Role Phone Nadeem Graves MD Primary Care Provider Unavaila Al Christine Unavailable [phone] Etta De Leon Unavailable [phone] Héctor Gregory Unavailable [phone] Loreto López Unavailable Allergies Allergen (clinical drug ingredient) Drug/Non Drug Allergy documented on EMR Reaction Allergy Type Onset Date Status meperidine Demerol Unknown Drug Allergy Active haloperidol Haldol Decanoate Unknown Drug Allergy Active azithromycin Azithromycin Unknown Drug Allergy A ctive dexamethasone DexAMETHasone Unknown Drug Allergy Active prednisone predniSONE Unknown Drug Allergy Activ e Results Component Value Reference Range Notes Cervical Spine AP/Lat 2-3 Vi [id number] (Not yet reviewed by provider) Interpretation: Performing Lab: Notes/Report: See Below For Report Cervical Spine AP/Lat 2-3 Views Diagnosis Description: Cervicalgia Read See Below For Report Schedule Confirmation Reviewed date:07/15/2025 11:17:55 AM Interpretation: Performing Lab: Notes/Report: Schedule Confirmation Reviewed date:07/30/2025 02:48:55 PM Interpretation: Performing Lab: Notes/Report: Schedule Confirmation (Not y et reviewed by provider) Interpretation: Performing Lab: Notes/Report: MRI Cervical Spine w/o Cont Schedule Confirmation (Not y et reviewed by provider) Interpretation: Performing Lab: Notes/Report: MRI Cervical Spine w/o Cont IMH MRI Cervical Spine w/o C [id number] (Not yet reviewed by provider) Interpretation: Performing Lab: Notes/Report: See Below For Report MRI Cervical Spine w/o Cont Diagnosis Description: Cervicalgia Read See Below For Report MRI Cervical Spine w/o Cont- [id number] (Not yet reviewed by provider) Interpretation: Performing Lab: Notes/Report: [id number]=iSite Cervical Spine AP/Lat 2-3 Vi [id number] (Not yet reviewed by provider) Interpretation: Performing Lab: Notes/Report: [id number] Reason For Referral Reason Eval and Treat Diagnosis 1 Chronic pain (G89.29 ) Referring Provider First Name Nadeem Referring Provider Last Name Star Referring Provider Speciality Family Med brockne Referred Organization [facility] Referred Provider Marguerite López Referred Address [address] [facility],[address], Referred Provider Specialty Pain Medicin e Referral Priority Routine Reason NCV/EMG BUE Diagnosis 1 Cervical radiculopat hy (M54.12) Diagnosis 2 Anesthesia of skin ( R20.0) Diagnosis 3 Paresthesia of skin (R20.2) Diagnosis 4 Cervical spinal sten osis (M48.02) Diagnosis 5 Degeneration of inte rvertebral disc of cervical region (M50.30) Referral Organization [facility] [place] Referring Provider First Name Al Referring Provider Last Name Jorge Referring Provider Speciality Neurosurge ry Referred Provider [facility], Physi [facility] (Main) Referred Provider Specialty Physical The rapist Referral Priority Routine Medications Medication SIG (Take, Route, Frequency, Duration) Notes Start Date End Date Status Benzonatate 200 MG Capsule Oral; Duration: 10 Days Active Albuterol Sulfate HFA 108 (90 Base) MCG/ACT Aerosol Solution Inhalation; Duration: 17 Days Active clonazePAM 1 MG Tablet Oral; Duration: 30 Days Active Estradiol 1 MG Tablet Oral; Duration: 30 Days Active DULoxetine HCl 30 MG Capsule Delayed Release Particles Oral; Duration: 30 Days Active Levothyroxine Sodium 50 MCG Tablet Oral; Duration: 30 Days Acti ve Furosemide 20 MG Tablet Oral; Duration: 5 Days Active Mupirocin 2 % Ointment External; Duratio n: 10 Days Active Montelukast Sodium 10 MG Tablet Oral; Duration: 30 Days Acti ve Omeprazole 40 MG Capsule Delayed Release Oral; Duration: 30 Days A ctive Social History Tobacco Use: Social History Observation [...] Status Risk Notes Problem Chronic pain syndrome (025144538) Chronic pain syndrome (G89.4) Active confirmed Problem Paresthesia (finding) (42795356) Paresthesia of skin (R20.2) Active confirmed Problem Cervical radiculopathy (85106774) Cervical radiculopathy (M54.12) Active confirmed Problem Neck pain (98230915) Cervical pain (neck) (M54.2) Active confirmed Problem Chronic pain (75073009) Chronic pain (G89.29) Active confirmed Problem Cervical spinal stenosis (10191346) Cervical spinal stenosis (M48.02) Active confirmed Problem Degeneration of cervical intervertebral disc (28435781) Degeneration of intervertebral disc of cervical region (M50.30) Active confirmed Vital Signs Heart Rate 88 /min 07/09/2025 Temperature 97.9 degrees Fahrenheit 07/09/2025 Respiratory Rate 18 /min 07/09/2025 Height-cm 162.56 cm 07/09/2025 Oximetry 94 % 07/09/2025 Blood pressure diastolic 75 mm Hg 07/09/2025 Weight-kg 138.35 kg 07/09/2025 Height 64 in 07/09/2025 Blood pressure systolic 126 mm Hg 07/09/2025 Weight 305 lbs 07/09/2025 BMI 52.35 kg/m2 07/09/2025 Encounters Encounter Location Date Provider Diagnosis [facility] [place] [address] [place] [address] 07/09/2025 Al Patel Cervical radiculopat hy M54.12 ; Degeneration of intervertebral disc of cervical region M50.30 ; Cervical spinal stenosis M48.02 ; Anesthesia of skin R20.0 and Paresthesia of skin R20.2 [facility] [place] [address] [place] [address] 06/05/2025 Héctor Gregory Cervical pain (neck) M54.2 and Paraspinal muscle spasm M62.830 [facility] [place] [address] [place] [address] 06/05/2025 Héctor Gregory Assessments Encounter Date Diagnosis [...] 06/05/2025 Paraspinal muscle spasm (ICD-10 - M62.830) 07/09/2025 Cervical radiculopathy (ICD-10 - M54.12) Imaging, symptoms and clinical findings were reviewed. MRI C spine reveals C2-3 bony spurring. C3-4 bony spurring, bilateral neural foraminal narrowing left greater than right. C4-5 bony spurring, disc disease, severe central canal stenosis, neural foraminal stenosis left greater than right. C6-7 foraminal narrowing. She has neck pain that radiates through bilateral shoulders to bilateral upper extremities. She has numbness and tingling in bilateral upper extremities. On X-ray I can see a heterotopic bone behind the ACDF at C5-6. I suspect her symptoms are coming from C4-5. I will order nerve study for proper assessment and plan of treatment. Questions were asked and answered to the patient's satisfaction. She will follow up after study. ROS reviewed I Doris Santiago RN am scribing for, and in the presence of Al Patel MD. I, Al Patel, personally performed the services described in this documentation, as scribed by Doris Santiago RN in my presence, and it is both accurate and complete. 07/09/2025 Degeneration of intervertebral disc of cervical region (ICD-10 - M50.30) 07/09/2025 Cervical spinal stenosis (ICD-10 - M48.02) 07/09/2025 Anesthesia of skin (ICD-10 - R20.0) 07/09/2025 Paresthesia of skin (ICD-10 - R20.2) Plan Of Treatment Pending Test Test Name Order Date Cervical Spine AP/Lat 2-3 Views-[id number] Cervical Spine AP/Lat 2-3 Views-12822 MRI Cervical Spine w/o Cont-[id number] 2024 Schedule Confirmation 07/09/2025 Schedule Confirmation 07/09/2025 [facility] MRI Cervical Spine w/o Cont-[id number] Next Appt Details Provider Name:Al Patel, 08/06/2025 01:30:00 PM, [address], [place], [address], Provider Name:Loreto Piedra Guilherme, 09/10/2025 01:20:00 PM, [address] [place], [address], Insurance Providers Payer Name Payer Address Payer Phone Subscriber Number Group Number Insured Name Patient Relationship to Insured Coverage Start Date Coverage End Date Alma [address] [place] [address] [id number] Beverage , Noreen Self - patient is the insured Medical (General) History Medical History History ICD Code Chicken Pox High Blood Pressure asthma bronchitis Thyroid Disorder GERD Arthritis Anxiety Depression Surgical History Surgery Date(Month/Year) hysterectomy laminectomy bladder surgery gall bladder removal shoulder ankle Hospitalization History Reason Date(Month/Year) see surgeries
--- OUTSIDE RECORDS SUMMARY | 2025-08-05 13:22 | XMS_ITS | Patient Health Record ---
Author Organization [facility] Address [address] [place] [address] Care Team Providers Care Bottler Helper Name Role Phone Nadeem Graves MD Primary Care Provider Danielle WEI Corbett Unavailable [phone] Reason For Referral No Information Plan Of Treatment No Information Insurance Providers Payer Name Payer Address Payer Phone Subscriber Number Group Number Insured Name Patient Relationship to Insured Coverage Start Date Coverage End Date Alma [address] [place], [place] [phone] [id number] Noreen Chan Self - patient is the insured
--- NOTE | 2025-08-05 13:34 | W.ED.SOB ---
HPI - SOB/Dyspnea General: Chief Complaint: Shortness of Breath/Dyspnea Stated Complaint: sob, low O2 Time Seen by Provider: 08/05/25 13:34 History of Present Illness: HPI Narrative: 59-year-old female presents emergency room complaining shortness of breath for last 3 days. Was seen yesterday in urgent care and diagnosed with pneumonia started on Rocephin. She feels more short of breath today. She reports having checked her oxygen saturations at home and they were low. On arrival here she is 97% on room air. Mildly productive cough no vomiting or diarrhea Associated symptoms: Deny abdominal pain, chest pain or fever(s) Related Data Home Medications ?Medication ?Instructions ?Recorded ?Confirmed chlorthalidone 25 mg tablet 25 mg PO DAILY 10/14/24 08/04/25 estradiol 1 mg tablet 1 mg PO DAILY 10/14/24 08/04/25 levothyroxine 50 mcg tablet 50 mcg PO DAILY 10/14/24 08/04/25 omeprazole 40 mg capsule,delayed 40 mg PO DAILY 10/14/24 08/04/25 release tolterodine 4 mg capsule,extended 4 mg PO DAILY 10/14/24 08/04/25 release 24 hr benzonatate 200 mg capsule 200 mg PO Q8H 10/25/24 08/04/25 baclofen 10 mg tablet 10 mg PO BID 12/05/24 08/04/25 metronidazole 500 mg tablet 500 mg PO BID 04/25/25 08/04/25 mupirocin 2 % topical ointment 1 applic topical TID 04/25/25 08/04/25 (Centany) nystatin 100,000 unit/gram topical 1 applic topical DAILY PRN 04/25/25 08/04/25 cream Previous Rx's ?Medication ?Instructions ?Recorded ondansetron 4 mg disintegrating 4 mg PO Q8H PRN nausea and 10/25/24 tablet vomiting #9 tabs clonazepam 1 mg tablet 1 mg PO BID PRN anxiety/panic 02/22/25 attacks #60 tabs duloxetine 30 mg capsule,delayed 30 mg PO .morning #30 caps 04/25/25 release quetiapine 50 mg tablet 50 mg PO .9 pm #30 tabs 04/25/25 trazodone 150 mg tablet 150 mg PO BEDTIME PRN sleep #30 04/25/25 tabs albuterol sulfate 2.5 mg/3 mL 2.5 mg (3 mL) inhalation Q4H PRN 08/04/25 (0.083 %) solution for nebulization shortness of breath or wheezing #90 mL cefdinir 300 mg capsule 300 mg PO BID 10 days #20 caps 08/04/25 prednisone 20 mg tablet 40 mg (2 x 20 mg) PO DAILY 5 days 08/04/25 #10 tabs Allergies Allergy/AdvReac Type Severity Reaction Status Date / Time azithromycin Allergy Unknown ADR-Gastrointestinal Verified 08/04/25 13:42 Upset haloperidol (From Haldol) Allergy ALGY-Anaphy Verified 08/04/25 13:42 laxis latex Allergy ALGY-Redness Verified 08/04/25 13:42 of Skin meperidine (From Demerol) Allergy ADR-Halluci Verified 08/04/25 13:42 nating prednisone Allergy ADR-Anxiety Verified 08/04/25 13:42 dexamethasone AdvReac Severe ADR-Migrain Verified 08/04/25 13:42 e aripiprazole (From Abilify) AdvReac Unknown ADR-Anxiety Verified 08/04/25 13:42 bupropion (From Wellbutrin) AdvReac Unknown ADR-Confusi Verified 08/04/25 13:42 on Review of Systems Const: Denies: fever(s) or chills Card: Denies: chest pain Resp: Reports: dyspnea GI: Denies: abdominal pain : Denies: dysuria, urinary frequency or urinary urgency Musc: Denies: neck pain or back pain Skin/Breast: Denies: rash PFSH ED PFSH: Medical History Nonhealing nonsurgical wound with fat layer exposed Major depressive disorder, recurrent severe without psychotic features Generalized anxiety disorder with panic attacks Impingement syndrome of right shoulder Primary osteoarthritis, right shoulder Right rotator cuff tendonitis Urinary incontinence in female Psychiatric care Major depressive disorder, recurrent, in partial remission Surgical History S/P shoulder surgery Date of procedure: October 11, 2024 Pre-op diagnosis: Right shoulder impingement with acromioclavicular joint osteoarthritis with calcific tendinitis Procedure done: Right shoulder open acromioplasty with bursectomy and evaluation of rotator cuff and distal clavicle resection Surgeon: Romi Delvalle MD H/O: hysterectomy Hx of neck surgery Fusion Hx of colonoscopy 10 yrs History of esophagogastroduodenoscopy (EGD) History of [place] urethropexy 24 yrs ago Family History Unknown Cancer She denies a family hx of breast, ovarian, uterine, pancreatic, colon, thyroid cancers. Denies family history of Diabetes Hypertension Stroke Social History Smoking and tobacco/nicotine status: never used tobacco/nicotine Alcohol intake: never Substance/Drug Use: never Physical Exam Const: COMMON NORMALS: no acute distress GENERAL APPEARANCE: cooperative and comfortable ORIENTATION/CONSCIOUSNESS: Yes awake, Yes oriented to person, Yes oriented to place and Yes oriented to time HENMT: COMMON NORMALS: normocephalic, atraumatic and hearing grossly normal bilaterally HEAD & SCALP: normocephalic and atraumatic Resp: COMMON NORMALS: normal respiratory effort, No retractions, No use of accessory muscles and clear to auscultation bilaterally AUSCULTATION: clear to auscultation bilaterally Cardio: COMMON NORMALS: regular rate, regular rhythm and No murmurs present (Cardio) RATE: regular rate RHYTHM: regular rhythm GI: COMMON NORMALS: Soft to palpation and No hepatosplenomegaly present AUSCULTATION: Yes normoactive bowel sounds PALPATION: Yes Soft to palpation, No Tenderness to palpation present (GI), No Guarding due to palpation present (GI) and Yes No hepatosplenomegaly present Extremity: COMMON NORMALS: normal to inspection, capillary refill normal, no clubbing, cyanosis or edema, no calf tenderness and no pedal edema Neuro: SENSORIUM/ORIENTATION: Yes oriented to person, Yes oriented to place and Yes oriented to time Skin: COMMON NORMALS: no rashes or lesions noted GENERAL SKIN EXAM: no rashes or lesions noted Course Vital Signs: Vital signs: Vital Signs Temperature 97.7 F 08/05/25 13:25 Pulse Rate 83 08/05/25 15:39 Respiratory Rate 18 08/05/25 13:25 Blood Pressure 152/83 08/05/25 15:39 Pulse Oximetry 93 08/05/25 15:39 Oxygen Delivery Me thod Room Air 08/05/25 15:30 MDM - SOB/Dyspnea Medical Decision Making Medical decision making Social determinants: None I reviewed the patient's medical record. I reviewed the patient's current home meds. Alternate historians: None Differential diagnosis: Pneumonia pneumothorax COPD exacerbation congestive heart failure Lab Review: White count is normal no elevation. ABG shows well compensated chronic hypercapnia with CO2 and pO2 both in the 50s. Flu COVID and RSV are negative. Imaging: Chest x-ray no infiltrates or effusions no increased vascular markings. Assessment of risk Level of risk: Moderate Hospitalization considerations: Vital signs stable no indication for hospitalization Reexamination: Lungs remain clear no respiratory distress Assessment and plan: Had difficult time tracking her sats on the oxygen monitor. When she does have a good waveform her sats are in the mid to upper 90s. Blood gas shows chronic hypercapnia with a well compensated pH with a pCO2 and PaO2 both in the low 50s. Chest x-ray was clear. She was given cefdinir and steroids yesterday recommend taking both of those. Continue to use the albuterol as needed follow-up with her primary care return if she has further problems. Reviewed findings with the patient. Lab Data 08/05/25 13:40 08/05/25 13:40 Labs/Radiology: Radiology Impressions Chest X-Ray 08/05/25 13:14 Impression: Negative chest. Laboratory Results WBC 7.31 10^3/uL (3.29-11.43) 08/05/25 13:40 RBC 3.82 10^6/uL (3.85-5.65) L 08/05/25 13:40 Hgb 11.10 g/dL (11.27-16.99) L 08/05/25 13:40 Hct 35.2 % (36-47) L 08/05/25 13:40 MCV 92.1 fl (85-98) 08/05/25 13:40 MCH 29.1 pg (27-33) 08/05/25 13:40 MCHC 31.5 g/dL (30-55) 08/05/25 13:40 RDW 14.5 % (12.1-15.1) 08/05/25 13:40 Plt Count 325 10^3/cmm (157-399) 08/05/25 13:40 MPV 10.1 fL (7.4-10.4) 08/05/25 13:40 Neut % (Auto) 68.4 % 08/05/25 13:40 Lymph % (Auto) 21.8 % 08/05/25 13:40 [place] % (Auto) 7.9 % 08/05/25 13:40 Eos % (Auto) 1.2 % 08/05/25 13:40 Baso % (Auto) 0.4 % 08/05/25 13:40 Neut # (Auto) 5.00 10^3/uL (1.8-7.7) 08/05/25 13:40 Lymph # (Auto) 1.6 10^3/uL (0.8-4.8) 08/05/25 13:40 [place] # (Auto) 0.6 10^3/uL (0.2-0.9) 08/05/25 13:40 Eos # (Auto) 0.1 10^3/uL (0.0-0.8) 08/05/25 13:40 Baso # (Auto) 0.0 10^3/uL (0.0-0.1) 08/05/25 13:40 Nucleated RBC % (auto) 0 % 08/05/25 13:40 Nucleated RBCs # 0.0 /100WBC 08/05/25 13:40 Specimen Type Arterial 08/05/25 14:50 Sample Site Radial, right 08/05/25 14:50 ABG pH 7.41 (7.35-7.45) 08/05/25 14:50 ABG pCO2 51.3 mmHg (35-45) H 08/05/25 14:50 ABG pO2 52.5 mmHg (80.0-100.0) L 08/05/25 14:50 ABG PO2/FiO2 Ratio 250 08/05/25 14:50 ABG HCO3 32.4 mmol/L (22-26) H 08/05/25 14:50 ABG O2 Saturation 86.3 08/05/25 14:50 ABG Base Excess 6.5 mmol/L (-2.0-2.0) H 08/05/25 14:50 Marlon Test Pos 08/05/25 14:50 A-a O2 Gradient 4.6 mmHg (5-10) L 08/05/25 14:50 Hematocrit 36.5 % (37-47) L 08/05/25 14:50 Hgb O2 Saturation 84.9 % (95-100) L 08/05/25 14:50 Carboxyhemoglobin 1.2 %THgb (0.4-20.1) 08/05/25 14:50 Methemoglobin 0.4 % (0.4-1.5) 08/05/25 14:50 Total Hemoglobin 11.9 g/dL (12-16) L 08/05/25 14:50 Sodium 140.0 mmol/L (131-143) 08/05/25 14:50 Potassium 3.5 mmol/L (3.5-5.0) 08/05/25 14:50 Glucose 107.0 mg/dL (70-115) 08/05/25 14:50 Ionized Calcium 1.0 mmol/L (1.1-1.4) L 08/05/25 14:50 O2 Delivery Device Room air 08/05/25 14:50 FiO2 21.0 % 08/05/25 14:50 Welfare Supervisor ID glc 08/05/25 14:50 Sodium 138 mmol/L (136-145) 08/05/25 13:40 Potassium 3.6 mmol/L (3.5-5.1) 08/05/25 13:40 Chloride 97 mmol/L (98-107) L 08/05/25 13:40 Carbon Dioxide 29 mmol/L (22-29) 08/05/25 13:40 Anion Gap 15.6 (5-19) 08/05/25 13:40 BUN 7 mg/dL (8-23) L 08/05/25 13:40 Creatinine 0.9 mg/dL (0.5-0.9) 08/05/25 13:40 GFR Calculation 63.9 mL/min (90-130) L 08/05/25 13:40 Glucose 114 mg/dL (65-115) 08/05/25 13:40 Calculated Osmolality 285 mOsm/kg (285-295) 08/05/25 13:40 Calcium 8.0 mg/dL (8.5-10.5) L 08/05/25 13:40 Total Bilirubin 0.3 mg/dL (0.15-1.2) 08/05/25 13:40 AST 22 U/L (0-32) 08/05/25 13:40 ALT 17 U/L (0-33) 08/05/25 13:40 Alkaline Phosphatase 84 U/L (35-105) 08/05/25 13:40 Total Protein 6.4 g/dL (6.6-8.7) L 08/05/25 13:40 Albumin 3.5 g/dL (3.5-5.2) 08/05/25 13:40 Globulin 2.9 g/dL (1.3-4.6) 08/05/25 13:40 Urine Color Yellow (Yellow) 08/05/25 13:49 Urine Appearance Clear (CLEAR) 08/05/25 13:49 Urine pH 6.5 (5-7) 08/05/25 13:49 Ur Specific [place] 1.008 (1.005-1.030) 08/05/25 13:49 Urine Protein Negative (Negative) 08/05/25 13:49 Urine Glucose (UA) Negative (Normal) 08/05/25 13:49 Urine Ketones Negative (Negative) 08/05/25 13:49 Urine Blood Negative (Negative) 08/05/25 13:49 Urine Nitrate Negative (Negative) 08/05/25 13:49 Urine Bilirubin Negative (Negative) 08/05/25 13:49 Urine Urobilinogen 0.2 mg/dL (Negative) 08/05/25 13:49 Ur Leukocyte Esterase Trace (Negative) A 08/05/25 13:49 Urine RBC 0-2 /hpf (0-2) 08/05/25 13:49 Urine WBC 0-5 /hpf (0-5) 08/05/25 13:49 Ur Squamous Epith Cells 0-5 /hpf (0-5) 08/05/25 13:49 Amorphous Sediment Not Reportable 08/05/25 13:49 Urine Bacteria None seen /hpf (NONE) 08/05/25 13:49 Hyaline Casts 0-4 /lpf H 08/05/25 13:49 Influenza A (PCR) Negative (Negative) 08/05/25 13:30 Influenza Type B (PCR) Negative (Negative) 08/05/25 13:30 RSV (PCR) Negative (Negative) 08/05/25 13:30 SARS-CoV-2 (PCR) Negative (Negative) 08/05/25 13:30 All radiology interpretation(s) finalized by discharge Discharge Plan Discharge Patient Disposition: Home Clinical Impression: Acute exacerbation of chronic obstructive pulmonary disease Condition: Stable Prescriptions: No Action baclofen 10 mg tablet 10 mg PO BID clonazepam 1 mg tablet 1 mg PO BID PRN (Reason: anxiety/panic attacks) Qty: 60 3RF Rx Instructions: Take one tablet twice per day as needed metronidazole 500 mg tablet 500 mg PO BID nystatin 100,000 unit/gram cream 1 applic topical DAILY PRN mupirocin [Centany] 2 % ointment 1 applic topical TID quetiapine 50 mg tablet 50 mg PO .9 pm Qty: 30 3RF Rx Instructions: Take one tablet at 9 pm trazodone 150 mg tablet 150 mg PO BEDTIME PRN (Reason: sleep) Qty: 30 4RF Rx Instructions: May take one tablet at bedtime as needed for sleep duloxetine 30 mg capsule,delayed release(DR/EC) 30 mg PO .morning Qty: 30 3RF Rx Instructions: Take one capsule every morning albuterol sulfate 2.5 mg /3 mL (0.083 %) solution for nebulization 2.5 mg INHALATION Q4H PRN (Reason: shortness of breath or wheezing) Qty: 90 0RF cefdinir 300 mg capsule 300 mg PO BID 10 Days Qty: 20 0RF prednisone 20 mg tablet 40 mg PO DAILY 5 Days Qty: 10 0RF tolterodine 4 mg capsule,extended release 24hr 4 mg PO DAILY chlorthalidone 25 mg tablet 25 mg PO DAILY omeprazole 40 mg capsule,delayed release(DR/EC) 40 mg PO DAILY estradiol 1 mg tablet 1 mg PO DAILY levothyroxine 50 mcg tablet 50 mcg PO DAILY benzonatate 200 mg capsule 200 mg PO Q8H ondansetron 4 mg tablet,disintegrating 4 mg PO Q8H PRN (Reason: nausea and vomiting) Qty: 9 0RF Discharge Orders: Discharge ED (Routine); Ordered 08/05/25 Ordered By: Lui Guerrier Referrals: Nadeem Graves MD [Primary Care Provider, Family Practice] Discharge Diet: Usual diet Discharge Activity: Increase activity as tolerated Patient Instructions: Opioid Safety, Pain Management, Patient Portal & Augustus Instructions Activity Restrictions/Additional Instructions: Thank you for choosing [facility] for your healthcare needs today. It is very important that you follow up as instructed or that you return to the Emergency Department should you have concerns or if your condition changes or worsens in any way. Emergency department visits are focused on emergent conditions, in some cases you may require further evaluation on an outpatient basis. You are seen in the emergency room with complaints shortness of breath. Your oxygen saturation frequently did not track well but when was tracking well your oxygen saturations in the upper 90s. Your chest x-ray did not show any acute abnormality your white count was normal flu COVID and RSV are negative. Suspect your symptoms may be due to your underlying COPD reviewed the notes from urgent care recommend you take the prednisone and cefdinir they prescribed yesterday as well as the albuterol. Follow-up with primary care doctor. (Please note that included in your discharge packet is information concerning opioid safety and pain management. This information is given to all patients were discharged from the ER regardless of their discharge diagnosis or the medicines they usually take or are prescribed.) Print Language: Thai Coding Level of Care Code ED Shipfitter Apprentice for [place] Ruth
[2025-08-05 13:47] LABS: Hematocrit 35.2 % (36-47); Hemoglobin 11.10 g/dL (11.27-16.99); Mean Corpuscular HGB Conc 31.5 g/dL (30-55); Mean Corpuscular Hemoglobin 29.1 pg (27-33); Mean Corpuscular Volume 92.1 fl (85-98); Nucleated Red Blood Cells % 0 %; Platelet Count 325 10^3/cmm (157-399); Red Blood Count 3.82 10^6/uL (3.85-5.65); White Blood Count 7.31 10^3/uL (3.29-11.43)
[2025-08-05 14:05] LABS: Alanine Aminotransferase 17 U/L (0-33); Albumin Level 3.5 g/dL (3.5-5.2); Alkaline Phosphatase 84 U/L (35-105); Anion Gap 15.6 (5-19); Aspartate Amino Transferase 22 U/L (0-32); Blood Urea Nitrogen 7 mg/dL (8-23); Calcium 8.0 mg/dL (8.5-10.5); Carbon Dioxide 29 mmol/L (22-29); Chloride 97 mmol/L (98-107); Globulin 2.9 g/dL (1.3-4.6); Glucose 114 mg/dL (65-115); Osmolality Calculated 285 mOsm/kg (285-295); Potassium 3.6 mmol/L (3.5-5.1); Sodium 138 mmol/L (136-145); Total Protein 6.4 g/dL (6.6-8.7)
[2025-08-05 14:23] LABS: Respiratory Syncytial Virus Ce NEGATIVE (Negative); SARS-CoV-2 PCR NEGATIVE (Negative)
[2025-08-05 14:24] LABS: Glucose Urine UA Negative (Normal); Nitrate Urine Negative (Negative); Specific Gravity, Urine 1.008 (1.005-1.030)
[2025-08-05 14:30] LABS: Add Urine Microscopic? YES
[2025-08-05 15:02] LABS: ABG PCO2 51.3 mmHg (35-45); ABG PH Result 7.41 (7.35-7.45); Alveolar-Arterial Oxygen Gradi 4.6 mmHg (5-10); Arterial Blood Gas Hematocrit 36.5 % (37-47); Blood Gas Allen Test Pos; Blood Gas Operator Identificat glc; Blood Gas Sample Site Radial, right; Blood Gas Sample Type Arterial; Carboxyhemoglobin 1.2 %THgb (0.4-20.1); Glucose Level-ABG 107.0 mg/dL (70-115); HCO3 ABG 32.4 mmol/L (22-26); Ionized Calcium Level - ABG 1.0 mmol/L (1.1-1.4); Methemoglobin 0.4 % (0.4-1.5); Oxygen Saturation ABG 86.3; PO2 ABG 52.5 mmHg (80.0-100.0); PO2 FiO2 Ratio Arterial Blood 250; Potassium Level - ABG 3.5 mmol/L (3.5-5.0); Sodium Level - ABG 140.0 mmol/L (131-143)
== END 2025-08-05 15:39 | disposition home or self-care (01) ==
PROVIDERS: Emergency Provider Family Medicine; PCP Family Medicine
DX: J44.1 Chronic obstructive pulmonary disease with (acute) exacerbation (principal); Z11.52 Encounter for screening for COVID-19
CPT/HCPCS: 36415; 36600; 71045; 80051; 80053; 81001; 82330; 82805; 85025; 87637; 93005; 99285

== ENCOUNTER 2025-08-06 17:40 | Emergency (ER) | payer OTHER, SELFPAY ==
--- OUTSIDE RECORDS SUMMARY | 2025-06-04 08:40 | XMS_ITS ---
Author Organization [facility] Address [address] [place] [address] Care Team Providers Care Stone Planer Name Role Phone Nadeem Graves MD Primary Care Provider UnavailAl Sheldon Unavailable [phone] Maribel Loreto Unavailable REASON FOR VISIT Ref by Dr Nadeem Graves Problems Problem Type SNOMED Code ICD Code Onset Dates Problem Status W/U Status Risk Notes Problem Chronic pain syndrome (771812111) Chronic pain syndrome (G89.4) Active confirmed Encounters Encounter Location Date Provider Diagnosis [facility] [place] [address] [place] [address] 06/04/2025 Loreto López Chronic pain syndrome G89.4 Assessments Encounter Date Diagnosis (ICD Code) Assessment Notes Treatment Notes Treatment Clinical Notes Section Notes 06/04/2025 Chronic pain syndrome (ICD-10 - G89.4) Plan Of Treatment Next Appt Details Provider Name:Al Patel, 08/13/2025 11:30:00 AM, [address], [place], [address], Provider Name:Loreto Jax Vanegas, 09/10/2025 01:20:00 PM, [address] [place], [address], History and Physical Notes * HPI (History of Present Illness) Category Sub-Category Detail Notes Category Not es Pain Details Pain Location ___ Duration ___ Onset ___ Frequency of Pain ___ Quality ___ Radiation ___ Severity of pain at its worst ___ Severity of pain at its best ___ Severity of average pain ___ Severity of pain right now ___ Worsening factors ___ Relieving factors ___ Associated symptoms ___ Severity of pain on medication ___ When did you last take your pain medicin e ___ Opioid Assessment Tools Pill Count ___ Today's Rapid Urine Drug Screen ___ [place] Prescription Monitoring Program ___ SOAPP-R (Screener/Opioid Assessment for Patient) ___ Today's SOAPP-R Score ___ Treatment History Caregivers you have visited ___ Test undergone in the past ___ Past medication you have taken ___ Treatments you have had ___ Were prior treatments of any help? ___ When was prior treatment started? ___ STOP-BANG Questionnaire Do you snore newton dly (louder than talking or loud enough to be heard through closed doors)? ___ Do you often feel tired, fatigued, or sl eepy during the day? ___ Has anyone observed you stop breathing d uring your sleep ___ Do you have or are you being treated for high blood pressure? ___ BMI greater than 35 kg/m2? ___ Age over 50 years old? ___ Gender: Male ___ Neck circumference is measured greater t irene 40cm? ___ Score ___ Oxygen ___ CPAP ___ Progress Notes * Noreen CHANDOB: [birth year] (59 yo F)Acc No.[id number]:06/04/2025 Progress Notes Patient: Noreen Thompson Provider: Marguerite López MD :1965 A ge:59 Y S ex:Female Date:06/04/2025 Address:[address] [place] [address] [place], [id number] Pcp:Nadeem Graves MD Subjective: * Chief Complaints: * R ef by Dr Nadeem Graves * HPI: Tona bragg Details: Pain Location _ __. Duration _ __. Onset _ __. Frequency of Pain _ __. Quality _ __. Radiation _ __. Severity of pain at its worst _ __. Severity of pain at its best _ __. Severity of pain on medication _ __. Severity of average pain _ __. Severity of pain right now _ __. Worsening factors _ __. Relieving factors _ __. Associated symptoms _ __. When did you last take your pain medicine _ __. O pioid Assessment Tools: SOAPP-R (Screener/Opioid Assessment for Patient) _ __. Today's SOAPP-R Score _ __. Pill Count _ __. Today's Rapid Urine Drug Screen _ __. [place] Prescription Monitoring Program _ __. T reatment History: Caregivers you have visited _ __. Test undergone in the past _ __. Past medication you have taken _ __. Treatments you have had _ __. Were prior treatments of any help? _ __. When was prior treatment started? _ __. S TOP-BANG Questionnaire: Do you snore loudly (louder than talking or loud enough to be heard through closed doors)? _ __. Do you often feel tired, fatigued, or sleepy during the day??___. Has anyone observed you stop breathing during your sleep _ __. Do you have or are you being treated for high blood pressure??___. BMI greater than 35 kg/m2? _ __. Age over 50 years old? _ __. Gender: Male _ __. Neck circumference is measured greater than 40cm? _ __.? Score _ __. Oxygen _ __. CPAP _ __. * ROS: G eneral - Multi System: Constitutional D eniesfever, fatigue, weight gain, weight loss, sleep difficulty. R espiratory D enies, cough, shortness of breath, COPD/emphysema, sleep apnea, wheezing, snoring. G astrointestinal?Denies, nausea, vomiting, constipation, diarrhea, abdominal pain. N eurologic D enies, headaches, numbness, weakness, memory loss, excessive sedation. P sychiatric D enies depression, anxiety, suicidal thoughts/actions, panic attacks. Assessment: * Assessment: 1. C hronic pain syndrome - G89.4 (Primary) Billing Information: * Procedure Codes: * Electronic signature of Charu López MD on 08/06/2025 at 05:44 PM CHARGE ACCOUNT AUTHORIZER Sign off status: Pending * Provider: Marguerite López MD Date: 1 Generated for Jimbo torres/Marya/Daniel on: 1 10/07/2024 05:44 PM CHARGE ACCOUNT AUTHORIZER
--- OUTSIDE RECORDS SUMMARY | 2025-06-18 05:00 | XMS_ITS ---
Author Organization [facility] Address [address] [place] [address] Care Team Providers Care Cutter Grinder Name Role Phone Star FERREIRA, Nadeem Primary Care Provider Unavaila Al Christine Unavailable [phone] Etta De Leon Unavailable [phone] REASON FOR VISIT Issues with lami, will need imaging Encounters Encounter Location Date Provider Diagnosis [facility] [place] [address] [place] [address] 06/18/2025 Etta De Leon Plan Of Treatment Next Appt Details Provider Name:Al Patel, 08/13/2025 11:30:00 AM, [address], [place], [address], Provider Name:Loreto Charlesmindi Guilherme, 09/10/2025 01:20:00 PM, [address] [place], [address], Progress Notes * Noreen CHANDOB: [birth year] (59 yo F)Acc No.[id number]:06/18/2025 Progress Notes Patient: Reba Thompsonecca Provider: Santo De Leon APRN :1965 A ge:59 Y S ex:Female Date:06/18/2025 Address:[address] [place] [phone] Pcp:Nadeem Graves MD Subjective: * Chief Complaints: * I ssues with lami, will need imaging * Electronic signature of Rafael Taveras APRN on 08/06/2025 at 05:44 PM LABORATORY COURIER Sign off status: Pending * Provider: Santo De Leon APRN Date: 08/18/2024 Generated for Jimbo torres/Marya/Daniel on: 10/07/2024 05:44 PM LABORATORY COURIER
--- OUTSIDE RECORDS SUMMARY | 2025-07-30 04:30 | XMS_ITS ---
Author Organization [facility] Address [address] [place] [address] Care Team Providers Care Director Of Golf Name Role Phone Star FERREIRA, Nadeem Primary Care Provider Al Marcum [phone] REASON FOR VISIT After NCS Encounters Encounter Location Date Provider Diagnosis [facility] [place] [address] 07/30/2025 Al Patel Plan Of Treatment Next Appt Details Provider Name:Al Patel, 08/13/2025 11:30:00 AM, [address], [place], [address], Provider Name:Loreto Camara Delisamindi Guilherme, 09/10/2025 01:20:00 PM, [address] [place], [address], Progress Notes * Noreen CHANDOB: [birth year] (59 yo F)Acc No.[id number]:07/30/2025 Progress Notes Patient: Noreen Thompson Provider: Brittni Patel MD :1965 A ge:59 Y S ex:Female Date:07/30/2025 Address:[address] [place], [place] [phone] Pcp:Nadeem Graves MD Subjective: * Chief Complaints: * A fter NCS Billing Information: * Procedure Codes: Care Plan Details* * Electronic signature of Jose Patel MD on 08/06/2025 at 05:43 PM TYPE MAPPER Sign off status: Pending * Provider: Brittni Patel MD Date: 1 09/30/2024 Generated for Jimbo torres/Marya/Daniel on: 10/07/2024 05:43 PM TYPE MAPPER
[2025-08-06] VITALS (9 sets, daily range): BP systolic 120–206; BP diastolic 81–95; PULSE 70–85; RESP 17; TEMP 36.8; O2SAT 90–94; BMI 57.6
--- OUTSIDE RECORDS SUMMARY | 2025-08-06 17:44 | XMS_ITS | Patient Health Record ---
Author Organization [facility] Address [address] [place] [address] Care Team Providers Care Showcase Maker Name Role Phone Nadeem Graves MD Primary Care Provider UnavailAl Sheldon Unavailable [phone] Etta De Leon Unavailable [phone] Héctor Gregory Unavailable [phone] Loreto López Unavailable Allergies Allergen (clinical drug [...] Range Notes Cervical Spine AP/Lat 2-3 Vi [id number] (Not yet reviewed by provider) Interpretation: Performing Lab: Notes/Report: [id number]=iSite MRI Cervical Spine w/o Cont- [id number] (Not yet reviewed by provider) Interpretation: Performing Lab: Notes/Report: [email or web address]=[id number]=iSite Schedule Confirmation Reviewed date:07/15/2025 11:17:55 AM Interpretation: Performing Lab: Notes/Report: Schedule Confirmation (Not y et reviewed by provider) Interpretation: Performing Lab: Notes/Report: MRI Cervical Spine w/o Cont [facility] MRI Cervical Spine w/o C [id number] (Not yet reviewed by provider) Interpretation: Performing Lab: Notes/Report: See Below For Report MRI Cervical Spine w/o Cont Diagnosis Description: Cervicalgia Read See Below For Report Schedule Confirmation (Not y et reviewed by provider) Interpretation: Performing Lab: Notes/Report: MRI Cervical Spine w/o Cont Schedule Confirmation Reviewed date:07/30/2025 02:48:55 PM Interpretation: Performing Lab: Notes/Report: Cervical Spine AP/Lat 2-3 Vi [id number] (Not yet reviewed by provider) Interpretation: Performing Lab: Notes/Report: See Below For Report Cervical Spine AP/Lat 2-3 Views Diagnosis Description: Cervicalgia Read See Below For Report Reason For Referral Reason Eval and Treat Diagnosis 1 Chronic pain (G89.29 ) Referring Provider First Name Nadeem Referring Provider Last Name Star Referring Provider Speciality Family Med brockne Referred Organization [facility] Referred Provider Marguerite López Referred Address [address] [facility],[address], Referred Provider Specialty Pain Medicin e Referral Priority Routine Reason NCV/EMG BUE Diagnosis 1 Cervical radiculopat hy (M54.12) Diagnosis 2 Anesthesia of skin ( R20.0) Diagnosis 3 Paresthesia of skin (R20.2) Diagnosis 4 Cervical spinal sten osis (M48.02) Diagnosis 5 Degeneration of inte rvertebral disc of cervical region (M50.30) Referral Organization [facility] [place] Referring Provider First Name Al Referring Provider Last Name Jorge Referring Provider Speciality Neurosurge ry Referred Provider [facility] Referred Provider Specialty [...] Status Risk Notes Problem Chronic pain syndrome (618879188) Chronic pain syndrome (G89.4) Active confirmed Problem Paresthesia (finding) (51189025) Paresthesia of skin (R20.2) Active confirmed Problem Cervical radiculopathy (45254476) Cervical radiculopathy (M54.12) Active confirmed Problem Neck pain (52472871) Cervical pain (neck) (M54.2) Active confirmed Problem Chronic pain (64863025) Chronic pain (G89.29) Active confirmed Problem Cervical spinal stenosis (62106636) Cervical spinal stenosis (M48.02) Active confirmed Problem Degeneration of cervical intervertebral disc (81454015) Degeneration of intervertebral disc of cervical region [...] 07/09/2025 Encounters Encounter Location Date Provider Diagnosis [facility] [address] [place] [address] 07/09/2025 Al Patel Cervical radiculopat hy M54.12 ; Degeneration of intervertebral disc of cervical region M50.30 ; Cervical spinal stenosis M48.02 ; Anesthesia of skin R20.0 and Paresthesia of skin R20.2 [facility] [place] [address] [place] [address] 06/05/2025 Héctor Gregory Cervical pain (neck) M54.2 and Paraspinal muscle spasm M62.830 [facility] [address] [address] 06/05/2025 Héctor Gregory Assessments Encounter Date Diagnosis [...] Name Order Date Cervical Spine AP/Lat 2-3 Views-22564 Cervical Spine AP/Lat 2-3 Views-78524 MRI Cervical Spine w/o Cont-[id number] 2024 Schedule Confirmation 07/09/2025 Schedule Confirmation 07/09/2025 [facility] MRI Cervical Spine w/o Cont-[id number] Next Appt Details Provider Name:Al Patel, 08/13/2025 11:30:00 AM, [address], [place], [place], [address], Provider Name:Loreto Piedra Guilherme, 09/10/2025 01:20:00 PM, [address] [place], [address], Insurance Providers Payer Name Payer Address Payer Phone Subscriber Number Group Number Insured Name Patient Relationship to Insured Coverage Start Date Coverage End Date Alma [address] [place] [address] [id number] Beverage , Noreen Self - patient is the insured Medical (General) History Medical History History ICD Code Chicken Pox High Blood Pressure asthma bronchitis Thyroid Disorder GERD Arthritis Anxiety Depression Surgical History Surgery Date(Month/Year) ankle shoulder gall bladder removal bladder surgery laminectomy hysterectomy Hospitalization History Reason Date(Month/Year) see surgeries
--- OUTSIDE RECORDS SUMMARY | 2025-08-06 17:44 | XMS_ITS | Patient Health Record ---
Author Organization [employer] Address [address] [place] [address] Care Team Providers Care Assembler For Puller Over Machine Name Role Phone Nadeem Graves MD Primary Care Provider Danielle WEI Corbett Unavailable [phone] Reason For Referral No Information Plan Of Treatment No Information Insurance Providers Payer Name Payer Address Payer Phone Subscriber Number Group Number Insured Name Patient Relationship to Insured Coverage Start Date Coverage End Date Alma [address] [place], [place] [id number] Noreen Chan Self - patient is the insured
--- NOTE | 2025-08-06 18:40 | XRR_ITS ---
PROCEDURE INFORMATION: Exam: XR Chest Exam date and time: 08/06/2025 6:43 PM Age: 59 years old Clinical indication: Cough and dyspnea; Additional info: Dyspnea/cough TECHNIQUE: Imaging protocol: Radiologic exam of the chest. 3 image(s) are submitted. Views: 1 view. COMPARISON: CR XR chest 1V portable [id number] 08/05/2025 1:27 PM FINDINGS: Lungs: Unremarkable. No consolidation. Pleural spaces: Unremarkable. No pleural effusion. No pneumothorax. Heart/Mediastinum: Unremarkable. No cardiomegaly. Bones/joints: Unremarkable. XR/XR chest 1V portable [id number] IMPRESSION: No acute findings. No change since previous study.
--- NOTE | 2025-08-06 18:51 | W.ED.SOB ---
HPI - SOB/Dyspnea General: Chief Complaint: Shortness of Breath/Dyspnea Stated Complaint: having trouble of breathing Time Seen by Provider: 08/06/25 18:16 History of Present Illness: HPI Narrative: 59-year-old female who presents to the emergency room with complaints of shortness of breath. She was seen yesterday for the same chest x-ray was normal ABG shows pCO2 and pO2 in the 50s but she was well acclimated to it flu COVID and RSV were negative. She is already been on some steroids and antibiotics she is encouraged to continue those medications. Her other laboratory studies were unremarkable. She returns today states she is still feeling short of breath. She has not had any fevers sweats or chills she has no orthopnea no PND. No hemoptysis cough has been nonproductive. Associated symptoms: Deny abdominal pain, chest pain or fever(s) Related Data Home Medications ?Medication ?Instructions ?Recorded ?Confirmed chlorthalidone 25 mg tablet 25 mg PO DAILY 10/14/24 08/04/25 estradiol 1 mg tablet 1 mg PO DAILY 10/14/24 08/04/25 levothyroxine 50 mcg tablet 50 mcg PO DAILY 10/14/24 08/04/25 omeprazole 40 mg capsule,delayed 40 mg PO DAILY 10/14/24 08/04/25 release tolterodine 4 mg capsule,extended 4 mg PO DAILY 10/14/24 08/04/25 release 24 hr benzonatate 200 mg capsule 200 mg PO Q8H 10/25/24 08/04/25 baclofen 10 mg tablet 10 mg PO BID 12/05/24 08/04/25 metronidazole 500 mg tablet 500 mg PO BID 04/25/25 08/04/25 mupirocin 2 % topical ointment 1 applic topical TID 04/25/25 08/04/25 (Centany) nystatin 100,000 unit/gram topical 1 applic topical DAILY PRN 04/25/25 08/04/25 cream Previous Rx's ?Medication ?Instructions ?Recorded ondansetron 4 mg disintegrating 4 mg PO Q8H PRN nausea and 10/25/24 tablet vomiting #9 tabs clonazepam 1 mg tablet 1 mg PO BID PRN anxiety/panic 02/22/25 attacks #60 tabs duloxetine 30 mg capsule,delayed 30 mg PO .morning #30 caps 04/25/25 release quetiapine 50 mg tablet 50 mg PO .9 pm #30 tabs 04/25/25 trazodone 150 mg tablet 150 mg PO BEDTIME PRN sleep #30 04/25/25 tabs albuterol sulfate 2.5 mg/3 mL 2.5 mg (3 mL) inhalation Q4H PRN 08/04/25 (0.083 %) solution for nebulization shortness of breath or wheezing #90 mL cefdinir 300 mg capsule 300 mg PO BID 10 days #20 caps 08/04/25 prednisone 20 mg tablet 40 mg (2 x 20 mg) PO DAILY 5 days 08/04/25 #10 tabs apixaban 5 mg (74 tabs) tablets in See Rx Instructions PO .COMPLEX 08/06/25 a dose pack (EliquDole Tian DVT-PE Treat #74 ea 30D Start) Allergies Allergy/AdvReac Type Severity Reaction Status Date / Time azithromycin Allergy Unknown ADR-Gastrointestinal Verified 08/04/25 13:42 Upset haloperidol (From Haldol) Allergy ALGY-Anaphy Verified 08/04/25 13:42 laxis latex Allergy ALGY-Redness Verified 08/04/25 13:42 of Skin meperidine (From Demerol) Allergy ADR-Halluci Verified 08/04/25 13:42 nating prednisone Allergy ADR-Anxiety Verified 08/04/25 13:42 dexamethasone AdvReac Severe ADR-Migrain Verified 08/04/25 13:42 e aripiprazole (From Abilify) AdvReac Unknown ADR-Anxiety Verified 08/04/25 13:42 bupropion (From Wellbutrin) AdvReac Unknown ADR-Confusi Verified 08/04/25 13:42 on Review of Systems Const: Denies: fever(s) or chills Card: Denies: chest pain Resp: Denies: dyspnea GI: Denies: abdominal pain : Denies: dysuria, urinary frequency or urinary urgency Musc: Denies: neck pain or back pain Skin/Breast: Denies: rash PFSH ED PFSH: Medical History Nonhealing nonsurgical wound with fat layer exposed Major depressive disorder, recurrent severe without psychotic features Generalized anxiety disorder with panic attacks Impingement syndrome of right shoulder Primary osteoarthritis, right shoulder Right rotator cuff tendonitis Urinary incontinence in female Psychiatric care Major depressive disorder, recurrent, in partial remission Surgical History S/P shoulder surgery Date of procedure: October 11, 2024 Pre-op diagnosis: Right shoulder impingement with acromioclavicular joint osteoarthritis with calcific tendinitis Procedure done: Right shoulder open acromioplasty with bursectomy and evaluation of rotator cuff and distal clavicle resection Surgeon: Romi Delvalle MD H/O: hysterectomy Hx of neck surgery Fusion Hx of colonoscopy 10 yrs History of esophagogastroduodenoscopy (EGD) History of [place] urethropexy 24 yrs ago Family History Unknown Cancer She denies a family hx of breast, ovarian, uterine, pancreatic, colon, thyroid cancers. Denies family history of Diabetes Hypertension Stroke Social History Smoking and tobacco/nicotine status: never used tobacco/nicotine Alcohol intake: never Substance/Drug Use: never Physical Exam Const: COMMON NORMALS: no acute distress GENERAL APPEARANCE: cooperative and comfortable ORIENTATION/CONSCIOUSNESS: Yes awake, Yes oriented to person, Yes oriented to place and Yes oriented to time HENMT: COMMON NORMALS: normocephalic, atraumatic and hearing grossly normal bilaterally HEAD & SCALP: normocephalic and atraumatic Resp: COMMON NORMALS: normal respiratory effort, No retractions, No use of accessory muscles and clear to auscultation bilaterally AUSCULTATION: clear to auscultation bilaterally Cardio: COMMON NORMALS: regular rate, regular rhythm and No murmurs present (Cardio) RATE: regular rate RHYTHM: regular rhythm GI: COMMON NORMALS: Soft to palpation and No hepatosplenomegaly present AUSCULTATION: Yes normoactive bowel sounds PALPATION: Yes Soft to palpation, No Tenderness to palpation present (GI), No Guarding due to palpation present (GI) and Yes No hepatosplenomegaly present Extremity: COMMON NORMALS: normal to inspection, capillary refill normal, no clubbing, cyanosis or edema, no calf tenderness and no pedal edema Neuro: SENSORIUM/ORIENTATION: Yes oriented to person, Yes oriented to place and Yes oriented to time Skin: COMMON NORMALS: no rashes or lesions noted GENERAL SKIN EXAM: no rashes or lesions noted Course Vital Signs: Vital signs: Vital Signs Temperature 98.2 F 08/06/25 17:44 Pulse Rate 70 08/06/25 22:15 Respiratory Rate 17 08/06/25 20:00 Blood Pressure 120/82 08/06/25 22:15 Pulse Oximetry 93 08/06/25 22:15 Oxygen Delivery Me thod Room Air 08/06/25 21:00 MDM - SOB/Dyspnea Medical Decision Making Patient returns she was seen yesterday. Blood gas done yesterday showed chronic hypoxia and hypercapnia for which she was well acclimated to her sats were good she was treated for COPD she is complaining of continued symptoms. A D-dimer was mildly elevated CT a was done and shows small peripheral PEs. Laboratory test shows a normal white count and hemoglobin. Blood gas again today shows chronic hypoxia and hypercapnia which is Slightly better than what she had yesterday electrolytes renal function normal. Urine shows more squamous cells and white blood cells likely contaminant. Reviewed findings of CTA. Chest x-ray done today did not show any acute findings no infiltrates or effusions no cardiomegaly. No increased vascular markings. Will start the patient on Eliquis she was given a single dose of Lovenox today and a prescription for Eliquis discussed with her she should follow-up with her primary care provider and continue the Eliquis until advised that she is able to stop. Return to the emergency room if she has any hemoptysis worsening shortness of breath or chest pain Lab Data 08/06/25 18:48 08/06/25 18:48 Labs/Radiology: Radiology Impressions Chest X-Ray 08/06/25 18:40 IMPRESSION: No acute findings. No change since previous study. Chest CTA 08/06/25 19:40 IMPRESSION: 1. Multiple small, less than 7 mm diameter filling defect in the right lower lobe, left lower lobe, consistent with multiple small pulmonary emboli probably acute. The clot burden is low. No evidence of right heart strain. Small bilateral hilar and mediastinal lymph nodes without pathologic enlargement. Calcified lymph nodes in the right hilar region. 2. Fatty liver infiltration. 3. Subcutaneous soft tissue edema on the left side of the upper abdomen, may be secondary to edema or inflammation. Status post cholecystectomy. 4. 3 mm calcified granuloma in the right upper lobe. No suspicious pulmonary nodule. No focal pulmonary infiltrate, effusion or pneumothorax. ADDENDUM: 08/06/252054 Findings were discussed with LUI GUERRIER at 08/06/2025 8:53 PM FIELD SALES MANAGER. Venous Duplex 08/06/25 20:55 IMPRESSION: No evidence of deep vein thrombosis. Laboratory Results WBC 9.51 10^3/uL (3.29-11.43) 08/06/25 18:48 RBC 3.91 10^6/uL (3.85-5.65) 08/06/25 18:48 Hgb 11.50 g/dL (11.27-16.99) 08/06/25 18:48 Hct 35.8 % (36-47) L 08/06/25 18:48 MCV 91.6 fl (85-98) 08/06/25 18:48 MCH 29.4 pg (27-33) 08/06/25 18:48 MCHC 32.1 g/dL (30-55) 08/06/25 18:48 RDW 14.3 % (12.1-15.1) 08/06/25 18:48 Plt Count 345 10^3/cmm (157-399) 08/06/25 18:48 MPV 9.9 fL (7.4-10.4) 08/06/25 18:48 Neut % (Auto) 82.2 % 08/06/25 18:48 Lymph % (Auto) 9.9 % 08/06/25 18:48 [place] % (Auto) 7.2 % 08/06/25 18:48 Eos % (Auto) 0.0 % 08/06/25 18:48 Baso % (Auto) 0.2 % 08/06/25 18:48 Neut # (Auto) 7.82 10^3/uL (1.8-7.7) H 08/06/25 18:48 Lymph # (Auto) 0.9 10^3/uL (0.8-4.8) 08/06/25 18:48 [place] # (Auto) 0.7 10^3/uL (0.2-0.9) 08/06/25 18:48 Eos # (Auto) 0.0 10^3/uL (0.0-0.8) 08/06/25 18:48 Baso # (Auto) 0.0 10^3/uL (0.0-0.1) 08/06/25 18:48 Nucleated RBC % (auto) 0 % 08/06/25 18:48 Nucleated RBCs # 0.0 /100WBC 08/06/25 18:48 D-Dimer 1.09 ug/mLFEU (0-0.59) H 08/06/25 18:48 Specimen Type Arterial 08/06/25 20:40 Sample Site Radial, right 08/06/25 20:40 ABG pH 7.42 (7.35-7.45) 08/06/25 20:40 ABG pCO2 46.3 mmHg (35-45) H 08/06/25 20:40 ABG pO2 59.9 mmHg (80.0-100.0) L 08/06/25 20:40 ABG PO2/FiO2 Ratio 285 08/06/25 20:40 ABG HCO3 29.8 mmol/L (22-26) H 08/06/25 20:40 ABG O2 Saturation 91.7 08/06/25 20:40 ABG Base Excess 4.5 mmol/L (-2.0-2.0) H 08/06/25 20:40 Marlon Test Pos 08/06/25 20:40 A-a O2 Gradient 4.4 mmHg (5-10) L 08/06/25 20:40 Hematocrit 36.3 % (37-47) L 08/06/25 20:40 Hgb O2 Saturation 90.3 % (95-100) L 08/06/25 20:40 Carboxyhemoglobin 1.2 %THgb (0.4-20.1) 08/06/25 20:40 Methemoglobin 0.3 % (0.4-1.5) L 08/06/25 20:40 Total Hemoglobin 11.8 g/dL (12-16) L 08/06/25 20:40 Sodium 137.0 mmol/L (131-143) 08/06/25 20:40 Potassium 3.9 mmol/L (3.5-5.0) 08/06/25 20:40 Glucose 139.0 mg/dL (70-115) H 08/06/25 20:40 Ionized Calcium 1.1 mmol/L (1.1-1.4) 08/06/25 20:40 O2 Delivery Device Room air 08/06/25 20:40 FiO2 21.0 % 08/06/25 20:40 Mixer And Blender ID leana 08/06/25 20:40 Sodium 136 mmol/L (136-145) 08/06/25 18:48 Potassium 3.9 mmol/L (3.5-5.1) 08/06/25 18:48 Chloride 98 mmol/L (98-107) 08/06/25 18:48 Carbon Dioxide 26 mmol/L (22-29) 08/06/25 18:48 Anion Gap 15.9 (5-19) 08/06/25 18:48 BUN 9 mg/dL (8-23) 08/06/25 18:48 Creatinine 0.9 mg/dL (0.5-0.9) 08/06/25 18:48 GFR Calculation 63.9 mL/min (90-130) L 08/06/25 18:48 Glucose 135 mg/dL (65-115) H 08/06/25 18:48 Calculated Osmolality 283 mOsm/kg (285-295) L 08/06/25 18:48 Calcium 8.2 mg/dL (8.5-10.5) L 08/06/25 18:48 Total Bilirubin 0.3 mg/dL (0.15-1.2) 08/06/25 18:48 AST 18 U/L (0-32) 08/06/25 18:48 ALT 17 U/L (0-33) 08/06/25 18:48 Alkaline Phosphatase 80 U/L (35-105) 08/06/25 18:48 Total Protein 6.4 g/dL (6.6-8.7) L 08/06/25 18:48 Albumin 3.5 g/dL (3.5-5.2) 08/06/25 18:48 Globulin 2.9 g/dL (1.3-4.6) 08/06/25 18:48 Urine Color Yellow (Yellow) 08/06/25 19:30 Urine Appearance Cloudy (CLEAR) A 08/06/25 19:30 Urine pH 7.5 (5-7) 08/06/25 19:30 Ur Specific Omega 1.020 (1.005-1.030) 08/06/25 19:30 Urine Protein 2+ (Negative) A 08/06/25 19:30 Urine Glucose (UA) Negative (Normal) 08/06/25 19:30 Urine Ketones Trace (Negative) 08/06/25 19: Urine Blood Negative (Negative) 08/06/25 19:30 Urine Nitrate Negative (Negative) 08/06/25 19:30 Urine Bilirubin Negative (Negative) 08/06/25 19:30 Urine Urobilinogen 1.0 mg/dL (Negative) 08/06/25 19:30 Ur Leukocyte Esterase 1+ (Negative) A 08/06/25 19:30 Urine RBC 6-10 /hpf (0-2) 08/06/25 19:30 Urine WBC 6-10 /hpf (0-5) 08/06/25 19:30 Ur Squamous Epith Cells 11-20 /hpf (0-5) H 08/06/25 19:30 Amorphous Sediment Not Reportable 08/06/25 19: Urine Bacteria Trace /hpf (NONE) 08/06/25 19: Hyaline Casts 2.05 /lpf 08/06/25 19:30 Urine Yeast 1+ /hpf H 08/06/25 19:30 Influenza A (PCR) Negative (Negative) 08/06/25 19:30 Influenza Type B (PCR) Negative (Negative) 08/06/25 19:30 RSV (PCR) Negative (Negative) 08/06/25 19:30 SARS-CoV-2 (PCR) Negative (Negative) 08/06/25 19:30 All radiology interpretation(s) finalized by discharge Discharge Plan Discharge Patient Disposition: Home Clinical Impression: Pulmonary embolism Condition: Stable Prescriptions: New Syd[place] DVT-PE Treat 30D Start 5 mg (74 tabs) tablets,dose pack See Rx Instructions .ROUTE .COMPLEX Qty: 74 0RF Rx Instructions: orally per package directions No Action baclofen 10 mg tablet 10 mg PO BID clonazepam 1 mg tablet 1 mg PO BID PRN (Reason: anxiety/panic attacks) Qty: 60 3RF Rx Instructions: Take one tablet twice per day as needed metronidazole 500 mg tablet 500 mg PO BID nystatin 100,000 unit/gram cream 1 applic topical DAILY PRN mupirocin [Centany] 2 % ointment 1 applic topical TID quetiapine 50 mg tablet 50 mg PO .9 pm Qty: 30 3RF Rx Instructions: Take one tablet at 9 pm trazodone 150 mg tablet 150 mg PO BEDTIME PRN (Reason: sleep) Qty: 30 4RF Rx Instructions: May take one tablet at bedtime as needed for sleep duloxetine 30 mg capsule,delayed release(DR/EC) 30 mg PO .morning Qty: 30 3RF Rx Instructions: Take one capsule every morning albuterol sulfate 2.5 mg /3 mL (0.083 %) solution for nebulization 2.5 mg INHALATION Q4H PRN (Reason: shortness of breath or wheezing) Qty: 90 0RF cefdinir 300 mg capsule 300 mg PO BID 10 Days Qty: 20 0RF prednisone 20 mg tablet 40 mg PO DAILY 5 Days Qty: 10 0RF tolterodine 4 mg capsule,extended release 24hr 4 mg PO DAILY chlorthalidone 25 mg tablet 25 mg PO DAILY omeprazole 40 mg capsule,delayed release(DR/EC) 40 mg PO DAILY estradiol 1 mg tablet 1 mg PO DAILY levothyroxine 50 mcg tablet 50 mcg PO DAILY benzonatate 200 mg capsule 200 mg PO Q8H ondansetron 4 mg tablet,disintegrating 4 mg PO Q8H PRN (Reason: nausea and vomiting) Qty: 9 0RF Discharge Orders: Discharge ED (Routine); Ordered 08/06/25 Ordered By: Lui Guerrier Referrals: Nadeem Graves MD [Primary Care Provider, [facility]] Discharge Diet: Usual diet Discharge Activity: Increase activity as tolerated Patient Instructions: Opioid Safety, Pain Management, Patient Portal & [place] Instructions Activity Restrictions/Additional Instructions: Thank you for choosing [facility] for your healthcare needs today. It is very important that you follow up as instructed or that you return to the Emergency Department should you have concerns or if your condition changes or worsens in any way. Emergency department visits are focused on emergent conditions, in some cases you may require further evaluation on an outpatient basis. You were seen the emergency room with complaints of persistent shortness of breath. Blood gas normal your vitals were normal. We screened you for DVT which was positive and found that you do have multiple small pulmonary emboli. This is likely the cause of your shortness of breath in conjunction with your underlying COPD. You are given a shot of Lovenox here and we will start you on Eliquis. Take the Eliquis as directed on the package. You should continue on the Eliquis until your doctor specifically tells you to stop taking it. At the time of your discharge we had a long discussion regarding different problems he had been having and things that should be further evaluated. Would recommend that you establish with a PCP and discuss possibly having pulmonary function test to further clarify your lung functions and any underlying problems present. You are also mentioned you have a significant mount of weight gain recently you may benefit from an evaluation of your heart including an echocardiogram. Finally you should talk to your primary care doctor about further evaluation for the source of the pulmonary emboli including evaluation for coagulopathies (tendency to form clots). (Please note that included in your discharge packet is information concerning opioid safety and pain management. This information is given to all patients were discharged from the ER regardless of their discharge diagnosis or the medicines they usually take or are prescribed.) Print Language: Wolof Coding Level of Care Code ED Garland Maker for [place] Ruth
[2025-08-06 19:00] LABS: Hematocrit 35.8 % (36-47); Hemoglobin 11.50 g/dL (11.27-16.99); Mean Corpuscular HGB Conc 32.1 g/dL (30-55); Mean Corpuscular Hemoglobin 29.4 pg (27-33); Mean Corpuscular Volume 91.6 fl (85-98); Nucleated Red Blood Cells % 0 %; Platelet Count 345 10^3/cmm (157-399); Red Blood Count 3.91 10^6/uL (3.85-5.65); White Blood Count 9.51 10^3/uL (3.29-11.43)
[2025-08-06 19:18] LABS: Alanine Aminotransferase 17 U/L (0-33); Albumin Level 3.5 g/dL (3.5-5.2); Alkaline Phosphatase 80 U/L (35-105); Anion Gap 15.9 (5-19); Aspartate Amino Transferase 18 U/L (0-32); Blood Urea Nitrogen 9 mg/dL (8-23); Calcium 8.2 mg/dL (8.5-10.5); Carbon Dioxide 26 mmol/L (22-29); Chloride 98 mmol/L (98-107); Globulin 2.9 g/dL (1.3-4.6); Glucose 135 mg/dL (65-115); Osmolality Calculated 283 mOsm/kg (285-295); Potassium 3.9 mmol/L (3.5-5.1); Sodium 136 mmol/L (136-145); Total Protein 6.4 g/dL (6.6-8.7)
--- NOTE | 2025-08-06 19:40 | CTR_ITS ---
PROCEDURE INFORMATION: Exam: CTA Chest With Contrast Exam date and time: 08/06/2025 8:18 PM Age: 59 years old Clinical indication: Dyspnea TECHNIQUE: Imaging protocol: Computed tomographic angiography of the chest with contrast. Exam focused on the arteries. 1605 image(s) are submitted. 3D rendering (Not supervised by radiologist): MIP and/or 3D reconstructed images were created by the technologist. Radiation optimization: All CT scans at this facility use at least one of these dose optimization techniques: automated exposure control; mA and/or kV adjustment per patient size (includes targeted exams where dose is matched to clinical indication); or iterative reconstruction. Contrast material: OMNI 350; Contrast volume: 100 ml; Contrast route: INTRAVENOUS (IV); COMPARISON: CR (CHEST, ) 08/06/2025 6:43 PM RADIATION DOSE METRICS: Total DLP (mGy-cm): 586.93 FINDINGS: Pulmonary arteries: multiple small, less than 7 mm diameter filling defect in the right lower lobe, left lower lobe, consistent with multiple small pulmonary emboli probably acute. The clot burden is low. No evidence of right heart strain. Small bilateral hilar and mediastinal lymph nodes without pathologic enlargement. Calcified lymph nodes in the right hilar region. Aorta: Unremarkable. No aortic aneurysm. No aortic dissection. Lungs: 3 mm calcified granuloma in the right upper lobe. No suspicious pulmonary nodule. No focal pulmonary infiltrate, effusion or pneumothorax. Pleural spaces: See Lungs finding. Heart: See Pulmonary arteries finding. Lymph nodes: See Pulmonary arteries finding. Liver: Fatty liver infiltration. Bones/joints: Unremarkable. No acute fracture. Soft tissues: Subcutaneous soft tissue edema on the left side of the upper abdomen, may be secondary to edema or inflammation. Status post cholecystectomy. CT/CT angio chest PE protcl [id number] IMPRESSION: 1. Multiple small, less than 7 mm diameter filling defect in the right lower lobe, left lower lobe, consistent with multiple small pulmonary emboli probably acute. The clot burden is low. No evidence of right heart strain. Small bilateral hilar and mediastinal lymph nodes without pathologic enlargement. Calcified lymph nodes in the right hilar region. 2. Fatty liver infiltration. 3. Subcutaneous soft tissue edema on the left side of the upper abdomen, may be secondary to edema or inflammation. Status post cholecystectomy. 4. 3 mm calcified granuloma in the right upper lobe. No suspicious pulmonary nodule. No focal pulmonary infiltrate, effusion or pneumothorax.
[2025-08-06 19:51] LABS: Glucose Urine UA Negative (Normal); Nitrate Urine Negative (Negative); Specific Gravity, Urine 1.020 (1.005-1.030)
[2025-08-06 19:57] LABS: Add Urine Microscopic? YES; Universal Test for UA Present (0)
[2025-08-06 20:03] LABS: UA Slide Review UA Slide Review Perf
[2025-08-06 20:19] LABS: Respiratory Syncytial Virus Ce NEGATIVE (Negative); SARS-CoV-2 PCR NEGATIVE (Negative)
[2025-08-06 20:51] LABS: ABG PCO2 46.3 mmHg (35-45); ABG PH Result 7.42 (7.35-7.45); Alveolar-Arterial Oxygen Gradi 4.4 mmHg (5-10); Arterial Blood Gas Hematocrit 36.3 % (37-47); Blood Gas Allen Test Pos; Blood Gas Operator Identificat gerca; Blood Gas Sample Site Radial, right; Blood Gas Sample Type Arterial; Carboxyhemoglobin 1.2 %THgb (0.4-20.1); Glucose Level-ABG 139.0 mg/dL (70-115); HCO3 ABG 29.8 mmol/L (22-26); Ionized Calcium Level - ABG 1.1 mmol/L (1.1-1.4); Methemoglobin 0.3 % (0.4-1.5); Oxygen Saturation ABG 91.7; PO2 ABG 59.9 mmHg (80.0-100.0); PO2 FiO2 Ratio Arterial Blood 285; Potassium Level - ABG 3.9 mmol/L (3.5-5.0); Sodium Level - ABG 137.0 mmol/L (131-143)
--- NOTE | 2025-08-06 20:55 | USR_ITS ---
PROCEDURE INFORMATION: Exam: US Duplex Lower Extremity Veins, Bilateral Exam date and time: 08/06/2025 9:13 PM Age: 59 years old Clinical indication: Edema, localized; Lower extremity, bilateral; Additional info: Pe TECHNIQUE: Imaging protocol: Real-time duplex ultrasound of the bilateral extremities with 2-D [place] scale, color Doppler flow and spectral waveform analysis including responses to compression and other maneuvers (when performed) with image documentation. Complete exam focused on the lower extremity veins. 547 image(s) are submitted. COMPARISON: CT abdomen pelvis w con* [id number] 05/02/2025 4:29 PM FINDINGS: Right deep veins: Unremarkable. The common femoral, femoral, proximal profunda femoral and popliteal veins are patent without thrombus. Normal Doppler waveforms. Normal compressibility and/or augmentation response. Left deep veins: Unremarkable. The common femoral, femoral, proximal profunda femoral and popliteal veins are patent without thrombus. Normal Doppler waveforms. Normal compressibility and/or augmentation response. Superficial veins: Greater saphenous veins at the saphenofemoral junctions are patent bilaterally without thrombus. Soft tissues: Unremarkable. US/CV venous duplex [facility] [id number] IMPRESSION: No evidence of deep vein thrombosis.
== END 2025-08-06 22:26 | disposition home or self-care (01) ==
PROVIDERS: Emergency Provider Family Medicine; PCP Family Medicine
DX: I26.99 Other pulmonary embolism without acute cor pulmonale (principal); Z11.52 Encounter for screening for COVID-19
CPT/HCPCS: 36415; 36600; 71045; 71275; 80051; 80053; 81001; 82330; 82805; 85025; 85378; 87086; 87637; 93970; 96372; 99284; J1650